=== PATIENT | female | born 1995 | race Caucasian/White ===

== ENCOUNTER 2020-12-25 13:21 | Emergency (ER) | payer OTHER, SELFPAY ==
[2020-12-25 13:24] VITALS: BP 109/67; PULSE 100; RESP 17; TEMP 36.9; O2SAT 99; BMI 21.7
[2020-12-25 14:21] LABS: Glucose Urine UA NEG (NEG); Leukocyte Esterase Urine NEG (NEG); Nitrite Urine NEG (NEG); Specific Gravity - Urine <= 1.005 (1.005-1.025); Urine Blood NEG (NEG); Urine Ketones NEG (NEG); Urine Protein NEG (NEG-TRACE)
[2020-12-25 14:22] LABS: Appearance Urine CLEAR; Color Urine STRAW; UPreg QC Valid YES
[2020-12-25 14:23] LABS: Urine Pregnancy NEGATIVE (NEGATIVE)
[2020-12-25 14:31] LABS: RBC Urine 0 /HPF (0); Squamous Epithelial Cell Urine TRACE /LPF; WBC Urine 0 /HPF (0-4)
--- NOTE | 2020-12-25 14:53 | ED_ITS ---
HPI - General Adult General Chief complaint: General Medical Stated complaint: ABD PAIN DIARRHEA Time Seen by Provider: 12/25/20 14:21 Source: patient Mode of arrival: ambulatory Limitations: no limitations History of Present Illness HPI narrative: 25-year-old female with nonsignificant past medical history presents to the emergency department with diarrhea x4 days. Patient states on Friday she started to developed loose nonbloody stool that progressed through the weekend. States she trialed Pepto-Bismol home with minimal relief. Admits to mild intermittent nausea but denies vomiting. Denies significant abdominal pain. Does admit to some mild back pressure that comes and goes. Denies urinary symptoms. Denies fevers or chills. States yesterday her stool was dark almost black color and that concerned her in fact made her come to the ED today. No known sick contacts, no recent travel and patient is vaccinated against COVID. Related Data Allergies Allergy/AdvReac Type Severity Reaction Status Date / Time No Known Allergies Allergy Verified 12/25/20 14:46 Review of Systems Review of Systems: Constitutional : No Weight loss, No Fever, No Chills, No Night Sweats, No Fatigue, No Malaise ENT/Mouth : No Hearing loss, No Ear Pain, No Nasal Congestion, No Sinus Pain, No Hoarseness, No sore throat, No Rhinorrhea, No Swallowing Difficulty Eyes: No Eye Pain, No Swelling, No Redness, No Foreign Body, No Discharge, No Vision Changes Cardiovascular : No Chest Pain, No SOB, No Dyspnea on Exertion, No Orthopnea, No Edema, No Palpitations Respiratory : No Cough, No Sputum, No Wheezing, No Smoke Exposure, No Dyspnea Gastrointestinal : + Nausea, No Vomiting, + Diarrhea, No Constipation, No abdominal Pain, No Hematochezia, No Melena Genitourinary : no irregular bleeding, No Dysuria, No Urinary Frequency, No Hematuria, No Urinary Incontinence, No Urgency, No Flank Pain, No Urinary Flow Changes, No Hesitancy Musculoskeletal : No joint pain, No Myalgias, No Joint Swelling Skin : No Skin Lesions, No rash Neuro : No Weakness, No Numbness, No Paresthesias, No Loss of Consciousness, No Dizziness, No Headache Psych : No Anxiety/Panic, No Depression, No SI/HI/AH/VH, No Social Issues, Heme/Lymph: No Bruising, No Bleeding,No Lymphadenopathy Endocrine : No Polyuria, No Polydipsia, No Temperature Intolerance [facility] Past Medical History Attestation statement: The following information was validated with the patient. Source: old records reviewed and nursing notes reviewed Medical History (Updated 12/25/20 @ 16:19 by RONALDO Lei) FHx: cholecystectomy Migraine Social History Social History Patient Tobacco Use Status: Never used Tobacco Use of substances other than those prescribed or required for medical reasons: No Advance Directives: No Advance Directives Information Provided: No Patient : No Physical Exam Vital Signs: Vital Signs: Last Vital Signs Temp 98.4 F 12/25/20 13:24 Pulse 69 12/25/20 15:52 Resp 16 12/25/20 15:52 BP 96/61 12/25/20 15:52 Pulse Ox 99 12/25/20 15:52 Body Mass Index 21.7 vital signs have been reviewed as normal and appeared to be correct. Blood pressure normal. Heart rate normal. Respiration rate normal. Temperature normal. Oxygen saturation normal. Appearance: Alert. Oriented X3. No acute distress. Head: Normal external exam. Normocephalic. Atraumatic. No Lainez signs noted. No raccoon eyes noted Eyes: Conjunctiva and sclera normal. ENT: EAC normal. Moist mucous membranes. No drooling noted. No muffled voice noted. Neck: Normal inspection. Neck supple. FROM. No meningeal signs. CVS: Pulses normal throughout. Respiratory: No respiratory distress. Painless inspiration. No accessory muscle usage noted Abdomen: No visible injury noted. Abdomen soft, nd/nt Back: Full range of motion noted.No CVA tenderness Skin: Skin warm and dry. Normal skin color. Normal skin turgor. Extremities: No lower extremity edema. Extremities exhibit normal range of motion. Neuro: Oriented X 3. No motor deficit. No sensory deficit. Course Reevaluation(s) Reevaluation #1: Patient's blood work returning without acute findings. Patient has not had a bowel movement here in the ED. Continues to deny abdominal pain is hemodynamically stable feel the discharge is safe with close outpatient primary care follow-up and strict return precautions patient is comfortable with this plan will discharge home at this time. Medical Decision Making MDM Narrative Medical decision making narrative: Patient's vital signs are stable and she is afebrile. Patient presenting to the emergency department with 3-4 days of diarrhea that now has turned dark although patient has been using Pepto-Bismol. Denies significant abdominal pain admits to mild low back soreness. Urinalysis and obtained in triage without acute findings given diarrhea this could be a viral illness versus colitis will check basic blood work LFTs lipase. Patient does not want fluids at this time feel this is reasonable as she is tolerating p.o. and continues to urinate at baseline. Abdomen soft nondistended nontender no acute need for imaging at this time will continue to monitor reassess pending the above. Lab Data Result diagrams: 12/25/20 14:53 12/25/20 14:53 Labs: Lab Results 12/25/20 12/25/20 12/25/20 Range/Units 14:15 14:15 14:53 WBC 5.4 (4.8-10.8) X10*3/uL RBC 4.16 L (4.20-5.50) X10*6/uL Hgb 12.8 (12.0-16.0) g/dl Hct 38.3 (37-47) % MCV 92.1 (80-98) fL MCH 30.8 (27.0-33.0) pg MCHC 33.4 (31.0-35.0) g/dl RDW 11.2 (11.0-16.0) % Plt Count 205 (160-400) X10*3/uL MPV 10.5 (9.4-12.3) fL Immature Gran % (Auto) 0.4 (0.0-0.4) % Neut % (Auto) 59.3 (45-73) % Lymph % (Auto) 28.7 (20-40) % [place] % (Auto) 9.2 (2-11) % Eos % (Auto) 2.0 (0-4) % Baso % (Auto) 0.4 (0-2) % Lymph # (Auto) 1.6 (1.2-4.9) X10*3/uL [place] # (Auto) 0.5 (0.1-1.2) X10*3/uL Eos # (Auto) 0.1 (0.0-0.4) X10*3/uL Baso # (Auto) 0.0 (0.0-0.2) X10*3/uL Abs Immat Gran (auto) 0.02 (0.00-0.03) X10*3/uL Absolute Neuts (auto) 3.2 (2.0-8.3) X10*3/uL Absolute Nucleated RBC 0.000 (0.0-0.012) X10*3/uL Nucleated RBC % (auto) 0.0 (0.0-0.2) /100WBC Sodium (135-145) mmol/L Potassium (3.3-5.1) mmol/L Chloride (96-108) mmol/L Carbon Dioxide (22-29) mmol/L Anion Gap (12-20) BUN (9-16) mg/dL Creatinine (0.5-1.4) mg/dL Estim Creat Clear Calc Estimated GFR Random Glucose (60-115) mg/dL Calcium (8.4-10.2) mg/dL Total Bilirubin (0.0-1.0) mg/dL AST (5-31) U/L ALT (0-31) U/L Alkaline Phosphatase (39-117) U/L Total Protein (6.5-8.0) g/dL Albumin (3.5-5.0) g/dL Lipase (8-78) U/L Urine Color STRAW Urine Appearance CLEAR Urine pH 6.0 (5.0-8.0) Ur Specific [place] <= 1.005 (1.005-1.025) Urine Protein NEG (NEG-TRACE) MG/DL Urine Glucose (UA) NEG (NEG) MG/DL Urine Ketones NEG (NEG) MG/DL Urine Blood NEG (NEG) Urine Nitrite NEG (NEG) Ur Leukocyte Esterase NEG (NEG) Urine RBC 0 (0) /HPF Urine WBC 0 (0-4) /HPF Ur Squamous Epith Cells TRACE /LPF Urine Bacteria NONE /LPF Urine Test NEGATIVE (NEGATIVE) COVID-19 (RYAN) (Negative) COVID-19 Clin Com 12/25/20 12/25/20 12/25/20 Range/Units 14:53 14:53 14:54 WBC (4.8-10.8) X10*3/uL RBC (4.20-5.50) X10*6/uL Hgb (12.0-16.0) g/dl Hct (37-47) % MCV (80-98) fL MCH (27.0-33.0) pg MCHC (31.0-35.0) g/dl RDW (11.0-16.0) % Plt Count (160-400) X10*3/uL MPV (9.4-12.3) fL Immature Gran % (Auto) (0.0-0.4) % Neut % (Auto) (45-73) % Lymph % (Auto) (20-40) % [place] % (Auto) (2-11) % Eos % (Auto) (0-4) % Baso % (Auto) (0-2) % Lymph # (Auto) (1.2-4.9) X10*3/uL [place] # (Auto) (0.1-1.2) X10*3/uL Eos # (Auto) (0.0-0.4) X10*3/uL Baso # (Auto) (0.0-0.2) X10*3/uL Abs Immat Gran (auto) (0.00-0.03) X10*3/uL Absolute Neuts (auto) (2.0-8.3) X10*3/uL Absolute Nucleated RBC (0.0-0.012) X10*3/uL Nucleated RBC % (auto) (0.0-0.2) /100WBC Sodium 139 (135-145) mmol/L Potassium 4.0 (3.3-5.1) mmol/L Chloride 106 (96-108) mmol/L Carbon Dioxide 27 (22-29) mmol/L Anion Gap 10 L (12-20) BUN 10 (9-16) mg/dL Creatinine 0.79 (0.5-1.4) mg/dL Estim Creat Clear Calc 81.4 Estimated GFR > 60 Random Glucose 90 (60-115) mg/dL Calcium 9.0 (8.4-10.2) mg/dL Total Bilirubin 0.4 (0.0-1.0) mg/dL AST 17 (5-31) U/L ALT 18 (0-31) U/L Alkaline Phosphatase 54 (39-117) U/L Total Protein 6.5 (6.5-8.0) g/dL Albumin 4.2 (3.5-5.0) g/dL Lipase 17 (8-78) U/L Urine Color Urine Appearance Urine pH (5.0-8.0) Ur Specific [place] (1.005-1.025) Urine Protein (NEG-TRACE) MG/DL Urine Glucose (UA) (NEG) MG/DL Urine Ketones (NEG) MG/DL Urine Blood (NEG) Urine Nitrite (NEG) Ur Leukocyte Esterase (NEG) Urine RBC (0) /HPF Urine WBC (0-4) /HPF Ur Squamous Epith Cells /LPF Urine Bacteria /LPF Urine Test (NEGATIVE) COVID-19 (RYAN) Negative (Negative) COVID-19 Clin Com See Note Discharge Plan Discharge Clinical Impression: Diarrhea Qualifiers: Diarrhea type: presumed infectious Qualified Code(s): R19.7 - Diarrhea, unspecified Patient Disposition: Home, Self-Care Instructions: Acute Diarrhea (ED) Additional Instructions: You were seen in the emergency department today for ongoing diarrhea and concern for dark stools. Blood work was drawn without abnormal findings. Her symptoms are likely secondary to a viral illness continue to encourage fluids at home for hydration. Stop the Pepto-Bismol as this is likely causing or dark stools which is not blood. Follow-up with your doctor in next 2-3 days if symptoms persist. Referrals: Physician,None [Primary Care Provider] - 2 days (your pcp) Stand Alone Forms: Work/School Release Interventions: ED Discharge Assessment Last Done: 12/25/20 16:46 Discharge Date/Time: 12/25/20 16:46 Print Language: Serbian
[2020-12-25 14:58] LABS: MANUAL DIFF FLAG NO
[2020-12-25 14:59] LABS: Basophils Percent Auto 0.4 % (0-2); Eosinophils Absolute Auto 0.1 X10*3/uL (0.0-0.4); Hematocrit 38.3 % (37-47); Hemoglobin 12.8 g/dl (12.0-16.0); Imm Gran Abs Auto 0.02 X10*3/uL (0.00-0.03); Imm Gran Pct Auto 0.4 % (0.0-0.4); Lymphocytes Absolute Auto 1.6 X10*3/uL (1.2-4.9); Lymphocytes Percent Auto 28.7 % (20-40); Mean Corpuscular HGB Conc 33.4 g/dl (31.0-35.0); Mean Corpuscular Hemoglobin 30.8 pg (27.0-33.0); Mean Corpuscular Volume 92.1 fL (80-98); Mean Platelet Volume 10.5 fL (9.4-12.3); Monocytes Absolute Auto 0.5 X10*3/uL (0.1-1.2); Monocytes Percent Auto 9.2 % (2-11); Neutrophils Absolute Auto 3.2 X10*3/uL (2.0-8.3); Neutrophils Percent Auto 59.3 % (45-73); Platelet Count 205 X10*3/uL (160-400); Red Blood Count 4.16 X10*6/uL (4.20-5.50); Red Cell Distribution Width 11.2 % (11.0-16.0); White Blood Count 5.4 X10*3/uL (4.8-10.8)
[2020-12-25 15:16] LABS: IDNOW Serial# 9DD0AD1C
[2020-12-25 15:17] LABS: COVID-19 Test Negative (Negative)
[2020-12-25 15:21] LABS: Alanine Aminotransferase 18 U/L (0-31); Albumin Level 4.2 g/dL (3.5-5.0); Alkaline Phosphatase 54 U/L (39-117); Anion Gap 10 (12-20); Aspartate Amino Transferase 17 U/L (5-31); Bilirubin Total 0.4 mg/dL (0.0-1.0); Blood Urea Nitrogen 10 mg/dL (9-16); Carbon Dioxide 27 mmol/L (22-29); Chloride 106 mmol/L (96-108); Creatinine Clr Calc Pharmacy 81.4; Estimated Glomerular Filt Rate > 60; Glucose Random 90 mg/dL (60-115); Sodium 139 mmol/L (135-145); Total Protein 6.5 g/dL (6.5-8.0)
[2020-12-25 15:31] LABS: Lipase 17 U/L (8-78)
[2020-12-25 15:52] VITALS: BP 96/61; PULSE 69; RESP 16; O2SAT 99
== END 2020-12-25 16:46 | disposition home or self-care (01) ==
PROVIDERS: Physician Assistant; Emergency Provider Emergency Medicine Emergency Medical Services
DX: R19.7 Diarrhea, unspecified (principal); Z20.822 Contact with and (suspected) exposure to COVID-19; Z90.49 Acquired absence of other specified parts of digestive tract
CPT/HCPCS: 36415; 80053; 81001; 81025; 83690; 85025; 87635; 99283; 99284

== ENCOUNTER 2021-05-30 15:54 | Outpatient (REF) | payer OTHER, SELFPAY ==
--- NOTE | ~2021-05-30 | US_ITS ---
EXAMINATION: US PELVIS CLINICAL INFORMATION: Left ovarian cyst COMPARISON: None TECHNIQUE: Ultrasound of the pelvis is performed using both transabdominal and transvaginal transducers along with Doppler. Transvaginal imaging is performed due to inadequate visualization transabdominally. FINDINGS: The uterus is anteverted and measures 7.9 x 3.9 x 4.5 cm. No focal uterine lesion is seen. Endometrial thickness is normal measuring 0.2 cm. There is a small amount of fluid seen in the endocervical canal. There is a small nabothian cyst. The right ovary is normal and measures 2.3 x 1.5 x 2.3 cm. Left ovary is enlarged and measures 4.5 x 3 x 3.5 cm. There is a 4.1 x 2.4 x 3.2 cm simple left ovarian cyst. There is no fluid in the pelvis. US/US pelvic and transvaginal IMPRESSION: Enlarged left ovary and 4.1 x 2.4 x 3.2 cm simple left ovarian cyst.
== END 2021-05-30 15:55 | disposition home or self-care (01) ==
LOC: HO.US 15:54
PROVIDERS: Visit Provider Obstetrics & Gynecology
DX: N83.292 Other ovarian cyst, left side (principal)
CPT/HCPCS: 76830; 76856

== ENCOUNTER 2021-07-02 15:25 | Outpatient (REF) | payer OTHER, SELFPAY ==
--- NOTE | ~2021-07-02 | US_ITS ---
EXAMINATION: US PELVIS CLINICAL INFORMATION: Follow up left ovarian cyst. COMPARISON: Ultrasound pelvis 05/30/2021. TECHNIQUE: Ultrasound of the pelvis is performed using both transabdominal and transvaginal transducers along with Doppler. Transvaginal imaging is performed due to inadequate visualization transabdominally. FINDINGS: Uterus: The uterus is anteverted, anteflexed and measures 7.6 x 3.6 x 5.3 cm. The double wall endometrial thickness is 0.2 cm. The uterus is smooth in contour and has normal myometrial echogenicity. No visible fibroid. There is minimal fluid within the cervix. There are small nabothian cysts in the cervix. Adnexa: Both ovaries are visualized. There is normal color flow to the adnexa. There is no ovarian torsion. There is no pelvic ascites or fluid collection. Right ovary measures 3.4 x 1.7 x 1.4 cm and volume 4.2 mL. It appears unremarkable. Previously right ovary measured 2.3 x 1.5 x 2.3 cm. Left ovary measures 3.5 x 1.5 x 1.5 cm and volume 3.7 mL. There is an anechoic cyst in the left ovary measuring 1.5 x 0.5 x 0.86 cm. Previously it measured 4.1 x 2.4 x 3.2 cm. The ovaries size has improved since the last study. US/US pelvic and transvaginal IMPRESSION: Simple cyst left ovary measuring 1.5 cm. Previously it measured 4.1 cm. It has improved in size. The left ovary size is also improved. The right ovary is unremarkable. There are small nabothian cysts in the cervix. The uterus is unremarkable.
== END 2021-07-02 15:26 | disposition home or self-care (01) ==
LOC: HO.US 15:25
PROVIDERS: Visit Provider Obstetrics & Gynecology
DX: N83.292 Other ovarian cyst, left side (principal)
CPT/HCPCS: 76830; 76856

== ENCOUNTER 2021-08-16 07:50 | Outpatient (REF) | payer OTHER, SELFPAY ==
[2021-08-16 10:35] LABS: MANUAL DIFF FLAG NO
[2021-08-16 10:41] LABS: Basophils Percent Auto 0.3 % (0-2); Eosinophils Absolute Auto 0.1 X10*3/uL (0.0-0.4); Eosinophils Percent Auto 2.1 % (0-4); Hematocrit 38.8 % (37.0-47.0); Hemoglobin 12.5 g/dl (12.0-16.0); Imm Gran Abs Auto 0.01 X10*3/uL (0.00-0.03); Imm Gran Pct Auto 0.2 % (0.0-0.4); Lymphocytes Absolute Auto 2.3 X10*3/uL (1.2-4.9); Lymphocytes Percent Auto 36.7 % (20-40); Mean Corpuscular HGB Conc 32.2 g/dl (31.0-35.0); Mean Corpuscular Hemoglobin 30.8 pg (27.0-33.0); Mean Corpuscular Volume 95.6 fL (80.0-98.0); Mean Platelet Volume 11.1 fL (9.4-12.3); Monocytes Absolute Auto 0.4 X10*3/uL (0.1-1.2); Monocytes Percent Auto 6.7 % (2-11); Neutrophils Absolute Auto 3.3 x10*3/uL (2.0-8.3); Platelet Count 233 X10*3/uL (160-400); Red Blood Count 4.06 X10*6/uL (4.20-5.50); Red Cell Distribution Width 11.6 % (11.0-16.0); White Blood Count 6.1 X10*3/uL (4.8-10.8)
[2021-08-16 11:28] LABS: Alanine Aminotransferase 16 U/L (0-31); Albumin Level 4.3 g/dL (3.5-5.0); Alkaline Phosphatase 44 U/L (39-117); Anion Gap 12 (12-20); Aspartate Amino Transferase 15 U/L (5-31); Bilirubin Total 0.9 mg/dL (0.0-1.0); Blood Urea Nitrogen 14 mg/dL (9-16); Calcium 9.6 mg/dL (8.4-10.2); Carbon Dioxide 25 mmol/L (22-29); Chloride 107 mmol/L (96-108); Cholesterol 199 mg/dL; Estimated Glomerular Filt Rate > 60; Glucose Fasting 80 mg/dL (60-99); HDL Cholesterol 52 mg/dL; Iron 102 mcg/dL (30-160); LDL Cholesterol Calculated 136 mg/dl; Percent Iron Saturation 32 % (15-50); Potassium 4.4 mmol/L (3.3-5.1); Sodium 140 mmol/L (135-145); Total Iron Binding Capacity 317 mcg/dL (228-428); Triglycerides 58 mg/dL; Unsaturated Iron Binding 215 ug/dL
[2021-08-16 11:32] LABS: Cortisol Random 14.4 ug/dL
[2021-08-16 11:36] LABS: Estimated Average Glucose 94 mg/dL; Hemoglobin A1c % 4.9 %
[2021-08-16 11:53] LABS: Ferritin 47 ng/mL (10-122); Free T4 (Free Thyroxine) 0.98 ng/dL (0.71-1.85); Insulin 5 uU/mL (2-29); Thyroid Stimulating Hormone 1.01 uIU/mL (0.32-4.0)
[2021-08-17 06:37] LABS: DHEA Sulfate 161 mcg/dL (18-391); Thyroglobulin Antibodies <1 IU/mL (< or = 1); Thyroid Peroxidase Antibodies 1 IU/mL (<9)
[2021-08-17 06:46] LABS: Follicle Stimulating Hormone 7.4 mIU/mL; Lutenizing Hormone 5.5 mIU/mL
[2021-08-17 12:36] LABS: Anti Nuclear Antibody Screen NEGATIVE (NEGATIVE)
[2021-08-17 13:37] LABS: CRP High Sensitivity 0.4 mg/L
[2021-08-20 15:17] LABS: Transglutaminase Ab IgG <1.0 U/mL; Transglutaminase IgA <1.0 U/mL
[2021-08-20 16:06] LABS: Testosterone, Free 2.8 pg/mL (0.1-6.4); Testosterone, Total 33 ng/dL (2-45)
[2021-08-21 12:52] LABS: Triiodothyronine T3 Reverse 16 ng/dL (8-25)
[2021-08-22 19:56] LABS: Estrogen 444.5 pg/mL
== END 2021-08-16 07:51 | disposition home or self-care (01) ==
LOC: HO.10HDL 07:50
PROVIDERS: Visit Provider Nurse Practitioner Family
DX: E55.9 Vitamin D deficiency, unspecified (principal); R51.9 Headache, unspecified; R14.0 Abdominal distension (gaseous); N92.6 Irregular menstruation, unspecified; R73.01 Impaired fasting glucose; D51.3 Other dietary vitamin B12 deficiency anemia
CPT/HCPCS: 36415; 80053; 80061; 82533; 82627; 82672; 82728; 83001; 83002; 83036; 83525; 83540; 84402; 84403; 84439; 84443; 84481; 84482; 85025; 86038; 86039; 86141; 86364; 86376; 86800

== ENCOUNTER 2021-12-21 09:05 | Outpatient (REF) | payer OTHER, SELFPAY ==
[2021-12-21 11:24] LABS: MANUAL DIFF FLAG NO
[2021-12-21 11:36] LABS: Basophils Percent Auto 0.5 % (0-2); Eosinophils Absolute Auto 0.1 X10*3/uL (0.0-0.4); Eosinophils Percent Auto 2.1 % (0-4); Hemoglobin 12.3 g/dl (12.0-16.0); Imm Gran Abs Auto 0.03 X10*3/uL (0.00-0.03); Imm Gran Pct Auto 0.5 % (0.0-0.4); Lymphocytes Percent Auto 33.2 % (20-40); Mean Corpuscular HGB Conc 33.2 g/dl (31.0-35.0); Mean Corpuscular Hemoglobin 31.4 pg (27.0-33.0); Mean Corpuscular Volume 94.4 fL (80.0-98.0); Mean Platelet Volume 11.5 fL (9.4-12.3); Monocytes Absolute Auto 0.5 X10*3/uL (0.1-1.2); Monocytes Percent Auto 7.7 % (2-11); Neutrophils Absolute Auto 3.4 x10*3/uL (2.0-8.3); Platelet Count 215 X10*3/uL (160-400); Red Blood Count 3.92 X10*6/uL (4.20-5.50); Red Cell Distribution Width 11.4 % (11.0-16.0); White Blood Count 6.1 X10*3/uL (4.8-10.8)
[2021-12-21 11:55] LABS: Alanine Aminotransferase 13 U/L (0-31); Albumin Level 4.2 g/dL (3.5-5.0); Alkaline Phosphatase 45 U/L (39-117); Anion Gap 10 (12-20); Aspartate Amino Transferase 15 U/L (5-31); Bilirubin Total 0.7 mg/dL (0.0-1.0); Blood Urea Nitrogen 12 mg/dL (9-16); Calcium 9.1 mg/dL (8.4-10.2); Carbon Dioxide 24 mmol/L (22-29); Chloride 107 mmol/L (96-108); Estimated Glomerular Filt Rate > 60; Glucose Random 85 mg/dL (60-115); Potassium 4.1 mmol/L (3.3-5.1); Sodium 137 mmol/L (135-145); Total Protein 6.8 g/dL (6.5-8.0)
== END 2021-12-21 09:06 | disposition home or self-care (01) ==
LOC: HO.WFDLDS 09:05
PROVIDERS: Visit Provider Family Medicine
DX: Z00.00 Encounter for general adult medical examination without abnormal findings (principal); R10.31 Right lower quadrant pain
CPT/HCPCS: 36415; 80053; 85025

== ENCOUNTER 2021-12-21 09:34 | Outpatient (REF) | payer OTHER, SELFPAY ==
--- NOTE | ~2021-12-21 | US_ITS ---
EXAMINATION: US PELVIS CLINICAL INFORMATION: Right lower quadrant pain and tenderness COMPARISON: 07/02/2021 TECHNIQUE: Ultrasound of the pelvis is performed using both transabdominal and transvaginal transducers along with Doppler. Transvaginal imaging is performed due to inadequate visualization transabdominally. FINDINGS: The uterus is 9.5 x 3.9 x 5.2 cm. Anteverted. The endometrial thickness is measured by the shirt line operator at 5 mm. The right ovary is 3.4 x 1.8 x 1.7 cm. Volume 5.4 mL. Minimal free fluid around the right ovary. The ovary is felt to be within normal limits. The left ovary is measuring 3.6 x 3.2 x 3.9 cm. Volume 23 mL. There is a complex cyst which has thick santos and septations associated with left ovary. Measures 2.8 x 1.9 x 2.5 cm. US/US pelvic and transvaginal IMPRESSION: Complex cyst associated with left ovary as described. This may represent hemorrhagic cysts. Correlate with status. Small amount of free fluid is seen around a normal-appearing right ovary. Minimal free fluid in the cul-de-sac.
--- NOTE | ~2021-12-21 | US_ITS ---
EXAMINATION: ULTRASOUND APPENDIX CLINICAL INFORMATION: Right lower quadrant pain COMPARISON: None TECHNIQUE: Grayscale and color imaging of the right lower quadrant FINDINGS: The appendix is not seen. No ascites is seen in the right lower quadrant. No adenopathy is appreciated. US/US appendix IMPRESSION: Appendix not identified by ultrasound.
== END 2021-12-21 09:35 | disposition home or self-care (01) ==
LOC: HO.US 09:34
PROVIDERS: Visit Provider Family Medicine
DX: R10.31 Right lower quadrant pain (principal)
CPT/HCPCS: 76705; 76830; 76856

== ENCOUNTER 2021-12-21 16:56 | Emergency (ER) | payer OTHER, SELFPAY ==
--- NOTE | ~2021-12-21 | CT_ITS ---
EXAMINATION: CT ABDOMEN AND PELVIS WITHOUT CONTRAST CLINICAL INFORMATION: Right lower quadrant pain COMPARISON: Pelvic ultrasound 12/21/2021 TECHNIQUE: Multidetector volumetric imaging was performed from the superior aspect of the liver through the pubic symphysis. Sagittal and coronal reformatted images were obtained on the technologist's workstation. This CT examination was performed using dose optimization techniques as appropriate, variously including the following: *Automated exposure control *Adjustment of mA and/or kV according to patient size (this includes techniques or standardized protocols for targeted exams where dose is matched to indication/reason for exam; i.e. extremities or head) *Use of iterative reconstruction technique DLP: 259 mGy-cm FINDINGS: LUNG BASES: The visualized lung bases are unremarkable. LIVER, GALLBLADDER, AND BILIARY TREE: The liver is normal in size, shape, and attenuation. No focal hepatic lesion or biliary ductal dilatation is present. Status post cholecystectomy PANCREAS: Unremarkable. SPLEEN: Unremarkable. ADRENAL GLANDS: Unremarkable. KIDNEYS AND URETERS: The kidneys are normal in size, shape, and attenuation. No hydronephrosis, hydroureter, or calculi seen. No perinephric stranding. BLADDER: Unremarkable. GASTROINTESTINAL TRACT: The small and large bowel are unremarkable. The appendix is unremarkable. MESENTERY: No inflammation. No free air. No mass or significant lymphadenopathy. ABDOMINAL WALL: No significant hernia is appreciated. LYMPH NODES: Normal. VASCULAR: Unremarkable. PELVIC VISCERA: Uterus is anteverted. Left adnexal cystic structure correlating to the complex cyst on pelvic ultrasound performed 12/21/2021. See separate report. OSSEOUS STRUCTURES: Unremarkable. CT/CT abdomen pelvis wo con IMPRESSION: Normal ultrasound of the abdomen and pelvis. Normal appendix. Fleischner guidelines were followed.
[2021-12-21 17:53] VITALS: BP 124/79; PULSE 93; RESP 16; TEMP 36.9; O2SAT 98; BMI 21.7
--- NOTE | 2021-12-21 18:01 | PC.NURSE ---
Pt had labs done at [facility] facility at 10am today.
--- NOTE | 2021-12-21 18:13 | ED.ABDPAIN ---
HPI - Abdominal Pain General Chief Complaint: Abdominal Pain Stated Complaint: possible appendicitis Time Seen by Provider: 12/21/21 18:03 Source: patient and family Mode of arrival: ambulatory Limitations: no limitations History of Present Illness HPI narrative: 26-year-old female came in for evaluation of abdominal pain. Abdominal pain started yesterday as a dull aching pain in the lower abdomen, today pain is worsening and more localized to the right lower abdomen, pain described as constant, moderate 5/10, with no radiation, had multiple small bowel movements today passing flatus, no nausea, no vomiting, less appetite than normal but was able to eat today, pain is worsening with movement or driving over bumps. Patient not sexually active for few months, declined a risk for STDs, no vaginal discharge, no vaginal bleeding, no fever, no chills. Patient had a history of ovarian cysts. Surgical history of cholecystectomy. Patient was seen and evaluated at a walking clinic had pelvic ultrasound which showed left ovarian complex cyst which is not consistent with her symptoms, otherwise normal appearing right ovary, appendix ultrasound was not able to evaluate the appendix. Related Data Home Medications Medication Instructions Recorded Confirmed nortriptyline 10 mg capsule 10 mg PO DAILY 12/21/21 12/21/21 Previous Rx's Medication Instructions Recorded tramadol 50 mg tablet 50 mg PO BID PRN 3 Days #6 tab 12/21/21 Allergies Allergy/AdvReac Type Severity Reaction Status Date / Time No Known Allergies Allergy Verified 12/21/21 17:53 Review of Systems Review of Systems All other systems are reviewed and are negative Constitutional: Reports as per HPI and Reports no additional constitutional complaints Eyes: Reports as per HPI and Reports no additional eye complaints Reports system reviewed and no additional complaints, except as documented Cardiovascular: Reports as per HPI and Reports no additional cardiovascular complaints Respiratory: Reports as per HPI and Reports no additional respiratory complaints Gastrointestinal: Reports as per HPI and Reports no additional gastrointestinal complaints Genitourinary: Reports no additional female genitourinary complaints Musculoskeletal: Reports no additional musculoskeletal complaints Skin/Breast: Reports system reviewed and no additional complaints, except as docu Psychiatric: Reports no additional psychiatric complaints Endocrine: Reports no additional endocrine complaints Hematologic/Lymphatic: Reports no additional hematologic/lymphatic complaints Allergic/Immunologic: Reports no additional allergic/immunologic complaints Reports system reviewed and no additional complaints, except as documented and Reports Abnormal speech present [facility] Past Medical History Medical History FHx: cholecystectomy Migraine Social History Social History Patient Tobacco Use Status: Never used Tobacco Advance Directives: No Advance Directives Information Provided: No Physical Exam ED Vital Signs: Vital Signs - 24 hr 12/21/21 17:53 Temperature 98.5 F Pulse Rate 93 Respiratory Rate 16 Blood Pressure 124/79 Pulse Oximetry 98 BMI result Body Mass Index 21.7 Vital signs have been reviewed as appeared to be correct. Blood pressure normal. Heart rate normal. Respiration rate normal. Temperature normal. Oxygen saturation normal. Appearance: Alert. Oriented X3. No acute distress. Head: Normal external exam. Normocephalic. Atraumatic. No Lainez signs noted. No raccoon eyes noted Eyes: PERRLA. EOMI. Conjunctiva and sclera normal. Eyelids normal. ENT: TM's Normal. Pharynx normal. Uvula midline. Moist mucous membranes. No trismus noted. No drooling noted. No muffled voice noted. Neck: Normal inspection. Neck supple. FROM. No adenopathy. Thyroid Normal. No meningeal signs. No neck mass noted. CVS: Normal heart rate and rhythm. Heart sound normal. No murmurs noted. Pulses normal throughout. Respiratory: No respiratory distress. Painless inspiration. Breath sounds normal. No wheezes/rales/rhonchi noted. Chest nontender. No accessory muscle usage noted or decreased air movement noted. Abdomen: Soft, right lower quadrant tenderness, no rebound, no guarding. Bowel sounds normal in all 4 quadrants. No distention noted. No organomegaly noted. No visible injury noted. Back: No CVA tenderness. Full range of motion noted. Skin: Skin warm and dry. Normal skin color. Normal skin turgor. No rashes/lesions/lacerations noted. Extremities: No lower extremity edema. Extremities exhibit normal range of motion. Extremities nontender. Neuro: Oriented X 3. Cranial nerve exam: II-XII are grossly intact No motor deficit. No sensory deficit. Reflexes normal. Course Course Course Narrative: Assessment and plan. 26-year-old female came in for evaluation of right lower abdominal pain for 2 days, patient had unremarkable blood workup with no leukocytosis, CT revealed normal appendix with normal pelvic structure, patient had earlier ultrasound which is unremarkable. MDM - Abdominal Pain Lab Data Attestation: I reviewed the patient's lab results. Labs: Lab Results 12/21/21 12/21/21 12/21/21 Range/Units 19:01 19:01 Unknown Beta HCG, Quant < 2 mIU/mL Urine Color YELLOW Urine Appearance CLEAR Urine pH 6.0 (5.0-8.0) Ur Specific [place] <= 1.005 (1.005-1.025) Urine Protein NEG (NEG-TRACE) MG/DL Urine Glucose (UA) NEG (NEG) MG/DL Urine Ketones 5 (NEG) MG/DL Urine Blood TRACE (NEG) Urine Nitrite NEG (NEG) Ur Leukocyte Esterase NEG (NEG) Urine RBC 0-2 (0) /HPF Urine WBC 0 (0-4) /HPF Ur Squamous Epith Cells NONE /LPF Urine Bacteria NONE /LPF Urine Test NEGATIVE (NEGATIVE) Imaging Data CT scan - abdomen: Attestation: I personally reviewed and interpreted this imaging study as follows: Radiologist's impression: Normal CT of the abdomen and pelvis with normal appendix. Pelvic ultrasound: Attestation: I personally reviewed and interpreted this imaging study as follows: Radiologist's impression: Complex cyst associated with left ovary as described. This may represent hemorrhagic cysts. Correlate with status. Small amount of free fluid is seen around a normal-appearing right ovary. Discharge Plan Discharge Clinical Impression: Right lower quadrant abdominal pain Patient Disposition: Home, Self-Care Instructions: Acute Abdominal Pain (ED) Prescriptions: No Action nortriptyline 10 mg capsule 10 mg PO DAILY 0RF tramadol 50 mg tablet 50 mg PO BID PRN (Reason: pain) 3 Days Qty: 6 0RF Referrals: Physician,None [Primary Care Provider] -
[2021-12-21 19:24] LABS: HCG Quantitative < 2 mIU/mL
[2021-12-21 19:27] LABS: Appearance Urine CLEAR; Color Urine YELLOW; Glucose Urine UA NEG (NEG); Leukocyte Esterase Urine NEG (NEG); Nitrite Urine NEG (NEG); Specific Gravity - Urine <= 1.005 (1.005-1.025); UACC Culture Trigger NO; Urine Blood TRACE (NEG); Urine Ketones 5 MG/DL (NEG); Urine Protein NEG (NEG-TRACE)
[2021-12-21 19:29] LABS: UPreg QC Valid YES; Urine Pregnancy NEGATIVE (NEGATIVE)
[2021-12-21 19:34] LABS: RBC Urine 0-2 /HPF (0); WBC Urine 0 /HPF (0-4)
== END 2021-12-21 22:36 | disposition home or self-care (01) ==
PROVIDERS: Emergency Provider Emergency Medicine
DX: R10.31 Right lower quadrant pain (principal)
CPT/HCPCS: 36415; 74176; 81001; 81025; 84702; 99281; 99284

== ENCOUNTER 2022-01-02 13:57 | Outpatient (REF) | payer OTHER, SELFPAY ==
[2022-01-05 14:32] LABS: Immunoglobulin A 210 mg/dL (47-310)
[2022-01-10 06:36] LABS: Transglutaminase IgA <1.0 U/mL
== END 2022-01-02 13:58 | disposition home or self-care (01) ==
LOC: HO.LAB 13:57
PROVIDERS: Visit Provider Otolaryngology
DX: J30.89 Other allergic rhinitis (principal)
CPT/HCPCS: 36415; 82784; 82785; 86003; 86364

== ENCOUNTER 2022-01-11 08:06 | Outpatient (REF) | payer OTHER, SELFPAY ==
--- NOTE | ~2022-01-11 | MR_ITS ---
EXAMINATION: MR BRAIN WITHOUT AND WITH CONTRAST CLINICAL INFORMATION: 26-year-old with vertigo. Evaluate for possible right-sided acoustic neuroma. COMPARISON: None TECHNIQUE: Multiplanar, multisequence MRI of the brain/IACs was obtained before and after the intravenous administration of 5 mL Gadavist. FINDINGS: IACs: Bilaterally symmetric, no mass lesions or abnormal enhancement. CN VII-VIII complexes normal. AICA LOOPS: None. MEMBRANOUS LABYRINTHS: Normal, no abnormal enhancement. CP ANGLE CISTERNS: No mass lesions or abnormal enhancement. BRAIN VOLUME: Within normal limits. BRAIN AND MENINGES: Borderline cerebellar tonsillar ectopia noted on the right, which is an anatomic variant. DWI sequence demonstrates no restricted diffusion to suggest acute or subacute cerebral ischemia. The brain parenchyma is normal in morphology and signal intensity. Gradient refocused imaging demonstrates no evidence for hemorrhage, hemosiderin staining or abnormal mineral deposition. No extra-axial fluid collections, intracranial mass lesions, abnormal brain parenchymal or leptomeningeal enhancement, space-occupying process or mass effect. VESSELS: Signal voids are noted in the visualized major intracranial vessels within the limitations of the study. VENTRICLES AND SUBARACHNOID SPACES: The ventricular system and subarachnoid spaces are within normal limits without hydrocephalus. ORBITAL STRUCTURES: Limited assessment. Grossly unremarkable. OSSEOUS STRUCTURES, SINUSES/MASTOIDS, EXTRACRANIAL SOFT TISSUES: Osseous marrow signal intensity appears within normal limits. Visualized extracranial soft tissue structures appear grossly unremarkable. Nasal septal deviation to the left is noted. MR/MR head/brain wo/w con IMPRESSION: 1. Normal appearance to the auditory apparatus with a normal appearance to the IACs, CP angle cisterns and inner ear structures. No mass lesions or abnormal enhancement are identified. 2. Unremarkable appearance to the remainder of the brain.
== END 2022-01-11 08:07 | disposition home or self-care (01) ==
LOC: HO.MRI 08:06
PROVIDERS: PCP Family Medicine; Visit Provider Otolaryngology
DX: H81.4 Vertigo of central origin (principal); D33.3 Benign neoplasm of cranial nerves
CPT/HCPCS: 70553; A9585

== ENCOUNTER 2022-01-15 15:00 | Outpatient (RCR) | payer OTHER, SELFPAY | END 2022-03-01 14:32 | disposition home or self-care (01) | LOC: HO.PT 15:00 | PROVIDERS: Visit Provider Otolaryngology | DX: R42 Dizziness and giddiness (principal) | CPT/HCPCS: 95992; 97112; 97162 ==

== ENCOUNTER 2022-01-17 07:36 | Outpatient (REF) | payer OTHER, SELFPAY ==
[2022-01-17 10:32] LABS: MANUAL DIFF FLAG NO
[2022-01-17 10:36] LABS: Basophils Percent Auto 0.6 % (0-2); Eosinophils Absolute Auto 0.1 X10*3/uL (0.0-0.4); Eosinophils Percent Auto 2.2 % (0-4); Hematocrit 38.2 % (37.0-47.0); Hemoglobin 12.4 g/dl (12.0-16.0); Imm Gran Abs Auto 0.06 X10*3/uL (0.00-0.03); Imm Gran Pct Auto 0.9 % (0.0-0.4); Lymphocytes Absolute Auto 2.4 X10*3/uL (1.2-4.9); Lymphocytes Percent Auto 37.4 % (20-40); Mean Corpuscular HGB Conc 32.5 g/dl (31.0-35.0); Mean Corpuscular Hemoglobin 30.5 pg (27.0-33.0); Mean Corpuscular Volume 93.9 fL (80.0-98.0); Mean Platelet Volume 10.8 fL (9.4-12.3); Monocytes Absolute Auto 0.5 X10*3/uL (0.1-1.2); Monocytes Percent Auto 7.4 % (2-11); Neutrophils Absolute Auto 3.3 x10*3/uL (2.0-8.3); Neutrophils Percent Auto 51.5 % (45-73); Platelet Count 222 X10*3/uL (160-400); Red Blood Count 4.07 X10*6/uL (4.20-5.50); Red Cell Distribution Width 11.6 % (11.0-16.0); White Blood Count 6.5 X10*3/uL (4.8-10.8)
[2022-01-17 10:55] LABS: Alanine Aminotransferase 11 U/L (0-31); Albumin Level 4.1 g/dL (3.5-5.0); Alkaline Phosphatase 44 U/L (39-117); Anion Gap 9 (12-20); Aspartate Amino Transferase 13 U/L (5-31); Bilirubin Total 0.7 mg/dL (0.0-1.0); Blood Urea Nitrogen 13 mg/dL (9-16); Carbon Dioxide 25 mmol/L (22-29); Chloride 106 mmol/L (96-108); Cholesterol 183 mg/dL; Estimated Glomerular Filt Rate > 60; Glucose Fasting 81 mg/dL (60-99); HDL Cholesterol 52 mg/dL; LDL Cholesterol Calculated 114 mg/dl; Sodium 136 mmol/L (135-145); Total Protein 6.5 g/dL (6.5-8.0); Triglycerides 85 mg/dL
[2022-01-17 10:57] LABS: Appearance Urine CLEAR; Color Urine YELLOW; Glucose Urine UA NEG (NEG); Leukocyte Esterase Urine NEG (NEG); Nitrite Urine NEG (NEG); PH 5.5 (5.0-8.0); Specific Gravity - Urine 1.025 (1.005-1.025); Urine Blood TRACE (NEG); Urine Ketones NEG (NEG); Urine Protein NEG (NEG-TRACE)
[2022-01-17 11:05] LABS: HBc Num1 0.11 S/CO (0.00-0.79); HBsAGNum1 0.26 S/CO (0.00-0.99); HIV AB/AG Nonreactive (Nonreactive); HIV Num 1 0.19 S/CO (0.00-0.99); Hepatitis B Core Antibody Nonreactive (Nonreactive); Hepatitis B Surface Antigen Negative (Negative); ~Hepatitis B Surface Antibody REACTIVE (Nonreactive); ~Hepatitis C Antibody Nonreactive (Nonreactive)
[2022-01-17 11:10] LABS: TSH reflex Free T4 1.16 uIU/mL (0.32-4.0)
[2022-01-17 11:20] LABS: Erythrocyte Sedimentation Rate 10 MM/HR (0-20); Folate 12.1 ng/mL (> or = 4.0); Vitamin B12 379 pg/mL (200-900)
[2022-01-17 11:49] LABS: Bacteria Urine TRACE /LPF; Mucus Urine 1+ /LPF; RBC Urine 0-2 /HPF (0); Squamous Epithelial Cell Urine 1+ /LPF; WBC Urine 0-2 /HPF (0-4)
[2022-01-18 08:06] LABS: Syphilis Screen Nonreactive (Nonreactive)
[2022-01-21 18:32] LABS: CRP High Sensitivity 0.4 mg/L
== END 2022-01-17 07:37 | disposition home or self-care (01) ==
LOC: HO.10HDL 07:36
PROVIDERS: Visit Provider Family Medicine
DX: Z00.00 Encounter for general adult medical examination without abnormal findings (principal); Z11.4 Encounter for screening for human immunodeficiency virus [HIV]; Z11.3 Encounter for screening for infections with a predominantly sexual mode of transmission; R42 Dizziness and giddiness; E53.8 Deficiency of other specified B group vitamins
CPT/HCPCS: 36415; 80053; 80061; 81001; 82607; 82746; 84443; 85025; 85652; 86141; 86704; 86706; 86780; 86803; 87340; 87389

== ENCOUNTER 2022-01-29 09:09 | Outpatient (REF) | payer OTHER, SELFPAY ==
[2022-01-30 15:48] LABS: Follicle Stimulating Hormone 7.6 mIU/mL; Lutenizing Hormone 6.3 mIU/mL
[2022-02-03 15:42] LABS: Estrogen 231.1 pg/mL
[2022-02-03 17:02] LABS: Progesterone <0.1 ng/mL
== END 2022-01-29 09:10 | disposition home or self-care (01) ==
LOC: HO.10HDL 09:09
PROVIDERS: Visit Provider Family Medicine
DX: N83.209 Unspecified ovarian cyst, unspecified side (principal)
CPT/HCPCS: 36415; 82672; 83001; 83002; 84144

== ENCOUNTER 2022-05-10 14:01 | Outpatient (REF) | payer OTHER, SELFPAY ==
[2022-05-10 14:49] LABS: Influenza A PCR NEGATIVE (Negative); Influenza B PCR NEGATIVE (Negative); Resp Syncy Virus RNA Qual PCR NEGATIVE (Negative); SARS COV2 PCR INHOUSE POSITIVE (Negative)
== END 2022-05-10 14:02 | disposition home or self-care (01) ==
LOC: HO.LNP 14:01
PROVIDERS: Visit Provider Nurse Practitioner Family
DX: Z20.822 Contact with and (suspected) exposure to COVID-19 (principal); B97.89 Other viral agents as the cause of diseases classified elsewhere; J98.8 Other specified respiratory disorders
CPT/HCPCS: 0241U

== ENCOUNTER → 2022-05-23 11:40 | Outpatient (BNVA) | payer OTHER, SELFPAY | PROVIDERS: PCP Family Medicine; Visit Provider Internal Medicine Cardiovascular Disease | DX: R00.2 Palpitations (principal) | CPT/HCPCS: 93005 ==

== ENCOUNTER → 2022-06-06 08:22 | Outpatient (REF) | payer OTHER, SELFPAY ==
--- NOTE | 2022-06-06 08:25 | CA_ITS ---
Transthoracic Echocardiogram Patient (Last, First, Middle): Jenifer Monzon A Gender: Female Date of : 1995 Age: 26 Procedure Date: 06/06/2022 Procedure Type: Transthoracic Echocardiogram Location: OP Height: 154.94 cm Weight: 52.16 kg BSA: 1.49 m2 Heart Rate: bpm BP: 98 / 72 mmHg Legal Aide: JOHN Referring MD: Erick Osorio MD Brakes Inspector: Erick Osorio MD Symptoms: R00.2 - Palpitations Study Quality: Adequate Conclusions: - Essentially normal study. Findings Left Ventricle Normal left ventricular size, thickness, systolic function, and wall motion. The visually estimated ejection fraction is between 55-60%. Diastolic function is normal for age. Right Ventricle Normal right ventricular cavity size and systolic function. Atria Both atria are normal in size. Aortic Valve Normal aortic valve structure and function. There is no aortic valve stenosis. There is no aortic valve regurgitation. Mitral Valve Normal mitral valve structure and function. There is no mitral valve regurgitation. There is no mitral valve stenosis. Pulmonic Valve The pulmonic valve is likely normal. Tricuspid Valve Normal tricuspid valve structure and function. There is trace tricuspid valve regurgitation. The right ventricular systolic pressure is 16 mmHg. Normal right atrial pressure. There is no evidence of pulmonary hypertension. Great Vessels All visible segments of the aorta are normal in size. The visualized portions of the pulmonary artery and branches are normal. Venous The inferior vena cava is normal in size and collapses greater than 50% with inspiration. Pericardium/Pleural There is no evidence of pericardial effusion. Prior Study Comparison No prior study available for comparison. Measurements 2D Linear Measurements IVSd: 0.83 0.6-0.9/0.6-1.0 cm LVIDd: 4.16 3.9-5.3/4.2-5.9 cm LVIDd Index: 2.79 2.4-3.2/2.2-3.1 cm/m2 LVIDs: 2.76 2.0-3.6 cm LVPWd: 0.77 0.7-1.1 cm LA Diam: 3.00 2.7-3.8/3.0-4.0 cm LAIDs Index: 2.01 1.5-2.3 cm/m2 LV Mass: 124.08 67-162/88-224 g LV Mass Index: 83.28 43-95/49-115 g/m2 LVOT Diam: 2.00 3.0+(-)1.3 cm 2D Systolic Function EF 4C: 63.10 >55% EF 2C: 64.30 >55% EF BiP: 62.60 >55% Mitral Valve MV Pk E: 0.79 MV PK A: 0.46 MV Decel Time: 227.00 E/A: 1.70 E'Lateral: 13.40 E'Medial: 12.60 E/E' Med: 6.30 E/E' Lat: 5.90 PHT: 67.00 MVA PHT: 3.28 Decel [place]: 3.49 Aortic Valve AoV Pk Harry: 0.95 AoV Mn Harry: 0.63 AoV VTI: 0.19 AoV Pk Grad: 4.00 Aov Mn Grad: 2.00 LINA Cont.VTI: 2.89 LVOT LVOT Pk Harry: 0.83 LVOT Mn Harry: 0.55 LVOT VTI: 0.17 LVOT Pk Grad: 3.00 LVOT Mn Grad: 1.00 LVOT Diam: 2.00 LVOT Area: 3.14 Diastolic Function MV Pk E: 0.79 MV Pk A: 0.46 E/A: 1.70 E'Medial: 12.60 E/E' Med: 6.30 E' Laterial: 13.40 E/E' Lat: 5.90 Right Ventricle TAPSE (mm): 26.40 TVS' Harry: 14.50 Tricuspid Valve TR Pk Harry: 1.77 TR Pk Grad: 13.00 RA Press: 3.00 RVSP: 16.00 Great Vessels Aorta Sinus of Valsalva: 2.74 2.0-3.[address] [place]: 2.07 1.7-3.4 cm Ao Asc: 2.60 2.1-3.4 cm Updated in Other Vendor System with Status of Final Erick Osorio MD electronically signed on 06/08/2022 12:51:08 PM with status of Final
--- NOTE | 2022-06-06 08:26 | HM_ITS ---
Conclusion: 1. Patient was monitored for total period of 7 days and 2 hours 2. Baseline was normal sinus rhythm with average heart rate of 81 beats per minute 3. No significant pauses or bradycardia noted 4. Very rare ectopy noted 5. Patient reported to events which correlated with sinus rhythm. MTDD
== END ==
LOC: HO.CARD 08:22
PROVIDERS: PCP Family Medicine; Visit Provider Internal Medicine Cardiovascular Disease
DX: R00.2 Palpitations (principal)
CPT/HCPCS: 93242; 93306

== ENCOUNTER → 2022-07-19 07:57 | Outpatient (BNVA) | payer OTHER, SELFPAY | PROVIDERS: PCP Family Medicine; Visit Provider Nurse Practitioner Family | DX: R42 Dizziness and giddiness (principal) ==

== ENCOUNTER 2022-08-22 09:52 | Outpatient (REF) | payer OTHER, SELFPAY ==
[2022-08-22 15:25] LABS: CT PCR NOT DETECTED (Not Detect.); NG PCR NOT DETECTED (Not Detect.)
[2022-08-23 12:19] LABS: BV Int Neg Control Negative (Negative); BV Int Pos Control Positive (Positive)
== END 2022-08-22 09:53 | disposition home or self-care (01) ==
LOC: HO.LNP 09:52
PROVIDERS: PCP Family Medicine; Visit Provider Advanced Practice Midwife
DX: Z01.419 Encounter for gynecological examination (general) (routine) without abnormal findings (principal); G43.909 Migraine, unspecified, not intractable, without status migrainosus
CPT/HCPCS: 0353U; 87480; 87510; 87660; 88142

== ENCOUNTER 2022-10-01 10:22 | Outpatient (REF) | payer OTHER, SELFPAY ==
[2022-10-02 06:05] LABS: HBS Num1 82.99 mIU/mL (0-7.99); HBc Num1 0.14 S/CO (0.00-0.79); HBsAGNum1 0.28 S/CO (0.00-0.99); Hepatitis B Core Antibody Nonreactive (Nonreactive); Hepatitis B Surface Antigen Negative (Negative); ~HepC Num1 0.17 S/CO (0.00-0.79); ~Hepatitis B Surface Antibody REACTIVE (Nonreactive); ~Hepatitis C Antibody Nonreactive (Nonreactive)
== END 2022-10-01 10:23 | disposition home or self-care (01) ==
LOC: HO.10HDL 10:22
PROVIDERS: Visit Provider Family Medicine
DX: Z01.84 Encounter for antibody response examination (principal); Z11.3 Encounter for screening for infections with a predominantly sexual mode of transmission
CPT/HCPCS: 36415; 86704; 86706; 86803; 87340

== ENCOUNTER 2022-12-10 07:51 | Outpatient (REF) | payer OTHER, SELFPAY ==
[2022-12-12 11:18] LABS: TS Negative Control Passed; TS Panel A 0; TS Panel B 1; TS Positive Control Passed; TSpotTB Negative (Negative)
== END 2022-12-10 07:52 | disposition home or self-care (01) ==
LOC: HO.10HDL 07:51
PROVIDERS: Visit Provider Family Medicine
DX: Z11.1 Encounter for screening for respiratory tuberculosis (principal)
CPT/HCPCS: 36415; 86481

== ENCOUNTER 2023-01-04 08:37 | Outpatient (REF) | payer OTHER, SELFPAY | END 2023-01-04 08:38 | disposition home or self-care (01) | LOC: HO.LAB 08:37 | PROVIDERS: PCP Family Medicine; Visit Provider Allergy & Immunology Allergy | DX: Z13.89 Encounter for screening for other disorder (principal) ==

== ENCOUNTER 2023-02-18 07:26 | Outpatient (REF) | payer OTHER, SELFPAY ==
[2023-02-18 08:05] LABS: MANUAL DIFF FLAG NO
[2023-02-18 08:08] LABS: Basophils Percent Auto 0.5 % (0-2); Eosinophils Absolute Auto 0.3 X10*3/uL (0.0-0.4); Eosinophils Percent Auto 4.2 % (0-4); Hematocrit 38.5 % (37.0-47.0); Hemoglobin 12.7 g/dl (12.0-16.0); Imm Gran Abs Auto 0.02 X10*3/uL (0.00-0.03); Imm Gran Pct Auto 0.3 % (0.0-0.4); Lymphocytes Absolute Auto 2.7 X10*3/uL (1.2-4.9); Lymphocytes Percent Auto 42.3 % (20-40); Mean Corpuscular Hemoglobin 30.8 pg (27.0-33.0); Mean Corpuscular Volume 93.2 fL (80.0-98.0); Mean Platelet Volume 10.7 fL (9.4-12.3); Monocytes Absolute Auto 0.6 X10*3/uL (0.1-1.2); Monocytes Percent Auto 8.8 % (2-11); Neutrophils Absolute Auto 2.8 x10*3/uL (2.0-8.3); Neutrophils Percent Auto 43.9 % (45-73); Platelet Count 265 X10*3/uL (160-400); Red Blood Count 4.13 X10*6/uL (4.20-5.50); Red Cell Distribution Width 11.2 % (11.0-16.0); White Blood Count 6.4 X10*3/uL (4.8-10.8)
[2023-02-18 08:28] LABS: Alanine Aminotransferase 20 U/L (0-31); Albumin Level 4.6 g/dL (3.5-5.0); Alkaline Phosphatase 50 U/L (39-117); Anion Gap 12 (12-20); Aspartate Amino Transferase 18 U/L (5-31); Bilirubin Total 0.6 mg/dL (0.0-1.0); Blood Urea Nitrogen 12 mg/dL (9-16); Calcium 9.7 mg/dL (8.4-10.2); Carbon Dioxide 25 mmol/L (22-29); Chloride 104 mmol/L (96-108); Estimated Glomerular Filt Rate > 60; Glucose Random 88 mg/dL (60-115); Magnesium 2.1 mg/dL (1.6-2.6); Potassium 3.6 mmol/L (3.3-5.1); Sodium 137 mmol/L (135-145); Total Protein 7.5 g/dL (6.5-8.0)
[2023-02-18 08:43] LABS: Cortisol Random 17.7 ug/dL; Free T4 (Free Thyroxine) 1.03 ng/dL (0.71-1.85); Thyroid Stimulating Hormone 2.37 uIU/mL (0.32-4.0)
[2023-02-18 20:24] LABS: Cortisol Random 16.4 ug/dL
[2023-02-19 19:59] LABS: Triiodothyronine T3 Free 3.6 pg/mL (2.3-4.2)
[2023-02-20 08:09] LABS: Cytomegalovirus Ab IgG <0.60 U/mL; Cytomegalovirus Ab IgM <30.00 AU/mL; EBV-NA IgG Index <18.00 U/mL; EBV-VCA IgM Ab <36.00 U/mL
[2023-02-22 14:02] LABS: Adrenocorticotropic Hormone 37 pg/mL (6-50)
[2023-02-22 16:03] LABS: Triiodothyronine T3 Reverse 12 ng/dL (8-25)
[2023-02-25 15:28] LABS: Mycoplasma Pneumoniae - IgG 1.27 (<=0.90); Mycoplasma Pneumoniae - IgM 679 U/mL (<770)
== END 2023-02-18 07:27 | disposition home or self-care (01) ==
LOC: HO.10HDL 07:26
PROVIDERS: Visit Provider Allergy & Immunology Allergy
DX: E28.2 Polycystic ovarian syndrome (principal); G93.39 Other post infection and related fatigue syndromes
CPT/HCPCS: 36415; 80053; 82024; 82533; 83735; 84439; 84443; 84481; 84482; 85025; 86644; 86645; 86664; 86665; 86738

== ENCOUNTER 2023-09-05 14:22 | Outpatient (REF) | payer OTHER, SELFPAY ==
--- NOTE | ~2023-09-05 | US_ITS ---
EXAMINATION: US PELVIS COMPLETE CLINICAL INFORMATION: Right-sided ovarian cyst COMPARISON: Pelvic ultrasound 12/21/2021 TECHNIQUE: Transabdominal and transvaginal imaging was performed. FINDINGS: The uterus is of normal size and echogenicity measuring 8.0 x 3.9 x 4.0 cm. A regular homogeneous endometrium is identified measuring 0.3 cm. Trace fluid in the endocervical canal. Both ovaries are of normal echogenicity. The right measures 4.3 x 2.1 x 3.5 cm for a volume of 16.2 mL. The left measures 3.1 x 1.4 x 1.2 cm for a volume of 2.6 mL. There is a 3.1 cm unilocular right ovarian benign functional cysts, no follow-up imaging recommended. There is no pelvic free fluid. US/US pelvic and transvaginal IMPRESSION: 1. There is a 3.1 cm unilocular right ovarian benign functional cyst, no follow-up imaging recommended. 2. Trace fluid in the endocervical canal.
== END 2023-09-05 14:23 | disposition home or self-care (01) ==
LOC: HO.US 14:22
PROVIDERS: PCP Family Medicine; Visit Provider Obstetrics & Gynecology
DX: N83.201 Unspecified ovarian cyst, right side (principal)
CPT/HCPCS: 76830; 76856

== ENCOUNTER 2023-11-10 09:19 | Outpatient (REF) | payer OTHER, SELFPAY | END 2023-11-10 09:20 | disposition home or self-care (01) | LOC: HO.WFDLDS 09:19 | PROVIDERS: Visit Provider Naturopath | DX: Z13.89 Encounter for screening for other disorder (principal) ==

== ENCOUNTER 2023-11-13 15:17 | Outpatient (AMB) | payer OTHER, SELFPAY ==
--- NOTE | 2023-11-13 15:30 | A.OFFVIS_ITS ---
Vital Signs 11/13/23 15:36 Height 5 ft 1 in Weight 124 lb 2 oz BMI 23.5 BP 90/60 Blood Pressure Location Rt brachial Position Sitting Pulse 90 Pulse Source Pulse Oximeter Pulse Oximetry (%) 98 Oxygen Delivery Method Room Air Intake Visit Reasons: F/U - Confirmed Intake Note: Patient presents for F/U. Nurtec was denied by pharmacy. Rizatriptan is not working. Allergies No Known Allergies Allergy (Verified 11/13/23 15:35) Medication List - Last Reconciled 11/13/23 by KATIA Lucero escitalopram oxalate (Lexapro) 5 mg PO DAILY 30 days etonogestrel (Nexplanon) subdermal flash glucose scanning reader ([email or web address][employer] [place] 14 Day [place]) As directed magnesium citrate,mag oxide mg PO ondansetron HCl 4 mg PO ONCE PRN riboflavin (vitamin B2) 400 mg PO DAILY rimegepant (Nurtec ODT) 75 mg PO ONCE PRN MDD 1 tab rizatriptan 5 - 10 mg (0.5 - 1 x 10 mg) PO Q2H PRN 21 days HPI Comments Details: 28-yr-old female presents to discuss new eye and headache symptoms. Patient was last seen in 2021. Pt reports she had been seeing [facility] of the dizziness- dx'd w/ PPPD. Did intensive vestibular and vision tx, and was started on sertraline, which has been helpful. She jo sstill have dizziness but it does not interfere w/ her ability to work. She reports her headache frequency has been increasing and she is having a new right sided headache. She has recently noticed pupil assymtry- right pupil larger than left. Had eye exam- exam unremarkable, was advised to f/u w/ neuro. Her menstrual cycle is irregular- may go months w/o having her menses, and then can have prolonged menses. Headaches seem worse just before menses. The new headaches are right side-locked located in the right eye. Postdrome of nausea. Pain and pressure in the right eye region, a/w allodynia- especially in right trochlear region- tends to massage it, photophobia, watery eyes, puffy eyelids, activity intolerance, anxious d/t the pain. This lasts 1-2 hours, occurs before she goes to bed, usually resolved by the am. This is occurring 2-3 days in a row and then not for a few weeks. Denies facial droop, facial redness. Uses Rizatriptan, w/ minimal effect. Has not tried Nurtec as she has run out. Having much less migraine attack.4 x's per month. Her baseline migraine felt like a band across her head or one sided scientology (more so right but also left) a/w photopphobia, phonophobia, occas nausea, once vomitted. Has only had one significant aura- when in highschool. [facility] Medical History (Updated 11/13/23 @ 16:44 by KATIA Lucero) FHx: cholecystectomy Migraine Surgical History Hx of rhinoplasty History of augmentation of both breasts Hx of cholecystectomy Family History Father Substance abuse Social History Household Members: Family Household Members Other:: parents Housing: House Alcohol intake: never Patient Tobacco Use Status: Never used Tobacco e-Cigarette/Vaping Use: Never Used Second Hand Smoke Exposure: No service: No Current occupational status: employed Current occupation: [employer] Current occupational exposures/hazards: No Cognitive needs: No Hearing needs: No Vision needs: No Female Reproductive History Menstrual Age of Menarche: 13 Review of Systems Eyes Reports photophobia ENT Reports Normal hearing present Neuro Reports Normal hearing present Physical Exam Vital Signs: Last Vital Signs Pulse 90 11/13/23 15:36 BP 90/60 11/13/23 15:36 Pulse Ox 98 11/13/23 15:36 Oxygen Delivery Method Room Air 11/13/23 15:36 BMI result Body Mass Index 23.5 Const General: cooperative and no acute distress Orientation/consciousness: patient oriented x3 Eyes Alignment and Position: alignment normal Periorbital: periorbital findings normal Eyelids: Yes eyelids normal Sclerae: sclerae normal Pupils: Pupils anisocoria right pupil size greater than left EOM: EOMs intact bilaterally Direct Ophthalmoscopy: normal light reflex and photophobia Resp Effort & Inspection: normal respiratory effort and able to speak in complete sentences Neuro General: patient oriented x3 Cranial nerves: Yes Facial sensation intact/muscles of mastication intact, Yes Intact sense of smell present, Yes Bilaterally intact EOM present, Yes Nystagmus not present, Yes Normal facial strength present, Yes Midline tongue present, Yes Symmetric palate elevation present, Yes Normal hearing present, Yes Ability to bilaterally rotate head present and Yes Ability to bilaterally elevate shoulders present Cognition (Neuro): normal cognition Psych Appearance: grossly normal Mental Status: mental status grossly normal Speech and movement: Normal speech and movement present Affect: normal affect Attitude: cooperative Assessment & Plan Assessment & Plan (1) Pupil asymmetry: Code(s): H57.02 - Anisocoria Category: Medical (2) Right-sided headache: Code(s): R51.9 - Headache, unspecified Category: Medical (3) New onset headache: Code(s): R51.9 - Headache, unspecified Category: Medical (4) Migraine: Code(s): G43.909 - Migraine, unspecified, not intractable, without status migrainosus Category: Medical (5) Vertigo: Comment: PPPV Code(s): R42 - Dizziness and giddiness Category: Medical Plan Patient is advised to undergo: Brain and orbit MRI with and without contrast Head MRA without contrast Lab workup To assess for secondary intracranial and vascular etiologies of new onset right- sided side locked headache with autonomic features and pupil asymmetry. For acute migraine treatment: May continue rizatriptan p.r.n. Hold OTC ibuprofen. Resume Nurtec ODT 75 mg q.d. p.r.n., as this was previously effective and well tolerated. For headache prevention: Trial indomethacin 25 mg p.o. t.i.d. advised to take with food. Continue sertraline 50 mg q.d. as this has been beneficial for dizziness and migraine. Continue magnesium q.h.s. Previous migraine preventive trials: Amitriptyline- caused grogginess/drowsiness. Nortriptyline: Ineffective and not tolerated. Preventative migraine treatment contraindications: All antihypertensive agents d/t dizziness, hypotension- BP today is 90/60. Depakote and topiramate- as patient is of childbearing age and is not on control. Would not trial of venlafaxine at this time as patient is already on sertraline. Follow-up upon review of above and in clinic in 6 months. Orders: Orders Comprehensive Met. Panel Today H57.02 - Anisocoria, R51.9 - Headache, unspecified CRP High Sensitivity Today H57.02 - Anisocoria, R51.9 - Headache, unspecified Hemoglobin A1c Today H57.02 - Anisocoria, R51.9 - Headache, unspecified TSH reflex Free T4 Today H57.02 - Anisocoria, R51.9 - Headache, unspecified MR angio head wo con Today H57.02 - Anisocoria, R51.9 - Headache, unspecified MR orbits face neck wo/w con Today H57.02 - Anisocoria, R51.9 - Headache, unspecified Complete Blood Count Auto Diff Today H57.02 - Anisocoria, R51.9 - Headache, unspecified Erythrocyte Sedimentation Rate Today H57.02 - Anisocoria, R51.9 - Headache, unspecified Vitamin B12 and Folate Today H57.02 - Anisocoria, R51.9 - Headache, unspecified Rheumatoid Factor Today H57.02 - Anisocoria, R51.9 - Headache, unspecified FLORIAN Reflex Titer and Pattern Today H57.02 - Anisocoria, R51.9 - Headache, unspecified MR head/brain wo/w con Today H57.02 - Anisocoria, R51.9 - Headache, unspecified Medications: New indomethacin administer with food or milk 25 mg PO TID 30 days 90 caps 1RF sertraline 50 mg PO DAILY Scribe Plan - Not visible on output: Reviewed possible medication side effects, including but not limited to drowsiness, dizziness.
[2023-11-13 15:36] VITALS: BP 90/60; PULSE 90; O2SAT 98; BMI 23.5
== END 2023-11-13 16:33 | disposition home or self-care (01) ==
PROVIDERS: PCP Family Medicine; Visit Provider Nurse Practitioner Family
DX: H57.02 Anisocoria (principal); R51.9 Headache, unspecified; G43.909 Migraine, unspecified, not intractable, without status migrainosus; R42 Dizziness and giddiness
CPT/HCPCS: 99214

== ENCOUNTER → 2023-11-13 15:17 | Outpatient (BNVA) | payer OTHER, SELFPAY | PROVIDERS: PCP Family Medicine; Visit Provider Nurse Practitioner Family ==

== ENCOUNTER 2023-12-05 15:42 | Outpatient (REF) | payer OTHER, SELFPAY ==
--- NOTE | ~2023-12-05 | MR_ITS ---
EXAMINATION: MR BRAIN WITHOUT AND WITH CONTRAST MR ORBITS WITHOUT AND WITH CONTRAST MR ANGIOGRAM HEAD WITHOUT CONTRAST CLINICAL INFORMATION: Anisocoria. Headache. COMPARISON: MR brain 01/11/2022. TECHNIQUE: Multiplanar MR imaging of the brain and orbits was performed without and with contrast. An MR angiogram of the head was also performed without contrast. 3D images were processed on an independent workstation under concurrent supervision. Arterial stenoses are measured in accordance with NASCET criteria or similar method if applicable.. A total of 6 mL Gadavist was utilized for this examination. FINDINGS: Dedicated imaging through the orbits reveals no abnormal retrobulbar mass or enhancement. Globes and extraocular muscles are symmetric. No abnormal signal or enhancement along the optic nerves. The orbital apices are unremarkable. There is evidence of an enhancement within the anterior lobe of the pituitary gland. No suprasellar mass effect, compression. Cavernous sinuses enhance symmetrically. Cavernous internal carotid artery flow voids are maintained. Postcontrast images of the whole brain reveal no abnormal intracranial mass or enhancement. There is no intracranial mass effect or midline shift. Lateral and third ventricles are normal. No hydrocephalus. Midline structures including the cervicomedullary junction are normal. No acute bone marrow signal changes. There is no acute territorial infarct. No pathological magnetic susceptibility artifact. Intracranial vascular flow voids are maintained. Trivial mucosal thickening within the alveolar recesses of the maxillary sinuses and the anterior ethmoid air cells. Intracranial internal carotid arteries are normal. Intradural vertebral artery segments and basilar artery are normal. Anterior, middle, and posterior cerebral artery complexes are normal. No intracranial large vessel occlusion. No identifiable aneurysm or high flow vascular lesion. MR/MR angio head wo con IMPRESSION: Normal MRI of the brain and orbits. Normal MR angiogram of the head.
--- NOTE | ~2023-12-05 | MR_ITS ---
EXAMINATION: MR BRAIN WITHOUT AND WITH CONTRAST MR ORBITS WITHOUT AND WITH CONTRAST MR ANGIOGRAM HEAD WITHOUT CONTRAST CLINICAL INFORMATION: Anisocoria. Headache. COMPARISON: MR brain 01/11/2022. TECHNIQUE: Multiplanar MR imaging of the brain and orbits was performed without and with contrast. An MR angiogram of the head was also performed without contrast. 3D images were processed on an independent workstation under concurrent supervision. Arterial stenoses are measured in accordance with NASCET criteria or similar method if applicable.. A total of 6 mL Gadavist was utilized for this examination. FINDINGS: Dedicated imaging through the orbits reveals no abnormal retrobulbar mass or enhancement. Globes and extraocular muscles are symmetric. No abnormal signal or enhancement along the optic nerves. The orbital apices are unremarkable. There is evidence of an enhancement within the anterior lobe of the pituitary gland. No suprasellar mass effect, compression. Cavernous sinuses enhance symmetrically. Cavernous internal carotid artery flow voids are maintained. Postcontrast images of the whole brain reveal no abnormal intracranial mass or enhancement. There is no intracranial mass effect or midline shift. Lateral and third ventricles are normal. No hydrocephalus. Midline structures including the cervicomedullary junction are normal. No acute bone marrow signal changes. There is no acute territorial infarct. No pathological magnetic susceptibility artifact. Intracranial vascular flow voids are maintained. Trivial mucosal thickening within the alveolar recesses of the maxillary sinuses and the anterior ethmoid air cells. Intracranial internal carotid arteries are normal. Intradural vertebral artery segments and basilar artery are normal. Anterior, middle, and posterior cerebral artery complexes are normal. No intracranial large vessel occlusion. No identifiable aneurysm or high flow vascular lesion. MR/MR orbits face neck wo/w con IMPRESSION: Normal MRI of the brain and orbits. Normal MR angiogram of the head.
[2023-12-05] MEDS: gadobutroL 7.5 ML VIAL 6 ML IVPUSH (18:31)
== END 2023-12-05 15:43 | disposition home or self-care (01) ==
LOC: HO.MRI 15:42
PROVIDERS: PCP Family Medicine; Visit Provider Nurse Practitioner Family
DX: R51.9 Headache, unspecified (principal); H57.02 Anisocoria
CPT/HCPCS: 70543; 70544; 70553; A9585

== ENCOUNTER 2024-03-02 12:39 | Outpatient (REF) | payer OTHER, SELFPAY ==
[2024-03-02 13:12] LABS: MANUAL DIFF FLAG NO
[2024-03-02 13:47] LABS: Basophils Absolute Auto 0.1 X10*3/uL (0.0-0.2); Basophils Percent Auto 0.6 % (0-2); Eosinophils Absolute Auto 0.1 X10*3/uL (0.0-0.4); Eosinophils Percent Auto 1.8 % (0-4); Hematocrit 36.7 % (37.0-47.0); Hemoglobin 12.4 g/dl (12.0-16.0); Imm Gran Abs Auto 0.02 X10*3/uL (0.00-0.03); Imm Gran Pct Auto 0.3 % (0.0-0.4); Lymphocytes Absolute Auto 2.6 X10*3/uL (1.2-4.9); Lymphocytes Percent Auto 32.9 % (20-40); Mean Corpuscular HGB Conc 33.8 g/dl (31.0-35.0); Mean Corpuscular Hemoglobin 31.2 pg (27.0-33.0); Mean Corpuscular Volume 92.2 fL (80.0-98.0); Mean Platelet Volume 10.7 fL (9.4-12.3); Monocytes Absolute Auto 0.6 X10*3/uL (0.1-1.2); Monocytes Percent Auto 7.5 % (2-11); Neutrophils Absolute Auto 4.4 x10*3/uL (2.0-8.3); Neutrophils Percent Auto 56.9 % (45-73); Platelet Count 259 X10*3/uL (160-400); Red Blood Count 3.98 X10*6/uL (4.20-5.50); Red Cell Distribution Width 11.5 % (11.0-16.0); White Blood Count 7.8 X10*3/uL (4.8-10.8)
[2024-03-02 14:03] LABS: Estimated Average Glucose 97 mg/dL
[2024-03-02 14:11] LABS: Rheumatoid Factor < 13.0 IU/mL (<15.0)
[2024-03-02 14:13] LABS: Alanine Aminotransferase 17 U/L (0-31); Albumin Level 4.4 g/dL (3.5-5.0); Alkaline Phosphatase 47 U/L (39-117); Anion Gap 15 (12-20); Aspartate Amino Transferase 17 U/L (5-31); Bilirubin Total 0.3 mg/dL (0.0-1.0); Blood Urea Nitrogen 22 mg/dL (9-16); Calcium 9.3 mg/dL (8.4-10.2); Carbon Dioxide 26 mmol/L (22-29); Chloride 103 mmol/L (96-108); Estimated Glomerular Filt Rate > 60; Glucose Random 88 mg/dL (60-115); Potassium 3.7 mmol/L (3.3-5.1); Sodium 140 mmol/L (135-145); Total Protein 7.2 g/dL (6.5-8.0)
[2024-03-02 14:15] LABS: TSH reflex Free T4 1.72 uIU/mL (0.32-4.0)
[2024-03-02 14:30] LABS: Erythrocyte Sedimentation Rate 11 MM/HR (0-20)
[2024-03-02 14:37] LABS: Folate 8.3 ng/mL (> or = 4.0); Vitamin B12 737 pg/mL (200-900)
[2024-03-03 08:33] LABS: CRP High Sensitivity 0.2 mg/L
[2024-03-04 15:08] LABS: Anti Nuclear Antibody Screen NEGATIVE (NEGATIVE)
== END 2024-03-02 12:40 | disposition home or self-care (01) ==
LOC: HO.10HDL 12:39
PROVIDERS: Visit Provider Nurse Practitioner Family
DX: H57.02 Anisocoria (principal); R51.9 Headache, unspecified; Z13.1 Encounter for screening for diabetes mellitus; Z13.29 Encounter for screening for other suspected endocrine disorder
CPT/HCPCS: 36415; 80053; 82607; 82746; 83036; 84443; 85025; 85652; 86038; 86141; 86431

== ENCOUNTER 2024-08-30 11:23 | Outpatient (AMB) | payer OTHER, SELFPAY ==
--- NOTE | 2024-08-30 11:17 | MHC.PC.OV ---
Intake Visit Reasons: medication review Intake Note: Medication review. Refill on ondansetron. Allergies No Known Allergies Allergy (Verified 08/30/24 11:18) Tobacco use date assessed: 05/06/22 HPI medication review HPI Details 28 y/o female presents to f/u [facility] via telemedicine. She had questions about her ondansetron. She notes she frequently gets nausea but only takes zofran a couple times a month. She associates nausea with migraines/her menstrual cycle. Has complaints of fatigue. [facility] Medical History (Updated 08/30/24 @ 11:33 by Nader Clinton) FHx: cholecystectomy Migraine Surgical History Hx of rhinoplasty History of augmentation of both breasts Hx of cholecystectomy Family History Father Substance abuse Social History (Updated 08/30/24 @ 11:21 by Liv Olivas [facility]) Household Members: Family Household Members Other:: parents Housing: House Alcohol intake: never Patient Tobacco Use Status: Never used Tobacco e-Cigarette/Vaping Use: Never Used Second Hand Smoke Exposure: No Use of substances other than those prescribed or required for medical reasons: No service: No Current occupational status: employed 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 Current occupational exposures/hazards: No Cognitive needs: No Hearing needs: No Vision needs: No Female Reproductive History Menstrual Age of Menarche: 13 Questionnaire Thrive Questionnaire Date Thrive assessed: 03/05/22 CATRACHITO-7 AMB Questionnaire CATRACHITO-7 Date CATRACHITO - 7 assessed: 03/05/22 Source: Developed by Drs. Duane Navarro, Mariela Hernández, Stanton Reinoso and colleagues, with an educational fariba from [employer]. Review of Systems Const Denies chills, Denies fatigue, Denies fever(s), Denies headache(s) and Denies weakness ENT Denies dizziness and Denies headache(s) Card Denies dyspnea Resp Denies cough, Denies dyspnea, Denies wheezing and Denies other (shortness of breath) GI Reports nausea Musc Denies numbness and Denies tingling Neuro Denies dizziness, Denies headache(s), Denies numbness, Denies tingling and Denies weakness Psych Denies anxiety and Denies depression Endo Denies fatigue Aller/Immun Denies wheezing Physical exam (Primary Care) Tobacco/Smoking Status: Tobacco use Status Tobacco use date assessed 05/06/22 08/30/24 11:22 Patient Tobacco Use Status Never used Tobacco 08/30/24 11:22 e-Cigarette/Vaping Use Never Used 08/30/24 11:22 Thrive Assessment: Date of Thrive Assessment Date Thrive assessed 03/05/22 08/30/24 11:22 Telehealth Telehealth Telehealth Platform: Telephone Location of provider rendering services: practice address Location of patient: address on file Patient Identification confirmed using: Name, : Yes Telehealth method: voice only Patient verbally consented to treatment: Yes Patient verbally consented to billing insurance company: Yes Patient informed of any privacy concerns related to visit: Yes Minutes spent on Phone/Video with Pt.: 5 Coding Level of Care Code Tele Est Pt Level 2 (82666) Diagnoses Nausea R11.0 Fatigue R53.83 Assessment & Plan Assessment & Plan (1) Nausea: Code(s): R11.0 - Nausea Category: Medical Plan: Ongoing?nausea?which?she?associates?with?migraines?and?also?premenstrual?symptoms. Hydrate?well Try?other?methods?for?managing?nausea?before?using?ondansetron. Can?use?ondansetron?if?needed Follow-up?financial systems administrator?regarding?premenstrual?symptoms Follow-up?with?Neurology?if?migraines?or?worsening (2) Fatigue: Code(s): R53.83 - Other fatigue Category: Medical Plan: Check?labs Orders: Orders Microalbumin, Random (w Creat) Today I10 - Essential (primary) hypertension Free T4 (Free Thyroxine) Today E03.9 - Hypothyroidism, unspecified Thyroid Stimulating Hormone Today E03.9 - Hypothyroidism, unspecified Triiodothyronine T3 Total Today E03.9 - Hypothyroidism, unspecified Basic Metabolic Panel Today R11.0 - Nausea, Z00.00 - Encounter for general adult medical examination without abnormal findings UA and rflx microscopic Today R11.0 - Nausea, Z00.00 - Encounter for general adult medical examination without abnormal findings Medications: Refilled ondansetron HCl 4 mg PO ONCE PRN 20 tabs 3RF nausea and vomiting R11.0 - Nausea
--- OUTSIDE RECORDS SUMMARY | 2024-08-30 12:39 | XMS_ITS | Clinical Summary ---
Author Organization [facility] Address [address] [place] [address] Care Team Providers Care Bottle Blower Name Role Phone Pcp, No Primary Care Provider Jered Barajas MD Unavailable Allergies No known active allergies Medications Medication Sig Dispensed Refills Start Date End Date Status Nurtec [address] ONE TABLET BY MOUTH EVERY DAY NEEDED FOR MIGRAINE HEADACHE. MAX DAILY DOSE 1 TABLET 02/27/2023 Active nystatin (MYCOSTATIN) 307621 units tablet TAKE ONE TABLET BY MOUTH TWICE A DAY WITH FOOD . INCREASE BY ONE TABLET EVERY 3 DAYS TO MAX DOSE OF 3 TABLETS TWO TIMES A DAY 04/23/2023 Active Active Problems Problem Noted Date Diagnosed Date Cholecystitis, chronic 08/02/2013 Irritable bowel syndrome 06/14/2013 Anxiety 08/03/2007 Family History Medical History Relation Name Comments Melanoma Neg Hx Social History Tobacco Use Types Packs/Day Years Used Date Smoking Tobacco: Never Tobacco Cessation:Counseling Given: Not Answered Alcohol Use Standard Drinks/Week Comments Never 0 (1 standard drink = 0.6 oz pur e alcohol) Sex and Gender Information Value Date Recorded Sex Assigned at Female 05/01/2023 3:32 PM EDT Gender Identity Female 05/01/2023 3:32 PM EDT Sexual Orientation Choose not to disclose 2022 11:58 AM EDT Last Filed Vital Signs Vital Sign Reading Time Taken Comments Blood Pressure - - Pulse - - Temperature - - Respiratory Rate - - Oxygen Saturation - - Inhaled Oxygen Concentration - - Weight 50.8 kg (112 lb) 05/01/2023 12:32 PM EDT Height 154.9 cm (5' 1 ) 05/01/2023 12:32 PM EDT Body Mass Index 21.16 05/01/2023 12:32 PM EDT Plan of Treatment Health Maintenance Due Date Last Done Comments Hepatitis C Virus Screening 1995 HIV Screening 10/24/2007 DTaP/Tdap/Td Vaccines (1 - Tdap) 2013 Hepatitis B Vaccines (1 of 3 - 19+ 3-dose series) 2013 Pap Smear (Ages 21-65) 10/24/2015 Influenza Vaccine 02/26/2024 07/23/2019, , 07/28/2013, Additional history exists COVID-19 Vaccine (2023- season) 2024 12/04/2020, 11/07/2020 HPV Vaccines Aged Out No longer eligi ble based on patient's age to complete this topic Pneumococcal Vaccine: Pediatric (0-5 Years) and At-Risk Patients (6 to 49 Years) Aged Out No longer eligible based on patient's age to complete this topic Care Teams Bottle Blower Relationship Specialty Start Date End Date Pcp, No PCP - General General Medicine 05/01/23 Jered Haji MD [address] [place] [address] Otolaryngology 05/01/23
--- OUTSIDE RECORDS SUMMARY | 2024-08-30 12:39 | XMS_ITS ---
Author Name [facility] Organization Unknown History of Medication Use Medication Directions Dispensed Refills Start Date End Date Stat Nurtec [address] ONE TABLET BY MOUTH EVERY DAY NEEDED FOR MIGRAINE HEADACHE. MAX DAILY DOSE 1 TABLET 02/27/2023 active sertraline (ZOLOFT) 25 MG tablet 05/01/2023 aborted tazarotene (TAZORAC) 0.05 % cream Apply topically nightly. 05/21/2016 05/01/2023 aborted sertraline (ZOLOFT) 50 MG tablet 05/01/2023 aborted Problems Problem Status Onset Date Problem Type Date of Resoluti on Source Irritable bowel syndrome active 2013-06-14 ProblemAct [facility] Anxiety active 2007-08-03 ProblemAct [facility] Cholecystitis, chronic active 2013-08-02 ProblemAct [facility]
== END 2024-08-30 17:05 | disposition home or self-care (01) ==
LOC: HO.HMCFM 11:23
PROVIDERS: PCP Family Medicine; Visit Provider Family Medicine
DX: R11.0 Nausea (principal); R53.83 Other fatigue

== ENCOUNTER → 2024-08-30 11:23 | Outpatient (BNVA) | payer OTHER, SELFPAY | PROVIDERS: PCP Family Medicine; Visit Provider Family Medicine ==

== ENCOUNTER 2024-10-12 13:10 | Outpatient (AMB) | payer OTHER, SELFPAY ==
[2024-10-12 13:43] VITALS: BMI 23.4
--- NOTE | 2024-10-12 13:43 | MHC.OFFVIS ---
Vital Signs 10/12/24 13:43 Height 5 ft 1 in Weight 124 lb BMI 23.4 Intake Visit Reasons: N/P LT upper arm FB Intake Note: Jenifer is 28 year old left hand dominant female presents today for a new patient visit for her left upper arm. Patient reports that she had a Nexplanon control implant placed in her left upper extremity about 5+ years ago. Due to previous traumatic experience of implant removal she was hesitant to have it removed. She was seen with OBGYN today who recommended to see a surgeon for removal of implant as it was not longer palpable. There is concern for the implant moving deeper to muscle/tissue and near nerves. Upon palpitation patient reports a shock or nerve impulse traveling down the forearm. 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 She has an implanted Nexplanon BC device placed in ~2018. She was told this implant may be too deep for in-office removal and may require surgery. She would like to discuss treatment options No other complaints. [facility] Medical History (Updated 10/12/24 @ 14:04 by Rebecca Yen MD) Foreign body of left upper arm FHx: cholecystectomy Migraine Surgical History Hx of rhinoplasty History of augmentation of both breasts Hx of cholecystectomy Family History Father Substance abuse Social History (Updated 08/30/24 @ 11:21 by Liv Olivas CMA) Household Members: Family Household Members Other:: parents Housing: House Alcohol intake: never Patient Tobacco Use Status: Never used Tobacco e-Cigarette/Vaping Use: Never Used Second Hand Smoke Exposure: No service: No Current occupational status: employed Current occupation: [employer] Current occupational exposures/hazards: No Cognitive needs: No Hearing needs: No Vision needs: No Female Reproductive History Menstrual Age of Menarche: 13 Review of Systems Const All systems reviewed & are unremarkable except as noted in HPI and below Physical Exam Vital Signs: BMI result Body Mass Index 23.4 Const General: no acute distress and alert Orientation/consciousness: patient oriented x3 Neuro General: patient oriented x3 Extrem Other: Evaluation of Left Upper Extremity: The patient is alert, oriented, and in no acute distress Neuro: Median, Ulnar, Radial nerves motor and sensory intact and sensation is normal to the tips of all digits I can palpate the foreign body in the medial aspect of her left ulnar upper arm. Doing so causes a tingling sensation to radiate down the ulnar aspect of her arm. + Tinel's sign over the foreign body Vascular: Cap refill brisk ROM: She can make a fist and extend all her digits Full elbow range of motion Radiographs: 3 views of the left humerus were taken and viewed by me today in clinic. They show a slender longitudinal foreign body consistent with the Nexplanon device that is either adjacent to or within the muscular layer of soft tissues on the medial posterior aspect of the upper arm Psych Appearance: grossly normal Affect: normal affect Attitude: cooperative Assessment & Plan Assessment & Plan (1) Foreign body of left upper arm: Code(s): S40.852A - Superficial foreign body of left upper arm, initial encounter Category: Medical (2) Nexplanon in place: Code(s): Z97.5 - Presence of (intrauterine) contraceptive device Category: Social Hx Plan Assessment & Plan: 1. Left upper arm retained Nexplanon implant Likely adjacent to ulnar nerve I educated her about this condition I ordered an MRI to better visualize the location of the implant relative to the ulnar/neurovascular structures She will follow up when completed for review Scribed for Rebecca Yen MD by Jose A Connolly medical assistant float, on 10/12/24 at 2:00 PM, EST. Orders: Orders MR humerus LT wo con Today Rebecca Yen MD S40.852A - Superficial foreign body of left upper arm, initial encounter, Z97.5 - Presence of (intrauterine) contraceptive device XR humerus LT Today ORNALDO Mc S42.309A - Unspecified fracture of shaft of humerus, unspecified arm, initial encounter for closed fracture Coding Level of Care Code New Pt Level 3 (28566) Diagnoses Foreign body of left upper arm S40.852A Nexplanon in place Z97.5
--- OUTSIDE RECORDS SUMMARY | 2024-10-12 15:27 | XMS_ITS | Continuity of Care Document ---
Author Organization [place] - [facility],, AGATHA GUTIÉRREZ MD Address [address] [address] [place] [address] Care Team Providers Care Seater Assembler Name Role Phone HALLIE REID Primary Care Provider [phone] Assessment No assessment recorded. Plan of Treatment Reminders Order Date Submit Date Provider Last Modified By Organization Details Last Modified Time Details Appointments PROBLEM 20 2024 11:30A M Agatha Gutiérrez MD Not available Not available Not available ANNUAL EXAM 2024 03:00P M Agatha Gutiérrez MD Not available Not available Not available Lab urinalysi s, dipstick 2024 025 GOMEZ In-Office Order, Internal Use Only DO Not Attach Compendium DO Not Attach Compendium, Do Not Delete/merge, [id number] 10/12/2024 12:51:25 culture, urine 2024 025 GOMEZ [facility], [address] [facility], [place], [address], 10/12/2024 12:34:34 wet mount, vaginal 2024 025 [email or web address] 1 In-Office Order, Internal Use Only DO Not Attach Compendium DO Not Attach Compendium, Do Not Delete/merge, [id number] 10/12/2024 12:05:16 CT + NG DNA, PCR, cervical 2024 025 GOMEZ [facility], [address], [address], [place], [address], 10/12/2024 11:56:30 Referral None recorded. Procedures None recorded. Surgeries None recorded. Imaging US, pelvis, transabdo caden + transvagi nal - right sided pelvic pain, histroy of 3.1 cm right ovarian cyst a year ago 2024 025 [facility] (Im[facility]), [address] [place] [address], [place], [address], 10/12/2024 13:06:33 Medication Orders fluconazo le 150 mg tablet 2024 025 [id number], [address] [place], [address], 10/12/2024 12:05:07 Patient TargetsNo targets recorded. Patient Instructions Encounter Date Encounter Id Patient Instructions Last Modified By Organization Details Last Modified Time 10/12/2024 [id number] urinary tract infection in women information Not available 10/12/2024 11:56:21 vaginal yeast infection: care instructions Not available 10/12/2024 12:05:04 possible appendicitis: care instructions Not available 10/12/2024 11:56:21 She is here for a two week history of right lower quadrant pelvic pain. She also has had vaginal pruritus and a sense of dysuria only on the outside skin when she urinates. She had been going to a pit boss in [place], her last annual was there, however she desires to switch back to our practice. Her insurance requires her to pay a larger co pay to see us, as she works in the [facility] system, which is why she had transferred her care previously. But I didn't like his bedside manner, she notes. Her last annual here was 11/2020. She had Nexplanon removal and reinsertion 08/25/2019, it is 2 years overdue to be replaced, she is aware. She is concerned because she can no longer palpate the implant. Two months ago she started [facility], a drsp OCP that she got from an online consult and pharmacy. Same partner for 1 year. Her pelvic sonogram 09/20 showed a 3.1 cm right ovarian simple cyt. Note from 07/2023: She is here for a complaint of pelvic pain. she missed her last menses, LMP was 07/01/23. She has not been here since 05/2021, had switched to a pit boss at [employer] where she works, however she would prefer to return here for routine care she notes. She has not been sexually active in a year. She had her last pap a year ago. She was diagnosed with yeast and bacteria in the stomach, and a Dizziness disease. She is seeing Dr. Sebastian for wellness, and has been getting tested for a number of things. She had been being followed by us for a 4.5 cm left ovarian cyst, she did a follow up sonogram in 07/17 that showed it decreased to 1.5 cm. She also has vaginal pruritus. She has a symptomatic monilia infection, rx diflucan. She is advised she will need to get a general surgeon to remove the Nexplanon as it is too deep for office removal, she had suspected this. She needs to do this at [place] for costs, she will ask her PCP for a referral to a general surgeon. Check pelvic sonogram to pelvic pain and posible persistent right ovarian cyst, Check genprobe for pelvic pain, and newer partner. She is advised to return soon for gian and annual as she is overdue . She understands and agrees. Not available 10/12/2024 12:09:08 Reason for Referral None Reported. Results Created Date Observation Date Name Description Value Unit Range Abnormal Flag Note LastModifiedBy Organization Detail LastModifiedTime 10/13/1910/12/2024 urina lysis , dipst ick GLU Negati ve Not Available In-Office Order Internal Use Only DO Not Attach Compendium DO Not Attach Compendium, Do Not Delete/merge, [id number] 10/12/2024 11:55:30 10/13/19 25 10/12/2024 urina lysis , dipst ick ADILSON Negati ve Not Available In-Office Order Internal Use Only DO Not Attach Compendium DO Not Attach Compendium, Do Not Delete/merge, [id number] 10/12/2024 11:55:30 10/13/19 25 10/12/2024 urina lysis , dipst ick KET Negati ve Not Available In-Office Order Internal Use Only DO Not Attach Compendium DO Not Attach Compendium, Do Not Delete/merge, 10/12/2024 11:55:30 10/13/19 25 10/12/2024 urina lysis , dipst ick SG 1.015 Not Available In-Office Order Internal Use Only DO Not Attach Compendium DO Not Attach Compendium, Do Not Delete/merge, 10/12/2024 11:55:30 10/13/19 25 10/12/2024 urina lysis , dipst ick BLO Negati ve Not Available In-Office Order Internal Use Only DO Not Attach Compendium DO Not Attach Compendium, Do Not Delete/merge, 10/12/2024 11:55:30 10/13/19 25 10/12/2024 urina lysis , dipst ick pH 6.0 Not Available In-Office Order Internal Use Only DO Not Attach Compendium DO Not Attach Compendium, Do Not Delete/merge, 10/12/2024 11:55:30 10/13/19 25 10/12/2024 urina lysis , dipst ick PRO Negati ve Not Available In-Office Order Internal Use Only DO Not Attach Compendium DO Not Attach Compendium, Do Not Delete/merge, 10/12/2024 11:55:30 10/13/19 25 10/12/2024 urina lysis , dipst ick URO 0.2 E.U. / dl Not Available In-Office Order Internal Use Only DO Not Attach Compendium DO Not Attach Compendium, Do Not Delete/merge, 10/12/2024 11:55:30 10/13/19 25 10/12/2024 urina lysis , dipst ick NIT negati ve Not Available In-Office Order Internal Use Only DO Not Attach Compendium DO Not Attach Compendium, Do Not Delete/merge, 10/12/2024 11:55:30 10/13/19 25 10/12/2024 urina lysis , dipst ick COLIN Negati ve Not Available In-Office Order Internal Use Only DO Not Attach Compendium DO Not Attach Compendium, Do Not Delete/merge, [id number] 10/12/2024 11:55:30 10/13/19 25 10/12/2024 wet mount , vagin al Clue Cells negati ve Not Available In-Office Order Internal Use Only DO Not Attach Compendium DO Not Attach Compendium, Do Not Delete/merge, [id number] 10/12/2024 12:04:48 10/13/19 25 10/12/2024 wet mount , vagin al Trichomonas negati ve Not Available In-Office Order Internal Use Only DO Not Attach Compendium DO Not Attach Compendium, Do Not Delete/merge, [id number] 10/12/2024 12:04:48 10/13/19 25 10/12/2024 wet mount , vagin al Hyphae positi ve Not Available In-Office Order Internal Use Only DO Not Attach Compendium DO Not Attach Compendium, Do Not Delete/merge, [id number] 10/12/2024 12:04:48 10/13/19 25 10/12/2024 wet mount , vagin al atrophic epithelium negati ve Not Available In-Office Order Internal Use Only DO Not Attach Compendium DO Not Attach Compendium, Do Not Delete/merge, [id number] 10/12/2024 12:04:48 Result Notes None recorded. Problems Name Problem SNOMED Code Status Onset Date Resolution Date Notes Provider Name and Address Organization Details Recorded Time Acute lower urinary tract infection 115227895 Active Agatha Gutiérrez MD [address], [place], [address] , [place] - [facility], 4 16:46:00 Pain in pelvis 12089468 Active Agatha Gutiérrez MD [address], [place], [address] , [place] - [facility], 4 10:17:10 Candidal vulvovagi nitis 10403003 Active Agatha Gutiérrez MD [address], [place], [address] , [place] - [facility], 4 14:16:45 Migraine with aura 5038797 Active 2012 eye blindness and left sided weakness Not Available [facility] 3 03:01:05 Odorless vaginal discharge 449256027 Active Not Available [facility] 3 03:01:05 Dysmenorr hea 812402675 Active Agatha Gutiérrez MD [address], [place], [address] , [place] - [facility], 5 13:17:35 Status migrainos 188316001 Active 2012 eye blindness and left sided weakness Not Available [facility] 3 03:01:05 Disorder of hair AND/OR hair follicle Active Agatha Gutiérrez MD [address], [place], [address] , [place] [facility], 5 13:15:22 Breast lump 72020859 Active Agatha Gutiérrez MD [address], [place], [address] , [place] - [facility], 4 09:13:17 Notes:Currently being treate d for overgrowth of yeast and bacteria in stomach as of 12/14/20 Problem Notes None recorded. Procedures Surgical History Date Name Laterality Status Provider Name and Address Organization Details Recorded Time 09/27/19 20 Implanon Insertion completed Agatha Gutiérrez MD [address], [place], [address], [place] - [facility], 09/27/2019 13:00:14 09/15/19 20 Implanon Removal completed Agatha Gutiérrez MD [address], [place], [address], [place] [facility], 09/15/2019 14:51:46 01/30/20 17 augmentation of bilateral breasts completed Dania Mckay [place] - [facility], 12/14/2020 14:27:14 07/28/19 14 Cholecystectomy completed Daysi Turner [place] - [facility], 08/13/2013 09:07:42 07/28/19 14 Other completed Daysi Turner [place] [facility], 03/22/2016 13:41:51 Imaging Results None recorded. Procedure Notes None recorded. Medical Equipment None Reported. Allergies No known drug allergies Medications Name Sig Start Date Stop Date Status Note LastModified by Organization Details LastModified Time amoxicill in 500 mg capsule 10/12 completed Not Available Not Available Not Available fluconazo le 100 mg tablet TAKE ONE TABLET BY MOUTH EVERY DAY 08/26 completed Not Available Not Available Not Available buspirone 5 mg tablet TAKE ONE TABLET BY MOUTH EVERY DAY NEEDED FOR ANXIETY 08/26 completed Not Available Not Available Not Available terconazo le 0.4 % vaginal cream active Not Available Not Available Not Available Aviane 0.1 mg-20 mcg tablet Take 1 tablet every day by oral route. active Not Available Not Available No t Available paroxetin e 10 mg tablet active Not Available Not Available Not Available clindamyc in HCl 300 mg capsule active Not Available Not Available Not Available trazodone 50 mg tablet active Not Available Not Available Not Available azithromy roney 250 mg tablet TAKE 2 TABLETS ON FIRST DAY , THEN 1 TABLET DAILY FOR 4 DAYS 12/14 completed Not Available Not Available Not Available fluconazo le 150 mg tablet Take 1 tablet every day by oral route at bedtime for 1 day. 2024 active Not Available Not Available Not Avai lable tretinoin 0.025 % topical cream active Not Available Not Available Not Available sucralfat e 1 gram tablet active Not Available Not Available Not Available sumatript an 25 mg tablet 08/26 completed Not Available Not Available Not Available ondansetr on HCl 4 mg tablet TAKE ONE TABLET BY MOUTH ONCE NEEDED FOR NAUSEA AND VOMITING 08/26 completed Not Available Not Available Not Available prednison e 20 mg tablet 03/22 completed Not Available Not Available Not Available rizatript an 10 mg tablet active Not Available Not Available Not Available fluoxetin e 10 mg tablet TAKE ONE TABLET BY MOUTH EVERY DAY 08/26 completed Not Available Not Available Not Available naproxen 250 mg tablet active Not Available Not Available Not Available sumatript an 50 mg tablet 12/14 completed Not Available Not Available Not Available nystatin 500,000 unit tablet TAKE ONE TABLET BY MOUTH TWICE A DAY WITH FOOD . INCREASE BY ONE TABLET EVERY 3 DAYS TO MAX DOSE OF 3 TABLETS TWO TIMES A DAY 08/26 completed Not Available Not Available Not Available acetamino phen 300 mg-codein e 30 mg tablet 03/22 completed Not Available Not Available Not Available ciproflox acin 250 mg tablet TAKE ONE TABLET BY MOUTH TWICE A DAY 12/14 completed Not Available Not Available Not Available acetamino phen 500 mg tablet TAKE ONE TABLET BY MOUTH EVERY 6 HOURS NEEDED FOR PAIN 10/12 completed Not Available Not Available Not Available Azelex 20 % topical cream 03/22 completed Not Available Not Available Not Available oxycodone -acetamin ophen 5 mg-325 mg tablet active Not Available Not Available Not Available doxycycli ne monohydra te 50 mg capsule active Not Available Not Available Not Available Microgest in FE 08/16 (28) 1 mg-20 mcg (21)/75 mg (7) tablet active Not Available Not Available Not Available methocarb marta 750 mg tablet 12/14 completed Not Available Not Available Not Available Depo-Prov era 150 mg/mL intramusc ular suspensio n Inject 1 mL every 3 months by intramus cular route as directed for 360 days. 2014 active make appointm ent for next visit in 12 weeks, followin g administ ration. Must have negative pregnanc y test prior to first injectio n. Any time she is overdue for an injectio n she will need to have this reviewed by MD prior to receivin g injectio n, to rule out possible pregnanc y. Not Available Not Available Not Available dicyclomi ne 20 mg tablet active Not Available Not Available Not Available amitripty line 10 mg tablet TAKE ONE TABLET BY MOUTH AT BEDTIME 08/26 completed Not Available Not Available Not Available cephalexi n 500 mg capsule active Not Available Not Available Not Available paroxetin e 20 mg tablet Take 1 tablet every day by oral route. active Not Available Not Available No t Available triamcino lone acetonide 0.1 % topical ointment 03/22 completed Not Available Not Available Not Available Ortho-Nov um (28) 1 mg-35 mcg tablet Take 1 tablet(s ) every day by oral route. 12/14 completed Not Available Not Available Not Available indometha roney 25 mg capsule active Not Available Not Available Not Available minocycli ne 50 mg capsule active Not Available Not Available Not Available sertralin e 25 mg tablet 08/26 completed Not Available Not Available Not Available omeprazol e 20 mg capsule,d elayed release active Not Available Not Available Not Available diclofena c sodium 75 mg tablet,de layed release 03/22 completed Not Available Not Available Not Available norethind mami acetate 1 mg-ethiny l estradiol 20 mcg tablet Take 1 tablet every day by oral route. 2013 active Not Available Not Available Not Avai lable ibuprofen 600 mg tablet TAKE ONE TABLET BY MOUTH EVERY 6 HOURS NEEDED FOR PAIN active Not Available Not Available No t Available norethind mami (contrace ptive) 0.35 mg tablet active Not Available Not Available Not Available ondansetr on 4 mg disintegr ating tablet 08/26 completed Not Available Not Available Not Available fluoxetin e 20 mg capsule active Not Available Not Available Not Available fluticaso ne propionat e 50 mcg/actua tion nasal spray,kiersten pension 03/22 completed Not Available Not Available Not Available sertralin e 50 mg tablet active Not Available Not Available Not Available progester one micronize d 100 mg capsule TAKE TWO CAPSULES BY MOUTH EVERY DAY AT BEDTIME ON DAYS 18 THROUGH 25 OF MENSTRUA L CYCLE 08/26 completed Not Available Not Available Not Available oxycodone 5 mg tablet active Not Available Not Available Not Available hydroxyzi ne pamoate 25 mg capsule active Not Available Not Available Not Available NuvaRing 0.12 mg-0.015 mg/24 hr vaginal Insert 1 vaginal ring(s) EVERY MONTH by vaginal route, .leave in for three weeks out of four 03/22 completed Not Available Not Available Not Available escitalop edgar 5 mg tablet TAKE ONE TABLET BY MOUTH EVERY DAY 08/26 completed Not Available Not Available Not Available nitrofura ntoin monohydra te/macroc rystals 100 mg capsule TAKE ONE CAPSULE BY MOUTH EVERY 12 HOURS FOR 7 DAYS 06/01 completed Not Available Not Available Not Available chlorhexi dine gluconate 0.12 % mouthwash active Not Available Not Available No t Available Daily Multi-Vit crespo 12/14 completed Not Available Not Available Not Available clindamyc in 1.2 % (1 % base)-chantal zoyl peroxide 5 % topical gel active Not Available Not Available Not Available adapalene 0.3 % topical gel 03/22 completed Not Available Not Available Not Available sulfaceta mide sodium-berry lfur 10 %-5 % (w/w) lotion active Not Available Not Available Not Available Gavilyte- C 240 gram-22.7 2 gram-6.72 gram-5.84 gram oral solution active Not Available Not Available Not Available Loryna (28) 3 mg-0.02 mg tablet active Not Available Not Available No t Available Nexplanon 68 mg subdermal implant Inject 1 implant every day by subcutan eous route for 1 day. 2019 active patient told she should remove. Not Available Not Available Not Available Gynazole- 1 2 % vaginal cream Insert 1 applicat orful every day by vaginal route at bedtime for 1 day. 03/20 completed Not Available Not Available Not Available selenium sulfide 2.5 % lotion APPLY FROM NECK TO WAIST. LEAVE ON SKIN FOR 15 MINUTES AND WASH OFF AND SHOWER. REPEAT FOR 7 CONSECUT BINU DAYS. 12/14 completed Not Available Not Available Not Available iwiStCardia Tana 14 Day Sensor kit USE DIRECTED PER PRESCRIB ER active Not Available Not Available No t Available Slynd 4 mg (28) tablet active Not Available Not Available Not Available [facility] mg disintegr ating tablet PLACE ONE TABLET BY MOUTH EVERY DAY NEEDED FOR MIGRAINE HEADACHE . MAX DAILY DOSE 1 TABLET active Not Available Not Available No t Available Vitals Date Recorded Body height Body mass index (BMI) Body weight Heart rate Systolic blood pressure Diastolic blood pressure Provider Name and Address Organization Details Last Updated DateTime 5 154.94 cm 25.9 kg/m2 20266.1 5 g 92 /min 114 mm[Hg] 72 mm[Hg] Daysi Turner [place] - [facility], 5 11:28:18 Social History Question Answer Notes LastModified by Organizat ion Details LastModified Time Tobacco Smoking Status Never Smoker Not Available [facility] 05/30/2020 03:19:42 What Is Your Level Of Alcohol Consumption? None [id number] Information not available 05/30/2020 Are You Blind Or Do You Have Difficulty Seeing? No [id number] Information not available 05/30/2020 What Is Your Level Of Caffeine Consumption? Moderate Information not available 12/14/2020 In The 14 Days Before Symptom Onset, Have You Had Close Contact With A Laboratory-confi rmed COVID-19 While That Case Was Ill? No Information not available 05/16/2021 In The 14 Days Before Symptom Onset, Have You Had Close Contact With A Person Who Is Under Investigation For COVID-19 While That Person Was Ill? No Information not available 05/16/2021 Have You Been To An Area Known To Be High Risk For COVID-19? No Information not available 05/16/2021 Are You Currently Employed? Yes Information not available 05/16/2021 Are You Deaf Or Do You Have Serious Difficulty Hearing? No [id number] Information not available 05/30/2020 What Type Of Diet Are You Following? REGULAR [id number] Information not available 05/30/2020 Which Illicit Or Recreational Drugs Have You Used? No [id number] Information not available 05/30/2020 Do You Reside In Or Have You Traveled To An Area Where Ebola Virus Transmission Is Active? No [id number] Information not available 05/30/2020 Do You Or Have You Ever Used E-cigarettes Or Vape? Never Used Electronic Cigarettes [id number] Information not available 05/30/2020 Education 2 Year [employer] Information not available 08/13/2013 What Is The Highest Grade Or Level Of School You Have Completed Or The Highest Degree You Have Received? [id number] Information not available 05/16/2021 Who Is Your Employer? 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 0 Information not available 03/22/2016 Are There Any Guns Present In Your Home? Yes Information not available 05/16/2021 High Number Of Sexual Partners No Information not available 03/22/2016 To Which Gender Do You Self-identify? Female Information not available 03/22/2016 Marital Status Single Informatio n not available 08/13/2012 What Was The Date Of Your Most Recent Tobacco Screening? 10/12/2024 Information not available 10/12/2024 What Is Your Relationship Status? Single Information not available 05/16/2021 Are You Sexually Active? Yes [id number] Information not available 05/30/2020 Do You Or Have You Ever Used Smokeless Tobacco? Never Used Smokeless Tobacco [id number] Information not available 05/30/2020 How Much Tobacco Do You Smoke? No [id number] Information not available 05/30/2020 General Stress Level Medium Information not available 03/22/2016 Do You Feel Stressed (tense, Restless, Nervous, Or Anxious, Or Unable To Sleep At Night)? [id number] Information not available 05/16/2021 Do You Use Any Illicit Or Recreational Drugs? No Information not available 05/16/2021 Have You Recently (within The Last 12 Weeks, Or During A Current ) Traveled To Or Lived In A Zika-affected Area? No Information not available 03/22/2016 Sex: Female Functional Status Question Answer Note LastModified by Organizat ion Details LastModified Time Do you have difficulty walking or climbing stairs? No [id number] Information not available 05/30/2020 Do you have difficulty doing errands alone? No [id number] Information not available 05/30/2020 Do you have difficulty dressing or bathing? No [id number] Information not available 05/30/2020 What is your exercise level? Moderate [id number] Information not available 05/30/2020 Mental Status Question Answer Note LastModified by Organization D etails LastModified Time Do you have difficulty concentrating, remembering or making decisions? No [id number] Information no t available 05/30/2020 Family History Relationship Description Onset Age of this Age Resolved Age Notes LastModified by Organization Details LastModified Time Father Hypercholest erolemia previo usly record ed as High Choles terol Not available 01/24/2015 13:17:36 Medical History Condition Response Anesthesia complications N High Blood Pressure N Candidate for MyRisk panel N Autoimmune Condition N Kidney or Bladder Problems N Thyroid Problems N Depression N Lung Disease N GI Problems Y Defects or Inherited Disease N Anemia N History of Ovarian Cancer N History of Breast Cancer N THOMAS exposure N BRCA testing in past N Osteopenia N Psychiatric Illness N Anxiety Disorder Y Diabetes N Arthritis N Headaches or Migraines Y Infertility N Asthma N History of Cancer N Endometriosis N Hepatitis N Heart Disease N Hypertension N Osteoporosis N Gynecological History Statement/Question Response Flow Light Date of LMP 07/01/2023 Frequency of Cycle (Q days) 28 Menses Monthly Y Duration of Flow (days) 3 Age at Menarche 12 Current Control Method BCPs Age at First Child 1 Obstetrics History GPAL:G 0 P 0 0 0 0 Type Value Living 0 Total 0 Immunizations Vaccine Type Date Status Note Provider Nam e and Address Organization Details Recorded Time SARS-COV-2 (COVID-19) vaccine, UNSPECIFIED 1 completed [place] Tenorio in [facility], 12/14/2020 14:25:07 SARS-COV-2 (COVID-19) vaccine, UNSPECIFIED 1 completed [place] in [facility], 12/14/2020 14:25:16 Influenza, MDCK, quadrivalent, PF 9 completed SHANTA Matta in [facility], 08/26/2023 09:34:04 MMR 0 completed Daysipiero Omerywor [place] reese in [facility], 08/26/2023 09:34:04 MMR 6 completed [place]ANT[place] Matta in [facility], 08/26/2023 09:34:04 COVID-19, mRNA, LNP-S, PF, 30 mcg/0.3 mL dose 1 completed [place] Matta in [facility], 08/26/2023 09:34:05 COVID-19, mRNA, LNP-S, PF, 30 mcg/0.3 mL dose 0 completed Daysi Meczywor null, [place] - [facility], 08/26/2023 09:34:05 Tdap 6 completed Daysi Meczywor null, [place] - [facility], 08/26/2023 09:34:05 Tdap 9 completed Daysi Meczywor null, [place] - [facility], 08/26/2023 09:34:05 varicella 6 completed Daysi Meczywor null, [place] - [facility], 08/26/2023 09:34:05 varicella 1 completed Daysi Meczywor null, [place] - [facility], 08/26/2023 09:34:05 DTP 5 completed Daysi Meczywor null, [place] - [facility], 08/26/2023 09:34:05 DTP 5 completed Daysi Meczywor null, [place] - [facility], 08/26/2023 09:34:05 DTP 5 completed Daysi Meczywor null, [place] - [facility], 08/26/2023 09:34:05 DTP 6 completed Daysi Meczywor null, [place] - [facility], 08/26/2023 09:34:05 OPV 9 completed Daysi Meczywor null, [place] - [facility], 08/26/2023 09:34:05 OPV 5 completed Daysi Meczywor null, [place] - [facility], 08/26/2023 09:34:05 OPV 5 completed Daysi Meczywor null, [place] - [facility], 08/26/2023 09:34:05 OPV 5 completed Daysi Meczywor null, [place] - [facility], 08/26/2023 09:34:05 Influenza, split virus, trivalent, preservative 4 completed Daysi Meczywor null, [place] - [facility], 08/26/2023 09:34:05 Influenza, split virus, trivalent, preservative 0 completed Daysi Meczywor null, [place] - [facility], 08/26/2023 09:34:05 Influenza, split virus, trivalent, preservative 2 completed Daysi Meczywor null, [place] - [facility], 08/26/2023 09:34:05 Influenza, split virus, trivalent, preservative 2 completed Daysi Meczywor null, [place] - [facility], 08/26/2023 09:34:05 Hep B, adolescent or pediatric 6 completed Daysi Meczywor null, [place] - [facility], 08/26/2023 09:34:05 Hep B, adolescent or pediatric 5 completed Daysi Meczywor null, [place] - [facility], 08/26/2023 09:34:05 Hep B, adolescent or pediatric 5 completed Daysi Meczywor null, [place] - [facility], 08/26/2023 09:34:05 Hep B, adult 0 completed Daysi Meczywor null, [place] - [facility], 08/26/2023 09:34:05 Hep B, adult 0 completed Daysi Meczywor null, [place] - [facility], 08/26/2023 09:34:05 Hep B, adult 0 completed Daysi Meczywor null, [place] - [facility], 08/26/2023 09:34:05 Hib (HbOC) 5 completed Daysi Meczywor null, [place] - [facility], 08/26/2023 09:34:05 Hib (HbOC) 6 completed Daysi Meczywor null, [place] - [facility], 08/26/2023 09:34:05 Hib (HbOC) 5 completed Daysi Meczywor null, [place] - [facility], 08/26/2023 09:34:05 Hib (HbOC) 5 completed Daysi Meczywor null, [place] - [facility], 08/26/2023 09:34:05 meningococcal MCV4P 7 completed Daysi Meczywor null, [place] - [facility], 08/26/2023 09:34:05 meningococcal MCV4P 3 completed Daysi Meczywor null, [place] - [facility], 08/26/2023 09:34:05 DTaP 9 completed Daysi Meczywor null, [place] - [facility], 08/26/2023 09:34:05 Past Encounters Encounter ID Performer Location Encounter Start Date Encounter Closed Date Diagnosis/Indication Diagnosis SNOMED-CT Code Diagnosis ICD10 Code Diagnosis Note [id number] MD AGATHA Carlton MD [address] [facility] [address] [place] [address] 10/12/2024 11:20:21 10/12/2024 13:06:33 Acute lower urinary tract infection 198851660 R30.0 Right lowe r quadrant pain 634852291 R10.31 Candidal vulvovaginitis 11810428 B37.31 Health Concerns Section Related Observation LastModified by Organization Detai ls LastModified Time None Recorded Concern Status LastModified by Organization Details LastModified Time None Recorded Payers Encounter Date Sequence Insurance Name Policy Number Policy Plata Covered Member ID Plata Member ID Guarantor Name 10/12/2024 1 [employer] [place] ([facility]) [id number] Jenifer Monzon [id number] Jenifer Monzon Notes Date Note Type Note Provider Name and Address Organization Details Recorded Time 10/12/2024 text/html She is here for a two week history of right lower quadrant pelvic pain. She also has had vaginal pruritus and a sense of dysuria only onthe outside skin when she urinates. She had been going to a pit boss in [place], her last annual was there, however she desires to switch back to our practice. Her insurance requires her to pa y a larger co pay to see us, as she works in the [facility] [employer] system, which is why she had transferred her care previously. But I didn't like his bedside manner, she notes. Her last annual here was 11/2020. She had Nexplanon removal and reinsertion 08/25/2019, it is 2 years overdue to be replaced, she is aware. She is concerned because she can no longer palpate the implant. Two months ago she started Slynd, a drsp OCP that she got from an online consult and pharmacy. Same partner for 1 year. Note from 07/2023: She is here for a complaint of pelvic pain. 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 She is seeing Dr. Sebastian for wellness, and has been getting tested for a number of things.She had been being followed by us for a 4.5 cm left ovarian cyst, she did a follow up sonogram in 07/17 that showed it decreased to 1.5 cm.She also has vaginal pruritus. Agatha Gutiérrez MD [address] [facility],[address], [place], [address], [place] - [facility], 10/12/2024 12:09:33 OBGyn Episode No OBEpisode recorded.
--- OUTSIDE RECORDS SUMMARY | 2024-10-12 15:28 | XMS_ITS | Clinical Summary ---
Author Organization [facility] Address [address] [place] [address] Care Team Providers Care Second Hand Name Role Phone Pcp, No Primary Care Provider Jered Barajas MD Unavailable Allergies No known active allergies Medications Medication Sig Dispensed Refills Start Date End Date Status Nurtec [address] ONE TABLET BY MOUTH EVERY DAY NEEDED FOR MIGRAINE HEADACHE. MAX DAILY DOSE 1 TABLET 02/27/2023 Active nystatin (MYCOSTATIN) 721706 units tablet TAKE ONE TABLET BY MOUTH [...] age to complete this topic Care Teams Second Hand Relationship Specialty Start Date End Date Pcp, No PCP - General General Medicine 05/01/23 Jered Haji MD [address] [place] [address] Otolaryngology 05/01/23
--- OUTSIDE RECORDS SUMMARY | 2024-10-12 15:28 | XMS_ITS | Data Portability ---
Author Organization [place] - [facility],, AGATHA GUTIÉRREZ MD Address [address] [address] [place] [id number] Care Team Providers Care Senior Speech Pathologist Name Role Phone HALLIE REID Primary Care Provider Assessment No assessment recorded. Plan of Treatment Reminders Order Date Submit Date Provider Last Modified By Organization Details Last Modified Time Details Appointments PROBLEM 20 2024 11:30A M Agatha Gutiérrez MD Not available Not available Not available ANNUAL EXAM 2024 03:00P M Agatha Gutiérrez MD Not available Not available Not available Lab urinalys is, dipstick 2024 025 GOMEZ In-Office Order, Internal Use Only DO Not Attach Compendium DO Not Attach Compendium, Do Not Delete/merge, [id number] 10/12/2024 12:51:25 culture, urine 2024 025 GOMEZ [facility], [address] [facility], [place], [address], 10/12/2024 12:34:34 wet mount, vaginal 2024 025 [email or web address] 1 In-Office Order, Internal Use Only DO Not Attach Compendium DO Not Attach Compendium, Do Not Delete/merge, [id number] 10/12/2024 12:05:16 CT + NG DNA, PCR, cervical 2024 025 GOMEZ [facility], [address], [address], [place], [id number], 10/12/2024 11:56:30 urinalys is, dipstick 2023 024 [email or web address] 1 In-Office Order, Internal Use Only DO Not Attach Compendium DO Not Attach Compendium, Do Not Delete/merge, [id number] 08/26/2023 10:09:16 culture, urine 2023 024 GOMEZ [facility] (Centralized Electronic Ordering - All Locations), Patient Can Go To The Location Of Their Choice, [id number] 08/28/2023 07:06:37 wet mount, vaginal 2023 024 [email or web address] 1 In-Office Order, Internal Use Only DO Not Attach Compendium DO Not Attach Compendium, Do Not Delete/merge, [id number] 08/26/2023 10:45:23 CT + NG DNA, PCR, cervical 2023 024 GOMEZ [facility], [address], [address], 08/27/2023 12:48:43 urinalys is, dipstick 2020 021 [email or web address] 1 In-Office Order, Internal Use Only DO Not Attach Compendium DO Not Attach Compendium, Do Not Delete/merge, [id number] 06/01/2021 14:22:10 culture, urine 2020 021 [facility], [address] [facility], [place], [address], 06/02/2021 16:30:48 pregnanc y test, urine 2020 021 [email or web address] 1 In-Office Order, Internal Use Only DO Not Attach Compendium DO Not Attach Compendium, Do Not Delete/merge, [id number] 06/01/2021 14:22:11 urinalys is, dipstick 2020 021 [email or web address] 1 In-Office Order, Internal Use Only DO Not Attach Compendium DO Not Attach Compendium, Do Not Delete/merge, [id number] 05/16/2021 11:11:45 culture, urine 2020 021 GOMEZ [facility], Cytopathology Service, [address] [place] [address], [id number], 05/17/2021 12:55:35 wet mount, vaginal 2020 021 [email or web address] 1 In-Office Order, Internal Use Only DO Not Attach Compendium DO Not Attach Compendium, Do Not Delete/merge, [id number] 05/16/2021 11:15:55 pregnanc y test, urine 2020 021 [email or web address] 1 In-Office Order, Internal Use Only DO Not Attach Compendium DO Not Attach Compendium, Do Not Delete/merge, [id number] 05/16/2021 11:57:39 NG DNA, PCR, genital 2020 021 [facility], Cytopathology Service, [address] [place] [address], [id number], 05/23/2021 07:24:11 chlamydi a sp, culture, unspecif ied specimen 2020 021 [facility], Cytopathology Service, [address] [place] [address], [id number], 05/23/2021 07:24:11 pap test, thinprep , cervical 2020 021 [facility], Cytopathology Service, [address] [place] [address], [id number], 12/21/2020 08:02:04 chlamydi a sp, culture, unspecif ied specimen 2020 021 [facility], Cytopathology Service, [address] [place] [address], [id number], 12/21/2020 08:02:04 NG DNA, PCR, genital [address] [place] [address] [facility] Cytopathology Service, [address] [place] [address], [id number], 12/21/2020 08:02:05 Referral None recorded . Procedures None recorded . Surgeries None recorded . Imaging US, pelvis, transabd ominal + transvag inal - right sided pelvic pain, histroy of 3.1 cm right ovarian cyst a year ago 2024 025 [facility] (Imaging), [address] [place], [address], 10/12/2024 13:06:33 US, pelvis, transabd ominal + transvag inal - 4 cm right ovarian cyst on exam, pelvic pain 2023 024 [facility] (Imaging), [address] [place], [address], 09/08/2023 19:24:48 US, pelvis, transabd ominal + transvag inal - 3 to 4 cm left ovarian cyst, bloating , pelvic pain 2020 021 [facility] (Imaging), [address] [place], [address], 06/01/2021 12:05:44 Medication Orders fluconaz ole 150 mg tablet 2024 025 [id number], [facility] [place], [address], 10/12/2024 12:05:07 fluconaz ole 150 mg tablet 2020 [facility]21 [facility], [address] [place], [address], 06/01/2021 14:05:03 Patient TargetsNo targets recorded. Patient Instructions Encounter Date Encounter Id Patient Instructions Last Modified By Organization Details Last Modified Time 12/14/2020 [id number] learning about healthy weight Not available 12/14/2020 14:45:12 She is here for annual exam, last pap ws in 2018 at [facility]. She had new Nexplanon placed last spring, doing well. Still has regular menses , light, lasting 7 days with some spotting afterward. 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 Note from 07/2019: She has not had a visit here since annual exam in 02/2016. Last pap was in 2018 at [facility]. Nexplanon placed 04/2016 at [facility]. She had her Nexplanon inserted at [facility], her date to have it removed was in 04/2019, she called them to have it removed and they advised her that the taxation accountant extended the time for another year and she didn't need to have it removed until 02/2020. She notes that in the first three years she had only very light bleeding every 1 to 3 months,but recently she is getting heavier bleeding with strong and painful cramps. We had a long discussion about her options. After discussion she elects to have the Nexplanon removed an a new one placed, as her symptoms may be due to waning dosage now inserted more than 3 years. She agrees to this plan. __ She appears to be doing well. She is advised to get 1500 mg of calcium daily into her diet and supplements combined. We discussed the benefits of adequate vitamin D supplementation to at least 400 units daily, daily aerobic exercise of 30 minutes, and stress reduction. Monthly self breast exam was taught, and stressed, and is advised to call if she discovers any new mass in the breast. Not available 12/14/2020 14:45:30 05/16/2021 [id number] urinary tract infection in women information Not available 05/16/2021 11:11:45 vaginal yeast infection: care instructions Not available 05/16/2021 11:15:55 She is here for complaints of lower pelvic bloating, pressure with urination, dysuria, vaginal pruritis and burning, and she would also like a genprobe done to check for possible chlamydia and GC. Nexplanon placed 09/27/2019. LMP 04/24/21, normal . She appears to have a cyst of the left ovary, she is offered to do sonogram now, or repeat exam in 6 weeks, she prefers sono now. Have ordered. Her urine dip is negative, check culture. Wet ila show yeast, rx diflucan. Check genprobe. Urine test done for adnexal mass with back pain, upreg is negative. All questions answered. She is advised to call if she has any pelvic pain or spotting, she has had none, just a sense of bloating. Her LMP was normal in flow and timing. Not available 05/16/2021 11:49:55 06/01/2021 [id number] urinary tract infection in women information Not available 06/01/2021 14:22:10 She is here for KRISTEL after E Coli UTI. Also she is here to discus her 4.5 cm left ovarian cyst found on problem visit 05/16/21 and confirmed by sonogram on 05/30/21. She also notes spotting and cramping since the sonogram. She has not been sexually active in longer than 4 weeks. LMP was 06/01/21. Urine hcg is negative. She is advised that the urine has blood only, will check culture for KRISTEL. We discussed the 4.5 cm simple left ovarian cyst. We will repeat the sonogram in 6 weeks. IF it is resolved then no further testing is necessary. If it is persistent or enlarging then it may be a benign cyst such as a serous cystadenoma that would require surgery. Laparoscopy is discussed in detail. all questions answered. Face to face discussion 30 minutes Not available 06/01/2021 14:26:20 08/26/2023 [id number] urinary tract infection in women information Not available 08/26/2023 10:09:16 vaginal yeast infection: care instructions Not available 08/26/2023 10:45:23 She is here for a complaint of pelvic pain. she missed her last menses, LMP was 07/01/23. 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 She also has vaginal pruritus. Note from 05/2021: She is here for KRISTEL after E Coli UTI. Also she is here to discus her 4.5 cm left ovarian cyst found on problem visit 05/16/21 and confirmed by sonogram on 05/30/21. She also notes spotting and cramping since the sonogram. She has not been sexually active in longer than 4 weeks. LMP was 06/01/21. Urine hcg is negative. She is advised that the urine has blood only, will check culture for KRISTEL. We discussed the 4.5 cm simple left ovarian cyst. We will repeat the sonogram in 6 weeks. IF it is resolved then no further testing is necessary. If it is persistent or enlarging then it may be a benign cyst such as a serous cystadenoma that would require surgery. Laparoscopy is discussed in detail. all questions answered. On exam she has a 4 cm right ovarian cyst. Check pelvic sonogram. She notes her pelvic pain has been more on the right than left. She has monilia vaginitis. She has an rx for 100 mg diflucan to take one pill a day for 7 days that she filled buty has not taken yet, for the yeast in my intestines. She will take that and that will cover the vaginal yeast more than enough. She missed her last menses, but notes that her functional medicine doctor will be redrawing thyroid and other hormone testing such as LH and FSH soon, she will get copies of that sent to me. Return for Nexplanon removal. Return for annual. Urine dip unremarkable, check culture. Check genprobe. Not available 08/26/2023 11:23:20 10/12/2024 [id number] urinary tract infection in women information Not [...] urinates. She had been going to a mock up builder in [place], her last annual was there, however she desires to switch back to our practice. 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 She needs to do this at [place] for costs, she will ask her PCP [...] Abnormal Flag Note LastModifiedBy Organization Detail LastModifiedTime 05/16/20 21 05/16/2021 wet mount , vagin al Clue Cells negati ve Not Available In-Office Order Internal Use Only DO Not Attach Compendium DO Not Attach Compendium, Do Not Delete/merge, [id number] 05/16/2021 11:14:31 05/16/20 21 05/16/2021 wet mount , vagin al Trichomonas negati ve Not Available In-Office Order Internal Use Only DO Not Attach Compendium DO Not Attach Compendium, Do Not Delete/merge, [id number] 05/16/2021 11:14:31 05/16/20 21 05/16/2021 wet mount , vagin al Hyphae positi ve Not Available In-Office Order Internal Use Only DO Not Attach Compendium DO Not Attach Compendium, Do Not Delete/merge, [id number] 05/16/2021 11:14:31 05/16/20 21 05/16/2021 wet mount , vagin al atrophic epithelium negati ve Not Available In-Office Order Internal Use Only DO Not Attach Compendium DO Not Attach Compendium, Do Not Delete/merge, [id number] 05/16/2021 11:14:31 12/15/19 21 12/14/2020 gener [email or web address] se [id number] RESUL TS OF APTIM A COMBO 2 ASSAY : Addy chacondia: NEGAT BINU N. dale wolf e: NEGAT BINU Compl eted on 12-19 Amadeo watts M.D. , Patho logis t (Case elect ba kimmy zapata d 12 19 2020) CLINI LARA INFOR MATIO N: LPS NEG, Z12.4 , Z01.4 19 SOURC E: ThinP rep Pap for CT/GC Gross Descr iptio n: ThinP rep Vial Recei vinh. Physi nic MAK N ASIM RYAN/ [phone] 09- 79 Not Available [facility], Cytopathology Service [address] [place], [address], 12/19/2020 10:06:05 12/15/19 21 12/14/2020 pap, LB [id number] ThinP rep Pap, Image d: NEGAT BINU FOR SQUAM OUS INTRA EPITH ELIAL LESIO N AND MALIG NIVIA . Egan Joseph Alves , CT( CP) (Case elect ba oneal jodi d 12 19 2020) ADEQU ACY: Satis facto ry Endoc ervic al/tr ansfo rmati on zone compo nent prese nt. SOURC E: ThinP rep Pap HPV IF ASCUS , Cervi lara, Image d CLINI LARA INFOR MATIO N: HPV If Diagn osis of ASCUS . lps neg, z12.4 , z11.3 Not Available [facility], Cytopathology Service [address] [place], [address], 12/19/2020 12:06:17 05/16/20 21 05/16/2021 URINE CULTU RE comments [facility] susan valle [facility] [address] [place] [address] Medic al Dire raine whitaker MD [facility] E: URINE ,SHIRA N CATCH ; Not Available [facility] [address] [place] [address], [address], 05/18/2021 09:21:35 05/16/20 21 05/17/2021 URINE CULTU RE urine culture [facility] gladys slater, a membe r of [facility] [address] [place] [address] Medic al Dire raine whitaker MD [facility] CTION TIME: 05/16 11:00 :00 AM -04:0 0 URINE CULTU RE ESCHE JENNIFER A COLI ( ESCCO L ) F URINE CULTU RE COLON Y COUNT F URINE CULTU RE 10,00 0-49, 000 F Not Available [facility] [address] [place] [address], [address], 05/18/2021 09:21:35 05/16/20 21 05/16/2021 CHLAM YDIA DNA SWAB comments [employer] atori es, a membe r of [employer] [address] [place] [address] Medic al [facility] raine whitaker MD Not Available [facility] [address] [place] [address], [address], 05/18/2021 07:14:28 05/16/20 21 05/16/2021 CHLAM YDIA DNA SWAB chlamydia DNA swab NEGATI VE negati ve Not Available [facility] [address] [place] [address], [address], 05/18/2021 07:14:28 05/16/20 21 05/16/2021 GC DNA SWAB comments [employer] atori es, a membe r of [employer] [address] [place] [address] Medic al [facility] raine whitaker MD Not Available [facility] [address] [place] [address], [address], 05/18/2021 07:14:33 05/16/20 21 05/16/2021 GC DNA SWAB GC DNA swab NEGATI VE negati ve Not Available [facility] [address] [place] [address], [address], 05/18/2021 07:14:33 05/16/20 21 05/16/2021 GRAM NEGAT BINU SUSKIM PTIBI LITY comments PAREN T ORGAN ISM: ESCHE JENNIFER A COLI ( ESCCO L ) [employer] atori es, a [facility] [address] [place] [address] Medic al [facility] raine whitaker MD SOURC E: URINE ,SHIRA N CATCH ; Not Available [facility] [address] [place], [address], 05/18/2021 09:21:41 05/16/20 21 05/17/2021 GRAM NEGAT BINU SUSCE PTIBI LITY gram negative susceptibili ty [facility], a [facility] [place] [address] [place] [id number] Medic al Dire raine whitaker MD COLLE CTION TIME: 05/16 11:00 :00 AM -04:0 0 TRIME THOPR IM/SANTOYO LFAME THOXA ZOLE <=20 S F AMOXI CILLI N/CLA VULAN IC ACID <=2 S F AMPIC ILLIN <=2 S F AMPIC ILLIN /SULB ACTAM <=2 S F CEFAZ WOJCIECH <=4 S F CEFTA ZIDIM E <=1 S F CEFTR IAXON E <=1 S F CEFEP MICHAEL <=1 S F CIPRO FLOXA RONEY <=0.2 5 S F ERTAP ENEM <=0.5 S F GENTA MICIN <=1 S F LEVOF LOXAC IN <=0.1 2 S F IMIPE NEM <=0.2 5 S F NITRO FURAN TOIN <=16 S F TOBRA MYCIN <=1 S F PIPER ACILL IN/TA ZOBAC VAIL <=4 S F Not Available [facility] [address] [place], [address], 05/18/2021 09:21:41 05/16/2005/16/2021 pregn tong test, urine HCG negati ve Not Available In-Office Order Internal Use Only DO Not Attach Compendium DO Not Attach Compendium, Do Not Delete/merge, [id number] 05/16/2021 11:49:29 05/16/2005/16/2021 urina lysis , dipst ick GLU Negati ve Not Available In-Office Order Internal Use Only DO Not Attach Compendium DO Not Attach Compendium, Do Not Delete/merge, [id number] 05/16/2021 11:01:41 05/16/20 21 05/16/2021 urina lysis , dipst ick ADILSON Negati ve Not Available In-Office Order Internal Use Only DO Not Attach Compendium DO Not Attach Compendium, Do Not Delete/merge, 05/16/2021 11:01:41 05/16/20 21 05/16/2021 urina lysis , dipst ick KET Negati ve Not Available In-Office Order Internal Use Only DO Not Attach Compendium DO Not Attach Compendium, Do Not Delete/merge, 05/16/2021 11:01:41 05/16/20 21 05/16/2021 urina lysis , dipst ick SG 1.025 Not Available In-Office Order Internal Use Only DO Not Attach Compendium DO Not Attach Compendium, Do Not Delete/merge, 05/16/2021 11:01:41 05/16/20 21 05/16/2021 urina lysis , dipst ick BLO Negati ve Not Available In-Office Order Internal Use Only DO Not Attach Compendium DO Not Attach Compendium, Do Not Delete/merge, 05/16/2021 11:01:41 05/16/20 21 05/16/2021 urina lysis , dipst ick pH 5.0 Not Available In-Office Order Internal Use Only DO Not Attach Compendium DO Not Attach Compendium, Do Not Delete/merge, 05/16/2021 11:01:41 05/16/20 21 05/16/2021 urina lysis , dipst ick PRO Negati ve Not Available In-Office Order Internal Use Only DO Not Attach Compendium DO Not Attach Compendium, Do Not Delete/merge, 05/16/2021 11:01:41 05/16/20 21 05/16/2021 urina lysis , dipst ick URO 0.2 E.U. / dl Not Available In-Office Order Internal Use Only DO Not Attach Compendium DO Not Attach Compendium, Do Not Delete/merge, 05/16/2021 11:01:41 05/16/20 21 05/16/2021 urina lysis , dipst ick NIT negati ve Not Available In-Office Order Internal Use Only DO Not Attach Compendium DO Not Attach Compendium, Do Not Delete/merge, [id number] 05/16/2021 11:01:41 05/16/20 21 05/16/2021 urina lysis , dipst ick COLIN Negati ve Not Available In-Office Order Internal Use Only DO Not Attach Compendium DO Not Attach Compendium, Do Not Delete/merge, [id number] 05/16/2021 11:01:41 06/01/20 21 06/01/2021 URINE CULTU RE comments [facility], a membe r of [employer] [facility] [address] [place] [address] Medic al [facility] raine whitaker MD SOUR E: URINE ,SHIRA N CATCH ; Not Available [facility] [address] [place] [address], [id number], 06/02/2021 16:30:31 06/01/20 21 06/02/2021 URINE CULTU RE urine culture [facility], a mem[facility] of [facility] [address] [place] [address] Medic al [facility] raine whitaker MD COLLE CTION TIME: 2020 2:00: 00 PM -04:0 0 URINE CULTU RE No growt h F Not Available [facility] [address] [place] [address], [address], 06/02/2021 16:30:31 06/01/20 21 06/01/2021 pregn tong test, urine HCG negati ve Not Available In-Office Order Internal Use Only DO Not Attach Compendium DO Not Attach Compendium, Do Not Delete/merge, [id number] 06/01/2021 14:21:52 06/01/20 21 06/01/2021 urina lysis , dipst ick GLU Negati ve Not Available In-Office Order Internal Use Only DO Not Attach Compendium DO Not Attach Compendium, Do Not Delete/merge, [id number] 06/01/2021 13:56:57 06/01/20 21 06/01/2021 urina lysis , dipst ick ADILSON Negati ve Not Available In-Office Order Internal Use Only DO Not Attach Compendium DO Not Attach Compendium, Do Not Delete/merge, 06/01/2021 13:56:57 06/01/20 21 06/01/2021 urina lysis , dipst ick KET Negati ve Not Available In-Office Order Internal Use Only DO Not Attach Compendium DO Not Attach Compendium, Do Not Delete/merge, 06/01/2021 13:56:57 06/01/20 21 06/01/2021 urina lysis , dipst ick SG 1.010 Not Available In-Office Order Internal Use Only DO Not Attach Compendium DO Not Attach Compendium, Do Not Delete/merge, 06/01/2021 13:56:57 06/01/2006/01/2021 urina lysis , dipst ick BLO Small Not Available In-Office Order Internal Use Only DO Not Attach Compendium DO Not Attach Compendium, Do Not Delete/merge, 06/01/2021 13:56:57 06/01/20 21 06/01/2021 urina lysis , dipst ick pH 6.0 Not Available In-Office Order Internal Use Only DO Not Attach Compendium DO Not Attach Compendium, Do Not Delete/merge, 06/01/2021 13:56:57 06/01/20 21 06/01/2021 urina lysis , dipst ick PRO Negati ve Not Available In-Office Order Internal Use Only DO Not Attach Compendium DO Not Attach Compendium, Do Not Delete/merge, 06/01/2021 13:56:57 06/01/20 21 06/01/2021 urina lysis , dipst ick URO 0.2 E.U. / dl Not Available In-Office Order Internal Use Only DO Not Attach Compendium DO Not Attach Compendium, Do Not Delete/merge, 06/01/2021 13:56:57 06/01/20 21 06/01/2021 urina lysis , dipst ick NIT negati ve Not Available In-Office Order Internal Use Only DO Not Attach Compendium DO Not Attach Compendium, Do Not Delete/merge, [id number] 06/01/2021 13:56:57 06/01/20 21 06/01/2021 urina lysis , dipst ick COLIN Negati ve Not Available In-Office Order Internal Use Only DO Not Attach Compendium DO Not Attach Compendium, Do Not Delete/merge, [id number] 06/01/2021 13:56:57 08/26/19 24 08/27/2023 CHLAM YDIA GC AMP PROBE C.trachomati s amp probe (neg) NEGAT BINU No Chlam ydia Trach omati s RNA detec raghavendra in this patie nt's sampl e (REFE RENCE RANGE /NORM AL VALUE : NOT DETEC RAGHAVENDRA) Note: This test uses trans cript ion- media raghavendra ampli ficat ion metho d to detec t rRNA from C. Trach omati s Not Available [facility] (Centralized Electronic Ordering - All Locations) Patient Can Go To The Location Of Their Choice, [id number] 08/27/2023 12:48:43 08/26/19 24 08/27/2023 CHLAM YDIA GC AMP PROBE N.gonorrhoea e amp probe (neg) NEGAT BINU No Neiss eria Gonor rhoea e RNA detec raghavendra in this patie nt's sampl e (REFE RENCE RANGE /NORM AL VALUE : NOT DETEC RAGHAVENDRA) NOTE: This test uses trans cript ion-m ediat ed ampli ficat ion metho d to detec t rRNA from N.Castro orrho eae. A negat binu resul t does not precl ude infec tion. In the case of a negat binu urine resul t, testi ng of an endoc ervic al(fe male) or ureth ral (male ) speci men is recom ludmila d if there is high clini lara suspi cion of infec tion. Due to very high sensi tivit y of Nucle ic Acid Ampli ficat ion Test, false posit binu resul ts may occur . There fore, speci men handl ing is extre delta impor tant. In patie nts in whom the disea se is unlik odalis, addit ional sampl e for testi ng shoul d be consi dered after an initi al posit binu resul t. The perfo rmanc e martina cteri stics of this test have not been evalu ated in child alexa. The Aptim a Combo 2 assay is not inten ded for the evalu ation of suspe cted sexua l abuse or for other medic o-leg al indic ation s. The order ing provi charlotte shoul d asses s if the patie nt had conse nsual sex witho ut risk of sexua l abuse . Consu lt [facility] if neede d. Conta ct phone numbe r [phone]. Thera peuti c failu re or succe ss canno t be deter mined with the Aptim a Combo 2 assay since nucle ic acid may persi st follo wing appro priat e antim icrob ial thera py. The [facility] rs [facility] Disea se Contr ol and Preve ntion ([facility]) recom mends confi rmato ry retes ting using cultu re or a diffe rent nucle ic acid ampli ficat ion test when posit binu resul ts occur , if indic ated. Not Available [facility] (Centralized Electronic Ordering - All Locations) Patient Can Go To The Location Of Their Choice, 08/27/2023 12:48:43 08/26/1908/27/2023 CHLAM YDIA GC AMP PROBE chlam/GC amp probe spec type CERVIX Not Available [facility] (Centralized Electronic Ordering - All Locations) Patient Can Go To The Location Of Their Choice, 08/27/2023 12:48:43 08/26/1908/26/2023 URINE CULTU RE special requests NONE Not Available [facility] (Centralized Electronic Ordering - All Locations) Patient Can Go To The Location Of Their Choice, 08/28/2023 07:06:36 08/26/1908/27/2023 URINE CULTU RE specimen description URINE Not Available [facility] (Centralized Electronic Ordering - All Locations) Patient Can Go To The Location Of Their Choice, 08/28/2023 07:06:36 08/26/19 24 08/28/2023 URINE CULTU RE culture NO GROWTH Not Available [facility] (Centralized Electronic Ordering - All Locations) Patient Can Go To The Location Of Their Choice, [id number] 08/28/2023 07:06:36 08/26/19 24 08/28/2023 URINE CULTU RE report status FINAL 2023 Not Available [facility] (Centralized Electronic Ordering - All Locations) Patient Can Go To The Location Of Their Choice, [id number] 08/28/2023 07:06:36 08/26/19 24 08/26/2023 wet mount , vagheidy al Clue Cells negati ve Not Available In-Office Order Internal Use Only DO Not Attach Compendium DO Not Attach Compendium, Do Not Delete/merge, 08/26/2023 10:45:07 08/26/19 24 08/26/2023 wet mount , vagin al Trichomonas negati ve Not Available In-Office Order Internal Use Only DO Not Attach Compendium DO Not Attach Compendium, Do Not Delete/merge, 08/26/2023 10:45:07 08/26/1908/26/2023 wet mount , vagheidy al Hyphae positi ve Not Available In-Office Order Internal Use Only DO Not Attach Compendium DO Not Attach Compendium, Do Not Delete/merge, 08/26/2023 10:45:07 08/26/19 24 08/26/2023 wet mount , vagin al atrophic epithelium negati ve Not Available In-Office Order Internal Use Only DO Not Attach Compendium DO Not Attach Compendium, Do Not Delete/merge, 08/26/2023 10:45:07 08/26/1908/26/2023 urina lysis , dipst ick GLU Negati ve Not Available In-Office Order Internal Use Only DO Not Attach Compendium DO Not Attach Compendium, Do Not Delete/merge, 08/26/2023 09:50:45 08/26/19 24 08/26/2023 urina lysis , dipst ick ADILSON Small Not Available In-Office Order Internal Use Only DO Not Attach Compendium DO Not Attach Compendium, Do Not Delete/merge, 08/26/2023 09:50:45 08/26/19 24 08/26/2023 urina lysis , dipst ick KET Negati ve Not Available In-Office Order Internal Use Only DO Not Attach Compendium DO Not Attach Compendium, Do Not Delete/merge, 08/26/2023 09:50:45 08/26/19 24 08/26/2023 urina lysis , dipst ick SG 1.030 Not Available In-Office Order Internal Use Only DO Not Attach Compendium DO Not Attach Compendium, Do Not Delete/merge, 08/26/2023 09:50:45 08/26/1908/26/2023 urina lysis , dipst ick BLO Negati ve Not Available In-Office Order Internal Use Only DO Not Attach Compendium DO Not Attach Compendium, Do Not Delete/merge, 08/26/2023 09:50:45 08/26/19 24 08/26/2023 urina lysis , dipst ick pH 5.0 Not Available In-Office Order Internal Use Only DO Not Attach Compendium DO Not Attach Compendium, Do Not Delete/merge, 08/26/2023 09:50:45 08/26/19 24 08/26/2023 urina lysis , dipst ick PRO Negati ve Not Available In-Office Order Internal Use Only DO Not Attach Compendium DO Not Attach Compendium, Do Not Delete/merge, 08/26/2023 09:50:45 08/26/1908/26/2023 urina lysis , dipst ick URO 0.2 E.U. / dl Not Available In-Office Order Internal Use Only DO Not Attach Compendium DO Not Attach Compendium, Do Not Delete/merge, 08/26/2023 09:50:45 08/26/19 24 08/26/2023 urina lysis , dipst ick NIT negati ve Not Available In-Office Order Internal Use Only DO Not Attach Compendium DO Not Attach Compendium, Do Not Delete/merge, 08/26/2023 09:50:45 08/26/19 24 08/26/2023 urina lysis , dipst ick COLIN Negati ve Not Available In-Office Order Internal Use Only DO Not Attach Compendium DO Not Attach Compendium, Do Not Delete/merge, 08/26/2023 09:50:45 10/13/19 25 10/12/2024 urina lysis , dipst ick GLU Negati [...] Not Delete/merge, 10/12/2024 11:55:30 10/13/19 25 10/12/2024 wet mount , vagin al Clue Cells negati ve Not Available In-Office Order Internal Use Only DO Not Attach Compendium DO Not Attach Compendium, Do Not Delete/merge, 10/12/2024 12:04:48 10/13/19 25 10/12/2024 wet mount , vagin al Trichomonas negati ve Not Available In-Office Order Internal Use Only DO Not Attach Compendium DO Not Attach Compendium, Do Not Delete/merge, 10/12/2024 12:04:48 10/13/1910/12/2024 wet mount , vagin al Hyphae positi ve Not Available In-Office Order Internal Use Only DO Not Attach Compendium DO Not Attach Compendium, Do Not Delete/merge, 10/12/2024 12:04:48 10/13/19 25 10/12/2024 wet mount , vagin al atrophic epithelium negati ve Not Available In-Office Order Internal Use Only DO Not Attach Compendium DO Not Attach Compendium, Do Not Delete/merge, 10/12/2024 12:04:48 06/01/20 21 05/30/2021 US, pelvi s, trans abdom inal + trans vagin al No observ ation record ed. [email or web address] [address] [facility], [place], [id number], 06/01/2021 14:00:17 07/05/20 21 07/02/2021 US, pelvi s, trans abdom inal + trans vagin al No observ ation record ed. [facility] (Central Scheduling Radiology) [address] [place], [address], 07/06/2021 09:52:13 09/08/19 24 09/05/2023 US, pelvi s, trans abdom inal + trans vagin al No observ ation record ed. [email or web address] [address] [place], [address], 09/10/2023 11:05:15 Result Notes None recorded. Problems Name Problem SNOMED Code Status Onset Date Resolution Date Notes Provider Name and Address Organization Details Recorded Time Acute lower urinary tract infection 572255548 Active Agatha Gutiérrez MD [address], [place], [address] , [place] - [facility] in [facility], 4 16:46:00 Pain in pelvis 22704403 Active Agatha Gutiérrez MD [address], [place], [address] , [place] - [facility] in [facility], 4 10:17:10 Candidal vulvovagi nitis 62548128 Active Agatha Gutiérrez MD [address], [place], [address] , [place] - [facility], 4 14:16:45 Migraine with aura 4385314 Active 2012 eye blindness and left sided weakness Not Available [facility] 3 03:01:05 Odorless vaginal discharge 040634441 Active Not Available [facility] 3 03:01:05 Dysmenorr hea 807865349 Active Agatha Gutiérrez MD [address], [place], [address] , [place] - [facility] in [facility], 5 13:17:35 Status migrainos 893856496 Active 2012 eye blindness and left sided weakness Not Available [facility] 3 03:01:05 Disorder of hair AND/OR hair follicle Active Agatha Gutiérrez MD [address], [place], [address] , [place] - [facility] in [facility], 5 13:15:22 Breast lump 22010538 Active Agatha Gutiérrez MD [address], [place], [address] , [place] - [facility] in [facility], 4 09:13:17 Notes:Currently being treate d for overgrowth of yeast and bacteria in stomach as of 12/14/20 Problem Notes None recorded. Procedures Surgical History Date Name Laterality Status Provider Name and Address Organization Details Recorded Time 09/27/19 20 Implanon Insertion completed Agatha Gutiérrez MD [address], [place], [address], [place] - [facility], 09/27/2019 13:00:14 09/15/19 20 Implanon Removal completed Agatha Gutiérrez MD [address], [place], [address], [place] - [facility], 09/15/2019 14:51:46 01/30/20 17 augmentation of bilateral breasts completed Dania Mckay [place] - [facility], 12/14/2020 14:27:14 07/28/19 14 Cholecystectomy completed Daysi Turner [place] - [facility] in [facility], 08/13/2013 09:07:42 07/28/19 14 Other completed Daysi Turner [place] - [facility], 03/22/2016 13:41:51 Imaging Results Imaging Date Name Status LastModified by Organization Details LastModified Time 05/30/2021 US, pelvis, transabdominal + transvaginal completed [email or web address] [facility] [address] [place], [address], 06/01/2021 14:00:17 07/02/2021 US, pelvis, transabdominal + transvaginal completed [facility] (Central Scheduling Radiology) [address], [place], [address], 07/06/2021 09:52:13 09/05/2023 US, pelvis, transabdominal + transvaginal completed [email or web address] [address] [place], [address], 09/10/2023 11:05:15 Procedure Notes None recorded. Medical Equipment None [...] Available Not Available Not Available sulfaceta mide sodium-santoyo lfur 10 %-5 % (w/w) lotion active [...] completed Not Available Not Available Not Available [employer] Tana 14 Day Sensor kit USE DIRECTED PER PRESCRIB ER active Not Available Not Available No t Available Slynd 4 mg (28) tablet active Not Available Not Available Not Available [facility] mg disintegr ating tablet PLACE ONE TABLET BY MOUTH EVERY DAY NEEDED FOR MIGRAINE HEADACHE . MAX DAILY DOSE 1 TABLET active Not Available Not Available No t Available Vitals Date Recorded Body height Body mass index (BMI) Body weight Body temperature Heart rate Systolic blood pressure Diastolic blood pressure Provider Name and Address Organization Details Last Updated DateTime 1 154.94 cm 22.5 kg/m2 65324.4 9 g 97.4 [degF] 80 /min 114 mm[Hg] 61 mm[Hg] Dania Latif [facility], 1 14:23:26 Date Recorded Body height Body mass index (BMI) Body weight Heart rate Body temperature Systolic blood pressure Diastolic blood pressure Provider Name and Address Organization Details Last Updated DateTime 1 154.94 cm 21.5 kg/m2 82470.0 9 g 84 /min 98.1 [degF] 111 mm[Hg] 64 mm[Hg] Daysi Turner [place] - [facility], 1 10:49:01 Date Recorded Body height Heart rate Body mass index (BMI) Body weight Systolic blood pressure Diastolic blood pressure Provider Name and Address Organization Details Last Updated DateTime 1 154.94 cm 96 /min 21.5 kg/m2 79946.0 9 g 116 mm[Hg] 67 mm[Hg] Daysi Turner [place] - [facility], 1 14:04:06 Date Recorded Body height Body mass index (BMI) Body weight Body temperature Heart rate Systolic blood pressure Diastolic blood pressure Provider Name and Address Organization Details Last Updated DateTime 4 154.94 cm 21.7 kg/m2 01753.1 2 g 97.6 [degF] 105 /min 113 mm[Hg] 65 mm[Hg] Daysi Turner [place] - [facility], 4 09:34:55 Date Recorded Body height Body mass index (BMI) Body weight Heart rate Systolic blood pressure Diastolic blood pressure Provider Name and Address Organization Details Last Updated DateTime 5 154.94 cm 25.9 kg/m2 56901.1 5 g 92 /min 114 mm[Hg] 72 mm[Hg] Daysi Turner [place] - [facility] in [facility], 5 11:28:18 Social History Question Answer Notes LastModified by Organizat ion Details LastModified Time Tobacco Smoking Status Never Smoker Not Available [facility] 05/30/2020 03:19:42 What Is Your Level Of Alcohol Consumption? None [id number] Information not available 05/30/2020 Are You Blind Or Do You Have Difficulty Seeing? No [id number] Information not available 05/30/2020 What Is Your [...] Do You Have Serious Difficulty Hearing? No [id number] Information not available 05/30/2020 What Type Of Diet Are You Following? REGULAR [id number] Information not available 05/30/2020 Which Illicit Or Recreational Drugs Have You Used? No [id number] Information not available 05/30/2020 Do You Reside In Or Have You Traveled To An Area Where Ebola Virus Transmission Is Active? No [id number] Information not available 05/30/2020 Do You Or Have You Ever Used E-cigarettes Or Vape? Never Used Electronic Cigarettes [id number] Information not available 05/30/2020 Education 2 Year College Radiology School Information not available 08/13/2013 What Is The Highest Grade Or Level Of School You Have Completed Or The Highest Degree You Have Received? [id number] Information not available 05/16/2021 Who Is Your Employer? 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 Yes [id number] Information not available 05/30/2020 Do You Or Have You Ever Used Smokeless Tobacco? Never Used Smokeless Tobacco [id number] Information not available 05/30/2020 How Much Tobacco Do You Smoke? No [id number] Information not available 05/30/2020 General Stress Level Medium Information not available 03/22/2016 Do You Feel Stressed (tense, Restless, Nervous, Or Anxious, Or Unable To Sleep At Night)? [id number] Information not available 05/16/2021 Do You Use [...] have difficulty walking or climbing stairs? No [id number] Information not available 05/30/2020 Do you have difficulty doing errands alone? No [id number] Information not available 05/30/2020 Do you have difficulty dressing or bathing? No [id number] Information not available 05/30/2020 What is your exercise level? Moderate [id number] Information not available 05/30/2020 Mental Status Question Answer Note LastModified by Organization D etails LastModified Time Do you have difficulty concentrating, remembering or making decisions? No [id number] Information no t available 05/30/2020 Family History [...] vaccine, UNSPECIFIED 1 completed [place] Tenorio in [facility], 12/14/2020 14:25:07 SARS-COV-2 (COVID-19) vaccine, UNSPECIFIED 1 completed [place] Tenorio in [facility], 12/14/2020 14:25:16 Influenza, MDCK, quadrivalent, PF 9 completed Daysi Meczywor [place] reese in [facility], 08/26/2023 09:34:04 MMR 0 completed Daysi Meczywor [place] reese in [facility], 08/26/2023 09:34:04 MMR 6 completed Daysi Meczywor [place] reese in [facility], 08/26/2023 09:34:04 COVID-19, mRNA, LNP-S, PF, 30 mcg/0.3 mL dose 1 completed Daysi Meczywor [place] reese in [facility], 08/26/2023 09:34:05 COVID-19, mRNA, LNP-S, PF, 30 [...] Daysi Meczywor null, [place] - [facility], 08/26/2023 09:34:05 Hib (HbOC) 5 completed Daysi Meczywor [place], [place] - [facility], 08/26/2023 09:34:05 Hib (HbOC) 5 completed Daysi Meczywor null, [place] - [facility], 08/26/2023 09:34:05 meningococcal MCV4P 7 completed Daysi Meczywor [place], [place] - [facility], 08/26/2023 09:34:05 meningococcal MCV4P 3 completed Daysi Meczywor [place], [place] - [facility], 08/26/2023 09:34:05 DTaP 9 completed Daysi Meczywor [place], [place] - [facility], 08/26/2023 09:34:05 Past Encounters Encounter ID Performer Location Encounter Start Date Encounter Closed Date Diagnosis/Indication Diagnosis SNOMED-CT Code Diagnosis ICD10 Code Diagnosis Note [id number] MD AGATHA Carlton MD [address] [facility] [place] [id number] 08/13/2012 14:53:24 08/14/2012 14:23:41 [id number] Daysi GUTIÉRREZ MD [address] [facility] [place] [id number] 08/13/2013 08:57:07 08/13/2013 14:10:07 Specialized medical examination 32472274 Venereal d isease screening 813322633 Candidal vulvovaginitis 54216438 [id number] Daysi GUTIÉRREZ MD [address] [facility] [place] [id number] 10/08/2012 14:56:18 10/08/2012 16:27:19 [id number] MD AGATHA Carlton MD [address] [facility] [place] [id number] 10/26/2012 13:27:26 10/27/2012 08:53:02 [id number] Daysi Turner AGATHA GUTIÉRREZ MD [address] [place] [id number] 01/04/2013 14:39:37 01/04/2013 16:16:13 [id number] Daily GUTIÉRREZ MD [address] [place] [id number] 04/26/2013 09:44:01 04/26/2013 12:53:20 [id number] Daily GUTIÉRREZ MD [address] [place] [id number] 11/15/2013 13:22:27 11/15/2013 15:42:47 Breast lump 48693491 [id number] Daily GUTIÉRREZ MD [address] [place] [id number] 01/18/2014 14:34:41 01/19/2014 08:10:47 Acute lower urinary tract infection 037138097 Venereal d isease screening 476558611 Pain in pelvis 93308124 [id number] Daily GUTIÉRREZ MD [address] [place] [id number] 02/21/2014 11:19:36 02/21/2014 16:13:56 Candidal vulvovaginitis 63727080 [id number] Daily GUTIÉRREZ MD [address] [place] [id number] 03/18/2014 13:49:41 03/18/2014 15:52:04 Dysmenorrhea [id number] Daily GUTIÉRREZ MD [address] [place] [id number] 06/08/2014 09:16:13 06/08/2014 11:51:39 Dysmenorrhea 057114195 [id number] Daily GUTIÉRREZ MD [address] [place] [id number] 08/17/2014 08:54:30 08/17/2014 09:41:13 Specialized medical examination 71657950 Venereal d isease screening 603009035 [id number] Daily GUTIÉRREZ MD [address] [facility] [place] [id number] 09/02/2014 12:51:59 09/02/2014 16:10:16 Dysmenorrhea [id number] Alonzo GUTIÉRREZ MD [address] [facility] [id number] 10/21/2014 11:15:49 10/21/2014 13:21:28 Dysmenorrhea 317471687 Disorder o f hair AND/OR hair follicle 98485269 [id number] Daily GUTIÉRREZ MD [address] [facility] [id number] 01/24/2015 12:57:12 01/24/2015 13:56:05 Dysmenorrhea [id number] MD AGATHA Carlton MD [address] [facility] [id number] 03/22/2016 13:33:03 03/22/2016 14:36:59 Candidal vulvovaginitis 61581133 B37.3 Uses oral contraception 4584470 Z79.3 [id number] MD AGATHA Carlton MD [address] [facility] [id number] 03/22/2016 14:01:54 03/25/2016 08:58:54 Candidal vulvovaginitis 15763992 B37.3 [id number] MD AGATHA Carlton MD [address] [facility] [id number] 08/25/2019 10:45:53 08/26/2019 08:57:07 Primary dysmenorrhea 14769676 N94.4 [id number] MD AGATHA Carlton MD [address] [facility] [id number] 09/15/2019 14:00:37 09/15/2019 15:46:39 Contraception care 897327622 Z30.46 Subcutaneo us contraceptive implant present 749375600 Z30.46 [id number] MD AGATHA CarltonLLAN MD [address] [place] [address],[address] [place] [id number] 09/27/2019 10:24:30 09/27/2019 13:19:28 Insertion of subcutaneous contraceptive 211499889 Z30.46 [id number] MD AGATHA Carlton MD [address] [place] [address], [place] [id number] 12/14/2020 14:18:36 12/14/2020 15:52:56 Specialized medical examination 72820712 Z01.419 Venereal d isease screening 984162701 Z11.3 [id number] MD AGATHA Carlton MD [address] [place] [address], [place] [id number] 05/16/2021 10:41:53 05/16/2021 11:58:22 Venereal disease screening 729414939 Z11.3 Acute lowe r urinary tract infection 213304339 R30.0 Cyst of left ovary 05594 62449 3888999 N83.292 Candidal vulvovaginitis 33043112 B37.3 Pain in pelvis 37793018 R10.2 [id number] MD AGATHA Carlton MD [address] [place] [address] [place] [id number] 06/01/2021 13:54:46 06/01/2021 15:24:12 Acute lower urinary tract infection 973038460 R30.0 Abnormal u terine bleeding 9385733862 9100 N93.9 [id number] MD AGATHA Carlton MD [address] [place] [address], [place] [address] 08/26/2023 09:19:19 08/27/2023 10:23:37 Acute lower urinary tract infection 310106016 R30.0 Venereal d isease screening 202749448 Z11.3 Cyst of right ovary 1223 733055 6409716 N83.201 Candidal vulvovaginitis 93224072 B37.31 Pain in pelvis 70079309 R10.2 [id number] MD AGATHA Carlton MD [address] [facility] [address] [place] [id number] 10/12/2024 11:20:21 10/12/2024 13:06:33 Acute lower urinary tract infection 975467712 R30.0 Right lowe r quadrant pain 193905543 R10.31 Candidal vulvovaginitis 99877111 B37.31 Health Concerns Section Related Observation LastModified by Organization Detai ls LastModified Time None Recorded Concern Status LastModified by Organization Details LastModified Time None Recorded Advance Directives Directive None Recorded Payers Encounter Date Sequence Insurance Name Policy Number Policy Plata Covered Member ID Plata Member ID Guarantor Name 12/14/2020 1 [place] [id number] Jenifer A Borsari [id number] Jenifer Borsari 05/16/2021 1 [place] [id number] Jenifer Borsari [id number] Jenifer Borsari 06/01/2021 1 [place] [id number] Jenifer Borsari [id number] Jenifer Borsari 08/26/2023 1 [place] [id number] Jenifer Borsari [id number] Jenifer Borsari 10/12/2024 1 [place] [id number] Jenifer Borsari [id number] Jenifer Borsari Notes Date Note Type Note Provider Name and Address Organization Details Recorded Time 12/14/2020 text/html She is here for annual exam, last pap ws in 2017 at [facility]. She had new Nexplanon placed last spring, doing well. Still has regular menses , light, lasting 7 days with some spotting afterward. 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 Note from 07/2019: She has not had a visit here since annual exam in 02/2016. Last pap was in 2018 at [facility]. Nexplanon placed 04/2016 at [facility]. She had her Nexplanon inserted at [facility], her date to have it removed was in 04/2019, she called them to have it removed and they advised her that the taxation accountant extended the time for another year and she didn't need to have it removed until 02/2020. She notes that in the first three years she had only very light bleeding every 1 to 3 months,but recently she is getting heavier bleeding with strong and painful cramps. We had a long discussion about her options. After discussion she elects to have the Nexplanon removed an a new one placed, as her symptoms may be due to waning dosage now inserted more than 3 years. She agrees to this plan. Agatha Gutiérrez MD [address], [place], [address], [place] - [facility] in [facility], 12/14/2020 14:45:59 05/16/2021 text/html She is here for complaints of lower pelvic bloating, pressure with urination, dysuria, vaginal pruritis and burning, and she would also like a genprobe done to check for possible chlamydia and GC. Nexplanon placed 09/27/2019. LMP 04/24/21, normal . Agatha Gutiérrez MD [address], [place], [address], [place] - [facility] in [facility], 05/16/2021 11:58:13 06/01/2021 text/html She is here for KRISTEL after E Coli UTI. Also she is here to discus her 4.5 cm left ovarian cyst found on problem visit 05/16/21 and confirmed by sonogram on 05/30/21. She also notes spotting and cramping since the sonogram. She has not been sexually active in longer than 4 weeks. LMP was 06/01/21. Agatha Gutiérrez MD [address], [place], [address], [place] - [facility] in [facility], 06/01/2021 14:51:42 08/26/2023 text/html She is here for a complaint of pelvic pain. she missed her last menses, LMP was 07/01/23. 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 She also has vaginal pruritus. Note from 05/2021: She is here for KRISTEL after E Coli UTI. Also she is here to discus her 4.5 cm left ovarian cyst found on problem visit 05/16/21 and confirmed by sonogram on 05/30/21.She also notes spotting and cramping since the sonogram. She has not been sexually active in longer than 4 weeks. LMP was 06/01/21.Urine hcg is negative.She is advised that the urine has blood only, will check culture for KRISTEL.We discussed the 4.5 cm simple left ovarian cyst. We will repeat the sonogram in 6 weeks. IF it is resolved then no further testing is necessary. If it is persistent or enlarging then it may be a benign cyst such as a serous cystadenoma that would require surgery. Laparoscopy is discussed in detail. all questions answered. Agatha Gutiérrez MD [address] [facility],[address], [place], [address], [place] - [facility], 08/26/2023 11:23:45 10/12/2024 text/html She is here for a two week history of right lower quadrant pelvic pain. She also has had vaginal pruritus and a sense of dysuria only onthe outside skin when she urinates. She had been going to a mock up builder in [place], her last annual was there, however she desires to switch back to our practice. 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 Agatha Gutiérrez MD [address] [facility],[address], [place], [address], [place] - [facility], 10/12/2024 12:09:33 OBGyn Episode No OBEpisode recorded.
== END 2024-10-12 14:10 | disposition home or self-care (01) ==
LOC: HO.HOS 13:11
PROVIDERS: PCP Family Medicine; Visit Provider Orthopaedic Surgery
DX: S40.852A Superficial foreign body of left upper arm, initial encounter (principal); Z30.46 Encounter for surveillance of implantable subdermal contraceptive
CPT/HCPCS: 99203

== ENCOUNTER 2024-10-12 13:10 | Outpatient (REF) | payer OTHER, SELFPAY ==
--- NOTE | ~2024-10-12 | XR_ITS ---
EXAMINATION: XR HUMERUS LEFT HISTORY: S42.309A - Unspecified fracture of shaft of humerus, unspecified arm COMPARISON: There are no prior studies available for comparison. FINDINGS: AP and lateral views of the left humerus are submitted. Osseous mineralization is normal. There is no fracture or dislocation. The visualized shoulder and elbow joint spaces are preserved. A 4.3 cm metallic implant is noted in the medial soft tissues of the distal arm. XR/XR humerus LT IMPRESSION: No evidence of fracture of the left humerus. Electronically signed by: Duane Pressley MD 10/13/2024 01:30 PM EDT
== END 2024-10-12 13:11 | disposition home or self-care (01) ==
LOC: HO.HOSX 13:10
PROVIDERS: PCP Family Medicine; Visit Provider Orthopaedic Surgery
DX: S42.301A Unspecified fracture of shaft of humerus, right arm, initial encounter for closed fracture (principal)
CPT/HCPCS: 73060

== ENCOUNTER → 2024-10-12 13:26 | Outpatient (BNV) | payer OTHER, SELFPAY | PROVIDERS: PCP Family Medicine; Visit Provider Radiology Diagnostic Radiology | DX: S40.852A Superficial foreign body of left upper arm, initial encounter (principal) | CPT/HCPCS: 73060 ==

== ENCOUNTER 2024-10-13 12:04 | Outpatient (REF) | payer OTHER, SELFPAY | END 2024-10-13 12:05 | disposition home or self-care (01) | LOC: HO.HOSX 12:04 | DX: Z13.89 Encounter for screening for other disorder (principal) ==

== ENCOUNTER → 2024-10-15 07:21 | Outpatient (BNV) | payer OTHER, SELFPAY | PROVIDERS: PCP Family Medicine; Visit Provider Radiology Diagnostic Radiology | DX: M79.5 Residual foreign body in soft tissue (principal) | CPT/HCPCS: 73218 ==

== ENCOUNTER 2024-10-15 07:24 | Outpatient (REF) | payer OTHER, SELFPAY ==
--- OUTSIDE RECORDS SUMMARY | 2024-10-15 07:28 | XMS_ITS | Continuity of Care Document ---
Author Organization [place] [facility],, AGATHA CASANOVA MD Address [address] [address] Care Team Providers Care Hyperbaric Nurse Name Role Phone HALLIE REID Primary Care Provider [phone] Assessment No assessment recorded. Plan of Treatment Reminders Order Date Submit Date Provider Last Modified By Organization Details Last Modified Time Details Appointments ANNUAL EXAM 2024 03:00P M Agatha Casanova MD Not available Not available Not available Lab HSV (1+2) DNA, qual, PCR, unspecifi ed specimen - lesions of vulva 2024 025 [facility], [address], [place], [address], 10/14/2024 15:05:53 Referral None recorded. Procedures None recorded. Surgeries None recorded. Imaging None recorded. Medication Orders valacyclo vir 1 gram tablet 2024 025 [facility], [address] [place] [address], [id number], 10/14/2024 15:04:33 lidocaine 5 % topical ointment 2024 025 [facility], [address] [place] [address], [id number], 10/14/2024 15:04:33 Patient TargetsNo targets recorded. Patient Instructions Encounter Date Encounter Id Patient Instructions Last Modified By Organization Details Last Modified Time 10/14/2024 [id number] She is here for a one to two day history of external lesions of the vulva that are painful. Her partner of one year has an active herpes lesion on his lip. She has a few early blisters, 1 mm, similar to herpes. They cross the midline. A HSV culture is taken. Advised it may be early HSV, rx valtrex. Good handwashing advised to not spread to eyes. Advised on how to urinate more comfortably. Rx lidocaine topical 5% gel, advised on how to use. Discussed possible episodic, or daily continuous, treatment if this is HSV. All questions answered. Not available 10/14/2024 15:14:29 Reason for Referral None Reported. Problems Name Problem SNOMED Code Status Onset Date Resolution Date Notes Provider Name and Address Organization Details Recorded Time Acute lower urinary tract infection 169222291 Active Agatha Casanova MD [address], [place], [address] , [place] - [facility], 4 16:46:00 Pain in pelvis 39646390 Active Agatha Casanova MD [address], [place], [address] , [place] [facility], 4 10:17:10 Candidal vulvovagi nitis 65176620 Active Agatha Casanova MD [address], [place], [address] , [place] - [facility], 4 14:16:45 Migraine with aura 9070102 Active 2012 eye blindness and left sided weakness Not Available [facility] 3 03:01:05 Odorless vaginal discharge 617768454 Active Not Available [facility] 3 03:01:05 Dysmenorr hea 730221887 Active Agatha Casanova MD [address], [place], [address] , [place] - [facility], 5 13:17:35 Status migrainos 068533996 Active 2012 eye blindness and left sided weakness Not Available [facility] 3 03:01:05 Disorder of hair AND/OR hair follicle Active Agatha Casanova MD [address], [place], [address] , [place] - [facility], 5 13:15:22 Breast lump 15722813 Active Agatha Casanova MD [address], [place], [address] , [place] - [facility], 4 09:13:17 Notes:Currently being treate d for overgrowth of yeast and bacteria in stomach as of 12/14/20 Problem Notes None recorded. Procedures Surgical History Date Name Laterality Status Provider Name and Address Organization Details Recorded Time 09/27/19 20 Implanon Insertion completed Agatha Casanova MD [address], [place], [address], [place] - [facility], 09/27/2019 13:00:14 09/15/19 20 Implanon Removal completed Agatha Csaanova MD [address], [place], [address], [place] - [facility], 09/15/2019 14:51:46 01/30/20 17 augmentation of bilateral breasts completed Dania Mckay [place] - [facility], 12/14/2020 14:27:14 07/28/19 14 Cholecystectomy completed Daysi Turner [place] - [facility], 08/13/2013 09:07:42 07/28/19 14 Other completed Daysi Turner [place] - [facility], 03/22/2016 13:41:51 Imaging Results None recorded. Procedure [...] Not Available fluconazo le 150 mg tablet TAKE ONE TABLET BY MOUTH ONCE AT BEDTIME active Not Available Not Available No t Available valacyclo vir 1 gram tablet Take 1 tablet every 12 hours by oral route for 10 days. 2024 active Not Available Not Available Not [...] remove. Not Available Not Available Not Available lidocaine 5 % topical ointment Apply 1 applicat ion 4 times a day by topical route as needed for 30 days. 2024 active Not Available Not Available Not Avai labdarryl Gynazole- 1 2 % vaginal cream Insert 1 applicat orful every day by vaginal route at bedtime for 1 day. 03/20 completed Not Available Not Available Not Available selenium sulfide 2.5 % lotion APPLY FROM NECK TO WAIST. LEAVE ON SKIN FOR 15 MINUTES AND WASH OFF AND SHOWER. REPEAT FOR 7 CONSECUT BINU DAYS. 12/14 completed Not Available Not Available Not Available CasterStatse 14 Day Sensor kit USE DIRECTED PER PRESCRIB ER active Not Available Not Available No t Available Slynd 4 mg (28) tablet active Not Available Not Available Not Available Nurte ODT 75 mg disintegr ating tablet PLACE [...] Updated DateTime 5 154.94 cm 25.9 kg/m2 37319.1 5 g 93 /min 108 mm[Hg] 68 mm[Hg] Daysi Turner [place] - [facility], 5 14:46:35 Social History Question Answer Notes LastModified by Organizat ion Details LastModified Time Tobacco Smoking Status Never Smoker Not Available [employer] 05/30/2020 03:19:42 What Is Your Level Of Alcohol Consumption? None [id number] Information not available 05/30/2020 Are You Blind Or Do You Have Difficulty Seeing? No [id number] Information not available 05/30/2020 What Is Your Level Of Caffeine Consumption? Moderate Information not available 12/14/2020 In The 14 Days Before Symptom Onset, Have You Had Close Contact With [facility] While That Case Was Ill? No [...] Do You Have Serious Difficulty Hearing? No [id number] Information not available 05/30/2020 What Type Of Diet Are You Following? REGULAR [id number] Information not available 05/30/2020 Which Illicit Or Recreational Drugs Have You Used? No [id number] Information not available 05/30/2020 Do You Reside In Or Have You Traveled To An Area Where Ebola Virus Transmission Is Active? No [id number] Information not available 05/30/2020 Do You Or Have You Ever Used E-cigarettes Or Vape? Never Used Electronic Cigarettes [id number] Information not available 05/30/2020 Education 2 Year College [employer] Information not available 08/13/2013 What Is The Highest Grade Or Level Of School You Have Completed Or The Highest Degree You Have Received? [id number] Information not available 05/16/2021 Who Is Your Employer? 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 Yes [id number] Information not available 05/30/2020 Do You Or Have You Ever Used Smokeless Tobacco? Never Used Smokeless Tobacco [id number] Information not available 05/30/2020 How Much Tobacco Do You Smoke? No [id number] Information not available 05/30/2020 General Stress Level Medium Information not available 03/22/2016 Do You Feel Stressed (tense, Restless, Nervous, Or Anxious, Or Unable To Sleep At Night)? [id number] Information not available 05/16/2021 Do You Use Any Illicit Or Recreational Drugs? No Information not available 05/16/2021 Have You Recently (within The Last 12 Weeks, Or During A Current ) Traveled To Or Lived In A Zika-affected Area? No Information not available 03/22/2016 Do You Or Have You Ever Used Any Other Forms Of Tobacco Or Nicotine? No Information not available 10/14/2024 Sex: Female Functional Status Question Answer Note LastModified by Organizat ion Details LastModified Time Do you have difficulty walking or climbing stairs? No [id number] Information not available 05/30/2020 Do you have difficulty doing errands alone? No [id number] Information not available 05/30/2020 Do you have difficulty dressing or bathing? No [id number] Information not available 05/30/2020 What is your exercise level? Moderate [id number] Information not available 05/30/2020 Mental Status Question Answer Note LastModified by Organization D etails LastModified Time Do you have difficulty concentrating, remembering or making decisions? No [id number] Information no t available 05/30/2020 Family History Relationship Description Onset Age of this Age Resolved Age Notes LastModified by Organization Details LastModified Time Father Hypercholest erolemia previo usly record ed as High Choles terol Not available 01/24/2015 13:17:36 Medical History Condition Response Anesthesia complications N High Blood Pressure N Candidate for MyRisk panel N Autoimmune Condition N Thyroid Problems N Kidney or Bladder Problems N GI Problems Y Lung Disease N Depression N Defects or Inherited Disease N History of Ovarian Cancer N Anemia N History of Breast Cancer N THOMAS exposure N BRCA testing in past N Osteopenia N Psychiatric Illness N Anxiety Disorder Y Diabetes N Arthritis N Headaches or Migraines Y Infertility N Asthma N History of Cancer N Endometriosis N Hepatitis N Heart Disease N Hypertension N Osteoporosis N Gynecological History Statement/Question Response Flow Light Date of LMP 09/21/2024 Frequency of Cycle (Q days) 28 Menses Monthly Y Duration of Flow (days) 3 Age at Menarche 12 Current Control Method BCPs Age at First Child 1 Obstetrics History GPAL:G 0 P 0 0 0 0 Type Value Living 0 Total 0 Immunizations Vaccine Type Date Status Note Provider Nam e and Address Organization Details Recorded Time SARS-COV-2 (COVID-19) vaccine, UNSPECIFIED 1 completed Dania reese [place] - [facility], 12/14/2020 14:25:07 SARS-COV-2 (COVID-19) vaccine, UNSPECIFIED 1 completed Dania reese [place] - [facility], 12/14/2020 14:25:16 Influenza, MDCK, quadrivalent, PF 9 completed Daysi Meczywor null, [place] - [facility], 08/26/2023 09:34:04 MMR 0 completed Daysi Meczywor null, [place] - [facility], 08/26/2023 09:34:04 MMR 6 completed Daysi Meczywor null, [place] - [facility], 08/26/2023 09:34:04 COVID-19, mRNA, LNP-S, PF, 30 mcg/0.3 mL dose 1 completed Daysi Meczywor null, [place] - [facility], 08/26/2023 09:34:05 COVID-19, mRNA, LNP-S, PF, 30 mcg/0.3 mL dose 0 completed Daysi Meczywor null, [place] - [facility], 08/26/2023 09:34:05 Tdap 6 completed Daysi Meczywor [...] Daysi Meczywor null, [place] - [facility], 08/26/2023 09:34:05 meningococcal MCV4P 7 completed Daysi Meczywor null, [place] - [facility], 08/26/2023 09:34:05 meningococcal MCV4P 3 completed Daysi Meczywor null, [place] - [facility], 08/26/2023 09:34:05 DTaP 9 completed Daysi Meczywor null, [place] - [facility], 08/26/2023 09:34:05 Past Encounters Encounter ID Performer Location Encounter Start Date Encounter Closed Date Diagnosis/Indication Diagnosis SNOMED-CT Code Diagnosis ICD10 Code Diagnosis Note [id number] MD AGATHA Carlton MD [address] [place] [address] 10/12/2024 11:20:21 10/12/2024 13:06:33 Acute lower urinary tract infection 016807576 R30.0 Right lowe r quadrant pain 398103367 R10.31 Candidal vulvovaginitis 89682490 B37.31 [id number] MD AGATHA Carlton MD [address] [place] [address] 10/14/2024 14:41:48 10/14/2024 15:59:13 Ulceration of vulva 52739980 N76.6 Health Concerns Section Related Observation LastModified by Organization Detai ls LastModified Time None Recorded Concern Status LastModified by Organization Details LastModified Time None Recorded Payers Encounter Date Sequence Insurance Name Policy Number Policy Plata Covered Member ID Plata Member ID Guarantor Name 10/14/2024 1 [employer] [place] - [employer] ([facility]) [id number] Jenifer Monzon [id number] Jenifer Monzon Notes Date Note Type Note Provider Name and Address Organization Details Recorded Time 10/14/2024 text/html She is here for a one to two day history of external lesions of the vulva that are painful. Her partner of one year has an active herpes lesion on his lip. Agatha Casanova MD [address] [facility],[address], [place], [address], [place] - [facility], 10/14/2024 15:14:44 OBGyn Episode No OBEpisode recorded.
--- OUTSIDE RECORDS SUMMARY | 2024-10-15 07:28 | XMS_ITS | Clinical Summary ---
Author Organization [facility] Address [address] [place] [address] Care Team Providers Care Airport Refueling Handler Name Role Phone Pcp, No Primary Care Provider Jered Barajas MD Unavailable Allergies No known active allergies Medications Medication Sig Dispensed Refills Start Date End Date Status Nurtec [address] ONE TABLET BY MOUTH EVERY DAY NEEDED FOR MIGRAINE HEADACHE. MAX DAILY DOSE 1 TABLET 02/27/2023 Active nystatin (MYCOSTATIN) 445132 units tablet TAKE ONE TABLET BY MOUTH [...] age to complete this topic Care Teams Airport Refueling Handler Relationship Specialty Start Date End Date Pcp, No PCP - General General Medicine 05/01/23 Jered Haji MD [address] [place] [address] Otolaryngology 05/01/23
== END 2024-10-15 07:25 | disposition home or self-care (01) ==
LOC: HO.MRI 07:24
PROVIDERS: PCP Family Medicine; Visit Provider Orthopaedic Surgery
DX: S40.852A Superficial foreign body of left upper arm, initial encounter (principal); Z97.5 Presence of (intrauterine) contraceptive device
CPT/HCPCS: 73218

== ENCOUNTER 2024-10-29 14:54 | Outpatient (REF) | payer OTHER, SELFPAY ==
--- NOTE | ~2024-10-29 | US_ITS ---
EXAMINATION: US PELVIS CLINICAL INFORMATION: Right lower quadrant pelvic pain. COMPARISON: 09/05/2023. TECHNIQUE: Ultrasound of the pelvis is performed using both transabdominal and transvaginal transducers along with Doppler. Transvaginal imaging is performed due to inadequate visualization transabdominally. FINDINGS: Uterus: The uterus is anteverted and measures 7.4 x 3.3 x 5.1 cm. A small amount of fluid is noted within the endocervical canal, nonspecific. Cervix appears normal. The double wall endometrial thickness is 3 mm. It is uniform without irregularity. The uterus is smooth in contour and has normal myometrial echogenicity. No visible fibroid. Adnexa: Both ovaries are visualized. There is normal color flow to the adnexa. There is no ovarian torsion. There is no pelvic ascites or fluid collection. Right ovary measures 2.5 x 1.6 x 1.6 cm. Volume = 3.5 mL. Normal sonographic appearance. Left ovary measures 3.4 x 1.6 x 3.1 cm. Volume = 8.8 mL. Normal sonographic appearance. US/US pelvic and transvaginal IMPRESSION: Normal transabdominal and transvaginal pelvic ultrasound. Electronically signed by: Yobany Basurto MD 10/29/2024 03:37 PM EDT
--- OUTSIDE RECORDS SUMMARY | 2024-10-29 16:22 | XMS_ITS | Clinical Summary ---
Author Organization [facility] Address [address] [place] [address] Care Team Providers Care Lacquer Polisher Name Role Phone Pcp, No Primary Care Provider Jered Barajas MD Unavailable Allergies No known active allergies Medications Medication Sig Dispensed Refills Start Date End Date Status Nurtec [address] ONE TABLET BY MOUTH EVERY DAY NEEDED FOR MIGRAINE HEADACHE. MAX DAILY DOSE 1 TABLET 02/27/2023 Active nystatin (MYCOSTATIN) 756077 units tablet TAKE ONE TABLET BY MOUTH [...] age to complete this topic Care Teams Lacquer Polisher Relationship Specialty Start Date End Date Pcp, No PCP - General General Medicine 05/01/23 Jered Haji MD [address] [place] [address] Otolaryngology 05/01/23
--- OUTSIDE RECORDS SUMMARY | 2024-10-29 16:22 | XMS_ITS | Data Portability ---
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 Plan of Treatment Reminders Order Date Submit Date Provider Last Modified By Organization Details Last Modified Time Details Appointments ANNUAL EXAM 2024 03:00P M Agatha Gutiérrez MD Not available Not available Not available Lab HSV (1+2) DNA, qual, PCR, unspecif ied specimen - lesions of vulva 2024 025 GOMEZ [facility], [address], [place], [address], 10/16/2024 10:05:52 urinalys is, dipstick 2024 025 GOMEZ In-Office Order, Internal Use Only DO Not Attach Compendium DO Not Attach Compendium, Do Not Delete/merge, [id number] 10/12/2024 12:51:25 culture, urine 2024 025 GOMEZ [facility], [address] [place], [address], 10/14/2024 00:05:16 wet mount, vaginal 2024 025 [email or web address] 1 In-Office Order, Internal Use Only DO Not Attach Compendium DO Not Attach Compendium, Do Not Delete/merge, [id number] 10/12/2024 12:05:16 CT + NG DNA, PCR, cervical 2024 025 [email or web address] [facility], [address], [place], [address], 10/26/2024 07:17:46 urinalys is, dipstick 2023 024 [email or web address] 1 In-Office Order, Internal Use Only DO Not Attach Compendium DO Not Attach Compendium, Do Not Delete/merge, 08/26/2023 10:09:16 culture, urine 2023 024 GOMEZ [facility] (Centralized Electronic Ordering - All Locations), Patient Can Go To The Location Of Their Choice, [id number] 08/28/2023 07:06:37 wet mount, vaginal 2023 024 [email or web address] 1 In-Office Order, Internal Use Only DO Not Attach Compendium DO Not Attach Compendium, Do Not Delete/merge, 08/26/2023 10:45:23 CT + NG DNA, PCR, cervical 2023 024 GOMEZ [facility], [address], [place], [address], 08/27/2023 12:48:43 urinalys is, dipstick 2020 021 [email or web address] 1 In-Office Order, Internal Use Only DO Not Attach Compendium DO Not Attach Compendium, Do Not Delete/merge, [id number] 06/01/2021 14:22:10 culture, urine 2020 021 [facility], [address], [place], [address], 06/02/2021 16:30:48 pregnanc y test, urine 2020 021 [email or web address] 1 In-Office Order, Internal Use Only DO Not Attach Compendium DO Not Attach Compendium, Do Not Delete/merge, [id number] 06/01/2021 14:22:11 urinalys is, dipstick 2020 021 [email or web address] 1 In-Office Order, Internal Use Only DO Not Attach Compendium DO Not Attach Compendium, Do Not Delete/merge, [id number] 05/16/2021 11:11:45 culture, urine 2020 021 [facility], [address] [place], [address], 05/17/2021 12:55:35 wet mount, vaginal 2020 021 [email or web address] 1 In-Office Order, Internal Use Only DO Not Attach Compendium DO Not Attach Compendium, Do Not Delete/merge, [id number] 05/16/2021 11:15:55 pregnanc y test, urine 2020 021 [email or web address] 1 In-Office Order, Internal Use Only DO Not Attach Compendium DO Not Attach Compendium, Do Not Delete/merge, [id number] 05/16/2021 11:57:39 NG DNA, PCR, genital 2020 021 [facility], [address] [place] [address], [address], 05/23/2021 07:24:11 chlamydi a sp, culture, unspecif ied specimen 2020 021 [facility], Cytopathology Service, [address] [place], [address], 05/23/2021 07:24:11 Referral None recorded . Procedures None recorded . Surgeries None recorded . Imaging US, pelvis, transabd ominal + transvag inal - right sided pelvic pain, histroy of 3.1 cm right ovarian cyst a year ago 2024 025 [facility] (Imaging), [address] [place] [address], [id number], 10/29/2024 15:40:52 US, pelvis, transabd ominal + transvag inal - 4 cm right ovarian cyst on exam, pelvic pain 2023 024 [facility] (Imaging), [address] [place] [address], [address], 09/08/2023 19:24:48 US, pelvis, transabd ominal + transvag inal - 3 to 4 cm left ovarian cyst, bloating , pelvic pain 2020 021 [facility] (Imaging), [address] [place] [address], [address], 06/01/2021 12:05:44 Medication Orders valacycl ovir 1 gram tablet 2024 025 [facility], [address] [place] [address], [address], 10/14/2024 15:04:33 lidocain e 5 % topical ointment 2024 025 [facility], [address] [place] [address], [address], 10/14/2024 15:04:33 fluconaz ole 150 mg tablet 2024 025 [facility], [facility] [place], [address], 10/12/2024 12:05:07 fluconaz ole 150 mg tablet 2020 021 [facility], [address] [place], [address], 06/01/2021 14:05:03 Patient TargetsNo targets recorded. Patient Instructions Encounter Date Encounter Id Patient Instructions Last Modified By Organization Details Last Modified Time 05/16/2021 [id number] urinary tract infection in women information Not [...] and timing. Not available 05/16/2021 11:49:55 06/01/2021 [id number] urinary tract infection in women information Not [...] 30 minutes Not available 06/01/2021 14:26:20 08/26/2023 [id number] urinary tract infection in women information Not available 08/26/2023 10:09:16 vaginal yeast infection: care instructions Not available 08/26/2023 10:45:23 She is here for a complaint of pelvic pain. she missed her last menses, LMP was 07/01/23. 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 Not available 08/26/2023 11:23:20 10/12/2024 [id number] urinary tract infection in women information [email or web address] Not available 10/12/2024 11:56:21 vaginal yeast infection: care instructions Not available 10/12/2024 12:05:04 possible appendicitis: care instructions Not available 10/12/2024 11:56:21 She is here for a two week history of right lower quadrant pelvic pain. She also has had vaginal pruritus and a sense of dysuria only on the outside skin when she urinates. She had been going to a peoplesoft crm developer in [employer], her last annual was there, however she desires to switch back to our practice. 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 She needs to do this at [employer] for costs, she will ask her PCP for a referral to a general surgeon. Check pelvic sonogram to pelvic pain and posible persistent right ovarian cyst, Check genprobe for pelvic pain, and newer partner. She is advised to return soon for gian and annual as she is overdue . She understands and agrees. Not available 10/12/2024 12:09:08 10/14/2024 [id number] She is here for a one to [...] 10/14/2024 15:14:29 Reason for Referral None Reported. Results Created Date Observation Date Name Description Value Unit Range Abnormal Flag Note LastModifiedBy Organization Detail LastModifiedTime 05/16/2005/16/2021 elmer mckeon Clue Cells negati ve Not Available In-Office Order Internal Use Only DO Not Attach Compendium DO Not Attach Compendium, Do Not Delete/merge, [id number] 05/16/2021 11:14:31 05/16/20 21 05/16/2021 elmer mckeon Trichomonas negati ve Not Available In-Office Order Internal Use Only DO Not Attach Compendium DO Not Attach Compendium, Do Not Delete/merge, [id number] 05/16/2021 11:14:31 05/16/20 21 05/16/2021 wet elmer bronson Hyphae positi ve Not Available In-Office Order Internal Use Only DO Not Attach Compendium DO Not Attach Compendium, Do Not Delete/merge, [id number] 05/16/2021 11:14:31 05/16/20 21 05/16/2021 wet mount , vagin al atrophic epithelium negati ve Not Available In-Office Order Internal Use Only DO Not Attach Compendium DO Not Attach Compendium, Do Not Delete/merge, [id number] 05/16/2021 11:14:31 05/16/20 21 05/16/2021 URINE CULTU RE comments [facility] [address] [place] [address] [facility] raine whitaker MD SOUR E: URINE ,SHIRA N CATCH ; Not Available [facility] [address] [place] [address], [address], 05/18/2021 09:21:35 05/16/20 21 05/17/2021 URINE CULTU RE urine culture [facility] [address] [place] [address] [facility] raine whitaker MD COLLE CTION TIME: 05/16 11:00 :00 AM -04:0 0 URINE CULTU RE ESCHE JENNIFER A COLI ( ESCCO L ) F URINE CULTU RE COLON Y COUNT F URINE CULTU RE 10,00 0-49, 000 F Not Available [facility] [address] [place] [address], [address], 05/18/2021 09:21:35 05/16/20 21 05/16/2021 CHLAM YDIA DNA SWAB comments [facility] [address] [place] [address] [facility] raine whitaker MD Not Available [facility] [address] [place] [address], [address], 05/18/2021 07:14:28 05/16/20 21 05/16/2021 CHLAM YDIA DNA SWAB chlamydia DNA swab NEGATI VE negati ve Not Available [facility] [address] [place], [address], 05/18/2021 07:14:28 05/16/20 21 05/16/2021 GC DNA SWAB comments [facility] [address] [place] [address] Medic [facility] raine whitaker MD Not Available [facility] [address] [place] [address], [address], 05/18/2021 07:14:33 05/16/20 21 05/16/2021 GC DNA SWAB GC DNA swab NEGATI VE negati ve Not Available [facility] [address] [place] [address], [address], 05/18/2021 07:14:33 05/16/20 21 05/16/2021 GRAM NEGAT BINU SUSCE PTIBI LITY comments PAREN T ORGAN ISM: ESCHE JENNIFER A COLI ( ESCCO L ) [facility] [address] [place] [address] [facility] raine whitaker MD SOURC E: URINE ,SHIRA N CATCH ; Not Available [facility] [address] [place] [address], [address], 05/18/2021 09:21:41 05/16/20 21 05/17/2021 GRAM NEGAT BINU SUSCE PTIBI LITY gram negative susceptibili ty [facility] [address] [place] [address] [facility] raine whitaker MD COLLE CTION TIME: 05/16 [...] S F Not Available [facility] [address] [facility], [place], [address], 05/18/2021 09:21:41 05/16/20 21 05/16/2021 pregn tong test, urine HCG negati ve Not Available In-Office Order Internal Use Only DO Not Attach Compendium DO Not Attach Compendium, Do Not Delete/merge, 05/16/2021 11:49:29 05/16/20 21 05/16/2021 urina lysis , dipst ick GLU Negati [...] DO Not Attach Compendium, Do Not Delete/merge, [id number] 05/16/2021 11:01:41 05/16/20 21 05/16/2021 urina lysis , dipst ick pH 5.0 Not Available In-Office Order Internal Use Only DO Not Attach Compendium DO Not Attach Compendium, Do Not Delete/merge, [id number] 05/16/2021 11:01:41 05/16/20 21 05/16/2021 urina lysis , dipst ick PRO Negati ve Not Available In-Office Order Internal Use Only DO Not Attach Compendium DO Not Attach Compendium, Do Not Delete/merge, [id number] 05/16/2021 11:01:41 05/16/20 21 05/16/2021 urina lysis , dipst ick URO 0.2 E.U. / dl Not Available In-Office Order Internal Use Only DO Not Attach Compendium DO Not Attach Compendium, Do Not Delete/merge, [id number] 05/16/2021 11:01:41 05/16/20 21 05/16/2021 urina lysis , dipst ick NIT negati ve Not Available In-Office Order Internal Use Only DO Not Attach Compendium DO Not Attach Compendium, Do Not Delete/merge, [id number] 05/16/2021 11:01:41 05/16/20 21 05/16/2021 urina lysis , dipst ick COLIN Negati ve Not Available In-Office Order Internal Use Only DO Not Attach Compendium DO Not Attach Compendium, Do Not Delete/merge, [id number] 05/16/2021 11:01:41 06/01/2006/01/2021 URINE CULTU RE comments [facility] [address] [facility] [place] [address] Medic al [facility] raine whitaker MD SOUR E: URINE ,SHIRA N CATCH ; Not Available [facility] [address] [facility], [place], [address], 06/02/2021 16:30:31 06/01/20 21 06/02/2021 URINE CULTU RE urine culture [facility] [address] [facility] [place] [address] Medic al [facility] MD DEANNE Kaye CTION TIME: 2020 2:00: 00 PM -04:0 0 URINE CULTU RE No growt h F Not Available [facility] [address] [facility], [place], [address], 06/02/2021 16:30:31 06/01/20 21 06/01/2021 pregn tong test, urine HCG negati ve Not Available In-Office Order Internal Use Only DO Not Attach Compendium DO Not Attach Compendium, Do Not Delete/merge, [id number] 06/01/2021 14:21:52 06/01/20 21 06/01/2021 urina lysis , dipst ick GLU Negati ve Not Available In-Office Order Internal Use Only DO Not Attach Compendium DO Not Attach Compendium, Do Not Delete/merge, [id number] 06/01/2021 13:56:57 06/01/20 21 06/01/2021 urina lysis , dipst ick ADILSON Negati ve Not Available In-Office Order Internal Use Only DO Not Attach Compendium DO Not Attach Compendium, Do Not Delete/merge, [id number] 06/01/2021 13:56:57 06/01/20 21 06/01/2021 urina lysis , dipst ick KET Negati ve Not Available In-Office Order Internal Use Only DO Not Attach Compendium DO Not Attach Compendium, Do Not Delete/merge, [id number] 06/01/2021 13:56:57 06/01/20 21 06/01/2021 urina lysis , dipst ick SG 1.010 Not Available In-Office Order Internal Use Only DO Not Attach Compendium DO Not Attach Compendium, Do Not Delete/merge, [id number] 06/01/2021 13:56:57 06/01/20 21 06/01/2021 urina lysis , dipst ick BLO Small Not Available In-Office Order Internal Use Only DO Not Attach Compendium DO Not Attach Compendium, Do Not Delete/merge, [id number] 06/01/2021 13:56:57 06/01/20 21 06/01/2021 urina lysis , dipst ick pH 6.0 Not Available In-Office Order Internal Use Only DO Not Attach Compendium DO Not Attach Compendium, Do Not Delete/merge, [id number] 06/01/2021 13:56:57 06/01/20 21 06/01/2021 urina lysis , dipst ick PRO Negati ve Not Available In-Office Order Internal Use Only DO Not Attach Compendium DO Not Attach Compendium, Do Not Delete/merge, [id number] 06/01/2021 13:56:57 06/01/20 21 06/01/2021 urina lysis , dipst ick URO 0.2 E.U. / dl Not Available In-Office Order Internal Use Only DO Not Attach Compendium DO Not Attach Compendium, Do Not Delete/merge, [id number] 06/01/2021 13:56:57 06/01/20 21 06/01/2021 urina lysis , dipst ick NIT negati ve Not Available In-Office Order Internal Use Only DO Not Attach Compendium DO Not Attach Compendium, Do Not Delete/merge, [id number] 06/01/2021 13:56:57 06/01/20 21 06/01/2021 urina lysis , dipst ick COLIN Negati ve Not Available In-Office Order Internal Use Only DO Not Attach Compendium DO Not Attach Compendium, Do Not Delete/merge, [id number] 06/01/2021 13:56:57 08/26/19 24 08/27/2023 CHLAM YDIA GC AMP PROBE C.trachomati s amp probe (neg) NEGAT BINU No Chlam ydia Trach omati s RNA detec celine in this patie nt's sampl e (REFE RENCE RANGE /NORM AL VALUE : NOT DETEC CELINE) Note: This test uses trans cript ion- media celine ampli ficat ion metho d to detec t rRNA from C. Trach omati s Not Available [facility] (Centralized Electronic Ordering - All Locations) Patient Can Go To The Location Of Their Choice, [id number] 08/27/2023 12:48:43 08/26/19 24 08/27/2023 CHLAM YDIA GC AMP PROBE N.gonorrhoea e amp probe (neg) NEGAT BINU No Neiss eria Gonor rhoea e RNA detec celine in this patie nt's sampl e (REFE RENCE RANGE /NORM AL VALUE : NOT DETEC CELINE) NOTE: This test uses trans cript ion-m [...] neede d. Conta ct phone numbe r . Thera peuti c failu re or succe ss canno t be deter mined with the Aptim a Combo 2 assay since nucle ic acid may persi st follo wing appro priat e antim icrob ial thera py. [facility] ([facility]) recom mends confi rmato ry retes ting using cultu re or a diffe rent nucle ic acid ampli ficat ion test when posit binu resul ts occur , if indic ated. Not Available [facility] (Centralized Electronic Ordering - All Locations) Patient Can Go To The Location Of Their Choice, 08/27/2023 12:48:43 08/26/19 24 08/27/2023 CHLAM YDIA GC AMP PROBE chlam/GC amp probe spec type CERVIX Not Available [facility] ([facility] Ordering - All Locations) Patient Can Go To The Location Of Their Choice, 08/27/2023 12:48:43 08/26/19 24 08/26/2023 URINE CULTU RE special requests NONE Not Available [facility] (Centralized Electronic Ordering - All Locations) Patient Can Go To The Location Of Their Choice, 08/28/2023 07:06:36 08/26/19 24 08/27/2023 URINE CULTU RE specimen description URINE Not [...] Of Their Choice, 08/28/2023 07:06:36 08/26/19 24 08/26/2023 wet mount , elmer al Clue Cells negati ve Not Available In-Office Order Internal Use Only DO Not Attach Compendium DO Not Attach Compendium, Do Not Delete/merge, 08/26/2023 10:45:07 08/26/19 24 08/26/2023 wet mount , elmer al Trichomonas negati ve Not Available In-Office Order Internal Use Only DO Not Attach Compendium DO Not Attach Compendium, Do Not Delete/merge, 08/26/2023 10:45:07 08/26/19 24 08/26/2023 wet mount , vagin al Hyphae positi ve Not Available In-Office Order Internal Use Only DO Not Attach Compendium DO Not Attach Compendium, Do Not Delete/merge, 08/26/2023 10:45:07 08/26/19 24 08/26/2023 wet mount , vagin al atrophic epithelium negati ve Not Available In-Office Order Internal Use Only DO Not Attach Compendium DO Not Attach Compendium, Do Not Delete/merge, 08/26/2023 10:45:07 08/26/19 24 08/26/2023 urina lysis , dipst ick GLU Negati [...] 24 08/26/2023 urina lysis , dipst ick BLO Negati [...] 24 08/26/2023 urina lysis , dipst ick URO 0.2 [...] Do Not Delete/merge, 08/26/2023 09:50:45 10/13/19 25 10/13/2024 URINE CULTU RE, ROUTI NE urine culture, routine Final report Not Available [facility]) [address] [facility], [place], [address], 10/14/2024 00:05:16 10/13/19 25 10/13/2024 URINE CULTU RE, ROUTI NE result 1 No growth Not Available [facility] ([facility]) [address] [facility], [place], [address], 10/14/2024 00:05:16 10/13/19 25 10/14/2024 NO SPECI MEN RECEI VINH no specimen received COMMEN T Test not perfo rmed. No speci men recei vinh. TEST: [id number] 3 CT/GC Ampli fied- Cervi x Not Available [facility] ([facility]) [address] [facility], [place], [address], 10/14/2024 12:05:47 10/13/1910/14/2024 NTI MISKIM LLCEE OUS nti miscellaneou s Commen t Dear Irma r, The requi sitio n we recei vinh for the above patie nt has no test indic ated on the reque st form for one or more of the speci mens submi tted. [place] requi res a writt en and jodi d reque st be forwa rded to the testi ng labor atory follo wing the verba l order of a labor atory test. Lionel armenta ete the follo wing and fax to [phone] to exped ite testi ng. Requi red test name( s)___ ___ Requi red test numbe r(s)_ ___ Physi bull signa ture_ __ Date_ __ Diagn osis Code: __ In order to maint joannn katiuska nunez es will be store d for two to seven days from the date of recei pt. Not Available [facility] ([facility]) [address] [facility], [place], [address], 10/14/2024 12:05:48 10/13/1910/14/2024 VERBA L ORDER see below: Commen t: Lionel lovetti de reque sted infor matbasilio n and fax to [phone]. [place] requi res a writt en and jodi d reque st be forwa rded to a labor atory follo wing a verba l order of a labor atory test. Lionel german t us to meet this requi remen t and to compl ete our recor ds. Date: Diagn osis code( s) provi ded for this order : R10.3 1 R30.0 Addit ional Diagn osis Code( s):__ _ Pleas e Print ICD-9 /10 Diagn osis Code( s):__ _ Physi bull or Autho rized Desig nee:_ _ Pleas e Print Physi bull or Autho rized Desig nee Signa ture: Your Signa ture Confi charles Your Order Of The Test( s) Morteza rayo Not Available [facility] [address] [place], [address], 10/14/2024 14:06:21 10/13/1910/14/2024 VERBA L ORDER additional test(s) requested Commen t: Test( s) added per DAYSI Stubbs (SHANTA) at [facility] 10-14 Logge [place] by Ravin s Snow Test# [id number] 4 Chlam ykristyna/ JOSELO Ampli ficat ion Test# 09339 0 Speci al Proje ct Code Not Available [facility] [address] [place], [address], 10/14/2024 14:06:21 10/13/19 25 10/14/2024 VERBA L ORDER see below: Commen t: Pleas e provi de reque sted infor matio n and fax to [phone]. [place] requi res a writt en and jodi d reque st be forwa rded to a labor atory follo wing a verba l order of a labor atory test. Lionel e maxi t us to meet this requi remen t and to compl ete our recor ds. Date: Diagn osis code( s) provi ded for this order : R10.3 1 R30.0 Addit ional Diagn osis Code( s):__ _ Pleas e Print ICD-9 /10 Diagn osis Code( s):__ _ Physi bull or Autho rized Desig nee:_ _ Pleas e Print Physi bull or Autho rized Desig nee Signa ture: Your Signa ture Confi charles Your Order Of The Test( s) Liste d Not Available In-Office Order Internal Use Only DO Not Attach Compendium DO Not Attach Compendium, Do Not Delete/merge, 10/21/2024 12:06:04 10/13/1910/14/2024 VERBA L ORDER additional test(s) requested Commen t: Test( s) added per DAYSI LIZ) at [facility] 10-[address] by Ravin s Snow Test# [id number] 4 Chlam ydia/ GC Ampli ficat ion Test# 17276 [address]i [address] Proje ct Code Not Available In-Office Order Internal Use Only DO Not Attach Compendium DO Not Attach Compendium, Do Not Delete/merge, 10/21/2024 12:06:04 10/13/1910/21/2024 VERBA L ORDER verbal order Commen t This is the secon d notic e reque sting this infor kayla n. An IMMED IATE respo nse is neede d. Not Available In-Office Order Internal Use Only DO Not Attach Compendium DO Not Attach Compendium, Do Not Delete/merge, 10/21/2024 12:06:04 10/13/1910/14/2024 VERBA L ORDER see below: Commen t: Pleas e provi de reque sted infor matbasilio n and fax to [phone]. [place] requi res a writt en and jodi d reque st be forwa rded to a labor atory follo wing a verba l order of a labor atory test. Pleterry e maxi t us to meet this requi remen t and to compl ete our recor ds. Date: Diagn osis code( s) provi ded for this order : R10.3 1 R30.0 Addit ional Diagn osis Code( s):__ _ Pleas e Print ICD-9 /10 Diagn osis Code( s):__ _ Physi bull or Autho rized Desig nee:_ _ Pleas e Print Physi bull or Autho rized Desig nee Signa ture: Your Signa ture Confi charles Your Order Of The Test( s) Liste d Not Available [facility]) [address] [place], [address], 10/28/2024 12:05:55 10/13/19 25 10/14/2024 VERBA L ORDER additional test(s) requested Commen t: Test( s) added per DAYSI LIZ) at [facility] 10-14 Logge [address] by Ravin Snow Test# [id number] 4 Chlam ydia/ GC Ampli ficat ion Test# 68540 [address] Code Not Available [facility] [address] [place], [address], 10/28/2024 12:05:55 10/13/19 25 10/28/2024 VERBA L ORDER verbal order Commen t THIS IS THE FINAL NOTIC E REQUE STING THIS INFOR MATIO N; IF WE DO NOT RECEI VE THIS INFOR MATIO N WITHI N SEVEN DAYS, THE TESTS WILL BE BILLE D TO YOUR ACCOU NT. Not Available [facility] ([facility]) [address], [place], [address], 10/28/2024 12:05:55 10/13/19 25 10/12/2024 urina lysis , dipst [...] Attach Compendium, Do Not Delete/merge, 10/12/2024 11:55:30 10/13/1910/12/2024 wet mount , vagin al Clue Cells [...] 12:04:48 10/13/1910/12/2024 wet mount , vagin al atrophic epithelium negati ve Not Available In-Office Order Internal Use Only DO Not Attach Compendium DO Not Attach Compendium, Do Not Delete/merge, 10/12/2024 12:04:48 10/15/19 25 10/16/2024 HSV RYAN hsv 1 RYAN Positi ve negati ve abnormal Not Available [facility] [address] [facility], [place], [address], 10/16/2024 10:05:52 10/15/19 25 10/16/2024 HSV RYAN hsv 2 RYAN Negati ve negati ve Not Available [facility] [address] [facility], [place], [address], 10/16/2024 10:05:52 06/01/20 21 05/30/2021 US, pelvi s, trans abdom inal + trans vagin al No observ ation record ed. [facility] [address] [place] [address], [address], 06/01/2021 14:00:17 07/05/20 21 07/02/2021 US, pelvi s, trans abdom inal + trans vagin al No observ ation record ed. [address] ([facility] Sched[facility]) [address] [place], [address], 07/06/2021 09:52:13 09/08/19 24 09/05/2023 US, pelvi s, trans abdom inal + trans vagin al No observ ation record ed. [facility] [address] [place] [address], [address], 09/10/2023 11:05:15 10/30/19 25 10/29/2024 US, pelvi s, trans abdom inal + trans vagin al No observ ation record ed. [facility] [address] [place] [address], [address], 10/29/2024 15:40:52 Result Notes None recorded. Problems Name Problem SNOMED Code Status Onset Date Resolution Date Notes Provider Name and Address Organization Details Recorded Time Acute lower urinary tract infection 504655081 Active Agatha Gutiérrez MD [address] [facility],[address], [place], [address] , [place] [facility], 4 16:46:00 Pain in pelvis 75107718 Active Agatha Gutiérrez MD [address], [place], [address] , [place] [facility], 4 10:17:10 Candidal vulvovagi nitis 26778959 Active Agatha Gutiérrez MD [address], [place], [address] , [place] [facility], 4 14:16:45 Migraine with aura 8390956 Active 2012 eye blindness and left sided weakness Not Available [facility] 3 03:01:05 Odorless vaginal discharge 732426483 Active Not Available [facility] 3 03:01:05 Dysmenorr hea 503721394 Active Agatha Gutiérrez MD [address], [place], [address] , [place] [facility], 5 13:17:35 Status migrainos 081761743 Active 2012 eye blindness and left sided weakness Not Available [facility] 3 03:01:05 Disorder of hair AND/OR hair follicle Active Agatha Gutiérrez MD [address], [place], [address] , [place] [facility], 5 13:15:22 Breast lump 68242045 Active Agatha Gutiérrez MD [address], [place], [address] , [place] [facility], 4 09:13:17 Notes:Currently being treate d for overgrowth of yeast and bacteria in stomach as of 12/14/20 Problem Notes None recorded. Procedures Surgical History Date Name Laterality Status Provider Name and Address Organization Details Recorded Time 09/27/19 20 Implanon Insertion completed Agatha Gutiérrez MD [address], [place], [address], [place] [facility], 09/27/2019 13:00:14 09/15/19 20 Implanon Removal completed Agatha Gutiérrez MD [address] [facility] [address], [place], [address], [place] [facility], 09/15/2019 14:51:46 01/30/20 17 augmentation of bilateral breasts completed Dania Latif [facility], 12/14/2020 14:27:14 07/28/19 14 Cholecystectomy completed Daysi Turner [place] - [facility], 08/13/2013 09:07:42 07/28/19 14 Other completed Daysi Latif [facility], 03/22/2016 13:41:51 Imaging Results Imaging Date Name Status LastModified by Organization Details LastModified Time 05/30/2021 US, pelvis, transabdominal + transvaginal completed [address], [address], 06/01/2021 14:00:17 07/02/2021 US, pelvis, transabdominal + transvaginal completed [address] ([facility]) [address] [place], [address], 07/06/2021 09:52:13 09/05/2023 US, pelvis, transabdominal + transvaginal completed [address], [address], 09/10/2023 11:05:15 10/29/2024 US, pelvis, transabdominal + transvaginal active [address], [address], 10/29/2024 15:40:52 Procedure Notes None recorded. Medical Equipment None Reported. Allergies No known drug allergies Medications Name Sig Start Date Stop Date Status Note LastModified by Organization Details LastModified Time amoxicill in 500 mg capsule 03/18 /2025 completed Not Available Not Available Not Available [...] Not Available Not Available Not Avai lable Gynazole- 1 2 % vaginal cream Insert 1 applicat orful every day by vaginal route at bedtime for 1 day. 03/20 completed Not Available Not Available Not Available selenium sulfide 2.5 % lotion APPLY FROM NECK TO WAIST. LEAVE ON SKIN FOR 15 MINUTES AND WASH OFF AND SHOWER. REPEAT FOR 7 CONSECUT BINU DAYS. 12/14 completed Not Available Not Available Not Available [email or web address] Tana 14 Day Sensor kit USE DIRECTED PER PRESCRIB ER active Not Available Not Available No t Available Slynd 4 mg (28) tablet active Not Available Not Available Not Available [facility] ODT 75 mg disintegr ating tablet PLACE [...] Updated DateTime 1 154.94 cm 21.5 kg/m2 80853.0 9 g 84 /min 98.1 [degF] 111 mm[Hg] 64 mm[Hg] Daysi Pak in [facility], 1 10:49:01 Date Recorded Body height Heart rate Body mass index (BMI) Body weight Systolic blood pressure Diastolic blood pressure Provider Name and Address Organization Details Last Updated DateTime 1 154.94 cm 96 /min 21.5 kg/m2 58183.0 9 g 116 mm[Hg] 67 mm[Hg] Daysi Pak in [facility], 1 14:04:06 Date Recorded Body height Body mass index (BMI) Body weight Body temperature Heart rate Systolic blood pressure Diastolic blood pressure Provider Name and Address Organization Details Last Updated DateTime 4 154.94 cm 21.7 kg/m2 51412.1 2 g 97.6 [degF] 105 /min 113 mm[Hg] 65 mm[Hg] Daysi Pak in [facility], 4 09:34:55 Date Recorded Body height Body mass index (BMI) Body weight Heart rate Systolic blood pressure Diastolic blood pressure Provider Name and Address Organization Details Last Updated DateTime 5 154.94 cm 25.9 kg/m2 01353.1 5 g 92 /min 114 mm[Hg] 72 mm[Hg] Daysi Pak in [facility], 5 11:28:18 Date Recorded Body height Body mass index (BMI) Body weight Heart rate Systolic blood pressure Diastolic blood pressure Provider Name and Address Organization Details Last Updated DateTime 5 154.94 cm 25.9 kg/m2 99894.1 5 g 93 /min 108 mm[Hg] 68 mm[Hg] Daysi Pak in [facility], 5 14:46:35 Social History Question Answer Notes LastModified by Organizat ion Details LastModified Time Tobacco Smoking Status Never Smoker Not Available [facility] 05/30/2020 03:19:42 What Is Your Level Of Alcohol Consumption? None [id number] Information not available 05/30/2020 Are You Blind Or Do You Have Difficulty Seeing? No [id number] Information not available 05/30/2020 What Is Your [...] Do You Have Serious Difficulty Hearing? No [id number] Information not available 05/30/2020 What Type Of Diet Are You Following? REGULAR [id number] Information not available 05/30/2020 Which Illicit Or Recreational Drugs Have You Used? No [id number] Information not available 05/30/2020 Do You Reside In Or Have You Traveled To An Area Where Ebola Virus Transmission Is Active? No [id number] Information not available 05/30/2020 Do You Or Have You Ever Used E-cigarettes Or Vape? Never Used Electronic Cigarettes [id number] Information not available 05/30/2020 Education 2 Year College Radiology School Information not available 08/13/2013 What Is The Highest Grade Or Level Of School You Have Completed Or The Highest Degree You Have Received? [id number] Information not available 05/16/2021 Who Is Your Employer? 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 Yes [id number] Information not available 05/30/2020 Do You Or Have You Ever Used Smokeless Tobacco? Never Used Smokeless Tobacco [id number] Information not available 05/30/2020 How Much Tobacco Do You Smoke? No [id number] Information not available 05/30/2020 General Stress Level Medium Information not available 03/22/2016 Do You Feel Stressed (tense, Restless, Nervous, Or Anxious, Or Unable To Sleep At Night)? [id number] Information not available 05/16/2021 Do You Use [...] have difficulty walking or climbing stairs? No [id number] Information not available 05/30/2020 Do you have difficulty doing errands alone? No [id number] Information not available 05/30/2020 Do you have difficulty dressing or bathing? No [id number] Information not available 05/30/2020 What is your exercise level? Moderate [id number] Information not available 05/30/2020 Mental Status Question Answer Note LastModified by Organization D etails LastModified Time Do you have difficulty concentrating, remembering or making decisions? No [id number] Information no t available 05/30/2020 Family History [...] Depression N Defects or Inherited Disease N Anemia N [...] SARS-COV-2 (COVID-19) vaccine, UNSPECIFIED 1 completed Dania reese, [place] - [facility], 12/14/2020 14:25:07 SARS-COV-2 (COVID-19) vaccine, UNSPECIFIED 1 completed Dania reese [place] - [facility], 12/14/2020 14:25:16 Influenza, MDCK, quadrivalent, PF 9 completed Daysi Meczywor null, [place] - [facility], 08/26/2023 09:34:04 MMR 0 completed Daysi Meczywor null, [place] [facility], 08/26/2023 09:34:04 MMR 6 completed Daysi Meczywor null, [place] [facility], 08/26/2023 09:34:04 COVID-19, mRNA, LNP-S, PF, 30 mcg/0.3 mL dose 1 completed Daysi Meczywor null, [place] - [facility], 08/26/2023 09:34:05 COVID-19, mRNA, LNP-S, PF, 30 mcg/0.3 mL dose 0 completed Daysi Meczywor [place], [place] [facility], 08/26/2023 09:34:05 Tdap 6 completed Daysi Meczywor [place], [place] [facility], 08/26/2023 09:34:05 Tdap 9 completed Daysi Meczywor null, [place] - [facility], 08/26/2023 09:34:05 varicella 6 completed Daysi [...] null, [place] - [facility], 08/26/2023 09:34:05 meningococcal MCV4P 7 completed Daysi Meczywor [place], [place] [facility], 08/26/2023 09:34:05 meningococcal MCV4P 3 completed Daysi Meczywor [place], [place] [facility], 08/26/2023 09:34:05 DTaP 9 completed Daysi Meczywor [place] [facility], 08/26/2023 09:34:05 Past Encounters Encounter ID Performer Location Encounter Start Date Encounter Closed Date Diagnosis/Indication Diagnosis SNOMED-CT Code Diagnosis ICD10 Code Diagnosis Note [id number] MD AGATHA Carlton MD [address] [place] [address] 08/13/2012 14:53:24 08/14/2012 14:23:41 [id number] Daysi GUTIÉRREZ MD [address] [place] [address] 08/13/2013 08:57:07 08/13/2013 14:10:07 Specialized medical examination 90773032 Venereal d isease screening 144285155 Candidal vulvovaginitis 54144191 [id number] Daysi GUTIÉRREZ MD [address] [place] [address] 10/08/2012 14:56:18 10/08/2012 16:27:19 [id number] MD AGATHA Carlton MD [address] [place] [address] 10/26/2012 13:27:26 10/27/2012 08:53:02 [id number] Daysi GUTIÉRREZ MD [address] [place] [address] 01/04/2013 14:39:37 01/04/2013 16:16:13 [id number] Daily GUTIÉRREZ MD [address] [place] [address] 04/26/2013 09:44:01 04/26/2013 12:53:20 [id number] Daily GUTIÉRREZ MD [address] [facility],[address] [place] [address] 11/15/2013 13:22:27 11/15/2013 15:42:47 Breast lump 28624377 [id number] Daily GUTIÉRREZ MD [address] [facility],[address] [place] [place] [address] 01/18/2014 14:34:41 01/19/2014 08:10:47 Acute lower urinary tract infection 401386995 Venereal d isease screening 295004963 Pain in pelvis 31429479 [id number] Daily GUTIÉRREZ MD [address] [facility],[address] [place] [place] [address] 02/21/2014 11:19:36 02/21/2014 16:13:56 Candidal vulvovaginitis 24896674 [id number] Daily GUTIÉRREZ MD [address] [place] [address],[address] [place] [place] [address] 03/18/2014 13:49:41 03/18/2014 15:52:04 Dysmenorrhea 506981312 [id number] Daily GUTIÉRREZ MD [address] [place] [address],[address] [place] [place] [address] 06/08/2014 09:16:13 06/08/2014 11:51:39 Dysmenorrhea 986709146 [id number] Daily GUTIÉRREZ MD [address] [place] [address],[address] [place] [place] [address] 08/17/2014 08:54:30 08/17/2014 09:41:13 Specialized medical examination 46133273 Venereal d isease screening 832654858 [id number] Daily GUTIÉRREZ MD [address] [place] [address],[address] [place] [place] [address] 09/02/2014 12:51:59 09/02/2014 16:10:16 Dysmenorrhea 850482354 [id number] Alonzo GUTIÉRREZ MD [address] [facility],[address] [place] [place] [address] 10/21/2014 11:15:49 10/21/2014 13:21:28 Dysmenorrhea 855365002 Disorder o f hair AND/OR hair follicle 06263718 [id number] Daily Hussein AGATHA GUTIÉRREZ MD [address] [place] [address],[place] [address] 01/24/2015 12:57:12 01/24/2015 13:56:05 Dysmenorrhea 703995275 [id number] MD AGATHA Carlton MD [address] [place] [address],[place] [address] 03/22/2016 13:33:03 03/22/2016 14:36:59 Candidal vulvovaginitis 96146296 B37.3 Uses oral contraception 3373426 Z79.3 [id number] MD AGATHA Carlton MD [address] [place] [address],[place] [address] 03/22/2016 14:01:54 03/25/2016 08:58:54 Candidal vulvovaginitis 21658836 B37.3 [id number] MD AGATHA Carlton MD [address] [place] [address],[place] [address] 08/25/2019 10:45:53 08/26/2019 08:57:07 Primary dysmenorrhea 76800883 N94.4 [id number] MD AGATHA Carlton MD [address] [place] [address],[place] [address] 09/15/2019 14:00:37 09/15/2019 15:46:39 Contraception care 012923020 Z30.46 Subcutaneo us contraceptive implant present 772727647 Z30.46 [id number] MD AGATHA Carlton MD [address] [place] [address],[place] [address] 09/27/2019 10:24:30 09/27/2019 13:19:28 Insertion of subcutaneous contraceptive 366411767 Z30.46 [id number] MD AGATHA Carlton MD [address] [place] [address],[place] [address] 12/14/2020 14:18:36 12/14/2020 15:52:56 Specialized medical examination 62793550 Z01.419 Venereal d isease screening 554039420 Z11.3 [id number] MD AGATHA Carlton MD [address] [place] [address], [address] [place] [address] 05/16/2021 10:41:53 05/16/2021 11:58:22 Venereal disease screening 866930420 Z11.3 Acute lowe r urinary tract infection 565497306 R30.0 Cyst of left ovary 31055 69115 0568226 N83.292 Candidal vulvovaginitis 51127401 B37.3 Pain in pelvis 19277089 R10.2 [id number] MD AGATHA Carlton MD [address] [place] [address], [address] [place] [address] 06/01/2021 13:54:46 06/01/2021 15:24:12 Acute lower urinary tract infection 278086054 R30.0 Abnormal u terine bleeding 2148841841 9100 N93.9 [id number] MD AGATHA Carlton MD [address] [place] [address], [address] [place] [address] 08/26/2023 09:19:19 08/27/2023 10:23:37 Acute lower urinary tract infection 532356241 R30.0 Venereal d isease screening 729640558 Z11.3 Cyst of right ovary 1223 764907 1755325 N83.201 Candidal vulvovaginitis 29697822 B37.31 Pain in pelvis 97675173 R10.2 [id number] MD AGATHA Carlton MD [address] [place] [address], [address] [place] [address] 10/12/2024 11:20:21 10/12/2024 13:06:33 Acute lower urinary tract infection 638231308 R30.0 Right lowe r quadrant pain 124108486 R10.31 Candidal vulvovaginitis 81404622 B37.31 [id number] MD AGATHA Carlton MD [address] [place] [address],[address] [place] [address] 10/14/2024 14:41:48 10/14/2024 15:59:13 Ulceration of vulva 64397814 N76.6 Health Concerns Section Related Observation LastModified by Organization Detai ls LastModified Time None Recorded Concern Status LastModified by Organization Details LastModified Time None Recorded Advance Directives Directive None Recorded Payers Encounter Date Sequence Insurance Name Policy Number Policy Plata Covered Member ID Plata Member ID Guarantor Name 05/16/2021 1 [employer] [place] [id number] Jenifer Borsari [id number] Jenifer Borsari 06/01/2021 1 [employer] [place] [id number] Jenifer Borsari [id number] Jenifer Borsari 08/26/2023 1 [employer] [place] [id number] Jenifer Borsari [id number] Jenifer Borsari 10/12/2024 1 [employer] [id number] Jenifer Borsari [id number] Jenifer Borsari 10/14/2024 1 [employer] [id number] Jenifer Borsari [id number] Jenifer Borsari Notes Date Note Type Note Provider Name and Address Organization Details Recorded Time 05/16/2021 text/html She is here for complaints of lower pelvic bloating, pressure with urination, dysuria, vaginal pruritis and burning, and she would also like a genprobe done to check for possible chlamydia and GC. Nexplanon placed 09/27/2019. LMP 04/24/21, normal . Agatha Gutiérrez MD [address] [facility],[address], [place], [address], [place] [facility], 05/16/2021 11:58:13 06/01/2021 text/html She is here [...] Agatha Gutiérrez MD [address], [place], [address], [place] [facility], 06/01/2021 14:51:42 08/26/2023 text/html She is here for a complaint of pelvic pain. she missed her last menses, LMP was 07/01/23. 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 Agatha Gutiérrez MD [address], [place], [address], [place] - [facility], 08/26/2023 11:23:45 10/12/2024 text/html She is here for a two week history of right lower quadrant pelvic pain. She also has had vaginal pruritus and a sense of dysuria only onthe outside skin when she urinates. She had been going to a peoplesoft crm developer in [place], her last annual was there, however she desires to switch back to our practice. 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 Agatha Gutiérrez MD [address], [place], [address], [place] - [facility], 10/12/2024 12:09:33 10/14/2024 text/html She is here for a one to two day history of external lesions of the vulva that are painful. Her partner of one year has an active herpes lesion on his lip. Agatha Gutiérrez MD [address] [facility],[address], [place], [address], [place] [facility], 10/14/2024 15:14:44 OBGyn Episode No OBEpisode recorded.
== END 2024-10-29 14:55 | disposition home or self-care (01) ==
LOC: HO.US 14:54
PROVIDERS: PCP Family Medicine; Visit Provider Obstetrics & Gynecology
DX: R10.31 Right lower quadrant pain (principal)
CPT/HCPCS: 76830; 76856

== ENCOUNTER → 2024-10-29 15:06 | Outpatient (BNV) | payer OTHER, SELFPAY | PROVIDERS: PCP Family Medicine; Visit Provider Radiology Diagnostic Radiology | DX: R10.2 Pelvic and perineal pain (principal) | CPT/HCPCS: 76830; 76856 ==

== ENCOUNTER 2024-11-01 11:40 | Outpatient (REF) | payer OTHER, SELFPAY ==
[2024-11-01 13:23] LABS: Appearance Urine Clear; Color Urine Yellow; Glucose Urine UA Negative (Negative); Leukocyte Esterase Urine Negative (Negative); Nitrite Urine Negative (Negative); PH 6.5 (5.0-9.0); Specific Gravity - Urine 1.015 (1.005-1.025); Urine Blood Negative (Negative); Urine Ketones Negative (Negative); Urine Protein Negative (Neg-Trace)
[2024-11-01 13:36] LABS: Anion Gap 12 (12-20); Blood Urea Nitrogen 16 mg/dL (9-16); Calcium 9.6 mg/dL (8.4-10.2); Carbon Dioxide 25 mmol/L (22-29); Chloride 103 mmol/L (96-108); Estimated Glomerular Filt Rate > 60; Glucose Random 91 mg/dL (60-115); Potassium 3.8 mmol/L (3.3-5.1); Sodium 136 mmol/L (135-145)
[2024-11-01 13:54] LABS: Free T4 (Free Thyroxine) 0.95 ng/dL (0.71-1.85)
--- OUTSIDE RECORDS SUMMARY | 2024-11-01 14:10 | XMS_ITS | Clinical Summary ---
Author Organization [facility] Address [address] [place] [address] Care Team Providers Care Esthetician/Spa Coordinator Name Role Phone Pcp, No Primary Care Provider Jered Barajas MD Unavailable Allergies No known active allergies Medications Medication Sig Dispensed Refills Start Date End Date Status Nurtec [address] ONE TABLET BY MOUTH EVERY DAY NEEDED FOR MIGRAINE HEADACHE. MAX DAILY DOSE 1 TABLET 02/27/2023 Active nystatin (MYCOSTATIN) 725977 units tablet TAKE ONE TABLET BY MOUTH [...] age to complete this topic Care Teams Esthetician/Spa Coordinator Relationship Specialty Start Date End Date Pcp, No PCP - General General Medicine 05/01/23 Jered Haji MD [address] [place] [address] Otolaryngology 05/01/23
--- OUTSIDE RECORDS SUMMARY | 2024-11-01 14:10 | XMS_ITS | Data Portability ---
Author Organization [place] - [facility],, AGATHA GUTIÉRREZ MD Address [address] [address] [place] [address] Care Team Providers Care Low Pressure Firer Name Role Phone HALLIE REID Primary Care Provider [phone] Assessment No assessment recorded. Plan of Treatment Reminders Order Date Submit Date Provider Last Modified By Organization Details Last Modified Time Details Appointments ANNUAL EXAM 2024 03:00P M Agatha Gutiérrez MD Not available Not available Not available Lab HSV (1+2) DNA, qual, PCR, unspecif ied specimen - lesions of vulva 2024 025 GOMEZ [facility], [address], [place], [address], 10/16/2024 10:05:52 urinalys is, dipstick 2024 025 GOMEZ In-Office Order, Internal Use Only DO Not Attach Compendium DO Not Attach Compendium, Do Not Delete/merge, [id number] 10/12/2024 12:51:25 culture, urine 2024 025 GOMEZ [facility], [address] [place], [address], 10/14/2024 00:05:16 wet mount, vaginal 2024 025 [email or web address] 1 In-Office Order, Internal Use Only DO Not Attach Compendium DO Not Attach Compendium, Do Not Delete/merge, [id number] 10/12/2024 12:05:16 CT + NG DNA, PCR, cervical 2024 025 [email or web address] [facility], [address], [place], [address], 10/26/2024 07:17:46 urinalys is, dipstick 2023 024 [email or web address] 1 In-Office Order, Internal Use Only DO Not Attach Compendium DO Not Attach Compendium, Do Not Delete/merge, 08/26/2023 10:09:16 culture, urine 2023 024 GOMEZ [facility] (Centralized Electronic Ordering - All Locations), Patient Can Go To The Location Of Their Choice, [id number] 08/28/2023 07:06:37 wet mount, vaginal 2023 024 [email or web address] 1 In-Office Order, Internal Use Only DO Not Attach Compendium DO Not Attach Compendium, Do Not Delete/merge, 08/26/2023 10:45:23 CT + NG DNA, PCR, cervical 2023 024 GOMEZ [facility], [address], [place], [address], 08/27/2023 12:48:43 urinalys is, dipstick 2020 021 [email or web address] 1 In-Office Order, Internal Use Only DO Not Attach Compendium DO Not Attach Compendium, Do Not Delete/merge, [id number] 06/01/2021 14:22:10 culture, urine 2020 021 [facility], [address], [place], [address], 06/02/2021 16:30:48 pregnanc y test, urine 2020 021 [email or web address] 1 In-Office Order, Internal Use Only DO Not Attach Compendium DO Not Attach Compendium, Do Not Delete/merge, [id number] 06/01/2021 14:22:11 urinalys is, dipstick 2020 021 [email or web address] 1 In-Office Order, Internal Use Only DO Not Attach Compendium DO Not Attach Compendium, Do Not Delete/merge, [id number] 05/16/2021 11:11:45 culture, urine 2020 021 [facility], Cyt[facility], [address] [place], [address], 05/17/2021 12:55:35 wet mount, vaginal 2020 021 [email or web address] 1 In-Office Order, Internal Use Only DO Not Attach Compendium DO Not Attach Compendium, Do Not Delete/merge, [id number] 05/16/2021 11:15:55 pregnanc y test, urine 2020 021 [email or web address] 1 In-Office Order, Internal Use Only DO Not Attach Compendium DO Not Attach Compendium, Do Not Delete/merge, [id number] 05/16/2021 11:57:39 NG DNA, PCR, genital 2020 021 [facility], [address] [place] [address], [address], 05/23/2021 07:24:11 [email or web address] a sp, culture, unspecif ied specimen 2020 021 [facility], Cytopathology Service, [address] [place], [address], 05/23/2021 07:24:11 Referral None recorded . Procedures None recorded . Surgeries None recorded . Imaging US, pelvis, transabd ominal + transvag inal - right sided pelvic pain, histroy of 3.1 cm right ovarian cyst a year ago 2024 025 [facility] (Imaging), [address] [place] [address], [address], 10/29/2024 15:40:52 US, pelvis, transabd ominal + transvag inal - 4 cm right ovarian cyst on exam, pelvic pain 2023 024 [facility] (Imaging), [address] [place] [address], [address], 09/08/2023 19:24:48 US, pelvis, transabd ominal + transvag inal - 3 to 4 cm left ovarian cyst, bloating , pelvic pain 2020 021 [facility] (Imaging), [address] [place] [address], [address], 06/01/2021 12:05:44 Medication Orders valacycl ovir 1 gram tablet 2024 025 [facility], [address] [place] [address], [address], 10/14/2024 15:04:33 lidocain e 5 % topical ointment 2024 025 [facility], [address] [place] [address], [address], 10/14/2024 15:04:33 fluconaz ole 150 mg tablet 2024 025 [id number], [facility] [place], [address], 10/12/2024 12:05:07 fluconaz ole 150 mg tablet 2020 021 [facility], [address] [place], [address], 06/01/2021 14:05:03 Patient TargetsNo targets recorded. Patient Instructions Encounter Date Encounter Id Patient Instructions Last Modified By Organization Details Last Modified Time 05/16/2021 [id number] urinary tract infection in women information Not [...] and timing. Not available 05/16/2021 11:49:55 06/01/2021 [id number] urinary tract infection in women information Not [...] 30 minutes Not available 06/01/2021 14:26:20 08/26/2023 [id number] urinary tract infection in women information Not available 08/26/2023 10:09:16 vaginal yeast infection: care instructions Not available 08/26/2023 10:45:23 She is here for a complaint of pelvic pain. she missed her last menses, LMP was 07/01/23. 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 Not available 08/26/2023 11:23:20 10/12/2024 [id number] urinary tract infection in women information [email or web address] [...] urinates. She had been going to a interlocking installer in [place], her last annual was there, however she desires to switch back to our practice. Her insurance requires her to pay a larger co pay to see us, as she works in the 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 She needs to do this at [place] for costs, she will ask her PCP for a referral to a general surgeon. Check pelvic sonogram to pelvic pain and posible persistent right ovarian cyst, Check genprobe for pelvic pain, and newer partner. She is advised to return soon for gian and annual as she is overdue . She understands and agrees. Not available 10/12/2024 12:09:08 10/14/2024 [id number] She is here for a one to [...] DO Not Attach Compendium, Do Not Delete/merge, [id number] 05/16/2021 11:14:31 05/16/20 21 05/16/2021 elmer mckeon Trichomonas negati ve Not Available In-Office Order Internal Use Only DO Not Attach Compendium DO Not Attach Compendium, Do Not Delete/merge, [id number] 05/16/2021 11:14:31 05/16/20 21 05/16/2021 wet elmer bronson Hyphae positi ve Not Available In-Office Order Internal Use Only DO Not Attach Compendium DO Not Attach Compendium, Do Not Delete/merge, [id number] 05/16/2021 11:14:31 05/16/20 21 05/16/2021 wet mount , vagin al atrophic epithelium negati ve Not Available In-Office Order Internal Use Only DO Not Attach Compendium DO Not Attach Compendium, Do Not Delete/merge, [id number] 05/16/2021 11:14:31 05/16/20 21 05/16/2021 URINE CULTU RE comments [facility] [address] [place] [address] Medic [facility] raine whitaker MD SOUR E: URINE ,SHIRA N CATCH ; Not Available [facility] [address] [place] [address], [address], 05/18/2021 09:21:35 05/16/20 21 05/17/2021 URINE CULTU RE urine culture [facility] [address] [place] [address] Medic [facility] raine whitaker MD COLLE CTION TIME: 05/16 11:00 :00 AM -04:0 0 URINE CULTU RE ESCHE JENNIFER A COLI ( ESCCO L ) F URINE CULTU RE COLON Y COUNT F URINE CULTU RE 10,00 0-49, 000 F Not Available [facility] [address] [place] [address], [address], 05/18/2021 09:21:35 05/16/20 21 05/16/2021 CHLAM YDIA DNA SWAB comments [facility] [address] [place] [address] Medic al [facility] raine whitaker MD Not Available [facility] [address] [place] [address], [address], 05/18/2021 07:14:28 05/16/20 21 05/16/2021 CHLAM YDIA DNA SWAB chlamydia DNA swab NEGATI VE negati ve Not Available [facility] [address] [place], [address], 05/18/2021 07:14:28 05/16/20 21 05/16/2021 GC DNA SWAB comments [facility] [address] [place] [address] Medic al [facility] raine whitaker MD Not Available [facility] [address] [place] [address], [address], 05/18/2021 07:14:33 05/16/20 21 05/16/2021 GC DNA SWAB GC DNA swab NEGATI VE negati ve Not Available [facility] [address] [place] [address], [address], 05/18/2021 07:14:33 05/16/20 21 05/16/2021 GRAM NEGAT BINU SUSCE PTIBI LITY comments PAREN T ORGAN ISM: ESCHE JENNIFER A COLI ( ESCCO L ) [facility] [address] [place] [address] Medic al [facility] raine whitaker MD SOURC E: URINE ,SHIRA N CATCH ; Not Available [facility] [address] [place] [address], [address], 05/18/2021 09:21:41 05/16/20 21 05/17/2021 GRAM NEGAT BINU SUSCE PTIBI LITY gram negative susceptibili ty [facility] [address] [place] [address] Medic al [facility] raine whitaker MD COLLE CTION TIME: 05/16 [...] S F Not Available [facility] [address] [facility], [place], [address], 05/18/2021 09:21:41 05/16/20 21 05/16/2021 pregn tong [...] DO Not Attach Compendium, Do Not Delete/merge, [id number] 05/16/2021 11:01:41 05/16/20 21 05/16/2021 urina lysis , dipst ick pH 5.0 Not Available In-Office Order Internal Use Only DO Not Attach Compendium DO Not Attach Compendium, Do Not Delete/merge, [id number] 05/16/2021 11:01:41 05/16/20 21 05/16/2021 urina lysis , dipst ick PRO Negati ve Not Available In-Office Order Internal Use Only DO Not Attach Compendium DO Not Attach Compendium, Do Not Delete/merge, [id number] 05/16/2021 11:01:41 05/16/20 21 05/16/2021 urina lysis , dipst ick URO 0.2 E.U. / dl Not Available In-Office Order Internal Use Only DO Not Attach Compendium DO Not Attach Compendium, Do Not Delete/merge, [id number] 05/16/2021 11:01:41 05/16/20 21 05/16/2021 urina lysis , dipst ick NIT negati ve Not Available In-Office Order Internal Use Only DO Not Attach Compendium DO Not Attach Compendium, Do Not Delete/merge, [id number] 05/16/2021 11:01:41 05/16/20 21 05/16/2021 urina lysis , dipst ick COLIN Negati ve Not Available In-Office Order Internal Use Only DO Not Attach Compendium DO Not Attach Compendium, Do Not Delete/merge, [id number] 05/16/2021 11:01:41 06/01/2006/01/2021 URINE CULTU RE comments [facility] [address] [facility] [address] Medic al [facility] raine whitaker MD SOUR E: URINE ,SHIRA N CATCH ; Not Available [facility] [address] [facility], [place], [address], 06/02/2021 16:30:31 06/01/20 21 06/02/2021 URINE CULTU RE urine culture [facility] [address] [facility] [address] Medic al D[facility] MD DEANNE Kaye CTION TIME: 2020 2:00: 00 PM -04:0 0 URINE CULTU RE No growt h F Not Available [facility] [address] [facility], [place], [address], 06/02/2021 16:30:31 06/01/20 21 06/01/2021 pregn tong test, urine HCG negati ve Not Available In-Office Order Internal Use Only DO Not Attach Compendium DO Not Attach Compendium, Do Not Delete/merge, [id number] 06/01/2021 14:21:52 06/01/20 21 06/01/2021 urina lysis , dipst ick GLU Negati ve Not Available In-Office Order Internal Use Only DO Not Attach Compendium DO Not Attach Compendium, Do Not Delete/merge, [id number] 06/01/2021 13:56:57 06/01/20 21 06/01/2021 urina lysis , dipst ick ADILSON Negati ve Not Available In-Office Order Internal Use Only DO Not Attach Compendium DO Not Attach Compendium, Do Not Delete/merge, [id number] 06/01/2021 13:56:57 06/01/20 21 06/01/2021 urina lysis , dipst ick KET Negati ve Not Available In-Office Order Internal Use Only DO Not Attach Compendium DO Not Attach Compendium, Do Not Delete/merge, [id number] 06/01/2021 13:56:57 06/01/20 21 06/01/2021 urina lysis , dipst ick SG 1.010 Not Available In-Office Order Internal Use Only DO Not Attach Compendium DO Not Attach Compendium, Do Not Delete/merge, [id number] 06/01/2021 13:56:57 06/01/20 21 06/01/2021 urina lysis , dipst ick BLO Small Not Available In-Office Order Internal Use Only DO Not Attach Compendium DO Not Attach Compendium, Do Not Delete/merge, [id number] 06/01/2021 13:56:57 06/01/20 21 06/01/2021 urina lysis , dipst ick pH 6.0 Not Available In-Office Order Internal Use Only DO Not Attach Compendium DO Not Attach Compendium, Do Not Delete/merge, [id number] 06/01/2021 13:56:57 06/01/20 21 06/01/2021 urina lysis , dipst ick PRO Negati ve Not Available In-Office Order Internal Use Only DO Not Attach Compendium DO Not Attach Compendium, Do Not Delete/merge, [id number] 06/01/2021 13:56:57 06/01/20 21 06/01/2021 urina lysis , dipst ick URO 0.2 E.U. / dl Not Available In-Office Order Internal Use Only DO Not Attach Compendium DO Not Attach Compendium, Do Not Delete/merge, [id number] 06/01/2021 13:56:57 06/01/20 21 06/01/2021 urina lysis , dipst ick NIT negati ve Not Available In-Office Order Internal Use Only DO Not Attach Compendium DO Not Attach Compendium, Do Not Delete/merge, [id number] 06/01/2021 13:56:57 06/01/20 21 06/01/2021 urina lysis , dipst ick COLIN Negati ve Not Available In-Office Order Internal Use Only DO Not Attach Compendium DO Not Attach Compendium, Do Not Delete/merge, [id number] 06/01/2021 13:56:57 08/26/19 24 08/27/2023 CHLAM YDIA [...] Go To The Location Of Their Choice, [id number] 08/27/2023 12:48:43 08/26/19 24 08/27/2023 CHLAM YDIA [...] neede d. Conta ct phone numbe r [phone]. Thera peuti c failu re or succe ss canno t be deter mined with the Aptim a Combo 2 assay since nucle ic acid may persi st follo wing appro priat e antim icrob ial thera py. The [facility] Contr ol and Preve ntion ([facility]) recom mends confi rmato ry retes ting [...] culture, routine Final report Not Available [facility] ([facility]) [address] [facility], [place], [address], 10/14/2024 00:05:16 10/13/19 25 10/13/2024 URINE CULTU RE, ROUTI NE result 1 No growth Not Available [facility] ([facility]) [address] [facility], [place], [address], 10/14/2024 00:05:16 10/13/19 25 10/14/2024 NO SPECI MEN RECEI VINH no specimen received COMMEN T Test not perfo rmed. No speci men recei vinh. TEST: [id number] 3 CT/GC Ampli fied- Cervi x Not Available [facility] ([facility]) [address] [facility], [place], [address], 10/14/2024 12:05:47 10/13/1910/14/2024 NTI MISKIM LLCEE OUS [...] ete the follo wing and fax to [phone] to exped ite testi ng. Requi red test name( s)___ ___ Requi red test numbe r(s)_ ___ Physi bull signa ture_ __ Date_ __ Diagn osis Code: __ In order to maint joannn katiuska nunez es will be store d for two to seven days from the date of recei pt. Not Available [facility] ([facility]) [address] [facility], [place], [address], 10/14/2024 12:05:48 10/13/1910/14/2024 VERBA L ORDER see below: Commen t: Lionel lovetti de reque sted infor matbasilio n and fax to [phone]. [place] Code of [place] Regul ation s requi res a [...] Test( s) Morteza rayo Not Available [facility] [address] [place], [address], 10/14/2024 14:06:21 10/13/1910/14/2024 VERBA L ORDER additional test(s) requested Commen t: Test( s) added per DAYSI Stubbs ([place]) at accou nt 10-14 Logge d by Ravin s Snow Test# [id number] 4 Chlam ykristyna/ JOSELO Ampli ficat ion Test# [address]107 [address] Code Not Available [facility] [address] [place], [address], 10/14/2024 14:06:21 10/13/19 25 10/14/2024 VERBA L ORDER see below: Commen t: Pleas e provi de reque sted infor matio n and fax to [phone]. [place] Code of [...] Test( s) added per DAYSI LIZ) at [place] 10-14 Logge d by Ravin s Snow Test# [id number] 4 Chlam ydia/ GC Ampli ficat ion Test# [address] Code Not [...] sted infor matbasilio n and fax to [phone]. [place] Code of [...] Test( s) Liste d Not Available [facility] ([facility]) [address] [place], [address], 10/28/2024 12:05:55 10/13/19 25 10/14/2024 VERBA L ORDER additional test(s) requested Commen t: Test( s) added per DAYSI LIZ) at [place] 10-14 Logge d by Ravin Snow Test# 41204 4 Chlam ydia/ GC Ampli ficat ion Test# 9[address] Code Not Available [facility] ([facility]) [address] [place], [address], 10/28/2024 12:05:55 10/13/19 25 10/28/2024 VERBA L ORDER verbal order Commen t THIS IS THE FINAL NOTIC E REQUE STING THIS INFOR MATIO N; IF WE DO NOT RECEI VE THIS INFOR MATIO N WITHI N SEVEN DAYS, THE TESTS WILL BE BILLE D TO YOUR ACCOU NT. Not Available [facility] ([facility]) [address], [place], [address], 10/28/2024 12:05:55 10/13/19 25 10/12/2024 urina lysis [...] ve negati ve abnormal Not Available [facility] ([facility]) [address] [facility], [place], [address], 10/16/2024 10:05:52 10/15/19 25 10/16/2024 HSV RYAN hsv 2 RYAN Negati ve negati ve Not Available [facility] ([facility]) [address] [facility], [place], [address], 10/16/2024 10:05:52 06/01/20 21 05/30/2021 US, pelvi s, trans abdom inal + trans vagin al No observ ation record ed. [facility] [address] [place] [address], [address], 06/01/2021 14:00:17 07/05/20 21 07/02/2021 US, pelvi s, trans abdom inal + trans vagin al No observ ation [facility]. [facility] [place] [address] (Central Scheduling Radiology) [address] [place], [address], 07/06/2021 09:52:13 09/08/19 24 09/05/2023 US, pelvi s, trans abdom inal + trans vagin al No observ ation record ed. [facility] [address] [place] [address], [address], 09/10/2023 11:05:15 10/30/19 25 10/29/2024 US, pelvi s, trans abdom inal + trans vagin al No observ ation record ed. [address], [address], 11/01/2024 09:06:07 Result Notes None recorded. Problems Name Problem SNOMED Code Status Onset Date Resolution Date Notes Provider Name and Address Organization Details Recorded Time Acute lower urinary tract infection 085364831 Active Agatha Gutiérrez MD [address] [facility],[address], [place], [address] , [place] [facility], 4 16:46:00 Pain in pelvis 50843773 Active Agatha Gutiérrez MD [address], [place], [address] , [place] - [facility], 4 10:17:10 Candidal vulvovagi nitis 53418249 Active Agatha Gutiérrez MD [address], [place], , [place] - [facility], 4 14:16:45 Migraine with aura 2112414 Active 2012 eye blindness and left sided weakness Not Available [facility] 3 03:01:05 Odorless vaginal discharge 146391913 Active Not Available [facility] 3 03:01:05 Dysmenorr hea 938850809 Active Agatha Gutiérrez MD [address], [place], , [place] - [facility], 5 13:17:35 Status migrainos 236516130 Active 2012 eye blindness and left sided weakness Not Available [facility] 3 03:01:05 Disorder of hair AND/OR hair follicle Active Agatha Gutiérrez MD [address], [place], , [place] - [facility], 5 13:15:22 Breast lump 80815052 Active Agatha Gutiérrez MD [address], [place], , [place] - [facility], 4 09:13:17 Notes:Currently being treate d for overgrowth of yeast and bacteria in stomach as of 12/14/20 Problem Notes None recorded. Procedures Surgical History Date Name Laterality Status Provider Name and Address Organization Details Recorded Time 09/27/19 Implanon Insertion completed Agatha Gutiérrez MD [address], [place], [address], [place] - [facility], 09/27/2019 13:00:14 09/15/19 20 Implanon Removal completed Agatha Gutiérrez MD [address] [facility] [address], [place], [address], [place] - [facility], 09/15/2019 14:51:46 01/30/20 17 augmentation of bilateral breasts completed Dania Mckay [place] - [facility], 12/14/2020 14:27:14 07/28/19 14 Cholecystectomy completed Daysi Turner [place] - [facility], 08/13/2013 09:07:42 07/28/19 14 Other completed Daysi Turner [place] - [facility], 03/22/2016 13:41:51 Imaging Results Imaging Date Name Status LastModified by Organization Details LastModified Time 05/30/2021 US, pelvis, transabdominal + transvaginal completed [address], [address], 06/01/2021 14:00:17 07/02/2021 US, pelvis, transabdominal + transvaginal completed [address] ([facility]) [address] [place], [address], 07/06/2021 09:52:13 09/05/2023 US, pelvis, transabdominal + transvaginal completed [address], [address], 09/10/2023 11:05:15 10/29/2024 US, pelvis, transabdominal + transvaginal completed [address], [address], 11/01/2024 09:06:07 Procedure Notes None recorded. Medical Equipment None [...] completed Not Available Not Available Not Available [employer] 14 Day Sensor kit USE DIRECTED PER PRESCRIB ER active Not Available Not Available No t Available Slynd 4 mg (28) tablet active Not Available Not Available [facility] Available [facility] tablet [facility] [...] Updated DateTime 1 154.94 cm 21.5 kg/m2 15902.0 9 g 84 /min 98.1 [degF] 111 mm[Hg] 64 mm[Hg] Daysi Pak in [facility], 1 10:49:01 Date Recorded Body height Heart rate Body mass index (BMI) Body weight Systolic blood pressure Diastolic blood pressure Provider Name and Address Organization Details Last Updated DateTime 1 154.94 cm 96 /min 21.5 kg/m2 91598.0 9 g 116 mm[Hg] 67 mm[Hg] Daysi Pak in [facility], 1 14:04:06 Date Recorded Body height Body mass index (BMI) Body weight Body temperature Heart rate Systolic blood pressure Diastolic blood pressure Provider Name and Address Organization Details Last Updated DateTime 4 154.94 cm 21.7 kg/m2 77090.1 2 g 97.6 [degF] 105 /min 113 mm[Hg] 65 mm[Hg] Daysi Pak in [facility], 4 09:34:55 Date Recorded Body height Body mass index (BMI) Body weight Heart rate Systolic blood pressure Diastolic blood pressure Provider Name and Address Organization Details Last Updated DateTime 5 154.94 cm 25.9 kg/m2 85262.1 5 g 92 /min 114 mm[Hg] 72 mm[Hg] Daysi Pak in [facility], 5 11:28:18 Date Recorded Body height Body mass index (BMI) Body weight Heart rate Systolic blood pressure Diastolic blood pressure Provider Name and Address Organization Details Last Updated DateTime 5 154.94 cm 25.9 kg/m2 80230.1 5 g 93 /min 108 mm[Hg] 68 mm[Hg] Daysi Pak in [facility], 5 14:46:35 Social History Question Answer Notes LastModified by Organizat ion Details LastModified Time Tobacco Smoking Status Never Smoker Not Available [facility] 05/30/2020 03:19:42 What Is Your Level Of Alcohol Consumption? None [id number] Information not available 05/30/2020 Are You Blind Or Do You Have Difficulty Seeing? No [id number] Information not available 05/30/2020 What Is Your [...] Do You Have Serious Difficulty Hearing? No [id number] Information not available 05/30/2020 What Type Of Diet Are You Following? REGULAR [id number] Information not available 05/30/2020 Which Illicit Or Recreational Drugs Have You Used? No [id number] Information not available 05/30/2020 Do You Reside In Or Have You Traveled To An Area Where Ebola Virus Transmission Is Active? No [id number] Information not available 05/30/2020 Do You Or Have You Ever Used E-cigarettes Or Vape? Never Used Electronic Cigarettes [id number] Information not available 05/30/2020 Education 2 Year College [employer] School Information not available 08/13/2013 What Is The Highest Grade Or Level Of School You Have Completed Or The Highest Degree You Have Received? [id number] Information not available 05/16/2021 Who Is Your Employer? 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 Yes [id number] Information not available 05/30/2020 Do You Or Have You Ever Used Smokeless Tobacco? Never Used Smokeless Tobacco [id number] Information not available 05/30/2020 How Much Tobacco Do You Smoke? No [id number] Information not available 05/30/2020 General Stress Level Medium Information not available 03/22/2016 Do You Feel Stressed (tense, Restless, Nervous, Or Anxious, Or Unable To Sleep At Night)? [id number] Information not available 05/16/2021 Do You Use [...] have difficulty walking or climbing stairs? No [id number] Information not available 05/30/2020 Do you have difficulty doing errands alone? No [id number] Information not available 05/30/2020 Do you have difficulty dressing or bathing? No [id number] Information not available 05/30/2020 What is your exercise level? Moderate [id number] Information not available 05/30/2020 Mental Status Question Answer Note LastModified by Organization D etails LastModified Time Do you have difficulty concentrating, remembering or making decisions? No [id number] Information no t available 05/30/2020 Family History [...] completed Dania reese, [place] - [facility], 12/14/2020 14:25:07 SARS-COV-2 (COVID-19) vaccine, UNSPECIFIED 1 completed Dania Mckay null, [place] - [facility], 12/14/2020 14:25:16 Influenza, MDCK, quadrivalent, PF 9 completed Daysi Meczywor null, [place] - [facility], 08/26/2023 09:34:04 MMR 0 completed Daysi Meczywor null, [place] - [facility], 08/26/2023 09:34:04 MMR 6 completed Daysi Meczywor null, [place] - [facility], 08/26/2023 09:34:04 COVID-19, mRNA, LNP-S, PF, 30 mcg/0.3 mL dose 1 completed Daysi Meczywor null, [place] - [facility], 08/26/2023 09:34:05 COVID-19, mRNA, LNP-S, PF, 30 mcg/0.3 mL dose 0 completed Daysi Meczywor null, [place] - [facility], 08/26/2023 09:34:05 Tdap 6 completed Daysi Meczywor null, [place] - [facility], 08/26/2023 09:34:05 Tdap 9 completed Daysi Meczywor [...] [facility], 08/26/2023 09:34:05 Hib (HbOC) 10/02/199 5 completed Daysi Meczywor null, [place] - [facility], 08/26/2023 09:34:05 meningococcal MCV4P 7 completed Daysi Meczywor null, [place] - [facility], 08/26/2023 09:34:05 meningococcal MCV4P 3 completed Daysi Meczywor null, [place] - [facility], 08/26/2023 09:34:05 DTaP 9 completed Daysi Meczywor null, [place] - [facility], 08/26/2023 09:34:05 Past Encounters Encounter ID Performer Location Encounter Start Date Encounter Closed Date Diagnosis/Indication Diagnosis SNOMED-CT Code Diagnosis ICD10 Code Diagnosis Note [id number] MD AGATHA Carlton MD [address] [place] [address] 08/13/2012 14:53:24 08/14/2012 14:23:41 [id number] Daysi GUTIÉRREZ MD [address] [facility] [place] [address] 08/13/2013 08:57:07 08/13/2013 14:10:07 Specialized medical examination [id number] Venereal d isease screening 426908089 Candidal vulvovaginitis 66140323 [id number] Daysi GUTIÉRREZ MD [address] [facility] [place] [address] 10/08/2012 14:56:18 10/08/2012 16:27:19 [id number] MD AGATHA Carlton MD [address] [facility] [place] [address] 10/26/2012 13:27:26 10/27/2012 08:53:02 [id number] Daysi GUTIÉRREZ MD [address] [facility] [place] [address] 01/04/2013 14:39:37 01/04/2013 16:16:13 [id number] [facility] AGATHA GUTIÉRREZ MD [address] [facility] [place] [address] 04/26/2013 09:44:01 04/26/2013 12:53:20 [id number] Daily GUTIÉRREZ MD [address] [facility] [address] 11/15/2013 13:22:27 11/15/2013 15:42:47 Breast lump [id number] Daily GUTIÉRREZ MD [address] [facility],[place] [address] 01/18/2014 14:34:41 01/19/2014 08:10:47 Acute lower urinary tract infection 910066346 Venereal d isease screening 392226345 Pain in pelvis 11378356 [id number] Daily GUTIÉRREZ MD [address] [facility] [address] 02/21/2014 11:19:36 02/21/2014 16:13:56 Candidal vulvovaginitis 35224357 [id number] Daily GUTIÉRREZ MD [address] [facility] [place] [address] 03/18/2014 13:49:41 03/18/2014 15:52:04 Dysmenorrhea [id number] Daily GUTIÉRREZ MD [address] [place] [address],[address] [place] [address] 06/08/2014 09:16:13 06/08/2014 11:51:39 Dysmenorrhea [id number] Daily GUTIÉRREZ MD [address] [place] [address],[address] [place] [place] [address] 08/17/2014 08:54:30 08/17/2014 09:41:13 Specialized medical examination [id number] Venereal d isease screening 472118855 [id number] Daily GUTIÉRREZ MD [address] [facility],[place] [address] 09/02/2014 12:51:59 09/02/2014 16:10:16 Dysmenorrhea [id number] Alonzo GUTIÉRREZ MD [address] [facility] [place] [address] 10/21/2014 11:15:49 10/21/2014 13:21:28 Dysmenorrhea 258888614 Disorder o f hair AND/OR hair follicle 29633239 [id number] Daily Hussein AGATHA GUTIÉRREZ MD [address] [facility] [address] 01/24/2015 12:57:12 01/24/2015 13:56:05 Dysmenorrhea [id number] MD AGATHA Carlton MD [address] [place] [address],[place] [address] 03/22/2016 13:33:03 03/22/2016 14:36:59 Candidal vulvovaginitis 80898424 B37.3 Uses oral contraception 3067599 Z79.3 [id number] MD AGATHA Carlton MD [address] [place] [address],[place] [address] 03/22/2016 14:01:54 03/25/2016 08:58:54 Candidal vulvovaginitis 26529565 B37.3 [id number] MD AGATHA Carlton MD [address] [place] [address],[place] [address] 08/25/2019 10:45:53 08/26/2019 08:57:07 Primary dysmenorrhea 77837031 N94.4 [id number] MD AGATHA Carlton MD [address] [place] [address],[place] [address] 09/15/2019 14:00:37 09/15/2019 15:46:39 Contraception care 944537353 Z30.46 Subcutaneo us contraceptive implant present 343879669 Z30.46 [id number] MD AGATHA Carlton MD [address] [place] [address],[place] [address] 09/27/2019 10:24:30 09/27/2019 13:19:28 Insertion of subcutaneous contraceptive 891836536 Z30.46 [id number] MD AGATHA Carlton MD [address] [place] [address],[address] [place] [id number] 5 12/14/2020 14:18:36 12/14/2020 15:52:56 Specialized medical examination 24277287 Z01.419 Venereal d isease screening 829905284 Z11.3 [id number] MD AGATHA Carlton MD [address] [place] [address],[place] [address] 05/16/2021 10:41:53 05/16/2021 11:58:22 Venereal disease screening 037698625 Z11.3 Acute lowe r urinary tract infection 752307417 R30.0 Cyst of left ovary 78465 72076 1416526 N83.292 Candidal vulvovaginitis 86577705 B37.3 Pain in pelvis 00537780 R10.2 [id number] MD AGATHA Carlton MD [address] [place] [address],[place] [address] 06/01/2021 13:54:46 06/01/2021 15:24:12 Acute lower urinary tract infection 475784903 R30.0 Abnormal u terine bleeding 4948728336 9100 N93.9 [id number] MD AGATHA Carlton MD [address] [place] [address],[place] [address] 08/26/2023 09:19:19 08/27/2023 10:23:37 Acute lower urinary tract infection 427608969 R30.0 Venereal d isease screening 487511821 Z11.3 Cyst of right ovary 1223 813624 2922501 N83.201 Candidal vulvovaginitis 61298161 B37.31 Pain in pelvis 28408482 R10.2 [id number] MD AGATHA Carlton MD [address] [place] [address],[place] [address] 10/12/2024 11:20:21 10/12/2024 13:06:33 Acute lower urinary tract infection 264382261 R30.0 Right lowe r quadrant pain 461763773 R10.31 Candidal vulvovaginitis 38295137 B37.31 [id number] MD AGATHA CarltonLLAN MD [address] [facility] [place] [address] 10/14/2024 14:41:48 10/14/2024 15:59:13 Ulceration of vulva 02430450 N76.6 Health Concerns Section Related Observation LastModified by Organization Detai ls LastModified Time None Recorded Concern Status LastModified by Organization Details LastModified Time None Recorded Advance Directives Directive None Recorded Payers Encounter Date Sequence Insurance Name Policy Number Policy Plata Covered Member ID Plata Member ID Guarantor Name 05/16/2021 1 [employer] [place] [id number] Jenifer Borsari [id number] Jenifer Borsari 06/01/2021 1 [employer] [place] [id number] Jenifer Borsari [id number] Jenifer Borsari 08/26/2023 1 [employer] [place] [id number] Jenifer Borsari [id number] Jenifer Borsari 10/12/2024 1 [employer] [place] [id number] Jenifer Borsari [id number] Jenifer Borsari 10/14/2024 1 [employer] [place] [id number] Jenifer Borsari [id number] Jenifer Borsari Notes Date Note Type Note Provider Name and Address Organization Details Recorded Time 05/16/2021 text/html She is here for complaints of lower pelvic bloating, pressure with urination, dysuria, vaginal pruritis and burning, and she would also like a genprobe done to check for possible chlamydia and GC. Nexplanon placed 09/27/2019. LMP 04/24/21, normal . Agatha Gutiérrez MD [address] [facility],[address], [place], [address], [place] [facility], [...] LMP was 06/01/21. Agatha Gutiérrez MD [address] [facility],[address], [place], [address], [place] [facility], 06/01/2021 14:51:42 08/26/2023 text/html She is here for a complaint of pelvic pain. she missed her last menses, LMP was 07/01/23. 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 She also has had vaginal pruritus and a sense of dysuria only onthe outside skin when she urinates. She had been going to a interlocking installer in [place], her last annual was there, however she desires to switch back to our practice. Her insurance requires her to pa y a larger co pay to see us, as she works in the 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 Her partner of one year has an active herpes lesion on his lip. Agatha Gutiérrez MD [address] [facility],[address], [place], [address], [place] [facility], 10/14/2024 15:14:44 OBGyn Episode No OBEpisode recorded.
[2024-11-01 14:16] LABS: Creatinine Urine 37.03 mg/dL; Microalbumin Urine < 5.0 mg/L
[2024-11-02 03:39] LABS: Triiodothyronine T3 Total 72 ng/dL (76-181)
== END 2024-11-01 11:41 | disposition home or self-care (01) ==
LOC: HO.10HDL 11:40
PROVIDERS: Visit Provider Family Medicine
DX: E03.9 Hypothyroidism, unspecified (principal); I10 Essential (primary) hypertension; R11.0 Nausea; Z00.00 Encounter for general adult medical examination without abnormal findings
CPT/HCPCS: 36415; 80048; 81003; 82043; 82570; 84439; 84443; 84480

== ENCOUNTER 2024-11-18 11:21 | Outpatient (AMB) | payer OTHER, SELFPAY ==
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
--- OUTSIDE RECORDS SUMMARY | 2024-11-18 13:33 | XMS_ITS | Data Portability ---
Author Organization [place] - [facility],, AGATHA GUTIÉRREZ MD Address [address] [address] [facility] [address] Care Team Providers Care Dental Patient Coordinator Name Role Phone HALLIE REID Primary Care [...] GOMEZ [facility], [address], [place], [address], 10/16/2024 10:05:52 urinalys is, dipstick 2024 025 GOMEZ In-Office Order, Internal Use Only DO Not Attach Compendium DO Not Attach Compendium, Do Not Delete/merge, [id number] 10/12/2024 12:51:25 culture, urine 2024 025 GOMEZ [facility], [address] [place], [address], 10/14/2024 00:05:16 wet mount, vaginal 2024 025 [email or web address] 1 In-Office Order, Internal Use Only DO Not Attach Compendium DO Not Attach Compendium, Do Not Delete/merge, [id number] 10/12/2024 12:05:16 CT + NG DNA, PCR, cervical 2024 025 [email or web address] [facility], [address], [place], [address], 10/26/2024 07:17:46 urinalys is, dipstick 2023 024 [email or web address] 1 In-Office Order, Internal Use Only DO Not Attach Compendium DO Not Attach Compendium, Do Not Delete/merge, 08/26/2023 10:09:16 culture, urine 2023 024 GOMEZ [facility] (Centralized Electronic Ordering - All Locations), Patient Can Go To The Location Of Their Choice, [id number] 08/28/2023 07:06:37 wet mount, vaginal 2023 024 [email or web address] 1 In-Office Order, Internal Use Only DO Not Attach Compendium DO Not Attach Compendium, Do Not Delete/merge, 08/26/2023 10:45:23 CT + NG DNA, PCR, cervical 2023 024 GOMEZ [facility], [address], [place], [address], 08/27/2023 12:48:43 urinalys is, dipstick 2020 021 [email or web address] 1 In-Office Order, Internal Use Only DO Not Attach Compendium DO Not Attach Compendium, Do Not Delete/merge, [id number] 06/01/2021 14:22:10 culture, urine 2020 021 [facility], [address], [place], [address], 06/02/2021 16:30:48 pregnanc y test, urine 2020 021 [email or web address] 1 In-Office Order, Internal Use Only DO Not Attach Compendium DO Not Attach Compendium, Do Not Delete/merge, [id number] 06/01/2021 14:22:11 urinalys is, dipstick 2020 021 [email or web address] 1 In-Office Order, Internal Use Only DO Not Attach Compendium DO Not Attach Compendium, Do Not Delete/merge, [id number] 05/16/2021 11:11:45 culture, urine 2020 021 [facility], [address] [place], [address], 05/17/2021 12:55:35 wet mount, vaginal 2020 021 [email or web address] 1 In-Office Order, Internal Use Only DO Not Attach Compendium DO Not Attach Compendium, Do Not Delete/merge, [id number] 05/16/2021 11:15:55 pregnanc y test, urine 2020 021 [email or web address] 1 In-Office Order, Internal Use Only DO Not Attach Compendium DO Not Attach Compendium, Do Not Delete/merge, [id number] 05/16/2021 11:57:39 NG DNA, PCR, genital 2020 021 [facility], [address] [place] [address], [address], 05/23/2021 07:24:11 chlamydi a sp, culture, unspecif ied specimen 2020 021 [facility], Cytopathology Service, [address] [place], [address], 05/23/2021 07:24:11 Referral None recorded . Procedures None recorded . Surgeries None recorded . Imaging US, pelvis, transabd ominal + transvag inal - right sided pelvic pain, histroy of 3.1 cm right ovarian cyst a year ago 2024 025 [facility] (Imaging), [address] [place] [address], [address], 10/29/2024 15:40:52 US, pelvis, transabd ominal + transvag inal - 4 cm right ovarian cyst on exam, pelvic pain 2023 024 [facility] (Imaging), [address] [place] [address], [address], 09/08/2023 19:24:48 US, pelvis, transabd ominal + transvag inal - 3 to 4 cm left ovarian cyst, bloating , pelvic pain 2020 021 [facility] (Imaging), [address] [place] [address], [address], 06/01/2021 12:05:44 Medication Orders valacycl ovir 1 gram tablet 2024 025 [facility], [address] [place] [address], [address], 10/14/2024 15:04:33 lidocain e 5 % topical ointment 2024 025 [facility], [address] [place] [address], [address], 10/14/2024 15:04:33 fluconaz ole 150 mg tablet 2024 025 [facility], [facility] [place], [address], 10/12/2024 12:05:07 fluconaz ole 150 mg tablet 2020 021 [facility], [address] [place], [address], 06/01/2021 14:05:03 Patient TargetsNo targets recorded. Patient Instructions Encounter Date Encounter Id Patient Instructions Last Modified By Organization Details Last Modified Time 05/16/2021 [id number] urinary tract infection in women information Not [...] and timing. Not available 05/16/2021 11:49:55 06/01/2021 [id number] urinary tract infection in women information Not [...] 30 minutes Not available 06/01/2021 14:26:20 08/26/2023 [id number] urinary tract infection in women information Not available 08/26/2023 10:09:16 vaginal yeast infection: care instructions Not available 08/26/2023 10:45:23 She is here for a complaint of pelvic pain. she missed her last menses, LMP was 07/01/23. 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 Not available 08/26/2023 11:23:20 10/12/2024 [id number] urinary tract infection in women information [email or web address] [...] urinates. She had been going to a student affairs dean in [place], her last annual was there, however she desires to switch back to our practice. 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 She needs to do this at [employer] for costs, she will ask her PCP for a referral to a general surgeon. Check pelvic sonogram to pelvic pain and posible persistent right ovarian cyst, Check genprobe for pelvic pain, and newer partner. She is advised to return soon for gian and annual as she is overdue . She understands and agrees. Not available 10/12/2024 12:09:08 10/14/2024 [id number] She is here for a one to [...] DO Not Attach Compendium, Do Not Delete/merge, [id number] 05/16/2021 11:14:31 05/16/20 21 05/16/2021 elmer mckeon Trichomonas negati ve Not Available In-Office Order Internal Use Only DO Not Attach Compendium DO Not Attach Compendium, Do Not Delete/merge, [id number] 05/16/2021 11:14:31 05/16/20 21 05/16/2021 wet elmer bronson Hyphae positi ve Not Available In-Office Order Internal Use Only DO Not Attach Compendium DO Not Attach Compendium, Do Not Delete/merge, [id number] 05/16/2021 11:14:31 05/16/20 21 05/16/2021 wet mount , vagin al atrophic epithelium negati ve Not Available In-Office Order Internal Use Only DO Not Attach Compendium DO Not Attach Compendium, Do Not Delete/merge, [id number] 05/16/2021 11:14:31 05/16/20 21 05/16/2021 URINE CULTU RE comments [facility] [address] [place] [address] Medic [facility] raine whitaker MD SOUR E: URINE ,SHIRA N CATCH ; Not Available [facility] [address] [place] [address], [address], 05/18/2021 09:21:35 05/16/20 21 05/17/2021 URINE CULTU RE urine culture [facility] [address] [place] [address] Medic [facility] raine whitaker MD COLLE CTION TIME: 05/16 11:00 :00 AM -04:0 0 URINE CULTU RE ESCHE JENNIFER A COLI ( ESCCO L ) F URINE CULTU RE COLON Y COUNT F URINE CULTU RE 10,00 0-49, 000 F Not Available [facility] [address] [place] [address], [address], 05/18/2021 09:21:35 05/16/20 21 05/16/2021 CHLAM YDIA DNA SWAB comments [facility] [address] [place] [address] Medic al [facility] raine whitaker MD Not Available [facility] [address] [place] [address], [address], 05/18/2021 07:14:28 05/16/20 21 05/16/2021 CHLAM YDIA DNA SWAB chlamydia DNA swab NEGATI VE negati ve Not Available [facility] [address] [place], [address], 05/18/2021 07:14:28 05/16/20 21 05/16/2021 GC DNA SWAB comments [facility] [address] [place] [address] Medic al [facility] raine whitaker MD Not Available [facility] [address] [place] [address], [address], 05/18/2021 07:14:33 05/16/20 21 05/16/2021 GC DNA SWAB GC DNA swab NEGATI VE negati ve Not Available [facility] [address] [place] [address], [address], 05/18/2021 07:14:33 05/16/20 21 05/16/2021 GRAM NEGAT BINU SUSCE PTIBI LITY comments PAREN T ORGAN ISM: ESCHE JENNIFER A COLI ( ESCCO L ) [facility] [address] [place] [address] Medic al [facility] raine whitaker MD SOURC E: URINE ,SHIRA N CATCH ; Not Available [facility] [address] [place] [address], [address], 05/18/2021 09:21:41 05/16/20 21 05/17/2021 GRAM NEGAT BINU SUSCE PTIBI LITY gram negative susceptibili ty [facility] [address] [place] [address] Medic al [facility] raine whitaker MD COLLE CTION TIME: [...] S F Not Available [facility] [address] [facility], [place], [address], 05/18/2021 09:21:41 05/16/20 21 05/16/2021 pregn tong [...] DO Not Attach Compendium, Do Not Delete/merge, [id number] 05/16/2021 11:01:41 05/16/20 21 05/16/2021 urina lysis , dipst ick pH 5.0 Not Available In-Office Order Internal Use Only DO Not Attach Compendium DO Not Attach Compendium, Do Not Delete/merge, [id number] 05/16/2021 11:01:41 05/16/20 21 05/16/2021 urina lysis , dipst ick PRO Negati ve Not Available In-Office Order Internal Use Only DO Not Attach Compendium DO Not Attach Compendium, Do Not Delete/merge, [id number] 05/16/2021 11:01:41 05/16/20 21 05/16/2021 urina lysis , dipst ick URO 0.2 E.U. / dl Not Available In-Office Order Internal Use Only DO Not Attach Compendium DO Not Attach Compendium, Do Not Delete/merge, [id number] 05/16/2021 11:01:41 05/16/20 21 05/16/2021 urina lysis , dipst ick NIT negati ve Not Available In-Office Order Internal Use Only DO Not Attach Compendium DO Not Attach Compendium, Do Not Delete/merge, [id number] 05/16/2021 11:01:41 05/16/20 21 05/16/2021 urina lysis , dipst ick COLIN Negati ve Not Available In-Office Order Internal Use Only DO Not Attach Compendium DO Not Attach Compendium, Do Not Delete/merge, [id number] 05/16/2021 11:01:41 06/01/2006/01/2021 URINE CULTU RE comments [facility] [address] [place] [address] Medic al [facility] raine whitaker MD SOUR E: URINE ,SHIRA N CATCH ; Not Available [facility] [address] [facility], [place], [address], 06/02/2021 16:30:31 06/01/20 21 06/02/2021 URINE CULTU RE urine culture [facility] [address] [place] [address] Medic al [facility] MD DEANNE Kaye CTION TIME: 2020 2:00: 00 PM -04:0 0 URINE CULTU RE No growt h F Not Available [facility] [address] [facility], [place], [address], 06/02/2021 16:30:31 06/01/20 21 06/01/2021 pregn tong test, urine HCG negati ve Not Available In-Office Order Internal Use Only DO Not Attach Compendium DO Not Attach Compendium, Do Not Delete/merge, [id number] 06/01/2021 14:21:52 06/01/20 21 06/01/2021 urina lysis , dipst ick GLU Negati ve Not Available In-Office Order Internal Use Only DO Not Attach Compendium DO Not Attach Compendium, Do Not Delete/merge, [id number] 06/01/2021 13:56:57 06/01/20 21 06/01/2021 urina lysis , dipst ick ADILSON Negati ve Not Available In-Office Order Internal Use Only DO Not Attach Compendium DO Not Attach Compendium, Do Not Delete/merge, [id number] 06/01/2021 13:56:57 06/01/20 21 06/01/2021 urina lysis , dipst ick KET Negati ve Not Available In-Office Order Internal Use Only DO Not Attach Compendium DO Not Attach Compendium, Do Not Delete/merge, [id number] 06/01/2021 13:56:57 06/01/20 21 06/01/2021 urina lysis , dipst ick SG 1.010 Not Available In-Office Order Internal Use Only DO Not Attach Compendium DO Not Attach Compendium, Do Not Delete/merge, [id number] 06/01/2021 13:56:57 06/01/20 21 06/01/2021 urina lysis , dipst ick BLO Small Not Available In-Office Order Internal Use Only DO Not Attach Compendium DO Not Attach Compendium, Do Not Delete/merge, [id number] 06/01/2021 13:56:57 06/01/20 21 06/01/2021 urina lysis , dipst ick pH 6.0 Not Available In-Office Order Internal Use Only DO Not Attach Compendium DO Not Attach Compendium, Do Not Delete/merge, [id number] 06/01/2021 13:56:57 06/01/20 21 06/01/2021 urina lysis , dipst ick PRO Negati ve Not Available In-Office Order Internal Use Only DO Not Attach Compendium DO Not Attach Compendium, Do Not Delete/merge, [id number] 06/01/2021 13:56:57 06/01/20 21 06/01/2021 urina lysis , dipst ick URO 0.2 E.U. / dl Not Available In-Office Order Internal Use Only DO Not Attach Compendium DO Not Attach Compendium, Do Not Delete/merge, [id number] 06/01/2021 13:56:57 06/01/20 21 06/01/2021 urina lysis , dipst ick NIT negati ve Not Available In-Office Order Internal Use Only DO Not Attach Compendium DO Not Attach Compendium, Do Not Delete/merge, [id number] 06/01/2021 13:56:57 06/01/20 21 06/01/2021 urina lysis , dipst ick COLIN Negati ve Not Available In-Office Order Internal Use Only DO Not Attach Compendium DO Not Attach Compendium, Do Not Delete/merge, [id number] 06/01/2021 13:56:57 08/26/19 24 08/27/2023 CHLAM YDIA [...] Go To The Location Of Their Choice, [id number] 08/27/2023 12:48:43 08/26/19 24 08/27/2023 CHLAM YDIA [...] neede d. Conta ct phone numbe r [phone]. Thera peuti c failu re or succe ss canno t be deter mined with the Aptim a Combo 2 assay since nucle ic acid may persi st follo wing appro priat e antim icrob ial thera py. [facility] ([facility]) recom mends confi rmato ry retes [...] culture, routine Final report Not Available [facility] ([facility]) [address] [facility], [place], [address], 10/14/2024 00:05:16 10/13/19 25 10/13/2024 URINE CULTU RE, ROUTI NE result 1 No growth Not Available [facility] ([facility]) [address], [place], [address], 10/14/2024 00:05:16 10/13/19 25 10/14/2024 NO SPECI MEN RECEI VINH no specimen received COMMEN T Test not perfo rmed. No speci men recei vinh. TEST: [id number] 3 CT/GC Ampli fied- Cervi x Not Available [facility] ([facility]) [address], [place], [address], 10/14/2024 12:05:47 10/13/1910/14/2024 NTI MISKIM LLCEE OUS [...] s requi res a writt en and ojdi d reque st be forwa rded to the testi ng labor atory follo wing the verba l order of a labor atory test. Lionel armenta ete the follo wing and fax to [phone] to exped ite testi ng. Requi red test name( s)___ ___ Requi red test numbe r(s)_ ___ Physi bull signa ture_ __ Date_ __ Diagn osis Code: __ In order to maint joannn katiuska nunez es will be store d for two to seven days from the date of recei pt. Not Available [facility] ([facility]) [address] [facility], [place], [address], 10/14/2024 12:05:48 10/13/1910/14/2024 VERBA L ORDER see below: Commen t: Lionel lovetti de reque sted infor matbasilio n and fax to [phone]. [place] Code of [...] Test( s) Morteza rayo Not Available [facility] [address] [place], [address], 10/14/2024 14:06:21 10/13/1910/14/2024 VERBA L ORDER additional test(s) requested Commen t: Test( s) added per DAYSI Stubbs ([place]) at [facility] nt 10-14 Logge [place] by Ravin rodriguez Snow Test# [id number] 4 Chlam ydia/ GC Ampli ficat ion Test# 77140 [address] Code Not Available [facility] [address], [place], [address], 10/14/2024 14:06:21 10/13/19 25 10/20/2024 CHLAM YDIA/ GC AMPLI FICAT ION chlamydia trachomatis, RYAN Negati ve negati ve Not Available [facility] ([facility]) [address] [facility], [place], [address], 10/20/2024 10:05:58 10/13/19 25 10/20/2024 CHLAM YDIA/ GC AMPLI FICAT ION neisseria gonorrhoeae, RYAN Negati ve negati ve Not Available [facility] ([facility]) [address] [facility], [place], [address], 10/20/2024 10:05:58 10/13/19 25 10/14/2024 VERBA L ORDER see below: Commen t: Pleas e provi de reque sted infor kayla whitaker and fax to [phone]. [place] Code of [place] Regul ation s requi res a writt en and jodi d reque st be forwa rded to a labor atory follo wing a verba l order of a labor atory test. Pleas e maxi t us to meet this [...] 10/13/1910/14/2024 VERBA L ORDER additional test(s) requested Nia t: Test( s) added per DAYSI LIZ) at [facility] 10-14 Logge [place] by Ravin rodriguez Snow Test# [id number] 4 Chlam ydia/ GC Ampli ficat ion Test# [address] Code Not Available In-Office Order Internal Use Only DO Not Attach Compendium DO Not Attach Compendium, Do Not Delete/merge, 10/21/2024 12:06:04 10/13/1910/21/2024 VERBA L ORDER verbal order Commen t This is the secon perri notic e reque sting this infor kayla rasmussen An IMMED IATE respo nse is needmarcelo rayo. Not Available In-Office Order Internal Use Only DO Not Attach Compendium DO Not Attach Compendium, Do Not Delete/merge, 10/21/2024 12:06:04 10/13/1910/14/2024 VERBA L ORDER see below: Commen t: Pleas e provi de reque sted infor kayla n and fax to [phone]. [place] s Code of [place] Regul [...] Test( s) Morteza rayo Not Available [facility] ([facility]) [address] [facility], [place], [address], 10/28/2024 12:05:55 10/13/19 25 10/14/2024 VERBA L ORDER additional test(s) requested Commen t: Test( s) added per DAYSI LIZ) at [facility] nt 10-14 Logge [place] by Ravin rodriguez Snow Test# [id number] 4 Chlam ydia/ GC Ampli ficat ion Test# 6[address] Code Not Available [facility] ([facility]) [address] [facility], [place], [address], 10/28/2024 12:05:55 10/13/19 25 10/28/2024 VERBA L ORDER verbal order Commen t THIS IS THE FINAL NOTIC E REQUE STING THIS INFOR MATIO N; IF WE DO NOT RECEI VE THIS INFOR MATIO N WITHI N SEVEN DAYS, THE TESTS WILL BE BILLE D TO [facility] NT. Not Available [facility] ([facility]) [address] [facility] [address], [place], [address], 10/28/2024 12:05:55 10/13/19 25 11/05/2024 WRITT EN AUTHO RIZAT ION written authorizatio n Commen t No Writt en Autho rizat ion Recei vinh. Not Available [facility] ([facility]) [address] [facility], [place], [address], 11/05/2024 12:07:21 10/13/19 25 10/12/2024 urina lysis , dipst [...] DO Not Attach Compendium, Do Not Delete/merge, [id number] 10/12/2024 12:04:48 10/13/19 25 10/12/2024 wet mount , vagin al Trichomonas negati ve Not Available In-Office Order Internal Use Only DO Not Attach Compendium DO Not Attach Compendium, Do Not Delete/merge, [id number] 10/12/2024 12:04:48 10/13/19 25 10/12/2024 wet mount , vagin al Hyphae positi ve Not Available In-Office Order Internal Use Only DO Not Attach Compendium DO Not Attach Compendium, Do Not Delete/merge, [id number] 10/12/2024 12:04:48 10/13/1910/12/2024 wet mount , vagin al atrophic epithelium negati ve Not Available In-Office Order Internal Use Only DO Not Attach Compendium DO Not Attach Compendium, Do Not Delete/merge, [id number] 10/12/2024 12:04:48 10/15/19 25 10/16/2024 HSV RYAN hsv 1 RYAN Positi ve negati ve abnormal Not Available [facility] ([facility]) [address] [place], [address], 10/16/2024 10:05:52 10/15/19 25 10/16/2024 HSV RYAN hsv 2 RYAN Negati ve negati ve Not Available [facility] ([facility]) [address] [place], [address], 10/16/2024 10:05:52 06/01/20 21 05/30/2021 US, pelvi s, trans abdom inal + trans vagin al No observ ation record ed. [email or web address] [facility] [address] [facility], [address], 06/01/2021 14:00:17 07/05/20 21 07/02/2021 US, pelvi s, trans abdom inal + trans vagin al No observ ation record ed. [facility] (Central Scheduling Radiology) [address] [place], [address], 07/06/2021 09:52:13 09/08/19 24 09/05/2023 US, pelvi s, trans abdom inal + trans vagin al No observ ation record ed. [facility] [address] [place], [address], 09/10/2023 11:05:15 10/30/19 25 10/29/2024 US, pelvi s, trans abdom inal + trans vagin al No observ ation record ed. [facility] [address] [place], [address], 11/01/2024 09:06:07 Result Notes None recorded. Problems Name Problem SNOMED Code Status Onset Date Resolution Date Notes Provider Name and Address Organization Details Recorded Time Acute lower urinary tract infection 313011900 Active Agatha Gutiérrez MD [address], [place], [address] , [place] - [facility], 4 16:46:00 Pain in pelvis 24293729 Active Agatha Gutiérrez MD [address], [place], [address] , [place] - [facility], 4 10:17:10 Candidal vulvovagi nitis 68630569 Active Agatha Gutiérrez MD [address], [place], [address] , [place] - [facility], 4 14:16:45 Migraine with aura 5284003 Active 2012 eye blindness and left sided weakness Not Available [facility] 3 03:01:05 Odorless vaginal discharge 568503166 Active Not Available [facility] 3 03:01:05 Dysmenorr hea 005994872 Active Agatha Gutiérrez MD [address], [place], [address] , [place] - [facility], 5 13:17:35 Status mahnaz 514995835 Active 2012 eye blindness and left sided weakness Not Available [facility] 3 03:01:05 Disorder of hair AND/OR hair follicle Active Agatha Gutiérrez MD [address], [place], [address] , [place] - [facility], 5 13:15:22 Breast lump 32983134 Active Agatha Gutiérrez MD [address], [place], [address] , [place] - [facility], 4 09:13:17 Notes:Currently being treate d for overgrowth of yeast and bacteria in stomach as of 12/14/20 Problem Notes None recorded. Procedures Surgical History Date Name Laterality Status Provider Name and Address Organization Details Recorded Time 09/27/19 20 Implanon Insertion completed Agatha Gutiérrez MD [address], [place], [address], [place] - [facility], 09/27/2019 13:00:14 09/15/19 20 Implanon Removal completed Agatha Gutiérrez MD [address], [place], [address], [place] [facility], 09/15/2019 14:51:46 01/30/20 17 augmentation of bilateral breasts completed Dania Latif [facility], 12/14/2020 14:27:14 07/28/19 14 Cholecystectomy completed Daysi Latif [facility], 08/13/2013 09:07:42 07/28/19 14 Other completed Daysi Latif [facility], 03/22/2016 13:41:51 Imaging Results Imaging Date Name Status LastModified by Organization Details LastModified Time 05/30/2021 US, pelvis, transabdominal + transvaginal completed [address] [place], [address], 06/01/2021 14:00:17 07/02/2021 US, pelvis, transabdominal + transvaginal completed [facility] ([facility]) [address] [place], [address], 07/06/2021 09:52:13 09/05/2023 US, pelvis, transabdominal + transvaginal completed [facility] [address] [place] [address], [address], 09/10/2023 11:05:15 10/29/2024 US, pelvis, transabdominal + transvaginal completed [address], [address], 11/01/2024 09:06:07 Procedure Notes None recorded. Medical [...] SHOWER. REPEAT FOR 7 CONSECUT BINU DAYS. 05/20 /2021 completed Not Available Not Available Not Available [employer] 14 Day Sensor kit USE DIRECTED PER PRESCRIB ER active Not Available Not Available No t Available Slynd 4 mg (28) tablet active Not Available Not Available Not Available Nurtec ODT 75 mg disintegr ating tablet PLACE [...] Updated DateTime 1 154.94 cm 21.5 kg/m2 46382.0 9 g 84 /min 98.1 [degF] 111 mm[Hg] 64 mm[Hg] Daysi Pak in [facility], 1 10:49:01 Date Recorded Body height Heart rate Body mass index (BMI) Body weight Systolic blood pressure Diastolic blood pressure Provider Name and Address Organization Details Last Updated DateTime 1 154.94 cm 96 /min 21.5 kg/m2 48111.0 9 g 116 mm[Hg] 67 mm[Hg] Daysi Pak in [facility], 1 14:04:06 Date Recorded Body height Body mass index (BMI) Body weight Body temperature Heart rate Systolic blood pressure Diastolic blood pressure Provider Name and Address Organization Details Last Updated DateTime 4 154.94 cm 21.7 kg/m2 28321.1 2 g 97.6 [degF] 105 /min 113 mm[Hg] 65 mm[Hg] Daysi Pak in [facility], 4 09:34:55 Date Recorded Body height Body mass index (BMI) Body weight Heart rate Systolic blood pressure Diastolic blood pressure Provider Name and Address Organization Details Last Updated DateTime 5 154.94 cm 25.9 kg/m2 13415.1 5 g 92 /min 114 mm[Hg] 72 mm[Hg] Daysi Pak in [facility], 5 11:28:18 Date Recorded Body height Body mass index (BMI) Body weight Heart rate Systolic blood pressure Diastolic blood pressure Provider Name and Address Organization Details Last Updated DateTime 5 154.94 cm 25.9 kg/m2 65862.1 5 g 93 /min 108 mm[Hg] 68 mm[Hg] Daysi Turner MA - [facility], 5 14:46:35 Social History Question Answer Notes LastModified by Organizat ion Details LastModified Time Tobacco Smoking Status Never Smoker Not Available [employer] 05/30/2020 03:19:42 What Is Your Level Of Alcohol Consumption? None [id number] Information not available 05/30/2020 Are You Blind Or Do You Have Difficulty Seeing? No [id number] Information not available 05/30/2020 What Is Your [...] Do You Have Serious Difficulty Hearing? No [id number] Information not available 05/30/2020 What Type Of Diet Are You Following? REGULAR [id number] Information not available 05/30/2020 Which Illicit Or Recreational Drugs Have You Used? No [id number] Information not available 05/30/2020 Do You Reside In Or Have You Traveled To An Area Where Ebola Virus Transmission Is Active? No [id number] Information not available 05/30/2020 Do You Or Have You Ever Used E-cigarettes Or Vape? Never Used Electronic Cigarettes [id number] Information not available 05/30/2020 Education 2 Year College [employer] Information not available 08/13/2013 What Is The Highest Grade Or Level Of School You Have Completed Or The Highest Degree You Have Received? [id number] Information not available 05/16/2021 Who Is Your Employer? 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 Yes [id number] Information not available 05/30/2020 Do You Or Have You Ever Used Smokeless Tobacco? Never Used Smokeless Tobacco [id number] Information not available 05/30/2020 How Much Tobacco Do You Smoke? No [id number] Information not available 05/30/2020 General Stress Level Medium Information not available 03/22/2016 Do You Feel Stressed (tense, Restless, Nervous, Or Anxious, Or Unable To Sleep At Night)? [id number] Information not available 05/16/2021 Do You Use [...] have difficulty walking or climbing stairs? No [id number] Information not available 05/30/2020 Do you have difficulty doing errands alone? No [id number] Information not available 05/30/2020 Do you have difficulty dressing or bathing? No [id number] Information not available 05/30/2020 What is your exercise level? Moderate [id number] Information not available 05/30/2020 Mental Status Question Answer Note LastModified by Organization D etails LastModified Time Do you have difficulty concentrating, remembering or making decisions? No [id number] Information no t available 05/30/2020 Family History Relationship Description Onset Age of this Age Resolved Age Notes LastModified by Organization Details LastModified Time Father Hypercholest erolemia previo usly record ed as High Choles terol Not available 01/24/2015 13:17:36 Medical History Condition Response High Blood Pressure N Autoimmune Condition N Depression N History of Ovarian Cancer N Anxiety Disorder Y Arthritis N Infertility N Kidney or Bladder Problems N Osteopenia N Asthma N Hepatitis N Anesthesia complications N Candidate for MyRisk panel N Lung Disease N Defects or Inherited Disease N BRCA testing in past N History of Cancer N Endometriosis N Thyroid Problems N GI Problems Y Anemia N History of Breast Cancer N THOMAS exposure N Psychiatric Illness N Diabetes N Headaches or Migraines Y Heart Disease N Hypertension N Osteoporosis N [...] vaccine, UNSPECIFIED 1 completed SHANTA Tenorio in [facility], 12/14/2020 14:25:07 SARS-COV-2 (COVID-19) vaccine, UNSPECIFIED 1 completed SHANTA Tenorio in [facility], 12/14/2020 14:25:16 Influenza, MDCK, quadrivalent, PF 9 completed SHANTA Matta in [facility], 08/26/2023 09:34:04 MMR 0 completed Daysi Meczywor null, [place] - [facility], 08/26/2023 09:34:04 MMR 6 completed Daysi Meczywor null, [place] - [facility], 08/26/2023 09:34:04 COVID-19, mRNA, LNP-S, PF, 30 mcg/0.3 mL dose 1 completed Daysi Meczywor null, [place] - [facility], 08/26/2023 09:34:05 COVID-19, mRNA, LNP-S, PF, [...] Meczywor null, [place] - [facility], 08/26/2023 09:34:05 Hep B, adult 0 completed Daysi Meczywor null, [place] - [facility], 08/26/2023 09:34:05 Hep B, adult 0 completed Daysi Meczywor null, [place] - [facility], 08/26/2023 09:34:05 Hib (HbOC) 5 completed Daysi Meczywor null, [place] - [facility], 08/26/2023 09:34:05 Hib (HbOC) 6 completed Daysi Meczywor null, [place] - [facility], 08/26/2023 09:34:05 Hib (HbOC) 5 completed Daysi Meczywor null, [place] - [facility], 08/26/2023 09:34:05 Hib (HbOC) 5 completed Daysi Meczywor null, [place] - [facility], 08/26/2023 09:34:05 meningococcal MCV4P 7 completed Daysi Meczywor null, [place] - [facility], 08/26/2023 09:34:05 meningococcal MCV4P 3 completed Daysi Meczywor null, [place] - [facility], 08/26/2023 09:34:05 DTaP 9 completed Daysi Meczywor null, [place] - [facility], 08/26/2023 09:34:05 Past Encounters Encounter ID Performer Location Encounter Start Date Encounter Closed Date Diagnosis/Indication Diagnosis SNOMED-CT Code Diagnosis ICD10 Code Diagnosis Note [id number] MD AGATHA Carlton MD [address] [facility], [address] [place] [address] 08/13/2012 14:53:24 08/14/2012 14:23:41 [id number] Daysi GUTIÉRREZ MD [address] [place] [address] 08/13/2013 08:57:07 08/13/2013 14:10:07 Specialized medical examination 06282504 Venereal d isease screening 733709274 Candidal vulvovaginitis 19936790 [id number] Daysi GUTIÉRREZ MD [address] [place] [address] 10/08/2012 14:56:18 10/08/2012 16:27:19 [id number] MD AGATHA Carlton MD [address] [facility] [place] [address] 10/26/2012 13:27:26 10/27/2012 08:53:02 [id number] Daysi GUTIÉRREZ MD [address] [facility] [place] [address] 01/04/2013 14:39:37 01/04/2013 16:16:13 [id number] Daily GUTIÉRREZ MD [address] [facility] [place] [address] 04/26/2013 09:44:01 04/26/2013 12:53:20 [id number] Daily GUTIÉRREZ MD [address] [facility],[place] [address] 11/15/2013 13:22:27 11/15/2013 15:42:47 Breast lump [id number] Daily GUTIÉRREZ MD [address] [facility] [address] 01/18/2014 14:34:41 01/19/2014 08:10:47 Acute lower urinary tract infection 662727497 Venereal d isease screening 742808198 Pain in pelvis 56377426 [id number] Daily GUTIÉRREZ MD [address] [facility],[place] [address] 02/21/2014 11:19:36 02/21/2014 16:13:56 Candidal vulvovaginitis 93947128 [id number] Daily GUTIÉRREZ MD [address] [place] [address] 03/18/2014 13:49:41 03/18/2014 15:52:04 Dysmenorrhea [id number] Daily GUTIÉRREZ MD [address] [place] [address],[place] [address] 06/08/2014 09:16:13 06/08/2014 11:51:39 Dysmenorrhea [id number] Daily GUTIÉRREZ MD [address] [place] [address],[place] [address] 08/17/2014 08:54:30 08/17/2014 09:41:13 Specialized medical examination 96049792 Venereal d isease screening 777534922 [id number] Daily GUTIÉRREZ MD [address] [place] [address],[place] [address] 09/02/2014 12:51:59 09/02/2014 16:10:16 Dysmenorrhea [id number] Alonzo GUTIÉRREZ MD [address] [place] [address],[place] [address] 10/21/2014 11:15:49 10/21/2014 13:21:28 Dysmenorrhea 774803868 Disorder o f hair AND/OR hair follicle 62830081 [id number] Daily GUTIÉRREZ MD [address] [place] [address],[place] [address] 01/24/2015 12:57:12 01/24/2015 13:56:05 Dysmenorrhea [id number] MD AGATHA Carlton MD [address] [place] [address],[place] [address] 03/22/2016 13:33:03 03/22/2016 14:36:59 Candidal vulvovaginitis 37693636 B37.3 Uses oral contraception 7165456 Z79.3 [id number] MD AGATAH Carlton MD [address] [place] [address],[place] [address] 03/22/2016 14:01:54 03/25/2016 08:58:54 Candidal vulvovaginitis 79276770 B37.3 [id number] MD AGATHA Carlton MD [address] [place] [address],[place] [address] 08/25/2019 10:45:53 08/26/2019 08:57:07 Primary dysmenorrhea 15633685 N94.4 [id number] MD AGATHA Carlton MD [address] [place] [address],[place] [address] 09/15/2019 14:00:37 09/15/2019 15:46:39 Contraception care 030193980 Z30.46 Subcutaneo us contraceptive implant present 811601755 Z30.46 [id number] MD AGATHA Carlton MD [address] [place] [address],[place] [address] 09/27/2019 10:24:30 09/27/2019 13:19:28 Insertion of subcutaneous contraceptive 127867643 Z30.46 [id number] MD AGATHA Carlton MD [address] [place] [address],[place] [address] 12/14/2020 14:18:36 12/14/2020 15:52:56 Specialized medical examination 50120190 Z01.419 Venereal d isease screening 299849104 Z11.3 [id number] MD AGATHA Carlton MD [address] [place] [address],[place] [address] 05/16/2021 10:41:53 05/16/2021 11:58:22 Venereal disease screening 252119746 Z11.3 Acute lowe r urinary tract infection 213548019 R30.0 Cyst of left ovary 31132 75389 7163960 N83.292 Candidal vulvovaginitis 30402579 B37.3 Pain in pelvis 29301115 R10.2 [id number] MD AGATHA Carlton MD [address] [place] [address],[place] [address] 06/01/2021 13:54:46 06/01/2021 15:24:12 Acute lower urinary tract infection 823267327 R30.0 Abnormal u terine bleeding 5165060906 9100 N93.9 [id number] MD AGATHA Carlton MD [address] [place] [address],[address] [place] [address] 08/26/2023 09:19:19 08/27/2023 10:23:37 Acute lower urinary tract infection 961895645 R30.0 Venereal d isease screening 863538544 Z11.3 Cyst of right ovary 1223 433413 9800011 N83.201 Candidal vulvovaginitis 20245160 B37.31 Pain in pelvis 76158040 R10.2 [id number] MD AGATHA Carlton MD [address] [place] [address], [address] [place] [address] 10/12/2024 11:20:21 10/12/2024 13:06:33 Acute lower urinary tract infection 541815028 R30.0 Right lowe r quadrant pain 216995083 R10.31 Candidal vulvovaginitis 57610100 B37.31 [id number] MD AGATHA Carlton MD [address] [place] [address], [address] [place] [address] 10/14/2024 14:41:48 10/14/2024 15:59:13 Ulceration of vulva 73725907 N76.6 Health Concerns Section Related Observation LastModified by Organization Detai ls LastModified Time None Recorded Concern Status LastModified by Organization Details LastModified Time None Recorded Advance Directives Directive None Recorded Payers Encounter Date Sequence Insurance Name Policy Number Policy Plata Covered Member ID Plata Member ID Guarantor Name 05/16/2021 1 [employer] [place] [id number] Jenifer Borsari [id number] Jenifer Borsari 06/01/2021 1 [employer] [place] [id number] Jenifer Borsari [id number] Jenifer Borsari 08/26/2023 1 [employer] [place] [id number] Jenifer Borsari [id number] Jenifer Monzon 10/12/2024 1 [employer] [place] [id number] Jenifer Monzon [id number] Jenifer Gallowaysari 10/14/2024 1 [employer] [place]PO[place] [id number] Jenifer Monzon [id number] Jenifer Monzon Notes Date Note Type Note Provider Name and Address Organization Details Recorded Time 05/16/2021 text/html She is here for complaints of lower pelvic bloating, pressure with urination, dysuria, vaginal pruritis and burning, and she would also like a genprobe done to check for possible chlamydia and GC. Nexplanon placed 09/27/2019. LMP 04/24/21, normal . Agatha Gutiérrez MD [address] [facility],[address], [place], [address], [place] - [facility], 05/16/2021 11:58:13 06/01/2021 text/html She is here for KRISTEL after E Coli UTI. Also she is here to discus her 4.5 cm left ovarian cyst found on problem visit 05/16/21 and confirmed by sonogram on 05/30/21. She also notes spotting and cramping since the sonogram. She has not been sexually active in longer than 4 weeks. LMP was 06/01/21. Agatha Gutiérrez MD [address] [facility],[address], [place], [address], [facility], 06/01/2021 14:51:42 08/26/2023 text/html She is here for a complaint of pelvic pain. she missed her last menses, LMP was 07/01/23. 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 Agatha Gutiérrez MD [address] [facility],[address], [place], [address], [place] - [facility], 08/26/2023 11:23:45 10/12/2024 text/html She is here for a two week history of right lower quadrant pelvic pain. She also has had vaginal pruritus and a sense of dysuria only onthe outside skin when she urinates. She had been going to a student affairs dean in [place], her last annual was there, however she desires to switch back to our practice. 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 Agatha Gutiérrez MD [address], [place], [address], [place] - [facility], 10/12/2024 12:09:33 10/14/2024 text/html She is here for a one to two day history of external lesions of the vulva that are painful. Her partner of one year has an active herpes lesion on his lip. Agatha Gutiérrez MD [address], [place], [address], [place] - [facility], 10/14/2024 15:14:44 OBGyn Episode No OBEpisode recorded.
--- OUTSIDE RECORDS SUMMARY | 2024-11-18 13:34 | XMS_ITS | Clinical Summary ---
Author Organization [facility] Address [address] [place] [address] Care Team Providers Care Glass Or Mirror Inspector Name Role Phone Pcp, No Primary Care Provider Jered Barajas MD Unavailable Allergies No known active allergies Medications Nurtec [address] ONE TABLET BY MOUTH EVERY DAY NEEDED FOR MIGRAINE HEADACHE. MAX DAILY DOSE 1 TABLET 3 Active nystatin (MYCOSTATIN) 508419 units tablet TAKE ONE TABLET BY MOUTH TWICE A DAY WITH FOOD . INCREASE BY ONE TABLET EVERY 3 DAYS TO MAX DOSE OF 3 TABLETS TWO TIMES A DAY 3 Active Active Problems Problem Noted Date Diagnosed Date Cholecystitis, chronic 08/02/2013 Irritable bowel syndrome 06/14/2013 Anxiety 08/03/2007 Family History Medical History Relation Name Comments Melanoma Neg Hx Social History Tobacco Use Types Packs/Day Years Used Date Smoking Tobacco: Never Tobacco Cessation:Counseling Given: Not Answered Alcohol Use Standard Drinks/Week Comments Never 0 (1 standard drink = 0.6 oz pur e alcohol) Comments Unknown Sex and Gender Information Value Date Recorded Sex Assigned at Female 05/01/2023 3:32 PM EDT Legal Sex Female 4:21 PM EDT Gender Identity Female 05/01/2023 3:32 [...] on patient's age to complete this topic [facility] Care Teams Glass Or Mirror Inspector Relationship Specialty Start Date End Date Pcp, No PCP - General General Medicine 05/01/23 Jered Haji MD [address] [place] [address] Otolaryngology 05/01/23
== END 2024-11-18 17:05 | disposition home or self-care (01) ==
LOC: HO.HMCFM 11:21
PROVIDERS: PCP Family Medicine; Visit Provider Family Medicine
DX: R53.83 Other fatigue (principal); L67.9 Hair color and hair shaft abnormality, unspecified

== ENCOUNTER → 2024-11-18 11:21 | Outpatient (BNVA) | payer OTHER, SELFPAY | PROVIDERS: PCP Family Medicine; Visit Provider Family Medicine ==

== ENCOUNTER 2025-02-03 07:14 | Outpatient (REF) | payer OTHER, SELFPAY ==
--- OUTSIDE RECORDS SUMMARY | 2025-02-03 07:17 | XMS_ITS ---
Author Name [facility] Organization Unknown History of Medication Use Medication Directions Dispensed Refills Start Date End Date Stat us Nurtec [address] ONE TABLET BY MOUTH EVERY DAY NEEDED FOR MIGRAINE HEADACHE. MAX DAILY DOSE 1 TABLET 02/27/2023 active tazarotene (TAZORAC) 0.05 % cream Apply topically nightly. 05/21/2016 05/01/2023 aborted sertraline (ZOLOFT) 25 MG tablet 05/01/2023 aborted sertraline (ZOLOFT) 50 MG tablet 05/01/2023 aborted Problems Problem Status Onset Date Problem Type Date of Resoluti on Source Cholecystitis, chronic active 2013-08-02 [facility] Anxiety active 2007-08-03 [facility] Irritable bowel syndrome active 2013-06-14 ProblemAct [facility] Encounters Encounter Type Encounter Reason Primary Diagnosis Location Date Ambulatory B-Obvious 07/02/2023 Ambulatory B-Obvious 06/24/2023 Ambulatory B-Obvious 06/17/2023 Ambulatory B-Obvious 06/11/2023 Ambulatory Dizziness and giddiness [facility] [place] 05/27/2023 Ambulatory Dizziness and giddiness [facility] [place] 05/21/2023 Ambulatory B-Obvious 05/13/2023 Ambulatory Dizziness and giddiness [facility] [place] 05/01/2023 Care Team Organization Name Specialty Phone Email Start Date End Da te [place] 05/20/2023 05/20/2023 [place] PCP,No Primary Care 05/13/2023 10/13/2024 [place] 05/01/2023 10/13/2024 [place] NO PCP Primary Care 05/01/2023 05/13/2023
--- OUTSIDE RECORDS SUMMARY | 2025-02-03 07:17 | XMS_ITS | Data Portability ---
Author Organization [place] - [facility],, AGATHA GUTIÉRREZ MD Address [address] [facility] [address] [place] [address] Care Team Providers Care Seam Checker Name Role Phone HALLIE REID Primary Care Provider [phone] Assessment No assessment recorded. Plan of Treatment Reminders Order Date Submit Date Provider Last Modified By Organization Details Last Modified Time Details Appointments None recorded. Lab cytology report, thin prep, smear or scraping, cervical or vaginal 2024 025 stickK [facility] (Centralized Electronic Ordering - All Locations), Patient Can Go To The Location Of Their Choice, [id number] 5 16:20:26 HSV (1+2) DNA, qual, PCR, unspecifie d specimen - lesions of vulva 2024 025 GOMEZ [facility], [address], [place], [address], 5 10:05:52 urinalysis , dipstick 2024 025 GOMEZ In-Office Order, Internal Use Only DO Not Attach Compendium DO Not Attach Compendium, Do Not Delete/merge, [id number] 5 12:51:25 culture, urine 2024 025 GOMEZ [facility], [address] [place], [address], 5 00:05:16 wet mount, vaginal 2024 025 [email or web address] 1 In-Office Order, Internal Use Only DO Not Attach Compendium DO Not Attach Compendium, Do Not Delete/merge, [id number] 5 12:05:16 CT + NG DNA, PCR, cervical 2024 025 [facility], [address], [place], [address], 5 07:17:46 urinalysis , dipstick 2023 024 [email or web address] 1 In-Office Order, Internal Use Only DO Not Attach Compendium DO Not Attach Compendium, Do Not Delete/merge, [id number] 4 10:09:16 culture, urine 2023 024 GOMEZ [facility] (Centralized Electronic Ordering - All Locations), Patient Can Go To The Location Of Their Choice, [id number] 4 07:06:37 wet mount, vaginal 2023 024 [email or web address] 1 In-Office Order, Internal Use Only DO Not Attach Compendium DO Not Attach Compendium, Do Not Delete/merge, [id number] 4 10:45:23 CT + NG DNA, PCR, cervical 2023 024 GOMEZ [facility], [address], [place], [address], 4 12:48:43 urinalysis , dipstick 2020 021 [email or web address] 1 In-Office Order, Internal Use Only DO Not Attach Compendium DO Not Attach Compendium, Do Not Delete/merge, [id number] 1 14:22:10 culture, urine 2020 021 [facility], [address] [place] [address], [place], [address], 1 16:30:48 test, urine 2020 021 [email or web address] 1 In-Office Order, Internal Use Only DO Not Attach Compendium DO Not Attach Compendium, Do Not Delete/merge, [id number] 14:22:11 Referral None recorded. Procedures None recorded. Surgeries None recorded. Imaging US, pelvis, transabdom inal + transvagin al - right sided pelvic pain, histroy of 3.1 cm right ovarian cyst a year ago 2024 025 [facility] ([facility]), [address] [place] [address], [address], 5 15:40:52 US, pelvis, transabdom inal + transvagin al - 4 cm right ovarian cyst on exam, pelvic pain 2023 024 [facility]), [address] [place] [address], [address], 4 19:24:48 Medication Orders Slynd 4 mg (28) tablet 2024 025 [facility], [address] [place] [address], [address], 5 15:08:39 valacyclov ir 500 mg tablet 2024 025 [facility], [address] [place] [address], [address], 5 15:18:13 valacyclov ir 1 gram tablet 2024 025 [facility], [address] [place] [address], [address], 5 15:04:33 lidocaine 5 % topical ointment 2024 025 [facility], [address] [place] [address], [address], 5 15:04:33 fluconazol e 150 mg tablet 2024 025 [facility], [address] [place] [address], [address], 15:00:59 Patient TargetsNo targets recorded. Patient Instructions Encounter Date Encounter Id Patient Instructions Last Modified By Organization Details Last Modified Time 06/01/2021 [id number] urinary tract infection in women information Not [...] answered. Face to face discussion 30 minutes [email or web address] Not available 06/01/2021 14:26:20 08/26/2023 [id number] urinary tract infection in women information [email or web address] Not available 08/26/2023 10:09:16 vaginal yeast infection: care instructions Not available 08/26/2023 10:45:23 She is here for a complaint of pelvic pain. she missed her last menses, LMP was 07/01/23. 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 Not available 08/26/2023 11:23:20 10/12/2024 [id number] urinary tract infection in women information Not [...] urinates. She had been going to a security incident response specialist in [place], her last annual was there, however she desires to switch back to our practice. 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 She needs to do this at [place] for costs, she will ask her PCP for a referral to a general surgeon. Check pelvic sonogram to pelvic pain and posible persistent right ovarian cyst, Check genprobe for pelvic pain, and newer partner. She is advised to return soon for gian and annual as she is overdue . She understands and agrees. Not available 10/12/2024 12:09:08 10/14/2024 [id number] She is here for a one to [...] All questions answered. 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 Wishes to have an rx for episodic use if it recurs. Same partner for 1 year, he had an oral HSV lesion at at that time. She is doing well on the Slynd OCP and would like to continue. She appears to be doing well. Renew Slynd, DRSP progestin-only OCP. Not available 11/23/2024 15:21:58 Reason for Referral None Reported. Results Created Date Observation Date Name Description Value Unit Range Abnormal Flag Note LastModifiedBy Organization Detail LastModifiedTime 05/16/2005/16/2021 elmer mckeon Clue Cells negati ve Not Available In-Office Order Internal Use Only DO Not Attach Compendium DO Not Attach Compendium, Do Not Delete/merge, [id number] 05/16/2021 11:14:31 05/16/20 21 05/16/2021 elmer mckeon Trichomonas negati ve Not Available In-Office Order Internal Use Only DO Not Attach Compendium DO Not Attach Compendium, Do Not Delete/merge, [id number] 05/16/2021 11:14:31 05/16/20 21 05/16/2021 elmer mckeon Hyphae positi ve Not Available In-Office Order Internal Use Only DO Not Attach Compendium DO Not Attach Compendium, Do Not Delete/merge, [id number] 05/16/2021 11:14:31 05/16/20 21 05/16/2021 wet mount , vagin al atrophic epithelium negati ve Not Available In-Office Order Internal Use Only DO Not Attach Compendium DO Not Attach Compendium, Do Not Delete/merge, [id number] 05/16/2021 11:14:31 05/16/20 21 05/16/2021 URINE CULTU RE comments [facility] [address] [place] [address] Medic al [facility] raine whitaker MD SOUR E: URINE ,SHIRA N CATCH ; Not Available [facility] [address] [place] [address], [address], 05/18/2021 09:21:35 05/16/20 21 05/17/2021 URINE CULTU RE urine culture [facility] [address] [place] [address] Medic al [facility] raine whitaker MD COLLE CTION TIME: 05/16 11:00 :00 AM -04:0 0 URINE CULTU RE ESCHE JENNIFER A COLI ( ESCCO L ) F URINE CULTU RE COLON Y COUNT F URINE CULTU RE 10,00 0-49, 000 F Not Available [facility] [address] [place] [address], [address], 05/18/2021 09:21:35 05/16/20 21 05/16/2021 CHLAM YDIA DNA SWAB comments [facility], [facility] [address] [place] [address] Medic al [facility] raine whitaker MD Not Available [facility] [address] [place] [address], [address], 05/18/2021 07:14:28 05/16/20 21 05/16/2021 CHLAM YDIA DNA SWAB chlamydia DNA swab NEGATI VE negati ve Not Available [facility] [address] [place], [address], 05/18/2021 07:14:28 05/16/20 21 05/16/2021 GC DNA SWAB comments [facility] [address] [place] [address] Medic al [facility] raine whitaker MD Not Available [facility] [address] [place] [address], [address], 05/18/2021 07:14:33 05/16/20 21 05/16/2021 GC DNA SWAB GC DNA swab NEGATI VE negati ve Not Available [facility] [address] [place] [address], [address], 05/18/2021 07:14:33 05/16/20 21 05/16/2021 GRAM NEGAT BINU SUSCE PTIBI LITY comments PAREN T ORGAN ISM: ESCHE JENNIFER A COLI ( ESCCO L ) [facility] [address] [place] [address] Medic al [facility] raine whitaker MD SOURC E: URINE ,SHIRA N CATCH ; Not Available [facility] [address] [place] [address], [address], 05/18/2021 09:21:41 05/16/20 21 05/17/2021 GRAM NEGAT BINU SUSCE PTIBI LITY gram negative susceptibili ty [facility] [address] [place] [address] Medic al [facility] raine whitaker MD COLLE CTION [...] S F Not Available [facility] [address] [facility], [place], [address], 05/18/2021 09:21:41 05/16/20 21 05/16/2021 pregn tong test, urine HCG negati ve Not Available In-Office Order Internal Use Only DO Not Attach Compendium DO Not Attach Compendium, Do Not Delete/merge, 05/16/2021 11:49:29 05/16/2005/16/2021 urina lysis , dipst ick GLU Negati ve Not Available In-Office Order Internal Use Only DO Not Attach Compendium DO Not Attach Compendium, Do Not Delete/merge, 05/16/2021 11:01:41 05/16/2005/16/2021 urina lysis , dipst ick ADILSON Negati [...] Attach Compendium, Do Not Delete/merge, 05/16/2021 11:01:41 05/16/2005/16/2021 urina lysis , dipst ick BLO Negati ve Not Available In-Office Order Internal Use Only DO Not Attach Compendium DO Not Attach Compendium, Do Not Delete/merge, [id number] 05/16/2021 11:01:41 05/16/2005/16/2021 urina lysis , dipst ick pH 5.0 Not Available In-Office Order Internal Use Only DO Not Attach Compendium DO Not Attach Compendium, Do Not Delete/merge, [id number] 05/16/2021 11:01:41 05/16/2005/16/2021 urina lysis , dipst ick PRO Negati ve Not Available In-Office Order Internal Use Only DO Not Attach Compendium DO Not Attach Compendium, Do Not Delete/merge, [id number] 05/16/2021 11:01:41 05/16/2005/16/2021 urina lysis , dipst ick URO 0.2 E.U. / dl Not Available In-Office Order Internal Use Only DO Not Attach Compendium DO Not Attach Compendium, Do Not Delete/merge, [id number] 05/16/2021 11:01:41 05/16/2005/16/2021 urina lysis , dipst ick NIT negati ve Not Available In-Office Order Internal Use Only DO Not Attach Compendium DO Not Attach Compendium, Do Not Delete/merge, [id number] 05/16/2021 11:01:41 05/16/2005/16/2021 urina lysis , dipst ick COLIN Negati ve Not Available In-Office Order Internal Use Only DO Not Attach Compendium DO Not Attach Compendium, Do Not Delete/merge, [id number] 05/16/2021 11:01:41 06/01/2006/01/2021 URINE CULTU RE comments [facility] [address] [facility] [place] [address] Medic al [facility] raine whitaker MD SOURC E: URINE ,SHIRA N CATCH ; Not Available [facility] [address] [facility], [place], [address], 06/02/2021 16:30:31 06/01/20 21 06/02/2021 URINE CULTU RE urine culture [facility] [address] [facility] [place] [address] Medic al [facility] MD DEANNE Kaye CTION TIME: 2020 2:00: 00 PM -04:0 0 URINE CULTU RE No growt h F Not Available [facility] [address] [facility], [place], [address], 06/02/2021 16:30:31 06/01/20 21 06/01/2021 pregn tong test, urine HCG negati ve Not Available In-Office Order Internal Use Only DO Not Attach Compendium DO Not Attach Compendium, Do Not Delete/merge, 06/01/2021 14:21:52 06/01/20 21 06/01/2021 urina lysis , dipst ick GLU Negati ve Not Available In-Office Order Internal Use Only DO Not Attach Compendium DO Not Attach Compendium, Do Not Delete/merge, 06/01/2021 13:56:57 06/01/2006/01/2021 urina lysis , dipst ick ADILSON Negati [...] DO Not Attach Compendium, Do Not Delete/merge, [id number] 06/01/2021 13:56:57 06/01/2006/01/2021 urina lysis , dipst ick pH 6.0 Not Available In-Office Order Internal Use Only DO Not Attach Compendium DO Not Attach Compendium, Do Not Delete/merge, [id number] 06/01/2021 13:56:57 06/01/2006/01/2021 urina lysis , dipst ick PRO Negati ve Not Available In-Office Order Internal Use Only DO Not Attach Compendium DO Not Attach Compendium, Do Not Delete/merge, [id number] 06/01/2021 13:56:57 06/01/2006/01/2021 urina lysis , dipst ick URO 0.2 E.U. / dl Not Available In-Office Order Internal Use Only DO Not Attach Compendium DO Not Attach Compendium, Do Not Delete/merge, [id number] 06/01/2021 13:56:57 06/01/2006/01/2021 urina lysis , dipst ick NIT negati ve Not Available In-Office Order Internal Use Only DO Not Attach Compendium DO Not Attach Compendium, Do Not Delete/merge, [id number] 06/01/2021 13:56:57 06/01/2006/01/2021 urina lysis , dipst ick COLIN Negati ve Not Available In-Office Order Internal Use Only DO Not Attach Compendium DO Not Attach Compendium, Do Not Delete/merge, [id number] 06/01/2021 13:56:57 08/26/19 24 08/27/2023 CHLAM YDIA [...] Go To The Location Of Their Choice, [id number] 08/27/2023 12:48:43 08/26/19 24 08/27/2023 CHLAM YDIA [...] Disea se Contr ol and Preve ntion ([facility]) recom mends confi rmato ry retes [...] 08/28/2023 07:06:36 08/26/19 24 08/26/2023 wet mount elmer al Clue Cells negati ve Not Available In-Office Order Internal Use Only DO Not Attach Compendium DO Not Attach Compendium, Do Not Delete/merge, 08/26/2023 10:45:07 08/26/19 24 08/26/2023 wet mount elmer al Trichomonas negati ve Not Available [...] culture, routine Final report Not Available [facility] ([facility]) [address] [facility], [place], [address], 10/14/2024 00:05:16 10/13/19 25 10/13/2024 URINE CULTU RE, ROUTI NE result 1 No growth Not Available [facility] ([facility]) [address] [facility], [place], [address], 10/14/2024 00:05:16 10/13/19 25 10/14/2024 NO SPECI MEN RECEI VINH no specimen received COMMEN T Test not perfo rmed. No speci men recei vinh. TEST: [id number] 3 CT/GC Ampli fied- Cervi x Not Available [facility] ([facility]) [address] [facility], [place], [address], 10/14/2024 12:05:47 10/13/1910/14/2024 NTI MISKIM LLCEE OUS [...] ete the follo wing and fax to [phone] to exped ite testi ng. Requi red test name( s)___ ___ Requi red test numbe r(s)_ ___ Physi bull signa ture_ __ Date_ __ Diagn osis Code: __ In order to maint joannn katiuska nunez es will be store d for two to seven days from the date of recei pt. Not Available [facility] ([facility]) [address] [facility], [place], [address], 10/14/2024 12:05:48 10/13/1910/14/2024 VERBA L ORDER see below: Commen t: Lionel lovetti de reque sted infor matbasilio n and fax to [phone]. [place] Code of [...] Test( s) Morteza rayo Not Available [facility] [address] [place], [address], 10/14/2024 14:06:21 10/13/1910/14/2024 VERBA L ORDER additional test(s) requested Commen t: Test( s) added per DAYSI Stubbs (SHANTA) at [facility] nt 10-14 Logge d by Ravin rodriguez Snow Test# [id number] 4 Chlam ydia/ GC Ampli ficat ion Test# 98924 [address] Code Not Available [facility] [address], [place], [address], 10/14/2024 14:06:21 10/13/19 25 10/20/2024 CHLAM YDIA/ GC AMPLI FICAT ION chlamydia trachomatis, RYAN Negati ve negati ve Not Available [facility] ([facility]) [address] [facility], [place], [address], 10/20/2024 10:05:58 10/13/19 25 10/20/2024 CHLAM YDIA/ GC AMPLI FICAT ION neisseria gonorrhoeae, RYAN Negati ve negati ve Not Available [facility] ([facility]) [address] [facility], [place], [address], 10/20/2024 10:05:58 10/13/19 25 10/14/2024 VERBA L ORDER see below: Commen t: Pleas e provi de reque sted infor kayla whitaker and fax to [phone]. [place] Code of [...] Test( s) added per DAYSI LIZ) at [facility] 10-14 Logge d by Ravin rodriguez Snow Test# [id number] 4 Chlam ydia/ GC Ampli ficat ion Test# [address]606 [address] Code Not Available In-Office Order Internal Use Only DO Not Attach Compendium DO Not Attach Compendium, Do Not Delete/merge, [id number] 10/21/2024 12:06:04 10/13/1910/21/2024 VERBA L ORDER verbal order Commen t This is the secon perri notic e reque sting this infor kayla rasmussen An IMMED IATE respo nse is needfercho rayo. Not Available In-Office Order Internal Use Only DO Not Attach Compendium DO Not Attach Compendium, Do Not Delete/merge, [id number] 10/21/2024 12:06:04 10/13/1910/14/2024 VERBA L ORDER see below: Commen t: Pleas e provi de reque sted infor kayla n and fax to [phone]. The [place] s Code of [...] Test( s) Morteza rayo Not Available [facility] ([facility]) [address] [facility], [place], [address], 10/28/2024 12:05:55 10/13/19 25 10/14/2024 VERBA L ORDER additional test(s) requested Commen t: Test( s) added per DAYSI LIZ) at acc nt 10-14 Logge d by Ravin rodriguez Snow Test# [id number] 4 Chlam ydia/ GC Ampli ficat ion Test# [address] Code Not Available [facility] ([facility]) [address] [facility], [place], [address], 10/28/2024 12:05:55 10/13/19 25 10/28/2024 VERBA L ORDER verbal order Commen t THIS IS THE FINAL NOTIC E REQUE STING THIS INFOR MATIO N; IF WE DO NOT RECEI VE THIS INFOR MATIO N WITHI N SEVEN DAYS, THE TESTS WILL BE BILLE D TO [facility] NT. Not Available [facility] ([facility]) [address] [facility], [place], [address], 10/28/2024 12:05:55 10/13/1911/05/2024 WRITT EN AUTHO RIZAT ION written authorizatio n Commen t No Writt en Autho rizat ion Recei vinh. Not Available [facility] ([facility]) [address] [facility], [place], [address], 11/05/2024 12:07:21 10/13/19 25 10/12/2024 urina lysis [...] DO Not Attach Compendium, Do Not Delete/merge, [facility] 10/12/2024 11:55:30 10/13/19 25 10/12/2024 urina lysis , dipst ick BLO Negati ve Not Available In-Office Order Internal Use Only DO Not Attach Compendium DO Not Attach Compendium, Do Not Delete/merge, [facility] 10/12/2024 11:55:30 10/13/19 25 10/12/2024 urina lysis , dipst ick pH 6.0 Not Available In-Office Order Internal Use Only DO Not Attach Compendium DO Not Attach Compendium, Do Not Delete/merge, [facility] 10/12/2024 11:55:30 10/13/19 25 10/12/2024 urina lysis , dipst ick PRO Negati ve Not Available In-Office Order Internal Use Only DO Not Attach Compendium DO Not Attach Compendium, Do Not Delete/merge, [facility] 10/12/2024 11:55:30 10/13/19 25 10/12/2024 urina lysis , dipst ick URO 0.2 E.U. / dl Not Available In-Office Order Internal Use Only DO Not Attach Compendium DO Not Attach Compendium, Do Not Delete/merge, [facility] 10/12/2024 11:55:30 10/13/19 25 10/12/2024 urina lysis , dipst ick NIT negati ve Not Available In-Office Order Internal Use Only DO Not Attach Compendium DO Not Attach Compendium, Do Not Delete/merge, [facility] 10/12/2024 11:55:30 10/13/19 25 10/12/2024 urina lysis , dipst ick COLIN Negati ve Not Available In-Office Order Internal Use Only DO Not Attach Compendium DO Not Attach Compendium, Do Not Delete/merge, [facility] 10/12/2024 11:55:30 10/13/19 25 10/12/2024 wet mount , vagin al Clue Cells negati ve Not Available In-Office Order Internal Use Only DO Not Attach Compendium DO Not Attach Compendium, Do Not Delete/merge, [id number] 10/12/2024 12:04:48 10/13/1910/12/2024 wet mount , vagin al Trichomonas negati ve Not Available In-Office Order Internal Use Only DO Not Attach Compendium DO Not Attach Compendium, Do Not Delete/merge, [id number] 10/12/2024 12:04:48 10/13/1910/12/2024 wet mount , vagin al Hyphae positi ve Not Available In-Office Order Internal Use Only DO Not Attach Compendium DO Not Attach Compendium, Do Not Delete/merge, [id number] 10/12/2024 12:04:48 10/13/1910/12/2024 wet mount , vagin al atrophic epithelium negati ve Not Available In-Office Order Internal Use Only DO Not Attach Compendium DO Not Attach Compendium, Do Not Delete/merge, [id number] 10/12/2024 12:04:48 10/15/19 25 10/16/2024 HSV RYAN hsv 1 RYAN Positi ve negati ve abnormal Not Available [facility] ([facility]) [address] [place], [address], 10/16/2024 10:05:52 10/15/19 25 10/16/2024 HSV RYAN hsv 2 RYAN Negati ve negati ve Not Available [facility] ([facility]) [address] [place], [address], 10/16/2024 10:05:52 11/24/19 25 11/25/2024 IGP, CTNG, RFX APTIM A HPV ASCU chlamydia, nuc. acid amp Negati ve negati ve Not Available [facility] ([facility]) [address] [place], [address], 11/29/2024 16:20:26 11/24/19 25 11/25/2024 IGP, CTNG, RFX APTIM A HPV ASCU gonococcus, nuc. acid amp Negati ve negati ve Not Available [facility] ([facility]) [address] [place], [address], 11/29/2024 16:20:26 11/24/19 25 11/29/2024 IGP, CTNG, RFX APTIM A HPV ASCU diagnosis: Nia SCHMID FOR INTRA EPITH ELIAL LESIO N OR DILLON GONZÁLES . Not Available [facility] ([facility]) [address] [place], [address], 11/29/2024 16:20:26 11/24/19 25 11/29/2024 IGP, CTNG, RFX APTIM A HPV ASCU specimen adequacy: Nia thomason for evalu ation . Not Available [facility] ([facility]) [address] [place], [address], 11/29/2024 16:20:26 11/24/19 25 11/29/2024 IGP, CTNG, RFX APTIM A HPV ASCU clinician provided ICD10: Nia jones Z01.4 19 Not Available [facility] ([facility]) [address] [place], [address], 11/29/2024 16:20:26 11/24/19 25 11/29/2024 IGP, CTNG, RFX APTIM A HPV ASCU performed by: Nia Gibbs Prior , Cytol ogist (ASCP ) Not Available [facility] ([facility]) [address] [place], [address], 11/29/2024 16:20:26 11/24/19 25 11/29/2024 IGP, CTNG, RFX APTIM A HPV ASCU . . Not Available [facility] ([facility]) [address] [place], [address], 11/29/2024 16:20:26 11/24/19 25 11/29/2024 IGP, CTNG, RFX APTIM A HPV ASCU note: Commen t The Pap smear is a scree brando test desig janeen to aid in the detec tion of josette ligna nt and malig nant condi tions of the uteri ne cervi x. It is not a diagn ostic proce dure and shoul d not be used as the sole means of detec ting cervi lara cance r. Both false -posi tive and false -nega tive repor ts do occur . Not Available [facility] ([facility]) [address] [facility], [place], [address], 11/29/2024 16:20:26 11/24/19 25 11/29/2024 IGP, CTNG, RFX APTIM A HPV ASCU test methodology: Commen t This liqui d based ThinP rep(R ) pap test was scree janeen with the use of an image guide d halley m. Not Available [facility] ([facility]) [address] [place], [address], 11/29/2024 16:20:26 11/24/19 25 11/29/2024 IGP, CTNG, RFX APTIM A HPV ASCU . Commen t The HPV DNA refle x crite arlette were not met with this speci men resul t there fore, no HPV testi ng was perfo rmed. Not Available [facility] ([facility]) [address] [place], [address], 11/29/2024 16:20:26 06/01/20 21 05/30/2021 US, pelvi s, trans abdom inal + trans vagin al No observ ation record ed. [email or web address] [address] [place], [address], 06/01/2021 14:00:17 07/05/20 21 07/02/2021 US, pelvi s, trans abdom inal + trans vagin al No observ ation record ed. [facility] ([facility]) [address] [place], [address], 07/06/2021 09:52:13 09/08/19 24 09/05/2023 US, pelvi s, trans abdom inal + trans vagin al No observ ation record ed. [address], [address], 09/10/2023 11:05:15 10/30/19 25 10/29/2024 US, pelvi s, trans abdom inal + trans vagin al No observ ation record ed. [address], [address], 11/01/2024 09:06:07 Result Notes None recorded. Problems Name Problem SNOMED Code Status Onset Date Resolution Date Notes Provider Name and Address Organization Details Recorded Time Acute lower urinary tract infection 721639761 Active Agatha Gutiérrez MD [address], [place], [address] , [place] - [facility], 4 16:46:00 Pain in pelvis 07989762 Active Agatha Gutiérrez MD [address], [place], [address] , [place] [facility], 4 10:17:10 Candidal vulvovagi nitis 64476422 Active Agatha Gutiérrez MD [address], [place], [address] , [place] - [facility], 4 14:16:45 Migraine with aura 3351750 Active 2012 eye blindness and left sided weakness Not Available [facility] 3 03:01:05 Odorless vaginal discharge 210513355 Active Not Available [facility] 3 03:01:05 Dysmenorr hea 454315515 Active Agatha Gutiérrez MD [address], [place], [address] , [place] [facility], 5 13:17:35 Status migrjessieos 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 Not Available [facility] 3 03:01:05 Disorder of hair AND/OR hair follicle Active Agatha Gutiérrez MD [address], [place], [address] , [place] [facility], 5 13:15:22 History of sexually transmitt ed disease 059879584 Active 2024 Agatha Gutiérrez MD [address], [place], [address] , [place] [facility], 5 15:17:24 Breast lump 05097572 Active Agatha Gutiérrez MD [address], [place], [address] , [place] [facility], 4 09:13:17 Notes:Currently being treate d for overgrowth of yeast and bacteria in stomach as of 12/14/20 Problem Notes None recorded. Procedures Surgical History Date Name Laterality Status Provider Name and Address Organization Details Recorded Time 09/27/19 20 Implanon Insertion completed Agatha Gutiérrez MD [address], [place], [address], [place] [facility], 09/27/2019 13:00:14 09/15/19 20 Implanon Removal completed Agatha Gutiérrez MD [address], [place], [address], [place] [facility], 09/15/2019 14:51:46 01/30/20 17 augmentation of bilateral breasts completed Dania Mckay [place] - [facility], 12/14/2020 14:27:14 07/28/19 14 Cholecystectomy completed Daysi Turner [place] - [facility], 08/13/2013 09:07:42 07/28/19 14 Other completed Daysi Turner [place] - [facility], 03/22/2016 13:41:51 Imaging Results None recorded. Procedure [...] ONE TABLET BY MOUTH ONCE AT BEDTIME 11/23 completed Not Available Not Available Not Available valacyclo vir 1 gram tablet Take [...] Not Available rizatript an 10 mg tablet 11/23 completed Not Available Not Available Not Available [...] completed Not Available Not Available Not Available valacyclo vir 500 mg tablet Take 1 tablet twice a day by oral route for 6 days. 2024 active Not Available Not Available Not Avai lable acetamino phen 500 mg tablet TAKE ONE [...] Available Not Available Not Available Ortho-Nov um 1/35 (28) 1 mg-35 mcg tablet Take 1 [...] Available Loryna (28) 3 mg-0.02 mg tablet 11/23 completed Not Available Not Available Not Available Nexplanon 68 mg subdermal implant Inject [...] t Available Slynd 4 mg (28) tablet Take 1 tablet every day by oral route for 84 days. 2024 active Not Available Not Available Not Javan labdarryl Nurtec ODT 75 mg disintegr ating tablet PLACE ONE TABLET BY MOUTH EVERY DAY NEEDED FOR MIGRAINE HEADACHE . MAX DAILY DOSE 1 TABLET active Not Available Not Available No t Available Vitals Date Recorded Body height Body mass index (BMI) Body weight Body temperature Heart rate Systolic And Diastolic Provider Name and Address Organization Details Last Updated DateTime 4 154.94 cm 21.7 kg/m2 37734.1 2 g 97.6 [degF] 105 /min 113/65 mm[Hg] Daysi Jeevanpaul WOMACK - [facility], 09:34:55 Date Recorded Body height Body mass index (BMI) Body weight Heart rate Systolic And Diastolic Provider Name and Address Organization Details Last Updated DateTime 10/12/2024 154.94 cm 25.9 kg/m2 64583.15 g 92 /min 114/72 mm[Hg] Daysi Jeevanpaul [place] - [facility], 10/12/2024 11:28:18 Date Recorded Body height Body mass index (BMI) Body weight Heart rate Systolic And Diastolic Provider Name and Address Organization Details Last Updated DateTime 10/14/2024 154.94 cm 25.9 kg/m2 89224.15 g 93 /min 108/68 mm[Hg] Daysi Jeevanpaul [place] - [facility], 10/14/2024 14:46:35 Date Recorded Body height Body mass index (BMI) Body weight Heart rate Systolic And Diastolic Provider Name and Address Organization Details Last Updated DateTime 11/23/2024 154.94 cm 26.1 kg/m2 47780.47 g 103 /min 102/75 mm[Hg] Daysi Jeevanpaul [place] - [facility], 11/23/2024 15:00:16 Date Recorded Body height Heart rate Body mass index (BMI) Body weight Systolic And Diastolic Provider Name and Address Organization Details Last Updated DateTime 06/01/2021 154.94 cm 96 /min 21.5 kg/m2 25140.09 g 116/67 mm[Hg] Daysi Jeevanpaul [place] - [facility], 06/01/2021 14:04:06 Social History Question Answer Notes LastModified by Organizat ion Details LastModified Time Tobacco Smoking Status Never Smoker Not Available [facility] 05/30/2020 03:19:42 Are You Blind Or Do You Have Difficulty Seeing? No [id number] Information not available 05/30/2020 What Is Your [...] No Information not available 05/16/2021 Are You Deaf Or Do You Have Serious Difficulty Hearing? No [id number] Information not available 05/30/2020 What Type Of Diet Are You Following? REGULAR [id number] Information not available 05/30/2020 Which Illicit Or Recreational Drugs Have You Used? No [id number] Information not available 05/30/2020 Do You Reside In Or Have You Traveled To An Area Where Ebola Virus Transmission Is Active? 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 [id number] Information not available 05/16/2021 Who Is Your Employer? [employer] Information not available 08/26/2023 How Many Days In The Past Year [...] Date Of Your Most Recent Tobacco Screening? 11/23/2024 Information not available 11/23/2024 What Is Your Relationship Status? Single Information not available 05/16/2021 Are You Sexually Active? Yes [id number] Information not available 05/30/2020 How Much Tobacco Do You Smoke? No [id number] Information not available 05/30/2020 General Stress Level Medium Information not available 03/22/2016 Do You Have Difficulty Walking Or Climbing Stairs? No [id number] Information not available 05/30/2020 Have You Recently (within The Last 12 Weeks, Or During A Current ) Traveled To Or Lived In A Zika-affected Area? No Information not available 03/22/2016 Sex: Female Functional Status Question Answer Note LastModified by Organizat ion Details LastModified Time Do you use any illicit or recreational drugs? No Information not available 05/16/2021 Do you or have you ever used any other forms of tobacco or nicotine? No Information not available 10/14/2024 What is your level of alcohol consumption? None [id number] Information not available 05/30/2020 Do you or have you ever used smokeless tobacco? Never used smokeless tobacco [id number] Information not available 05/30/2020 Are you currently employed? Yes Information not available 05/16/2021 Do you have difficulty doing errands alone? No [id number] Information not available 05/30/2020 What is your occupation? Other [employer] Information not available 01/07/2025 Do you have difficulty dressing or bathing? No [id number] Information not available 05/30/2020 Do you or have you ever used e-cigarettes or vape? Never used electronic cigarettes [id number] Information not available 05/30/2020 What is your exercise level? Moderate [id number] Information not available 05/30/2020 Mental Status Question Answer Note LastModified by Organizat ion Details LastModified Time Do you feel stressed (tense, restless, nervous, or anxious, or unable to sleep at night)? [id number] Information not available 05/16/2021 Do you have difficulty concentrating, remembering or making decisions? No [id number] Information no t available 05/30/2020 Family History [...] Problems N Kidney or Bladder Problems N Depression N GI Problems Y Lung Disease N Defects or Inherited Disease N Anemia N History of Ovarian Cancer N History of Breast Cancer N THOMAS exposure N BRCA testing in past N Osteopenia N Psychiatric Illness N Diabetes N Anxiety Disorder Y Arthritis N Headaches or Migraines Y Infertility N Asthma N History of Cancer N Endometriosis N Hepatitis N Heart Disease N Hypertension N Osteoporosis N Gynecological History Statement/Question Response Flow Light Date of LMP 11/22/2024 Frequency of Cycle (Q days) 28 Menses [...] vaccine, UNSPECIFIED 1 completed [place] Tenorio in [facility], 12/14/2020 14:25:07 SARS-COV-2 (COVID-19) vaccine, UNSPECIFIED 1 completed [place] Tenorio in [facility], 12/14/2020 14:25:16 Influenza, MDCK, quadrivalent, PF 9 completed Daysi Meczywor [place]ese in [facility], 08/26/2023 09:34:04 MMR 0 completed Daysi Meczywor [place] [facility] in [facility], 08/26/2023 09:34:04 MMR 6 completed Daysi Meczywor [place] [facility] in [facility], 08/26/2023 09:34:04 COVID-19, mRNA, LNP-S, PF, 30 mcg/0.3 mL dose 1 completed Daysi Meczywor [place] [facility] in [facility], 08/26/2023 09:34:05 COVID-19, mRNA, LNP-S, PF, 30 [...] Daysi [place]eczywor null, [place] - [facility], 08/26/2023 09:34:05 Hib (HbOC) 5 completed Daysi Meczywor [place] [facility], 08/26/2023 09:34:05 Hib (HbOC) 5 completed Daysi Meczywor [place] [facility], 08/26/2023 09:34:05 meningococcal MCV4P 7 completed Daysi Meczywor [place] [facility], 08/26/2023 09:34:05 meningococcal MCV4P 3 completed Daysi Meczywor [place] [facility], 08/26/2023 09:34:05 DTaP 9 completed Daysi Meczywor [place] [facility], 08/26/2023 09:34:05 Past Encounters Encounter ID Performer Location Encounter Start Date Encounter Closed Date Diagnosis/Indication Diagnosis SNOMED-CT Code Diagnosis ICD10 Code Diagnosis Note [id number] MD AGATHA Carlton MD [address] [facility] [place] [address] 08/13/2012 14:53:24 08/14/2012 14:23:41 [id number] MD AGATHA Carlton MD [address] [place],[address] [place] [address] 08/13/2013 08:57:07 08/13/2013 14:10:07 Specialized medical examination 81634712 Venereal d isease screening 087684723 Candidal vulvovaginitis 76404919 [id number] MD AGATHA Carlton MD [address] [place] [address] 10/08/2012 14:56:18 10/08/2012 16:27:19 [id number] MD AGATHA Carlton MD [address] [place] [place] [address] 10/26/2012 13:27:26 10/27/2012 08:53:02 [id number] MD AGATHA Carlton MD [address] [place],[address] [place] [address] 01/04/2013 14:39:37 01/04/2013 16:16:13 [id number] MD AGATHA Carlton MD [address] [place] [address] 04/26/2013 09:44:01 04/26/2013 12:53:20 [id number] MD AGATHA Carlton MD [address] [facility] [place] [address] 11/15/2013 13:22:27 11/15/2013 15:42:47 Breast lump [id number] MD AGATHA Carlton MD [address] [place] [address],[place] [address] 01/18/2014 14:34:41 01/19/2014 08:10:47 Acute lower urinary tract infection 971633824 Venereal d isease screening 603649596 Pain in pelvis 65766049 [id number] MD AGATHA Carlton MD [address] [facility] [address] 02/21/2014 11:19:36 02/21/2014 16:13:56 Candidal vulvovaginitis 90192503 [id number] MD AGATHA Carlton MD [address] [facility] [address] 03/18/2014 13:49:41 03/18/2014 15:52:04 Dysmenorrhea 642985417 [id number] MD AGATHA Carlton MD [address] [facility] [address] 06/08/2014 09:16:13 06/08/2014 11:51:39 Dysmenorrhea 987981630 [id number] MD AGATHA Carlton MD [address] [facility] [place] [address] 08/17/2014 08:54:30 08/17/2014 09:41:13 Specialized medical examination 91099363 Venereal d isease screening 416264984 [id number] MD AGATHA Carlton MD [address] [place] [address],[place] [address] 09/02/2014 12:51:59 09/02/2014 16:10:16 Dysmenorrhea [id number] [id number] MD AGATHA Carlton MD [address] [place] [address],[place] [address] 10/21/2014 11:15:49 10/21/2014 13:21:28 Dysmenorrhea 682048961 Disorder o f hair AND/OR hair follicle 19547873 [id number] MD AGATHA Carlton MD [address] [place] [address],[place] [address] 01/24/2015 12:57:12 01/24/2015 13:56:05 Dysmenorrhea [id number] MD AGATHA Carlton MD [address] [place] [address],[place] [address] 03/22/2016 13:33:03 03/22/2016 14:36:59 Candidal vulvovaginitis 79899941 B37.3 Uses oral contraception 2892640 Z79.3 [id number] MD AGATHA Carlton MD [address] [place] [address],[place] [address] 03/22/2016 14:01:54 03/25/2016 08:58:54 Candidal vulvovaginitis 43110684 B37.3 [id number] MD AGATHA Carlton MD [address] [place] [address],[place] [address] 08/25/2019 10:45:53 08/26/2019 08:57:07 Primary dysmenorrhea 36547808 N94.4 [id number] MD AGATHA Carlton MD [address] [place] [address],[place] [address] 09/15/2019 14:00:37 09/15/2019 15:46:39 Contraception care 676848354 Z30.46 Subcutaneo us contraceptive implant present 050542558 Z30.46 [id number] MD AGATHA Carlton MD [address] [place] [address] [place] [address] 09/27/2019 10:24:30 09/27/2019 13:19:28 Implantation of subcutaneous contraceptive 974093479 Z30.46 [id number] MD AGATHA Carlton MD [address] [place] [address] [place] [address] 12/14/2020 14:18:36 12/14/2020 15:52:56 Specialized medical examination 60454260 Z01.419 Venereal d isease screening 335250155 Z11.3 [id number] MD AGATHA Carlton MD [address] [place] [address],[facility] [place] [address] 05/16/2021 10:41:53 05/16/2021 11:58:22 Venereal disease screening 720965104 Z11.3 Acute lowe r urinary tract infection 601356807 R30.0 Cyst of left ovary 12552 89531 6863600 N83.292 Candidal vulvovaginitis 39018525 B37.3 Pain in pelvis 23312476 R10.2 [id number] MD AGATHA Carlton MD [address] [place] [address],[facility] [place] [address] 06/01/2021 13:54:46 06/01/2021 15:24:12 Acute lower urinary tract infection 479219900 R30.0 Abnormal u terine bleeding 4555484717 9100 N93.9 [id number] MD AGATHA Carlton MD [address] [place] [address] [place] [address] 08/26/2023 09:19:19 08/27/2023 10:23:37 Acute lower urinary tract infection 053262554 R30.0 Venereal d isease screening 044810682 Z11.3 Cyst of right ovary 1223 636032 2353331 N83.201 Candidal vulvovaginitis 45033060 B37.31 Pain in pelvis 63409371 R10.2 [id number] MD AGATHA Carlton MD [address] [facility] [place] [address] 10/12/2024 11:20:21 10/12/2024 13:06:33 Acute lower urinary tract infection 393110081 R30.0 Right lowe r quadrant pain 321425070 R10.31 Candidal vulvovaginitis 41506603 B37.31 [id number] MD AGATHA Carlton MD [address] [place] [address],[address] [place] [address] 10/14/2024 14:41:48 10/14/2024 15:59:13 Ulceration of vulva 24678370 N76.6 [id number] MD AGATHA Carlton MD [address] [place] [address],[address] [place] 5 11/23/2024 14:56:36 11/23/2024 15:34:40 Specialized medical examination 12852291 Z01.419 Venereal d isease screening 787913360 Z11.3 History of sexually transmitted disease 524415008 Z86.19 Health Concerns Section Related Observation LastModified by Organization Detai ls LastModified Time None Recorded Concern Status LastModified by Organization Details LastModified Time None Recorded Advance Directives Directive None Recorded Payers Insurance Date Sequence Insurance Name Policy Number Policy Plata Covered Member ID Plata Member ID Guarantor Name 05/16/2021 1 *SELF PAY* Hernandez Monzon 08/26/2023 1 [place] [id number] Jenifer Lorenzori [id number] Jenifer Gallowaysari 11/20/2024 1 [employer] [employer] [place] [id number] Jenifer Gallowaysari [id number] Jenifer Gallowaysari 08/26/2023 [place] [place] [id number] Jenifer Gallowaysari [id number] Jenifer Gallowaysari 12/14/2020 1 [place] - [facility] [id number] Emmanuel Monzon [id number] Jenifer Monzon Notes Date Note Type Note Provider Name and Address Organization Details Recorded Time 06/01/2021 text/html She is here for KRISTEL after E Coli UTI. Also she is here to discus her 4.5 cm left ovarian cyst found on problem visit 05/16/21 and confirmed by sonogram on 05/30/21. She also notes spotting and cramping since the sonogram. She has not been sexually active in longer than 4 weeks. LMP was 06/01/21. Agatha Gutiérrez MD [address] [facility],[address] [address], [place] [facility], 06/01/2021 14:51:42 08/26/2023 text/html She is here for a complaint of pelvic pain. she missed her last menses, LMP was 07/01/23. 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 She also has had vaginal pruritus and a sense of dysuria only onthe outside skin when she urinates. She had been going to a security incident response specialist in [place], her last annual was there, however she desires to switch back to our practice. 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 Her partner of one year has an active herpes lesion on his lip. Agatha Gutiérrez MD [address] [place],[address], [place], [address], [place] - [facility], 10/14/2024 15:14:44 11/23/2024 text/html She is here for annual exam, had a primary HSV infection last month, now resolved. Wishes to have an rx for episodic use if it recurs. Same partner for 1 year, he had an oral HSV lesion at at that time. She is doing well on the Slynd OCP and would like to continue. Agatha Gutiérrez MD [address], [place], [address], [place] [facility], 11/23/2024 15:22:15 OBGyn Episode No OBEpisode recorded.
== END 2025-02-03 07:15 | disposition home or self-care (01) ==
LOC: HO.LAB 07:14
PROVIDERS: Visit Provider Allergy & Immunology Allergy
DX: Z13.89 Encounter for screening for other disorder (principal)

== ENCOUNTER 2025-02-17 15:41 | Outpatient (REF) | payer OTHER, SELFPAY ==
--- OUTSIDE RECORDS SUMMARY | 2025-02-17 15:46 | XMS_ITS | Encounter Summary ---
Author Organization [facility] Address [address] [place] [address] Care Team Providers Care Finding Fastener Name Role Phone Earl-Larissa Dumont MD Primary Care Provider Unavailable Chandan Lockhart MD Primary Care Provider [phone] Encounter Details Date Type Department Care Team Description 06/30/2017 Orders Only Adult Medicine - Dawn [address] [place] [address] Camila Perez PA-C [address] [place] [address] Social History Tobacco Use Types Packs/Day Years Used Date Smoking Tobacco: Never Smokeless Tobacco: Never Alcohol Use Standard Drinks/Week Comments No 0 (1 standard drink = 0.6 oz pur e alcohol) Sex Assigned at Date Recorded Not on file documented as of this encounter Plan of Treatment Not on file documented as of this encounter Visit Diagnoses Not on filedocumented in this encounter Care Teams Finding Fastener Relationship Specialty Start Date End Date Larissa Kate MD PCP - General Internal Medicine 07/22/13 Chandan Lockhart MD [address] [place] [address] PCP - General Internal Medicine 01/22/21 documented as of this encounter
--- OUTSIDE RECORDS SUMMARY | 2025-02-17 15:46 | XMS_ITS | Clinical Summary ---
Author Organization [facility]ly [facility] Address [address] [place] [address] Care Team Providers Care Business Intelligence Director Name Role Phone Pcp, No Primary Care Provider Jered Barajas MD Unavailable Allergies No known active allergies Medications Nurtec [address] ONE TABLET BY MOUTH EVERY DAY NEEDED FOR MIGRAINE HEADACHE. MAX DAILY DOSE 1 TABLET 3 Active nystatin (MYCOSTATIN) 773739 units tablet TAKE ONE TABLET BY MOUTH [...] series) 2013 Pap Smear (Ages 21-65) 10/24/2015 COVID-19 Vaccine (3 - 2023- season) 2024 12/04/2020, 11/07/2020 Influenza Vaccine 02/25/2025 07/23/2019, , 07/28/2013, Additional history exists HPV Vaccines Aged Out No longer eligi ble based on patient's age to complete this topic Pneumococcal Vaccine: Pediatric (0-5 Years) and At-Risk Patients (6 to 49 Years) Aged Out No longer eligible based on patient's age to complete this topic Insurance [facility] [employer] [address] [employer] Care Teams Business Intelligence Director Relationship Specialty Start Date End Date Pcp, No PCP - General General Medicine 05/01/23 Jered Haji MD [address] [place] [address] Otolaryngology 05/01/23
--- OUTSIDE RECORDS SUMMARY | 2025-02-17 15:47 | XMS_ITS | Data Portability ---
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 Plan of Treatment Reminders Order Date Submit Date Provider Last Modified By Organization Details Last Modified Time Details Appointments None recorded. Lab cytology report, thin prep, smear or scraping, cervical or vaginal 2024 025 [facility] (Centralized Electronic Ordering - All Locations), Patient Can Go To The Location Of Their Choice, [id number] 5 16:20:26 HSV (1+2) DNA, qual, PCR, unspecifie d specimen - lesions of vulva 2024 025 [facility], [address], [place], [address], 5 10:05:52 urinalysis , dipstick 2024 025 [facility] In-Office Order, Internal Use Only DO Not Attach Compendium DO Not Attach Compendium, Do Not Delete/merge, [id number] 5 12:51:25 culture, urine 2024 025 [facility], [address] [place], [address], 5 00:05:16 wet mount, vaginal 2024 025 [email or web address] 1 In-Office Order, Internal Use Only DO Not Attach Compendium DO Not Attach Compendium, Do Not Delete/merge, [id number] 5 12:05:16 CT + NG DNA, PCR, cervical 2024 025 [facility], [address], [place], [address], 5 07:17:46 urinalysis , dipstick 2023 024 [email or web address] 1 In-Office Order, Internal Use Only DO Not Attach Compendium DO Not Attach Compendium, Do Not Delete/merge, [id number] 4 10:09:16 culture, urine 2023 024 [facility] (Centralized Electronic Ordering - All Locations), Patient Can Go To The Location Of Their Choice, [id number] 4 07:06:37 wet mount, vaginal 2023 024 [email or web address] 1 In-Office Order, Internal Use Only DO Not Attach Compendium DO Not Attach Compendium, Do Not Delete/merge, [id number] 4 10:45:23 CT + NG DNA, PCR, cervical 2023 024 [facility], [address], [place], [address], 4 12:48:43 urinalysis , dipstick 2020 021 [email or web address] 1 In-Office Order, Internal Use Only DO Not Attach Compendium DO Not Attach Compendium, Do Not Delete/merge, [id number] 1 14:22:10 culture, urine 2020 021 [facility], [address] [place] [address], [place], [address], 1 16:30:48 test, urine 2020 021 [email or web address] 1 In-Office Order, Internal Use Only DO Not Attach Compendium DO Not Attach Compendium, Do Not Delete/merge, [id number] 14:22:11 Referral None recorded. Procedures None recorded. Surgeries None recorded. Imaging US, pelvis, transabdom inal + transvagin al - right sided pelvic pain, histroy of 3.1 cm right ovarian cyst a year ago 2024 025 [facility] ([facility]), [address] [place] [address], [address], 5 15:40:52 US, pelvis, transabdom inal + transvagin al - 4 cm right ovarian cyst on exam, pelvic pain 2023 024 [facility] ([facility]), [address] [place] [address], [address], 4 19:24:48 Medication Orders Slynd 4 mg (28) tablet 2024 025 [facility], [address] [place] [address], [address], 5 15:08:39 valacyclov ir 500 mg tablet 2024 025 [place] [facility], [address] [place] [address], [address], 5 15:18:13 valacyclov ir 1 gram tablet 2024 025 [facility], [address] [place] [address], [address], 5 15:04:33 lidocaine 5 % topical ointment 2024 025 [facility], [address] [place] [address], [address], 5 15:04:33 fluconazol e 150 mg tablet 2024 025 [facility], [address] [place] [address], [address], 15:00:59 Patient TargetsNo targets recorded. Patient Instructions Encounter Date Encounter Id Patient Instructions Last Modified By Organization Details Last Modified Time 06/01/2021 [id number] urinary tract infection in women information Not [...] minutes [email or web address] Not available 06/01/2021 14:26:20 08/26/2023 [id number] urinary tract infection in women information [email or web address] Not available 08/26/2023 10:09:16 vaginal yeast infection: care instructions Not available 08/26/2023 10:45:23 She is here for a complaint of pelvic pain. she missed her last menses, LMP was 07/01/23. 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 Not available 08/26/2023 11:23:20 10/12/2024 [id number] urinary tract infection in women information Not [...] urinates. She had been going to a hematology nurse in [place], her last annual was there, however she desires to switch back to our practice. 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 or Autho juan carlos Amaya nee:_ _ Pleas e Print Physi bull or Autho rized Jose Luis nee Signa ture: Your Signa ture Confi charles Your Order Of The Test( s) Liste d Not Available [facility] ([facility]) [address], [place], [address], 10/28/2024 12:05:55 10/13/19 25 10/14/2024 VERBA L ORDER additional test(s) requested Commen t: Test( s) added per DAYSI Stubbs ([place]) at [facility] nt 10-14 Logge d by Ravin Snow Test# 60314 4 Chlam ydia/ GC Ampli ficat ion Test# 589[address] Code Not Available [facility] ([facility]) [address] [facility], [place], [address], 10/28/2024 12:05:55 10/13/1910/28/2024 VERBA L ORDER verbal order Commen t THIS IS THE FINAL NOTIC E REQUE STING THIS INFOR MATIO N; IF WE DO NOT RECEI VE THIS INFOR MATIO N WITHI N SEVEN DAYS, THE TESTS WILL BE BILLE D TO YOUR [facility] NT. Not Available [facility] ([facility]) [address] [facility], [place], [address], 10/28/2024 12:05:55 10/13/1911/05/2024 WRITT EN AUTHO RIZAT ION written authorizatio n Commen t No Writt en Autho rizat ion Recei vinh. Not Available [facility] ([facility]) [address] [facility], [place], [address], 11/05/2024 12:07:21 10/13/19 25 10/12/2024 urina lysis , dipst ick GLU Negati ve Not Available In-Office Order Internal Use Only DO Not Attach Compendium DO Not Attach Compendium, Do Not Delete/merge, [id number] 10/12/2024 11:55:30 10/13/19 25 10/12/2024 urina lysis , dipst ick ADILSON Negati ve Not Available In-Office Order Internal Use Only DO Not Attach Compendium DO Not Attach Compendium, Do Not Delete/merge, [id number] 10/12/2024 11:55:30 10/13/19 25 10/12/2024 urina lysis , dipst ick KET Negati ve Not Available In-Office Order Internal Use Only DO Not Attach Compendium DO Not Attach Compendium, Do Not Delete/merge, formerly [facility] 10/12/2024 11:55:30 10/13/19 25 10/12/2024 urina lysis , dipst ick SG 1.015 Not Available In-Office Order Internal Use Only DO Not Attach Compendium DO Not Attach Compendium, Do Not Delete/merge, formerly [facility] 10/12/2024 11:55:30 10/13/19 25 10/12/2024 urina lysis , dipst ick BLO Negati ve Not Available In-Office Order Internal Use Only DO Not Attach Compendium DO Not Attach Compendium, Do Not Delete/merge, formerly [facility] 10/12/2024 11:55:30 10/13/19 25 10/12/2024 urina lysis , dipst ick pH 6.0 Not Available In-Office Order Internal Use Only DO Not Attach Compendium DO Not Attach Compendium, Do Not Delete/merge, formerly [facility] 10/12/2024 11:55:30 10/13/19 25 10/12/2024 urina lysis , dipst ick PRO Negati ve Not Available In-Office Order Internal Use Only DO Not Attach Compendium DO Not Attach Compendium, Do Not Delete/merge, formerly [facility] 10/12/2024 11:55:30 10/13/19 25 10/12/2024 urina lysis , dipst ick URO 0.2 E.U. / dl Not Available In-Office Order Internal Use Only DO Not Attach Compendium DO Not Attach Compendium, Do Not Delete/merge, formerly [facility] 10/12/2024 11:55:30 10/13/19 25 10/12/2024 urina lysis , dipst ick NIT negati ve Not Available In-Office Order Internal Use Only DO Not Attach Compendium DO Not Attach Compendium, Do Not Delete/merge, formerly [facility] 10/12/2024 11:55:30 10/13/19 25 10/12/2024 urina lysis , dipst ick COLIN Negati ve Not Available In-Office Order Internal Use Only DO Not Attach Compendium DO Not Attach Compendium, Do Not Delete/merge, [id number] 10/12/2024 11:55:30 10/13/19 25 10/12/2024 wet mount , vagin al Clue Cells negati ve Not Available In-Office Order Internal Use Only DO Not Attach Compendium DO Not Attach Compendium, Do Not Delete/merge, formerly [facility] 10/12/2024 12:04:48 10/13/19 25 10/12/2024 wet mount , vagin al Trichomonas negati ve Not Available In-Office Order Internal Use Only DO Not Attach Compendium DO Not Attach Compendium, Do Not Delete/merge, formerly [facility] 10/12/2024 12:04:48 10/13/19 25 10/12/2024 wet mount , vagin al Hyphae positi ve Not Available In-Office Order Internal Use Only DO Not Attach Compendium DO Not Attach Compendium, Do Not Delete/merge, formerly [facility] 10/12/2024 12:04:48 10/13/19 25 10/12/2024 wet mount , vagin al atrophic epithelium negati ve Not Available In-Office Order Internal Use Only DO Not Attach Compendium DO Not Attach Compendium, Do Not Delete/merge, formerly [facility] 10/12/2024 12:04:48 10/15/19 25 10/16/2024 HSV RYAN hsv 1 RYAN Positi ve negati ve abnormal Not Available [facility] ([facility]) [address] [place], [address], 10/16/2024 10:05:52 10/15/19 25 10/16/2024 HSV RYAN hsv 2 RYAN Negati ve negati ve Not Available [facility] ([facility]) [address] [place], [address], 10/16/2024 10:05:52 11/24/19 25 11/25/2024 IGP, CTNG, RFX APTIM A HPV ASCU chlamydia, nuc. acid amp Negati ve negati ve Not Available [facility] ([facility]) [address] [place], [address], 11/29/2024 16:20:26 11/24/19 25 11/25/2024 IGP, CTNG, RFX APTIM A HPV ASCU gonococcus, nuc. acid amp Negati ve negati ve Not Available [facility] ([facility]) [address] [place], [address], 11/29/2024 16:20:26 11/24/19 25 11/29/2024 IGP, CTNG, RFX APTIM A HPV ASCU diagnosis: Nia SCHMID FOR INTRA EPITH ELIAL LESIO N OR DILLON GONZÁLES . Not Available [facility] ([facility]) [address] [place], [address], 11/29/2024 16:20:26 11/24/19 25 11/29/2024 IGP, CTNG, RFX APTIM A HPV ASCU specimen adequacy: Nia thomason for evalu ation . Not Available [facility] ([facility]) [address] [place], [address], 11/29/2024 16:20:26 11/24/19 25 11/29/2024 IGP, CTNG, RFX APTIM A HPV ASCU clinician provided ICD10: Nia jones Z01.4 19 Not Available [facility] ([facility]) [address] [place], [address], 11/29/2024 16:20:26 11/24/19 25 11/29/2024 IGP, CTNG, RFX APTIM A HPV ASCU performed by: Nia Gibbs Prior , Cytol ogist (ASCP ) Not Available [facility] ([facility]) [address] [place], [address], 11/29/2024 16:20:26 11/24/19 25 11/29/2024 IGP, CTNG, RFX APTIM A HPV ASCU . . Not Available [facility] ([facility]) [address] [place], [address], 11/29/2024 16:20:26 11/24/19 25 11/29/2024 IGP, CTNG, [...] ts do occur . Not Available [facility] ([facility]) [address] [facility], [place], [address], 11/29/2024 16:20:26 11/24/19 25 11/29/2024 IGP, CTNG, RFX APTIM A HPV ASCU test methodology: Commen t This liqui d based ThinP rep(R ) pap test was scree janeen with the use of an image guide d syste m. Not Available [facility] ([facility]) [address] [place], [address], 11/29/2024 16:20:26 11/24/19 25 11/29/2024 IGP, CTNG, RFX APTIM A HPV ASCU . Commen t The HPV DNA refle x crite arlette were not met with this speci men resul t there fore, no HPV testi ng was perfo rmed. Not Available [facility] ([facility]) [address] [facility], [place], [address], 11/29/2024 16:20:26 06/01/20 21 05/30/2021 US, pelvi s, trans abdom inal + trans vagin al No observ ation record ed. tmeczywor [facility] [address] [facility], [place], [address], 06/01/2021 14:00:17 07/05/20 21 07/02/2021 US, pelvi s, trans abdom inal + trans vagin al No observ ation record ed. [facility] ([facility]) [address] [place], [address], 07/06/2021 09:52:13 09/08/19 24 09/05/2023 US, pelvi s, trans abdom inal + trans vagin al No observ ation record ed. [facility] [address] [place], [address], 09/10/2023 11:05:15 10/30/19 25 10/29/2024 US, pelvi s, trans abdom inal + trans vagin al No observ ation record ed. [facility] [address] [place] [address], [address], 11/01/2024 09:06:07 Result Notes None recorded. Problems Name Problem SNOMED Code Status Onset Date Resolution Date Notes Provider Name and Address Organization Details Recorded Time Acute lower urinary tract infection 645060683 Active Agatha Gutiérrez MD [address], [place], [address] , [place] - [facility], 4 16:46:00 Pain in pelvis 66908747 Active MD [address], [place], [address] , [place] - [facility], 4 10:17:10 Candidal vulvovagi nitis 17898292 Active Agatha Gutiérrez MD [address], [place], [address] , [place] - [facility], 4 14:16:45 Odorless vaginal discharge 534607597 Active Not Available [facility] 3 03:01:05 Dysmenorr hea 249550173 Active Agatha Gutiérrez MD [address], [place], [address] , [place] - [facility], 5 13:17:35 Disorder of hair AND/OR hair follicle Active Agatha Gutiérrez MD [address], [place], [address] , [place] [facility], 5 13:15:22 Breast lump 32945595 Active Agatha Gutiérrez MD [address], [place], [address] , [place] - [facility], 4 09:13:17 Migraine with aura 8302697 Active 2012 eye blindness and left sided weakness Not Available [facility] 3 03:01:05 Status migrainos 929391526 Active 2012 eye blindness and left sided weakness Not Available [facility] 3 03:01:05 History of sexually transmitt ed disease 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 Procedures Surgical History Date Name Laterality Status Provider Name and Address Organization Details Recorded Time 09/27/19 20 Implanon Insertion completed MD Yuriy Carlton [address], [place], [address], [place] [facility], 09/27/2019 13:00:14 09/15/19 20 Implanon Removal completed MD [place], [address], [place] [facility], 09/15/2019 14:51:46 01/30/20 17 augmentation of bilateral breasts completed Dania Mckay [place] - [facility], 12/14/2020 14:27:14 07/28/19 14 Cholecystectomy completed Daysipiero Pak in [facility], 08/13/2013 09:07:42 07/28/19 14 Other completed Daysi Pak in [facility], 03/22/2016 13:41:51 Imaging Results None recorded. [...] Not Available Not Available Not Avai lable Nurtec ODT 75 mg disintegr ating tablet PLACE ONE TABLET BY MOUTH EVERY DAY NEEDED FOR MIGRAINE HEADACHE . MAX DAILY DOSE 1 TABLET active Not Available Not Available No t Available Vitals Date Recorded Body height Body mass index (BMI) Body weight Body temperature Heart rate Systolic And Diastolic Provider Name and Address Organization Details Last Updated DateTime 154.94 cm 21.7 kg/m2 25625.1 2 g 97.6 [degF] 105 /min 113/65 mm[Hg] Daysi Jeevanpaul [place] - [facility], 09:34:55 Date Recorded Body height Body mass index (BMI) Body weight Heart rate Systolic And Diastolic Provider Name and Address Organization Details Last Updated DateTime 10/12/2024 154.94 cm 25.9 kg/m2 66136.15 g 92 /min 114/72 mm[Hg] Daysi [employer] [place] - [facility], 10/12/2024 11:28:18 Date Recorded Body height Body mass index (BMI) Body weight Heart rate Systolic And Diastolic Provider Name and Address Organization Details Last Updated DateTime 10/14/2024 154.94 cm 25.9 kg/m2 28845.15 g 93 /min 108/68 mm[Hg] Daysi Taazraywor [place] - [facility], 10/14/2024 14:46:35 Date Recorded Body height Body mass index (BMI) Body weight Heart rate Systolic And Diastolic Provider Name and Address Organization Details Last Updated DateTime 11/23/2024 154.94 cm 26.1 kg/m2 19947.47 g 103 /min 102/75 mm[Hg] Daysi [employer] [facility] - [facility], 11/23/2024 15:00:16 Date Recorded Body height Heart rate Body mass index (BMI) Body weight Systolic And Diastolic Provider Name and Address Organization Details Last Updated DateTime 06/01/2021 154.94 cm 96 /min 21.5 kg/m2 51675.09 g 116/67 mm[Hg] Daysi [facility] - [facility], 06/01/2021 14:04:06 Social History Question Answer Notes LastModified by Organizat ion Details LastModified Time Tobacco Smoking Status Never Smoker Not Available [facility] 05/30/2020 03:19:42 Are You Blind Or Do You Have Difficulty Seeing? No [id number] Information not available 05/30/2020 What Is Your [...] Do You Have Serious Difficulty Hearing? No [id number] Information not available 05/30/2020 What Type Of Diet Are You Following? REGULAR [id number] Information not available 05/30/2020 Which Illicit Or Recreational Drugs Have You Used? No [id number] Information not available 05/30/2020 Do You Reside In Or Have You Traveled To An Area Where Ebola Virus Transmission Is Active? No [id number] Information not available 05/30/2020 Education 2 Year College [employer] Information not available 08/13/2013 What Is The Highest Grade Or Level Of School You Have Completed Or The Highest Degree You Have Received? [id number] Information not available 05/16/2021 Who Is Your Employer? [employer] Information not available 08/26/2023 How Many [...] available 05/16/2021 Are You Sexually Active? Yes [id number] Information not available 05/30/2020 How Much Tobacco Do You Smoke? No [id number] Information not available 05/30/2020 General Stress Level Medium Information not available 03/22/2016 Do You Have Difficulty Walking Or Climbing Stairs? No [id number] Information not available 05/30/2020 Have You Recently [...] is your level of alcohol consumption? None [id number] Information not available 05/30/2020 Do you or have you ever used smokeless tobacco? Never used smokeless tobacco [id number] Information not available 05/30/2020 Are you currently employed? Yes Information not available 05/16/2021 Do you have difficulty doing errands alone? No [id number] Information not available 05/30/2020 What is your occupation? Other [employer] Information not available 01/07/2025 Do you have difficulty dressing or bathing? No [id number] Information not available 05/30/2020 Do you or have you ever used e-cigarettes or vape? Never used electronic cigarettes [id number] Information not available 05/30/2020 What is your exercise level? Moderate [id number] Information not available 05/30/2020 Mental Status Question Answer Note LastModified by Organizat ion Details LastModified Time Do you feel stressed (tense, restless, nervous, or anxious, or unable to sleep at night)? [id number] Information not available 05/16/2021 Do you have difficulty concentrating, remembering or making decisions? No [id number] Information no t available 05/30/2020 Family History [...] vaccine, UNSPECIFIED 1 completed SHANTA Tenorio in [facility], 12/14/2020 14:25:07 SARS-COV-2 (COVID-19) vaccine, UNSPECIFIED 1 completed SHANTA Tenorio in [facility], 12/14/2020 14:25:16 Influenza, MDCK, quadrivalent, PF 9 completed SHANTA Matta in [facility], 08/26/2023 09:34:04 MMR 0 completed SHANTA Matta in [facility], 08/26/2023 09:34:04 MMR 6 completed SHANTA Matta in [facility], 08/26/2023 09:34:04 COVID-19, mRNA, LNP-S, PF, [...] [facility], 08/26/2023 09:34:05 OPV, trivalent 9 completed Daysi Meczywor null, [place] [facility], 08/26/2023 09:34:05 OPV, trivalent 5 completed Daysi Meczywor [place], [place] [facility], 08/26/2023 09:34:05 OPV, trivalent 5 completed Daysi Meczywor [place], [place] [facility], 08/26/2023 09:34:05 OPV, trivalent 5 completed Daysi Meczywor null, [place] - [...] Meczywor [place], [place] [facility], 08/26/2023 09:34:05 Hib (HbOC) 6 completed Daysi Meczywor [place] [facility], 08/26/2023 09:34:05 Hib (HbOC) 5 completed Daysi Meczywor [place] [facility], 08/26/2023 09:34:05 Hib (HbOC) 5 completed Daysi Meczywor [place] [facility], 08/26/2023 09:34:05 meningococcal MCV4P 7 completed Daysi Meczywor [place] [facility], 08/26/2023 09:34:05 meningococcal MCV4P 3 completed Daysi Meczywor [place], [place] [facility], 08/26/2023 09:34:05 DTaP 9 completed Daysi Meczywor [place], [place] [facility], 08/26/2023 09:34:05 Past Encounters Encounter ID Performer Location Encounter Start Date Encounter Closed Date Diagnosis/Indication Diagnosis SNOMED-CT Code Diagnosis ICD10 Code Diagnosis Note [id number] MD AGATHA Carlton MD [address] [place] [address] 08/13/2012 14:53:24 08/14/2012 14:23:41 [id number] MD AGATHA Carlton MD [address] [place] [address] 08/13/2013 08:57:07 08/13/2013 14:10:07 Specialized medical examination 67192395 Venereal d isease screening 431277987 Candidal vulvovaginitis 38833944 [id number] MD AGATHA Carlton MD [address] [place] [address] 10/08/2012 14:56:18 10/08/2012 16:27:19 [id number] MD AGATHA Carlton MD [address] [place] [address],[address] [place] [address] 10/26/2012 13:27:26 10/27/2012 08:53:02 [id number] MD AGATHA Carlton MD [address] [place] [address],[address] [place] [address] 01/04/2013 14:39:37 01/04/2013 16:16:13 [id number] MD AGATHA Carlton MD [address] [place] [address],[address] [place] [address] 04/26/2013 09:44:01 04/26/2013 12:53:20 [id number] MD AGATHA Carlton MD [address] [place] [address],[address] [place] [address] 11/15/2013 13:22:27 11/15/2013 15:42:47 Breast lump [id number] MD AGATHA Carlton MD [address] [place] [address],[address] [place] [address] 01/18/2014 14:34:41 01/19/2014 08:10:47 Acute lower urinary tract infection 533569199 Venereal d isease screening 915263912 Pain in pelvis 65647055 [id number] MD AGATHA Carlton MD [address] [place] [address],[address] [place] [address] 02/21/2014 11:19:36 02/21/2014 16:13:56 Candidal vulvovaginitis 32967863 [id number] MD AGATHA Carlton MD [address] [place] [address],[address] [place] [address] 03/18/2014 13:49:41 03/18/2014 15:52:04 Dysmenorrhea 743228302 [id number] MD AGATHA Carlton MD [address] [place] [address],[address] [place] [address] 06/08/2014 09:16:13 06/08/2014 11:51:39 Dysmenorrhea [id number] MD AGATHA Carlton MD [address] [place] [address],[place] [address] 08/17/2014 08:54:30 08/17/2014 09:41:13 Specialized medical examination [id number] Venereal d isease screening [id number] MD AGATHA Carlton MD [address] [place] [address],[place] [address] 09/02/2014 12:51:59 09/02/2014 16:10:16 Dysmenorrhea [id number] MD AGATHA Carlton MD [address] [place] [address],[place] [address] 5 10/21/2014 11:15:49 10/21/2014 13:21:28 Dysmenorrhea [id number] Disorder o f hair AND/OR hair follicle [id number] MD AGATHA Carlton MD [address] [place] [address],[place] [address] 01/24/2015 12:57:12 01/24/2015 13:56:05 Dysmenorrhea [id number] MD AGATHA Carlton MD [address] [place] [address],[place] [address] 5 03/22/2016 13:33:03 03/22/2016 14:36:59 Candidal vulvovaginitis [id number] B37.3 Uses oral contraception 6965642 Z79.3 [id number] MD AGATHA Carlton MD [address] [place] [address],[place] [address] 5 03/22/2016 14:01:54 03/25/2016 08:58:54 Candidal vulvovaginitis 12698965 B37.3 [id number] MD AGATHA Carlton MD [address] [place] [address],[place] [address] 5 08/25/2019 10:45:53 08/26/2019 08:57:07 Primary dysmenorrhea [id number] N94.4 [id number] MD AGATHA Carlton MD [address] [place] [address],[place] [address] 09/15/2019 14:00:37 09/15/2019 15:46:39 Contraception care [id number] Z30.46 Subcutaneo us contraceptive implant present 913057239 Z30.46 [id number] MD AGATHA Carlton MD [address] [place] [address],[place] [address] 5 09/27/2019 10:24:30 09/27/2019 13:19:28 Implantation of subcutaneous contraceptive [id number] Z30.46 [id number] MD AGATHA Carlton MD [address] [place] [address],[place] [address] 12/14/2020 14:18:36 12/14/2020 15:52:56 Specialized medical examination [id number] Z01.419 Venereal d isease screening 549005351 Z11.3 [id number] MD AGATHA Carlton MD [address] [place] [address],[place] [address] 05/16/2021 10:41:53 05/16/2021 11:58:22 Venereal disease screening 941197680 Z11.3 Acute lowe r urinary tract infection 717290944 R30.0 Cyst of left ovary 38661 21267 2011669 N83.292 Candidal vulvovaginitis 46151203 B37.3 Pain in pelvis 53964328 R10.2 [id number] MD AGATHA Carlton MD [address] [place] [address],[place] [address] 5 06/01/2021 13:54:46 06/01/2021 15:24:12 Acute lower urinary tract infection 613497035 R30.0 Abnormal u terine bleeding [id number] 9100 N93.9 [id number] MD AGATHA Carlton MD [address] [place] [address],[place] [address] 08/26/2023 09:19:19 08/27/2023 10:23:37 Acute lower urinary tract infection 702871848 R30.0 Venereal d isease screening 725115741 Z11.3 Cyst of right ovary 1223 760573 3853495 N83.201 Candidal vulvovaginitis 98362101 B37.31 Pain in pelvis 29446544 R10.2 [id number] MD AGATHA Carlton MD [address] [place] [address] 10/12/2024 11:20:21 10/12/2024 13:06:33 Acute lower urinary tract infection 300078663 R30.0 Right lowe r quadrant pain 220468100 R10.31 Candidal vulvovaginitis 85262286 B37.31 [id number] MD AGATHA Carlton MD [address] [facility],[address] [facility] [place] [address] 10/14/2024 14:41:48 10/14/2024 15:59:13 Ulceration of vulva 34324659 N76.6 [id number] MD AGATHA Carlton MD [address] [facility],[address] [place] [address] 11/23/2024 14:56:36 11/23/2024 15:34:40 Specialized medical examination 45567560 Z01.419 Venereal d isease screening 174748706 Z11.3 History of sexually transmitted disease 925114005 Z86.19 Health Concerns Section Related Observation LastModified by Organization Detai ls LastModified Time None Recorded Concern Status LastModified by Organization Details LastModified Time None Recorded Advance Directives Directive None Recorded Payers Insurance Date Sequence Insurance Name Policy Number Policy Plata Covered Member ID Plata Member ID Guarantor Name 05/16/2021 1 *SELF PAY* Hernandez Monzon 08/26/2023 1 [facility] [id number] Jenifer Monzon [id number] Jenifer Monzon 11/20/2024 1 [employer] [facility] ([facility]) [id number] Jenifer Monzon [id number] Jenifer Monzon 08/26/2023 [place] [employer] [place] [id number] Jenifer Monzon [id number] Jenifer Gallowayisma 12/14/[address] [facility]: NETWORK BLUE - HMO [facility] [id number] Emmanuel Monzon [id number] Jenifer Monzon Notes Date Note Type [...] LMP was 06/01/21. Agatha Gutiérrez MD [address] [facility],[address], [place], [address], [facility], 06/01/2021 14:51:42 08/26/2023 text/html She is here for a complaint of pelvic pain. she missed her last menses, LMP was 07/01/23. 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 Agatha Gutiérrez MD [address] [facility],[address], [place], [address], [place] - [facility], 08/26/2023 11:23:45 10/12/2024 text/html She is here for a two week history of right lower quadrant pelvic pain. She also has had vaginal pruritus and a sense of dysuria only onthe outside skin when she urinates. She had been going to a hematology nurse in [place], her last annual was there, however she desires to switch back to our practice. 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 She is seeing Dr. Keroack for wellness, and has been getting tested for a number of things.She had been being followed by us for a 4.5 cm left ovarian cyst, she did a follow up sonogram in 07/17 that showed it decreased to 1.5 cm.She also has vaginal pruritus. Agatha Gutiérrez MD [address], [place], [address], [facility] in [facility], 10/12/2024 12:09:33 10/14/2024 text/html She is here for a one to two day history of external lesions of the vulva that are painful. Her partner of one year has an active herpes lesion on his lip. Agatha Gutiérrez MD [address], [place], [address], [facility] in [facility], 10/14/2024 15:14:44 11/23/2024 text/html She is [...] MD [address], [place], [address], [facility] in [facility], 11/23/2024 15:22:15 OBGyn Episode No OBEpisode recorded. She had been being followed by us [...] this. She needs to do this at [place] for costs, she will ask her PCP for a referral to a general surgeon. Check pelvic sonogram to pelvic pain and posible persistent right ovarian cyst, Check genprobe for pelvic pain, and newer partner. She is advised to return soon for gian and annual as she is overdue . She understands and agrees. Not available 10/12/2024 12:09:08 10/14/2024 [id number] She is here for a one to [...] questions answered. Not available 10/14/2024 15:14:29 11/23/2024 [id number] learning about healthy weight Not available 11/23/2024 [...] DO Not Attach Compendium, Do Not Delete/merge, [id number] 05/16/2021 11:14:31 05/16/20 21 05/16/2021 elmer mckeon Trichomonas negati ve Not Available In-Office Order Internal Use Only DO Not Attach Compendium DO Not Attach Compendium, Do Not Delete/merge, [id number] 05/16/2021 11:14:31 05/16/20 21 05/16/2021 elmer mckeon Hyphae positi ve Not Available In-Office Order Internal Use Only DO Not Attach Compendium DO Not Attach Compendium, Do Not Delete/merge, [id number] 05/16/2021 11:14:31 05/16/20 21 05/16/2021 wet mount , vagin al atrophic epithelium negati ve Not Available In-Office Order Internal Use Only DO Not Attach Compendium DO Not Attach Compendium, Do Not Delete/merge, [id number] 05/16/2021 11:14:31 05/16/20 21 05/16/2021 URINE CULTU RE comments [facility] [address] [place] [address] [facility] raine whitaker MD SOURC E: URINE ,SHIRA N CATCH ; Not Available [facility] [address] [place] [address], [address], 05/18/2021 09:21:35 05/16/20 21 05/17/2021 URINE CULTU RE urine culture [facility] atorjo slater, a membe r of [facility] [address] [place] [address] [facility] raine whitaker MD COLLE CTION TIME: 05/16 11:00 :00 AM -04:0 0 URINE CULTU RE ESCHE JENNIFER A COLI ( ESCCO L ) F URINE CULTU RE COLON Y COUNT F URINE CULTU RE 10,00 0-49, 000 F Not Available [facility] [address] [place] [address], [address], 05/18/2021 09:21:35 05/16/20 21 05/16/2021 CHLAM YDIA DNA SWAB comments [facility] gladys slater, [facility] [address] [place] [address] [facility] raine whitaker MD Not Available [facility] [address] [place] [address], [address], 05/18/2021 07:14:28 05/16/20 21 05/16/2021 CHLAM YDIA DNA SWAB chlamydia DNA swab NEGATI VE negati ve Not Available [facility] [address] [place] [address], [address], 05/18/2021 07:14:28 05/16/20 21 05/16/2021 GC DNA SWAB comments [facility], [facility] [address] [place] [address] Medic al [facility] raine whitaker MD Not Available [facility] [address] [place] [address], [address], 05/18/2021 07:14:33 05/16/20 21 05/16/2021 GC DNA SWAB GC DNA swab NEGATI VE negati ve Not Available [facility] [address] [place] [address], [address], 05/18/2021 07:14:33 05/16/20 21 05/16/2021 GRAM NEGAT BINU SUSCE PTIBI LITY comments PAREN T ORGAN ISM: ESCHE JENNIFER A COLI ( ESCCO L ) [facility], a [facility] [address] [place] [address] [facility] raine whitaker MD SOURC E: URINE ,SHIRA N CATCH ; Not Available [facility] [address] [place] [address], [address], 05/18/2021 09:21:41 05/16/2005/17/2021 GRAM NEGAT BINU SUSCE PTIBI LITY gram negative susceptibili ty [facility], a [facility] [address] [place] [address] [facility] raine whitaker MD COLLE CTION [...] S F Not Available [facility] [address] [facility], [place], [address], 05/18/2021 09:21:41 05/16/2005/16/2021 pregn tong test, urine [...] 11:01:41 05/16/2005/16/2021 urina lysis , dipst ick KET Negati ve Not Available In-Office Order Internal Use Only DO Not Attach Compendium DO Not Attach Compendium, Do Not Delete/merge, 05/16/2021 11:01:41 05/16/2005/16/2021 urina lysis , dipst ick SG 1.025 Not Available In-Office Order Internal Use Only DO Not Attach Compendium DO Not Attach Compendium, Do Not Delete/merge, 05/16/2021 11:01:41 05/16/20 21 05/16/2021 urina lysis , dipst ick BLO Negati ve Not Available In-Office Order Internal Use Only DO Not Attach Compendium DO Not Attach Compendium, Do Not Delete/merge, [id number] 05/16/2021 11:01:41 05/16/20 21 05/16/2021 urina lysis , dipst ick pH 5.0 Not Available In-Office Order Internal Use Only DO Not Attach Compendium DO Not Attach Compendium, Do Not Delete/merge, [id number] 05/16/2021 11:01:41 05/16/20 21 05/16/2021 urina lysis , dipst ick PRO Negati ve Not Available In-Office Order Internal Use Only DO Not Attach Compendium DO Not Attach Compendium, Do Not Delete/merge, [id number] 05/16/2021 11:01:41 05/16/20 21 05/16/2021 urina lysis , dipst ick URO 0.2 E.U. / dl Not Available In-Office Order Internal Use Only DO Not Attach Compendium DO Not Attach Compendium, Do Not Delete/merge, [id number] 05/16/2021 11:01:41 05/16/20 21 05/16/2021 urina lysis , dipst ick NIT negati ve Not Available In-Office Order Internal Use Only DO Not Attach Compendium DO Not Attach Compendium, Do Not Delete/merge, [id number] 05/16/2021 11:01:41 05/16/20 21 05/16/2021 urina lysis , dipst ick COLIN Negati ve Not Available In-Office Order Internal Use Only DO Not Attach Compendium DO Not Attach Compendium, Do Not Delete/merge, [id number] 05/16/2021 11:01:41 06/01/20 21 06/01/2021 URINE CULTU RE comments [facility], [facility] [address] [facility] [place] [address] Medic al [facility] raine whitaker MD SOUR E: URINE ,SHIRA N CATCH ; Not Available [facility] [address] [facility], [place], [address], 06/02/2021 16:30:31 06/01/20 21 06/02/2021 URINE CULTU RE urine culture [facility], [facility] [address] [facility] [address] Medic al [facility] raine whitaker MD COLLE CTION TIME: 2020 2:00: 00 PM -04:0 0 URINE CULTU RE No growt h F Not Available [facility] [address] [facility], [place], [address], 06/02/2021 16:30:31 06/01/20 21 06/01/2021 pregn tong [...] 13:56:57 06/01/2006/01/2021 urina lysis , dipst ick SG 1.010 Not Available In-Office Order Internal Use Only DO Not Attach Compendium DO Not Attach Compendium, Do Not Delete/merge, 06/01/2021 13:56:57 06/01/2006/01/2021 urina lysis , dipst ick BLO Small Not Available In-Office Order Internal Use Only DO Not Attach Compendium DO Not Attach Compendium, Do Not Delete/merge, [id number] 06/01/2021 13:56:57 06/01/2006/01/2021 urina lysis , dipst ick pH 6.0 Not Available In-Office Order Internal Use Only DO Not Attach Compendium DO Not Attach Compendium, Do Not Delete/merge, [id number] 06/01/2021 13:56:57 06/01/2006/01/2021 urina lysis , dipst ick PRO Negati ve Not Available In-Office Order Internal Use Only DO Not Attach Compendium DO Not Attach Compendium, Do Not Delete/merge, [id number] 06/01/2021 13:56:57 06/01/20 21 06/01/2021 urina lysis , dipst ick URO 0.2 E.U. / dl Not Available In-Office Order Internal Use Only DO Not Attach Compendium DO Not Attach Compendium, Do Not Delete/merge, [id number] 06/01/2021 13:56:57 06/01/2006/01/2021 urina lysis , dipst ick NIT negati ve Not Available In-Office Order Internal Use Only DO Not Attach Compendium DO Not Attach Compendium, Do Not Delete/merge, [id number] 06/01/2021 13:56:57 06/01/2006/01/2021 urina lysis , dipst ick COLIN Negati ve Not Available In-Office Order Internal Use Only DO Not Attach Compendium DO Not Attach Compendium, Do Not Delete/merge, [id number] 06/01/2021 13:56:57 08/26/19 24 08/27/2023 CHLAM YDIA [...] Go To The Location Of Their Choice, [id number] 08/27/2023 12:48:43 08/26/19 24 08/27/2023 CHLAM YDIA [...] neede d. Conta ct phone numbe r [phone]. Thera peuti c failu re or succe ss canno t be deter mined with the Aptim a Combo 2 assay since nucle ic acid may persi st follo wing appro priat e antim icrob ial thera py. [facility] ([facility]) recom mends confi rmato ry [...] 07:06:36 08/26/19 24 08/26/2023 wet mount , vagin al Clue Cells [...] culture, routine Final report Not Available [facility] ([facility]) [address] [facility], [place], [address], 10/14/2024 00:05:16 10/13/19 25 10/13/2024 URINE CULTU RE, ROUTI NE result 1 No growth Not Available [facility] ([facility]) [address] [facility], [place], [address], 10/14/2024 00:05:16 10/13/19 25 10/14/2024 NO SPECI MEN RECEI VINH no specimen received COMMEN T Test not perfo rmed. No speci men recei vinh. TEST: [id number] 3 CT/GC Ampli fied- Cervi x Not Available [facility] ([facility]) [address] [facility], [place], [address], 10/14/2024 12:05:47 10/13/19 25 10/14/2024 NTI MISCE LLANE OUS nti miscellaneou s Commen t Dear Docto r, The requi sitio n we recei [...] of a labor atory test. Pleas e compl ete the follo wing and fax to [phone] to exped ite testi ng. Requi red test name( s)___ ___ Requi red test numbe r(s)_ ___ Physi bull signa ture_ __ Date_ __ Diagn osis Code: __ In order to maint joannn katiuska e katiuska singh es will be store d for two to seven days from the date of recei pt. Not Available [facility] ([facility]) [address] [facility], [place], [address], 10/14/2024 12:05:48 10/13/19 25 10/14/2024 VERBA L ORDER see below: Commen t: Lionel lovetti de reque sted infor kayla n and fax to [phone]. [place] Code of [...] Test( s) Morteza rayo Not Available [facility] [address] [place], [address], 10/14/2024 14:06:21 10/13/19 25 10/14/2024 VERBA L ORDER additional test(s) requested Commen t: Test( s) added per DAYSI Stubbs ([place]) at acc nt 10-14 Logge d by Ravin rodriguez Snow Test# [id number] Chlam ydia/ GC Ampli ficat ion Test# 90808 [address] Code Not Available [facility] [address], [place], [address], 10/14/2024 14:06:21 10/13/19 25 10/20/2024 CHLAM YDIA/ GC AMPLI FICAT ION chlamydia trachomatis, RYAN Negati ve negati ve Not Available [facility] ([facility]) [address] [facility], [place], [address], 10/20/2024 10:05:58 10/13/19 25 10/20/2024 CHLAM YDIA/ GC AMPLI FICAT ION neisseria gonorrhoeae, RYAN Negati ve negati ve Not Available [facility] ([facility]) [address] [place], [address], 10/20/2024 10:05:58 10/13/19 25 10/14/2024 VERBA L ORDER see below: Commen t: Pleas e provi de reque sted infor kayla whitaker and fax to [phone]. [place] Code of [...] Logge d by Ravin rodriguez Snow Test# [id number] 4 Chlam ydia/ GC Ampli ficat ion Test# [address] Code Not Available In-Office Order Internal Use Only DO Not Attach Compendium DO Not Attach Compendium, Do Not Delete/merge, 10/21/2024 12:06:04 10/13/1910/21/2024 VERBA L ORDER verbal order Commen t This is the secon d notic e reque sting this infor kayla rasmussen An IMMED IATE respo nse is neede d. Not Available In-Office Order Internal Use Only DO Not Attach Compendium DO Not Attach Compendium, Do Not Delete/merge, 10/21/2024 12:06:04 10/13/1910/14/2024 VERBA L ORDER see below: Commen t: Lionel lovetti de reque sted infor matbasilio n and fax to [phone]. [place] Code of [...] Addit ional Diagn osis Code( s):__ _ Lionel robertson Print ICD-9 /10 Diagn osis Code( s):__ _ Physi bull
[2025-02-17 16:24] LABS: MANUAL DIFF FLAG NO
[2025-02-17 17:12] LABS: Hematocrit 37.4 % (37.0-47.0); Hemoglobin 12.6 g/dl (12.0-16.0); Imm Gran Abs Auto 0.09 X10*3/uL (0.00-0.03); Imm Gran Pct Auto 0.8 % (0.0-0.4); Lymphocytes Absolute Auto 3.3 X10*3/uL (1.2-4.9); Mean Corpuscular HGB Conc 33.7 g/dl (31.0-35.0); Mean Corpuscular Hemoglobin 30.9 pg (27.0-33.0); Mean Corpuscular Volume 91.7 fL (80.0-98.0); NRBC Abs Auto 0.000 X10*3/uL (0.0-0.012); NRBC Pct Auto 0.0 /100WBC (0.0-0.2); Platelet Count 273 X10*3/uL (160-400); Red Blood Count 4.08 X10*6/uL (4.20-5.50); White Blood Count 10.9 X10*3/uL (4.8-10.8)
[2025-02-17 17:38] LABS: Alanine Aminotransferase 25 U/L (0-31); Albumin Level 4.9 g/dL (3.5-5.0); Alkaline Phosphatase 61 U/L (39-117); Anion Gap 14 (12-20); Aspartate Amino Transferase 24 U/L (5-31); Blood Urea Nitrogen 27 mg/dL (9-16); Calcium 9.6 mg/dL (8.4-10.2); Carbon Dioxide 23 mmol/L (22-29); Chloride 104 mmol/L (96-108); Estimated Glomerular Filt Rate > 60; Iron 64 mcg/dL (30-160); Percent Iron Saturation 22 % (15-50); Potassium 3.5 mmol/L (3.3-5.1); Sodium 137 mmol/L (135-145); Total Iron Binding Capacity 293 mcg/dL (228-428); Total Protein 7.6 g/dL (6.5-8.0); Unsaturated Iron Binding 229 ug/dL
[2025-02-17 17:52] LABS: Ferritin 29 ng/mL (10-122); Free T4 (Free Thyroxine) 0.93 ng/dL (0.71-1.85); Thyroid Stimulating Hormone 2.28 uIU/mL (0.32-4.0)
[2025-02-18 11:49] LABS: EBV-NA IgG Index <18.00 U/mL; EBV-VCA IgG Ab >750.00 U/mL; EBV-VCA IgM Ab <36.00 U/mL; Epstein Barr Virus Early Ag Ab <9.00 U/mL
[2025-02-18 18:48] LABS: Thyroglobulin Antibodies <1 IU/mL (< or = 1)
[2025-02-20 01:19] LABS: Iodine, Serum/Plasma 43 mcg/L (52-109)
[2025-02-21 06:19] LABS: Triiodothyronine T3 Reverse 9 ng/dL (8-25)
[2025-02-22 21:23] LABS: Mycoplasma Pneumoniae - IgG <=0.90 (<=0.90); Mycoplasma Pneumoniae - IgM 532 U/mL (<770)
[2025-02-23 13:13] LABS: Magnesium, RBC 4.5 mg/dL (4.0-6.4)
== END 2025-02-17 15:42 | disposition home or self-care (01) ==
LOC: HO.LAB 15:41
PROVIDERS: PCP Family Medicine; Visit Provider Allergy & Immunology Allergy
DX: R53.83 Other fatigue (principal); D64.9 Anemia, unspecified; E03.8 Other specified hypothyroidism
CPT/HCPCS: 80053; 82728; 83540; 83735; 83789; 84439; 84443; 84481; 84482; 85025; 86376; 86631; 86632; 86644; 86645; 86663; 86664; 86665; 86738; 86790; 86800

== ENCOUNTER 2025-04-26 07:45 | Outpatient (REF) | payer OTHER, SELFPAY ==
--- OUTSIDE RECORDS SUMMARY | 2025-04-26 07:54 | XMS_ITS | Clinical Summary ---
Author Organization [facility] Address [address] [place] [address] Care Team Providers Care Road Sign Installer Name Role Phone Pcp, No Primary Care Provider Jered Barajas MD Unavailable Allergies No known active allergies Medications Nurtec [address] ONE TABLET BY MOUTH EVERY DAY NEEDED FOR MIGRAINE HEADACHE. MAX DAILY DOSE 1 TABLET 3 Active nystatin (MYCOSTATIN) 585005 units tablet TAKE ONE TABLET BY MOUTH [...] series) 2013 Pap Smear (Ages 21-65) 10/24/2015 HPV Vaccines (1 - 3-dose SCDM series) 2021 Influenza Vaccine 02/25/2025 07/23/2019, , 07/28/2013, Additional history exists COVID-19 Vaccine (2024- season) 2025 12/04/2020, 11/07/2020 Pneumococcal Vaccine: Pediatric (0-5 Years) and At-Risk Patients (6 to 49 Years) Aged Out No longer eligible based on patient's age to complete this topic Insurance [facility] [address] H[facility] Care Teams Road Sign Installer Relationship Specialty Start Date End Date Pcp, No PCP - General General Medicine 05/01/23 Jered Haji MD [address] [place] [address] Otolaryngology 05/01/23
[2025-04-26 11:44] LABS: Hematocrit 40.0 % (37.0-47.0); Hemoglobin 13.1 g/dl (12.0-16.0); Imm Gran Abs Auto 0.03 X10*3/uL (0.00-0.03); Imm Gran Pct Auto 0.5 % (0.0-0.4); Lymphocytes Absolute Auto 2.6 X10*3/uL (1.2-4.9); MANUAL DIFF FLAG SCAN; Mean Corpuscular HGB Conc 32.8 g/dl (31.0-35.0); Mean Corpuscular Hemoglobin 30.0 pg (27.0-33.0); Mean Corpuscular Volume 91.5 fL (80.0-98.0); NRBC Abs Auto 0.000 X10*3/uL (0.0-0.012); NRBC Pct Auto 0.0 /100WBC (0.0-0.2); Platelet Count 200 X10*3/uL (160-400); Red Blood Count 4.37 X10*6/uL (4.20-5.50); SCAN SMEAR FLAG 1; White Blood Count 5.8 X10*3/uL (4.8-10.8)
[2025-05-12 08:22] LABS: Estradiol Free 0.91; Estradiol, Ultrasensitive 59
[2025-05-12 08:23] LABS: Testosterone, Free 1.0
== END 2025-04-26 07:46 | disposition home or self-care (01) ==
LOC: HO.10HDL 07:45
PROVIDERS: Visit Provider Allergy & Immunology Allergy
DX: D72.829 Elevated white blood cell count, unspecified (principal); E28.2 Polycystic ovarian syndrome
CPT/HCPCS: 36415; 82627; 82670; 82681; 84270; 84402; 84403; 85025

== ENCOUNTER 2025-05-10 08:09 | Outpatient (REF) | payer OTHER, SELFPAY ==
--- NOTE | ~2025-05-10 | XR_ITS ---
CLINICAL HISTORY: S92.351A - Displaced fracture of fifth metatarsal bone, right foot, init... 3 view right foot Comparison: None provided Findings: Bones intact. No dislocations. No significant loss of joint space, osteophytes, or erosions. No ankle effusion. No radiopaque foreign body. Evaluation mildly limited by the presence of a ring on the 2nd toe. IMPRESSION: 1. No acute findings. This document has been electronically signed by: Dorie Moise MD on 05/11/2025 16:44:56
--- OUTSIDE RECORDS SUMMARY | 2025-05-10 08:17 | XMS_ITS | Clinical Summary ---
Author Organization [facility] Address [address] [place] [address] Care Team Providers Care Coil Connector Name Role Phone Pcp, No Primary Care Provider Jered Barajas MD Unavailable Allergies No known active allergies Medications Nurtec [address] ONE TABLET BY MOUTH EVERY DAY NEEDED FOR MIGRAINE HEADACHE. MAX DAILY DOSE 1 TABLET 3 Active nystatin (MYCOSTATIN) 002981 units tablet TAKE ONE TABLET BY MOUTH [...] Pap Smear (Ages 21-65) 10/24/2015 Influenza Vaccine 02/25/2025 07/23/2019, , 07/28/2013, Additional history exists COVID-19 Vaccine (2024- season) 2025 12/04/2020, 11/07/2020 HPV Vaccines (No Doses Required) Completed Pneumococcal Vaccine: Pediatric (0-5 Years) and At-Risk Patients (6 to 49 Years) Aged Out No longer eligible based on patient's age to complete this topic [facility] Care Teams Coil Connector Relationship Specialty Start Date End Date Pcp, No PCP - General General Medicine 05/01/23 Jered Haji MD [address] [place] [id number] Otolaryngology 05/01/23
== END 2025-05-10 08:10 | disposition home or self-care (01) ==
LOC: HO.HOSX 08:09
DX: S90.31XA Contusion of right foot, initial encounter (principal); W20.8XXA Other cause of strike by thrown, projected or falling object, initial encounter
CPT/HCPCS: 73630

== ENCOUNTER 2025-05-10 08:19 | Outpatient (AMB) | payer OTHER, SELFPAY ==
[2025-05-10 08:35] VITALS: BMI 26.4
--- NOTE | 2025-05-10 08:35 | A.OFFVIS_ITS ---
Vital Signs 05/10/25 08:35 Height 5 ft 1 in Weight 140 lb BMI 26.4 Intake Visit Reasons: New Prob - Right Foot Injury 05/09/25 Intake Note: Jenifer is a 29 year old female who presents today for a New Problem Visit for evaluation of a Right Foot Injury, DOI: 05/09/25. Patient reports a 10 lb plate fell on her foot causing immediate bruising and pain. She has been elevating her foot and icing it without relief. She complains of pain when wearing shoes. Patient denies previous injuries or surgeries to the left foot. Allergies No Known Allergies Allergy (Verified 05/10/25 08:42) HPI HPI New Prob - Right Foot Injury 05/09/25: Details: Jenifer is a 29 year old female who presents today for a New Problem Visit for evaluation of a Right Foot Injury, DOI: 05/09/25. Patient reports a 10 lb plate fell on her foot causing immediate bruising and pain. She has been elevating her foot and icing it without relief. She complains of pain when wearing shoes. Patient denies previous injuries or surgeries to the left foot. 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[employer] Current occupational exposures/hazards: No Cognitive needs: No Hearing needs: No Vision needs: No Female Reproductive History Menstrual Age of Menarche: 13 Review of Systems Const All systems reviewed & are unremarkable except as noted in HPI and below Physical Exam Vital Signs: BMI result Body Mass Index 26.4 Extrem Other: Patient's right foot ecchymotic to inspection, particularly over the 2nd, 3rd, 4th metatarsal heads of the dorsal aspect No erythema, edema noted No lacerations, abrasions, open areas No evidence of infection Patient reports tenderness to palpation of the area of ecchymosis over the 2nd through 4th metatarsal heads of the right foot Pain with ambulation of the right foot Deformity in the right foot noted Distal sensation intact Capillary refill brisk Results Reviewed Results Reviewed: X-rays obtained in the office today and independently reviewed by me, Roger Mishra PA-C, demonstrate no evidence of fracture or acute bony abnormality of the right foot. Assessment & Plan Assessment & Plan (1) Contusion of right foot: Code(s): S90.31XA - Contusion of right foot, initial encounter Category: Medical Plan 1. Right foot contusion Date of injury 05/09/2025 No evidence of bony abnormality on x-ray Patient is educated about this condition Patient is educated about the typical treatment course At this time patient is advised on conservative pain management measures, such as rest, ice, elevation, and [id number] pain medication as needed Patient should ice the right foot and elevate as much as possible to reduce swelling and pain Patient should also wear supportive footwear whenever weight-bearing Patient understands this in his amenable to this plan Follow-up as needed with any acute concerns Coding Level of Care Code Est Pt Level 3 (03480) Diagnoses Contusion of right foot S90.31XA
== END 2025-05-10 08:48 | disposition home or self-care (01) ==
PROVIDERS: PCP Allergy & Immunology Allergy
DX: S90.31XA Contusion of right foot, initial encounter (principal)
CPT/HCPCS: 99213

== ENCOUNTER → 2025-05-10 08:20 | Outpatient (BNV) | payer OTHER, SELFPAY | PROVIDERS: Visit Provider Radiology Diagnostic Radiology | DX: S90.31XA Contusion of right foot, initial encounter (principal) | CPT/HCPCS: 73630 ==

== ENCOUNTER 2025-07-08 10:59 | Outpatient (REF) | payer OTHER, SELFPAY ==
[2025-07-08 15:22] LABS: Bacterial Vaginosis PCR NEGATIVE (Negative); Candida Group PCR NOT DETECTED (Not Detect); Candida glab krusei PCR NOT DETECTED (Not Detect); Trichomonas vaginalis PCR NOT DETECTED (Not Detect)
== END 2025-07-08 11:00 | disposition home or self-care (01) ==
LOC: HO.LAB 10:59
PROVIDERS: Visit Provider Family Medicine
DX: R10.20 Pelvic and perineal pain unspecified side (principal); Z32.02 Encounter for pregnancy test, result negative
CPT/HCPCS: 81003; 81025; 81515; 87086

== ENCOUNTER 2025-07-08 10:59 | Outpatient (AMB) | payer OTHER, SELFPAY ==
--- NOTE | 2025-07-08 11:02 | MHC.OFFWIV ---
Intake Vital Signs 07/08/25 11:04 Height 5 ft 1 in Weight 135 lb BMI 25.5 BP 100/67 Blood Pressure Location Rt brachial Position Sitting Pulse 78 Pulse Source Pulse Oximeter Temp 98 F Temp Source Oral Pulse Oximetry (%) 98 Oxygen Delivery Method Room Air Intake Visit Reasons: EP - ?UTI Intake Note: Ep complains of pelvic cramping, right flank pain and fatigue for a week time (She had UTI and completed the course of treatment recently). Patient Tobacco Use Status: Never used Tobacco Allergies No Known Allergies Allergy (Verified 07/08/25 11:12) Do you need a note to return to daycare/school/sports/work: Yes HPI HPI Comments History of Present Illness Details History of Present Illness The patient is a 29 year old female presenting with persistent symptoms following a recent UTI, including pelvic cramping and right lower back pain. - The patient experienced a sudden onset of burning and urgency with urination on Friday of last week, which was the same day her menstrual period began. - She was diagnosed with her first-ever UTI by her [employer], who performed a urinalysis which was positive for leukocytes, nitrites - A urine cultures showed a UTI, which was sensitive to Macrobid. - She completed a 7-day course of Macrobid two days prior to this visit. - Despite treatment, she reports some persisting burning, urgency, and a slight odor to her urine. - Her [employer] also prescribed a single dose of fluconazole for a possible yeast infection, which provided some relief. - She has a history of recurrent ovarian cysts, primarily on the right side, but states the current pelvic pain is different from her cyst-related pain. - The patient denies a history of kidney stones. - She is not on any control and is not concerned about or STIs. - Her most recent menstrual period, which concluded on July 05, was shorter than usual. - She denies any fevers, N/V, abnormal vaginal discharge Review of Systems Constitutional: Negative for fevers, chills. Reports fatigue Gastroenterology: Negative for nausea or vomiting Genitourinary: Reports urine odor, pelvic cramping, right sided flank pain. Negative for difficulty urinating, dysuria, hematuria, vaginal discharge, abnormal vaginal bleeding Musculoskeletal: Reports body aches Physical Exam Constituational: +Alert and oriented, Well nourished, No acute distress. Pulmonary: No respiratory distress Abdominal: Soft, Non-tender abdomen. Negative CVA tenderness however patient reports right flank is sensitive to palpation Musculoskeletal: Moving all extremities spontaneously and against gravity Psychiatric: Cooperative, Appropriate mood & affect PFSH Medical History (Updated 05/10/25 @ 14:56 by RONALDO Mc) Foreign body of left upper arm FHx: cholecystectomy Migraine Surgical History Hx of rhinoplasty History of augmentation of both breasts Hx of cholecystectomy Family History Father Substance abuse Social History Household Members: Family Household Members Other:: parents Housing: House Alcohol intake: never Patient Tobacco Use Status: Never used Tobacco e-Cigarette/Vaping Use: Never Used Second Hand Smoke Exposure: No service: No Current occupational status: employed 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 Current occupational exposures/hazards: No Cognitive needs: No Hearing needs: No Vision needs: No Female Reproductive History Menstrual Age of Menarche: 13 Physical Exam Vital Signs: Last Vital Signs Temp 98 F 07/08/25 11:04 Pulse 78 07/08/25 11:04 BP 100/67 07/08/25 11:04 Pulse Ox 98 07/08/25 11:04 Oxygen Delivery Method Room Air 07/08/25 11:04 BMI result Body Mass Index 25.5 Results AMB Urinalysis, Automated UA Leukoctes 0 Sheree/uL Last Edit by Tayler Gamble MA on 07/08/25 11:30 UA Nitrite Negative Last Edit by Tayler Gamble MA on 07/08/25 11:30 UA Urobilinogen 0.2 mg/dL Last Edit by Tayler Gamble MA on 07/08/25 11:30 UA Protein 15 mg/dL Last Edit by Tayler Gamble MA on 07/08/25 11:30 Trace Tayler Gamble 07/08/25 11:30 UA pH 6.0 Last Edit by Tayler Gamble MA on 07/08/25 11:30 UA Blood 0 Asad/uL Last Edit by Tayler Gamble MA on 07/08/25 11:30 UA Specific [place] 1.020 Last Edit by Tayler Gamble MA on 07/08/25 11:30 UA Ketone Negative Last Edit by Tayler Gamble MA on 07/08/25 11:30 UA Bilirubin 1 mg/dL Last Edit by Tayler Gamble MA on 07/08/25 11:30 1+ Tayler Gamble 07/08/25 11:30 UA Glucose 0 mg/dL Last Edit by Tayler Gamble MA on 07/08/25 11:30 AMB Test Urine AMB Test Urine Negative Last Edit by Tayler Gamble MA on 07/08/25 11:46 Results Reviewed Results Reviewed: Laboratory Last Values Urine pH (Auto) 6.0 07/08/25 11:28 Specific [place] (Auto) 1.020 07/08/25 11:28 Urine Protein (Auto) 15 mg/dL 07/08/25 11:28 Glucose (UA)(Auto) 0 mg/dL 07/08/25 11:28 Urine Ketones (Auto) Negative 07/08/25 11:28 Urine Blood (Auto) 0 Asad/uL 07/08/25 11:28 Urine Nitrite (Auto) Negative 07/08/25 11:28 Urine Bilirubin (Auto) 1 mg/dL H* 07/08/25 11:28 Urine Urobilinogen (Auto) 0.2 mg/dL 07/08/25 11:28 Leukocyte Esterase (Auto) 0 Sheree/uL 07/08/25 11:28 Tst Clinic Negative 07/08/25 11:40 Assessment & Plan Assessment & Plan (1) Pelvic cramping: Code(s): R10.20 - Pelvic and perineal pain unspecified side Plan - Persistent pelvic cramping, right flank pain, and urinary odor post-UTI treatment. - In-office urinalysis is negative for leukocytes and nitrites but does show protein and bilirubin. Discussed potential causes for protein in UA such as dehydration, exercise, and potential underlying kidney issues. - A urinalysis will be sent for culture to rule out persistent infection. - Kidney stones are less likely given the absence of hematuria, no prior history of kidney stones, and atypical pain - A vaginal self-swab was performed to test for yeast, BV, and Trichomonas. - A urine test was negative. Patient denied any concern for potential STDs - In the interim, recommended increased fluids, ibuprofen as needed, and avoiding any products in the vaginal area such as scented soaps - She was provided with strict return precautions for worsening flank pain, fever, chills, or vomiting Patient was informed and verbally consented to the use of an ambient scribe for clinic note documentation during the visit. Orders: Orders Bacterial Vaginosis Panel Today R10.20 - Pelvic and perineal pain unspecified side AMB Urinalysis Automated Today Z13.9 - Encounter for screening, unspecified Urine Culture Today R10.20 - Pelvic and perineal pain unspecified side AMB HCG Urine Test Today R10.20 - Pelvic and perineal pain unspecified side Coding Level of Care Code Est Pt Level 3 (21917) Diagnoses Pelvic cramping R10.20
[2025-07-08 11:04] VITALS: BP 100/67; PULSE 78; TEMP 36.6; O2SAT 98; BMI 25.5
== END 2025-07-08 13:32 | disposition home or self-care (01) ==
PROVIDERS: Visit Provider Family Medicine
DX: R10.20 Pelvic and perineal pain unspecified side (principal); Z13.9 Encounter for screening, unspecified